=== PATIENT | female | born 1945 | race Caucasian/White ===

== ENCOUNTER 2020-11-29 10:06 | Outpatient (REF) | payer MEDICARE, OTHER, SELFPAY ==
[2020-11-29 13:56] LABS: MANUAL DIFF FLAG NO
[2020-11-29 14:01] LABS: Basophils Percent Auto 0.6 % (0-2); Eosinophils Absolute Auto 0.1 X10*3/uL (0.0-0.4); Eosinophils Percent Auto 1.3 % (0-4); Hematocrit 41.9 % (37-47); Hemoglobin 13.8 g/dl (12.0-16.0); Imm Gran Abs Auto 0.03 X10*3/uL (0.00-0.03); Imm Gran Pct Auto 0.6 % (0.0-0.4); Lymphocytes Absolute Auto 1.6 X10*3/uL (1.2-4.9); Mean Corpuscular HGB Conc 32.9 g/dl (31.0-35.0); Mean Corpuscular Hemoglobin 28.9 pg (27.0-33.0); Mean Corpuscular Volume 87.8 fL (80-98); Mean Platelet Volume 11.1 fL (9.4-12.3); Monocytes Absolute Auto 0.4 X10*3/uL (0.1-1.2); Monocytes Percent Auto 7.8 % (2-11); Neutrophils Absolute Auto 3.3 X10*3/uL (2.0-8.3); Neutrophils Percent Auto 60.7 % (45-73); Platelet Count 300 X10*3/uL (160-400); Red Blood Count 4.77 X10*6/uL (4.20-5.50); Red Cell Distribution Width 12.3 % (11.0-16.0); White Blood Count 5.4 X10*3/uL (4.8-10.8)
[2020-11-29 14:51] LABS: Alanine Aminotransferase 11 U/L (0-31); Albumin Level 4.4 g/dL (3.5-5.0); Alkaline Phosphatase 67 U/L (39-117); Anion Gap 14 (12-20); Aspartate Amino Transferase 18 U/L (5-31); Bilirubin Total 0.5 mg/dL (0.0-1.0); Blood Urea Nitrogen 12 mg/dL (9-16); Carbon Dioxide 26 mmol/L (22-29); Chloride 106 mmol/L (96-108); Cholesterol 220 mg/dL; Estimated Glomerular Filt Rate > 60; Glucose Fasting 86 mg/dL (60-99); HDL Cholesterol 85 mg/dL; LDL Cholesterol Calculated 116 mg/dl; Potassium 4.4 mmol/L (3.3-5.1); Sodium 142 mmol/L (135-145); Total Protein 6.7 g/dL (6.5-8.0); Triglycerides 96 mg/dL
== END 2020-11-29 10:07 | disposition home or self-care (01) ==
LOC: HO.10HDL 10:06
PROVIDERS: Visit Provider Internal Medicine
DX: E78.00 Pure hypercholesterolemia, unspecified (principal); K21.9 Gastro-esophageal reflux disease without esophagitis; M19.90 Unspecified osteoarthritis, unspecified site
CPT/HCPCS: 36415; 80053; 80061; 85025

== ENCOUNTER 2021-02-01 08:18 | Outpatient (REF) | payer MEDICARE, OTHER, SELFPAY ==
--- NOTE | ~2021-02-01 | MM_ITS ---
EXAMINATION: MM SCREENING DIGITAL BREAST TOMOSYNTHESIS, BILATERAL CLINICAL INFORMATION: Screening. Asymptomatic. The lifetime risk of breast cancer based on the Tyrer-Cuzick Model is 4.0%. COMPARISON: Mammography: May 26, 2019 and studies dating back to October 31, 2011 TECHNIQUE: Digital breast tomosynthesis is performed in both the craniocaudal and mediolateral oblique views along with computer-aided detection (CAD). Synthesized 2D images are generated from the tomosynthesis. FINDINGS: There are scattered areas of fibroglandular density (ACR BI-RADS breast composition Category b). There are no significant masses, abnormal calcifications, or other abnormalities. MM/MM tomosynthesis screening BI IMPRESSION: There are no significant changes from prior study. ASSESSMENT: BI-RADS 1: Negative RECOMMENDATION: Routine annual mammography screening. This patient's information was entered into a reminder system with a target due date for their next mammogram.
== END 2021-02-01 08:19 | disposition home or self-care (01) ==
LOC: HO.MAMMO 08:18
PROVIDERS: PCP Internal Medicine; Visit Provider Internal Medicine
DX: Z12.31 Encounter for screening mammogram for malignant neoplasm of breast (principal)
CPT/HCPCS: 77063; 77067

== ENCOUNTER 2021-03-09 10:15 | Outpatient (REF) | payer MEDICARE, OTHER, SELFPAY ==
--- NOTE | ~2021-03-09 | XR_ITS ---
EXAMINATION: XR PELVIS CLINICAL INFORMATION: Right pelvic pain. Rule out lesion. COMPARISON: None TECHNIQUE: AP view of the pelvis. FINDINGS: There is normal symmetry of bilateral hip joints and SI joints. No visible fracture or dislocation bony erosive changes seen. There is no sclerosis. There is mild degenerative changes L5-S1, L4-L5 and L3-L4 disc levels with moderate spondylosis. There is mild right-sided pelvic tilt. The soft tissues are normal. XR/XR pelvis 1-2V IMPRESSION: Mild right-sided pelvic tilt. No visible fracture or dislocation. Degenerative disc changes with spondylosis lower lumbar spine.
[2021-03-09 11:27] LABS: MANUAL DIFF FLAG NO
[2021-03-09 11:39] LABS: Basophils Percent Auto 0.5 % (0-2); Eosinophils Absolute Auto 0.1 X10*3/uL (0.0-0.4); Eosinophils Percent Auto 1.9 % (0-4); Hematocrit 42.6 % (37-47); Hemoglobin 14.2 g/dl (12.0-16.0); Imm Gran Abs Auto 0.03 X10*3/uL (0.00-0.03); Imm Gran Pct Auto 0.5 % (0.0-0.4); Lymphocytes Absolute Auto 1.5 X10*3/uL (1.2-4.9); Lymphocytes Percent Auto 26.1 % (20-40); Mean Corpuscular HGB Conc 33.3 g/dl (31.0-35.0); Mean Corpuscular Hemoglobin 29.8 pg (27.0-33.0); Mean Corpuscular Volume 89.3 fL (80-98); Mean Platelet Volume 11.2 fL (9.4-12.3); Monocytes Absolute Auto 0.4 X10*3/uL (0.1-1.2); Monocytes Percent Auto 6.9 % (2-11); Neutrophils Absolute Auto 3.7 X10*3/uL (2.0-8.3); Neutrophils Percent Auto 64.1 % (45-73); Platelet Count 299 X10*3/uL (160-400); Red Blood Count 4.77 X10*6/uL (4.20-5.50); Red Cell Distribution Width 12.4 % (11.0-16.0); White Blood Count 5.8 X10*3/uL (4.8-10.8)
[2021-03-09 12:07] LABS: Alanine Aminotransferase 12 U/L (0-31); Albumin Level 4.3 g/dL (3.5-5.0); Alkaline Phosphatase 69 U/L (39-117); Anion Gap 12 (12-20); Aspartate Amino Transferase 23 U/L (5-31); Bilirubin Total 0.7 mg/dL (0.0-1.0); Blood Urea Nitrogen 16 mg/dL (9-16); C Reactive Protein 0.11 mg/dL (< or = 0.50); Calcium 9.8 mg/dL (8.4-10.2); Carbon Dioxide 26 mmol/L (22-29); Chloride 106 mmol/L (96-108); Estimated Glomerular Filt Rate > 60; Glucose Random 92 mg/dL (60-115); Potassium 4.4 mmol/L (3.3-5.1); Sodium 140 mmol/L (135-145); Total Protein 6.6 g/dL (6.5-8.0)
[2021-03-09 13:44] LABS: Glucose Urine UA NEG (NEG); Leukocyte Esterase Urine NEG (NEG); Nitrite Urine NEG (NEG); PH 7.5 (5.0-8.0); Urine Blood NEG (NEG); Urine Ketones NEG (NEG); Urine Protein NEG (NEG-TRACE)
[2021-03-09 13:54] LABS: Appearance Urine CLEAR; Color Urine YELLOW
== END 2021-03-09 10:16 | disposition home or self-care (01) ==
LOC: HO.LAB 10:15
PROVIDERS: PCP Internal Medicine; Visit Provider Internal Medicine
DX: R10.2 Pelvic and perineal pain (principal)
CPT/HCPCS: 36415; 72170; 80053; 81003; 82550; 85025; 86140

== ENCOUNTER 2022-01-15 08:03 | Outpatient (REF) | payer MEDICARE, OTHER, SELFPAY ==
--- NOTE | ~2022-01-15 | XR_ITS ---
EXAMINATION: XR CERVICAL SPINE CLINICAL INFORMATION: Neck pain. COMPARISON: None TECHNIQUE: 6 views of the cervical spine, inclusive of flexion and extension views, were obtained. FINDINGS: No abnormal prevertebral soft tissue swelling is seen. No acute cervical spine fracture is noted. There is marked narrowing of the C5-C6 and C6-C7 disc spaces with marginal spurring and sclerosis. There is spurring of the joints of Luschka seen to be causing some anterior neural foraminal encroachment at the C5-C6 level bilaterally. There is also noted to be some degenerative spurring about the left facets C2 through C4 and C6-C7 and on the right at C6-C7. XR/XR cervical spine min 6V IMPRESSION: Cervical spondylosis C5 through C7 as described.
[2022-01-15 08:20] LABS: MANUAL DIFF FLAG NO
[2022-01-15 08:47] LABS: Basophils Percent Auto 0.7 % (0-2); Eosinophils Absolute Auto 0.2 X10*3/uL (0.0-0.4); Eosinophils Percent Auto 2.8 % (0-4); Hematocrit 39.8 % (37.0-47.0); Hemoglobin 12.6 g/dl (12.0-16.0); Imm Gran Abs Auto 0.02 X10*3/uL (0.00-0.03); Imm Gran Pct Auto 0.3 % (0.0-0.4); Lymphocytes Absolute Auto 2.4 X10*3/uL (1.2-4.9); Lymphocytes Percent Auto 42.1 % (20-40); Mean Corpuscular HGB Conc 31.7 g/dl (31.0-35.0); Mean Corpuscular Hemoglobin 26.4 pg (27.0-33.0); Mean Corpuscular Volume 83.4 fL (80.0-98.0); Mean Platelet Volume 10.7 fL (9.4-12.3); Monocytes Absolute Auto 0.5 X10*3/uL (0.1-1.2); Monocytes Percent Auto 8.9 % (2-11); Neutrophils Absolute Auto 2.6 x10*3/uL (2.0-8.3); Neutrophils Percent Auto 45.2 % (45-73); Platelet Count 358 X10*3/uL (160-400); Red Blood Count 4.77 X10*6/uL (4.20-5.50); Red Cell Distribution Width 12.5 % (11.0-16.0); White Blood Count 5.8 X10*3/uL (4.8-10.8)
[2022-01-15 09:30] LABS: Alanine Aminotransferase 13 U/L (0-31); Albumin Level 4.2 g/dL (3.5-5.0); Alkaline Phosphatase 68 U/L (39-117); Anion Gap 11 (12-20); Aspartate Amino Transferase 25 U/L (5-31); Bilirubin Total 0.5 mg/dL (0.0-1.0); Blood Urea Nitrogen 14 mg/dL (9-16); Calcium 10.2 mg/dL (8.4-10.2); Carbon Dioxide 27 mmol/L (22-29); Chloride 108 mmol/L (96-108); Cholesterol 205 mg/dL; Estimated Glomerular Filt Rate > 60; Glucose Fasting 91 mg/dL (60-99); HDL Cholesterol 87 mg/dL; LDL Cholesterol Calculated 103 mg/dl; Potassium 4.9 mmol/L (3.3-5.1); Sodium 141 mmol/L (135-145); Total Protein 6.7 g/dL (6.5-8.0); Triglycerides 79 mg/dL
== END 2022-01-15 08:04 | disposition home or self-care (01) ==
LOC: HO.XRAY 08:03
PROVIDERS: PCP Internal Medicine; Visit Provider Internal Medicine
DX: E78.00 Pure hypercholesterolemia, unspecified (principal); K21.9 Gastro-esophageal reflux disease without esophagitis; M54.2 Cervicalgia
CPT/HCPCS: 36415; 72052; 80053; 80061; 85025

== ENCOUNTER 2022-01-24 07:24 | Outpatient (REF) | payer MEDICARE, OTHER, SELFPAY ==
--- NOTE | ~2022-01-24 | MR_ITS ---
EXAMINATION: MR CERVICAL SPINE WITHOUT CONTRAST CLINICAL INFORMATION: 76-year-old with complaints of neck pain. DDD and spondylosis on x-rays. COMPARISON: 01/15/2022 x-rays. TECHNIQUE: MRI of the cervical spine was obtained using routine sequences without contrast. FINDINGS: Alignment: 2 mm of anterolisthesis at C4-C5. 1.5 to 2 mm of anterolisthesis at C7-T1. Lordotic loss between C4-C5 and C6-C7. Craniocervical Junction/C1-C2 Articulations: Intact and aligned. Visualized Intracranial Structures: 2.5 to 3.0 mm of benign cerebellar tonsillar ectopia at the foramen magnum on the right, which is an anatomic variant. Otherwise within normal limits. Vertebral Bodies: Normal height. Disc Spaces and Endplates: Severe disc space height loss at C5-C6 and C6-C7, similar to previous x-rays, with tiny Schmorl's nodes and disc desiccation at these levels and mild anterior marginal spondylosis. Mild disc space height loss at C3-C4 and C4-C5 with minor spondylosis and disc desiccation. Bone Marrow: Minimal type I degenerative marrow signal changes along the endplates at C5-C6 and C6-C7 with type II marrow signal changes at C6-C7 and C4-C5. No suspicious marrow replacing process or aggressive bone marrow edema. C2-C3: No disc herniation. Mild facet arthropathy bilaterally without significant canal or neural foraminal stenosis. C3-C4: No disc herniation. Moderate left and mild right facet arthropathy with minor uncovertebral spurring and mild bilateral neural foraminal stenosis without canal stenosis. C4-C5: Slight unroofing of the posterior disc margin consistent with anterolisthesis, with posterolateral disc osteophyte complex asymmetric to the left, uncovertebral spurring, ynnvjuiv-xb-duxzqj left and rysv-qw-ezrplqyb right-sided facet arthropathy without significant spinal canal stenosis. There is ydxovdae-qi-hncrdc left-sided and moderate right-sided neural foraminal stenosis. C5-C6: Broad-based disc osteophyte complex noted, with flattening of the ventral dural sac without cord impingement, with mild ligament of flavum thickening noted and borderline central spinal canal stenosis. Uncovertebral spurring noted left more than right with lsqv-nd-xyedfwdg facet arthropathy, with lfxkqumb-uk-wxiwgl left-sided and mild right-sided neural foraminal stenosis. C6-C7: Broad-based disc osteophyte complex noted, with flattening of the ventral dural sac without cord impingement. Fniv-uq-fcdmxqfm central spinal canal stenosis is noted with ligamentum flavum thickening. Uncovertebral spurring noted bilaterally with mild bilateral facet arthrosis. There is mild right and moderate left-sided neural foraminal stenosis. C7-T1: Slight unroofing of the posterior disc margin noted consistent with mild anterolisthesis asymmetric to the left with ligamentum flavum thickening without significant spinal canal stenosis. There is bhqejopd-lb-mubcpg left-sided and mild right-sided facet arthropathy, qkcn-dt-rhdbupmg neural foraminal stenosis bilaterally. T1-T2: Minimal left paramedian disc protrusion and mild right-sided facet arthropathy without significant canal or neural foraminal stenosis. At T2-T3: Small right lateral disc protrusion noted encroaching on the right lateral dural sac without neural impingement or canal stenosis. Spinal Cord: The cervical and visualized upper thoracic spinal cord is normal in morphology, caliber and signal intensity throughout. Extracranial Soft Tissues: Within normal limits. MR/MR cervical spine wo con IMPRESSION: 1. Mild anterolisthesis at C4-C5 and C7-T1 similar to previous x-rays with multilevel DDD and spondylosis also similar to previous x-rays. 2. Posterior disc osteophyte complexes at C5-C6 and C6-C7 without cord impingement and posterolateral disc osteophyte complex, left more than right at C4-C5 with multilevel ligamentum flavum thickening, with toor-wv-sngskcrc central spinal canal stenosis at C6-C7 and bnrmadlira-aq-gzew spinal canal stenosis at C5-C6. 3. Multilevel DJD as described above, with multilevel bilateral neural foraminal stenosis, most apparent on the left at C4-C5 and C5-C6.
== END 2022-01-24 07:25 | disposition home or self-care (01) ==
LOC: HO.MRI 07:24
PROVIDERS: Visit Provider Internal Medicine
DX: M51.34 Other intervertebral disc degeneration, thoracic region (principal); M54.2 Cervicalgia
CPT/HCPCS: 72141

== ENCOUNTER 2022-02-02 08:59 | Outpatient (REF) | payer MEDICARE, OTHER, SELFPAY ==
--- NOTE | ~2022-02-02 | MM_ITS ---
EXAMINATION: MM SCREENING DIGITAL BREAST TOMOSYNTHESIS, BILATERAL CLINICAL INFORMATION: Screening. Asymptomatic. The lifetime risk of breast cancer based on the Tyrer-Cuzick Model is 3%. COMPARISON: Mammography: 02/01/2021, 05/26/2019, 05/05/2018 TECHNIQUE: Digital breast tomosynthesis is performed in both the craniocaudal and mediolateral oblique views along with computer-aided detection (CAD). Synthesized 2D images are generated from the tomosynthesis. FINDINGS: There are scattered areas of fibroglandular density (ACR BI-RADS breast composition Category b). There are no significant masses, abnormal calcifications, or other abnormalities. Parenchymal pattern is similar to prior studies. No developing density. The axilla and skin contours are unremarkable. MM/MM tomosynthesis screening BI IMPRESSION: No mammographic evidence of malignancy. ASSESSMENT: BI-RADS 1: Negative RECOMMENDATION: Routine annual mammography screening. This patient's information was entered into a reminder system with a target due date for their next mammogram.
== END 2022-02-02 09:00 | disposition home or self-care (01) ==
LOC: HO.MAMMO 08:59
PROVIDERS: PCP Internal Medicine; Visit Provider Internal Medicine
DX: Z12.31 Encounter for screening mammogram for malignant neoplasm of breast (principal)
CPT/HCPCS: 77063; 77067

== ENCOUNTER 2022-03-14 10:00 | Outpatient (RCR) | payer MEDICARE, OTHER, SELFPAY ==
--- NOTE | 2022-02-26 14:53 | MHC.PT.EP ---
[facility] [place] Office [place] Office [place] Office [address] [phone] F: [phone] F: [phone] F: [phone] F: [phone] Physical Therapy Plan of Care Date of Evaluation: Date of Surgery: NA Diagnosis: neck pain, ddd Assessment: Mary Beth is a 76 yo F referred to PT for neck pain, ddd. She reports of having pain in her neck at C5-6 region about 2 weeks back. She however currently reports no pain over the past few weeks and has been able to perform her normal everyday activities. Her impairments include limited cervical rotation and lateral flexion ROM along with decreases scapular and deep neck flexor strength and a postural tilt to the left. Mary Beth will benefit from PT to strengthen her scapular muscles and neck flexors, increased her cervical range, and correct her postural asymmetry. Frequency and Duration: The patient will be seen 2/week for 3 weeks Short Term Goals: Patient will demonstrate understanding of HEP in 1 week. Penitentiary Goals: Pt will be able demonstrate good body mechanics with lifting and carrying heavy weights and other gardening activities in 2 weeks. Patient will be I with HEP to establish nursing home pain management strategies and maintain functional capabilities in 3 week. Treatment Plan: Modalities to reduce pain, spasms and effusion. Manual therapy to restore motion and function. Therapeutic exercise to improve strength and flexibility. Neuromuscular re-education for posture and balance. Therapeutic activities to return to functional activities of daily living. Electronically signed by: Maria R Preciado PT DPT Please sign and return to therapist. Thank you for your referral.
--- NOTE | 2022-03-14 14:35 | MHC.PT.DC ---
[facility] [place] Office [place] Office [place] Office [address]hael Georges [address] [phone] F: [phone] F: [phone] F: [phone] F: [phone] Physical Therapy Discharge Report Diagnosis: neck pain, ddd Date of Surgery: NA Date of Evaluation: 02/26/22 Date of Discharge: 03/14/22 Treatments to Date: 6 Cancellations to Date: 0 No Shows to Date: Discharge Status: Achieved Goals Improved Function Independent with HEP Discharge Summary: Mary Beth has met all goals set for her. She has improved and is independent with all ADLS. Electronically signed by: Maria R Preciado PT DPT Please sign and return to therapist. Thank you for your referral.
== END 2022-03-14 14:36 | disposition home or self-care (01) ==
LOC: HO.PT 10:00
PROVIDERS: PCP Internal Medicine; Visit Provider Internal Medicine
DX: M54.2 Cervicalgia (principal)
CPT/HCPCS: 97110; 97112; 97161

== ENCOUNTER 2022-06-27 14:01 | Outpatient (REF) | payer MEDICARE, OTHER, SELFPAY ==
[2022-06-27 14:35] LABS: Basophils Percent Auto 0.3 % (0-2); Eosinophils Percent Auto 0.2 % (0-4); Hematocrit 39.7 % (37.0-47.0); Imm Gran Abs Auto 0.06 X10*3/uL (0.00-0.03); Imm Gran Pct Auto 0.4 % (0.0-0.4); Lymphocytes Absolute Auto 1.5 X10*3/uL (1.2-4.9); Lymphocytes Percent Auto 9.5 % (20-40); MANUAL DIFF FLAG SCAN; Mean Corpuscular HGB Conc 32.7 g/dl (31.0-35.0); Mean Corpuscular Volume 82.5 fL (80.0-98.0); Mean Platelet Volume 10.2 fL (9.4-12.3); Monocytes Absolute Auto 1.6 X10*3/uL (0.1-1.2); Monocytes Percent Auto 10.8 % (2-11); Neutrophils Percent Auto 78.8 % (45-73); Platelet Count 253 X10*3/uL (160-400); Red Blood Count 4.81 X10*6/uL (4.20-5.50); Red Cell Distribution Width 14.5 % (11.0-16.0); SCAN SMEAR FLAG 1; White Blood Count 15.2 X10*3/uL (4.8-10.8)
[2022-06-27 15:00] LABS: Alanine Aminotransferase 9 U/L (0-31); Albumin Level 4.1 g/dL (3.5-5.0); Alkaline Phosphatase 78 U/L (39-117); Anion Gap 17 (12-20); Aspartate Amino Transferase 14 U/L (5-31); Bilirubin Total 1.1 mg/dL (0.0-1.0); Blood Urea Nitrogen 15 mg/dL (9-16); C Reactive Protein 10.52 mg/dL (< or = 0.50); Calcium 9.4 mg/dL (8.4-10.2); Carbon Dioxide 22 mmol/L (22-29); Chloride 104 mmol/L (96-108); Estimated Glomerular Filt Rate 52; Glucose Random 90 mg/dL (60-115); Sodium 139 mmol/L (135-145); Total Protein 6.6 g/dL (6.5-8.0)
[2022-06-27 15:02] LABS: SLIDE REVIEW VERIFIED
[2022-06-27 15:21] LABS: Erythrocyte Sedimentation Rate 51 MM/HR (0-20)
== END 2022-06-27 14:02 | disposition home or self-care (01) ==
LOC: HO.LAB 14:01
PROVIDERS: PCP Internal Medicine; Visit Provider Internal Medicine
DX: K21.9 Gastro-esophageal reflux disease without esophagitis (principal); M19.90 Unspecified osteoarthritis, unspecified site
CPT/HCPCS: 36415; 80053; 82550; 85025; 85652; 86140

== ENCOUNTER 2022-07-12 14:17 | Outpatient (REF) | payer MEDICARE, OTHER, SELFPAY ==
[2022-07-12 15:39] LABS: Appearance Urine Clear; Color Urine Yellow; Glucose Urine UA Negative (Negative); Leukocyte Esterase Urine Small (1+) (Negative); Nitrite Urine Negative (Negative); UMIC TRIGGER UACC YES; Urine Blood Negative (Negative); Urine Ketones Negative (Negative); Urine Protein Negative (Neg-Trace)
[2022-07-12 15:45] LABS: Bacteria Urine None Seen (None Seen); Hyaline Casts Urine 0-2 /LPF (0-2); RBC Urine 0-2 /HPF (0-2); Squamous Epithelial Cell Urine 0-2 /HPF (0-2); UACC Culture Trigger YES
== END 2022-07-12 14:18 | disposition home or self-care (01) ==
LOC: HO.LAB 14:17
PROVIDERS: PCP Internal Medicine; Visit Provider Internal Medicine
DX: R30.0 Dysuria (principal)
CPT/HCPCS: 81001; 87086

== ENCOUNTER 2022-09-20 10:55 | Outpatient (REF) | payer MEDICARE, OTHER, SELFPAY ==
--- NOTE | ~2022-09-20 | XR_ITS ---
EXAMINATION: XR HIP, RIGHT CLINICAL INFORMATION: Pain. COMPARISON: Radiographs dated 03/09/2021. TECHNIQUE: AP and frog-leg lateral views of the right hip. FINDINGS: Bony alignment and mineralization are normal. The right acetabular joint space is well-maintained. There is mild subchondral sclerosis of the right acetabular roof. There is minimal peripheral osteophyte formation of the articular surfaces of the right hip. The right femoral head appears smooth. No fracture or dislocation is seen. There is no foreign body. XR/XR hip RT min 2V IMPRESSION: Very mild osteoarthritic change is seen of the right hip. There is no fracture or dislocation.
== END 2022-09-20 10:56 | disposition home or self-care (01) ==
LOC: HO.XRAY 10:55
PROVIDERS: PCP Internal Medicine; Visit Provider Internal Medicine
DX: M25.551 Pain in right hip (principal)
CPT/HCPCS: 73502

== ENCOUNTER → 2022-11-14 09:11 | Outpatient (BNVA) | payer MEDICARE, OTHER, SELFPAY | PROVIDERS: PCP Internal Medicine; Visit Provider Advanced Practice Midwife | DX: Z13.89 Encounter for screening for other disorder (principal) ==

== ENCOUNTER 2022-12-16 15:37 | Outpatient (REF) | payer MEDICARE, OTHER, SELFPAY ==
--- NOTE | ~2022-12-16 | XR_ITS ---
EXAMINATION: XR SHOULDER, LEFT CLINICAL INFORMATION: Left shoulder pain COMPARISON: 04/27/2013 TECHNIQUE: AP external rotation, Grashey, scapular Y, and axillary views of the left shoulder. FINDINGS: No acute fracture or dislocation. Narrowing of the glenohumeral joint with osteophytosis. Moderate degenerative changes of the acromioclavicular joint. XR/XR shoulder LT min 2V IMPRESSION: Kdnn-de-qlenklsn osteoarthritis of the left shoulder.
== END 2022-12-16 15:38 | disposition home or self-care (01) ==
LOC: HO.XRAY 15:37
PROVIDERS: PCP Internal Medicine; Visit Provider Internal Medicine
DX: M25.512 Pain in left shoulder (principal)
CPT/HCPCS: 73030

== ENCOUNTER 2022-12-31 16:50 | Outpatient (REF) | payer MEDICARE, OTHER, SELFPAY ==
[2022-12-31 17:08] LABS: MANUAL DIFF FLAG NO
[2022-12-31 17:25] LABS: Basophils Percent Auto 0.3 % (0-2); Eosinophils Absolute Auto 0.1 X10*3/uL (0.0-0.4); Eosinophils Percent Auto 1.3 % (0-4); Hematocrit 39.6 % (37.0-47.0); Hemoglobin 12.8 g/dl (12.0-16.0); Imm Gran Abs Auto 0.07 X10*3/uL (0.00-0.03); Imm Gran Pct Auto 0.8 % (0.0-0.4); Lymphocytes Absolute Auto 2.3 X10*3/uL (1.2-4.9); Lymphocytes Percent Auto 24.6 % (20-40); Mean Corpuscular HGB Conc 32.3 g/dl (31.0-35.0); Mean Corpuscular Hemoglobin 27.8 pg (27.0-33.0); Mean Corpuscular Volume 86.1 fL (80.0-98.0); Mean Platelet Volume 10.3 fL (9.4-12.3); Monocytes Absolute Auto 0.9 X10*3/uL (0.1-1.2); Monocytes Percent Auto 9.4 % (2-11); Neutrophils Absolute Auto 5.9 x10*3/uL (2.0-8.3); Neutrophils Percent Auto 63.6 % (45-73); Platelet Count 308 X10*3/uL (160-400); Red Cell Distribution Width 14.6 % (11.0-16.0); White Blood Count 9.3 X10*3/uL (4.8-10.8)
[2022-12-31 17:50] LABS: Alanine Aminotransferase 14 U/L (0-31); Albumin Level 4.1 g/dL (3.5-5.0); Alkaline Phosphatase 64 U/L (39-117); Anion Gap 12 (12-20); Aspartate Amino Transferase 17 U/L (5-31); Bilirubin Total 0.4 mg/dL (0.0-1.0); Blood Urea Nitrogen 21 mg/dL (9-16); C Reactive Protein 0.55 mg/dL (< or = 0.50); Carbon Dioxide 27 mmol/L (22-29); Chloride 105 mmol/L (96-108); Estimated Glomerular Filt Rate 59; Glucose Random 78 mg/dL (60-115); Potassium 4.3 mmol/L (3.3-5.1); Sodium 140 mmol/L (135-145); Total Protein 6.3 g/dL (6.5-8.0)
[2022-12-31 19:57] LABS: Erythrocyte Sedimentation Rate 12 MM/HR (0-20)
== END 2022-12-31 16:51 | disposition home or self-care (01) ==
LOC: HO.LAB 16:50
PROVIDERS: PCP Internal Medicine; Visit Provider Internal Medicine
DX: M35.3 Polymyalgia rheumatica (principal)
CPT/HCPCS: 36415; 80053; 82550; 85025; 85652; 86140

== ENCOUNTER 2023-01-08 08:20 | Outpatient (REF) | payer MEDICARE, OTHER, SELFPAY ==
[2023-01-08 10:51] LABS: Cholesterol 201 mg/dL; HDL Cholesterol 70 mg/dL; LDL Cholesterol Calculated 108 mg/dl; Triglycerides 116 mg/dL
== END 2023-01-08 08:21 | disposition home or self-care (01) ==
LOC: HO.10HDL 08:20
PROVIDERS: Visit Provider Internal Medicine
DX: E78.00 Pure hypercholesterolemia, unspecified (principal); K21.9 Gastro-esophageal reflux disease without esophagitis
CPT/HCPCS: 36415; 80061

== ENCOUNTER 2023-07-12 08:27 | Outpatient (REF) | payer MEDICARE, OTHER, SELFPAY ==
[2023-07-12 09:51] LABS: Alanine Aminotransferase 14 U/L (0-31); Albumin Level 4.3 g/dL (3.5-5.0); Alkaline Phosphatase 49 U/L (39-117); Anion Gap 14 (12-20); Aspartate Amino Transferase 17 U/L (5-31); Bilirubin Total 0.8 mg/dL (0.0-1.0); Blood Urea Nitrogen 13 mg/dL (9-16); C Reactive Protein 0.38 mg/dL (< or = 0.50); Calcium 10.2 mg/dL (8.4-10.2); Carbon Dioxide 25 mmol/L (22-29); Chloride 106 mmol/L (96-108); Estimated Glomerular Filt Rate > 60; Glucose Random 80 mg/dL (60-115); Potassium 3.4 mmol/L (3.3-5.1); Sodium 142 mmol/L (135-145); Total Protein 6.6 g/dL (6.5-8.0)
[2023-07-12 10:07] LABS: Erythrocyte Sedimentation Rate 9 MM/HR (0-20)
== END 2023-07-12 08:28 | disposition home or self-care (01) ==
LOC: HO.LAB 08:27
PROVIDERS: PCP Internal Medicine; Visit Provider Internal Medicine
DX: Z87.39 Personal history of other diseases of the musculoskeletal system and connective tissue (principal)
CPT/HCPCS: 36415; 80053; 85652; 86140

== ENCOUNTER 2023-07-29 15:42 | Outpatient (REF) | payer MEDICARE, OTHER, SELFPAY ==
[2023-07-29 17:04] LABS: Appearance Urine Clear; Color Urine Yellow; Glucose Urine UA Negative (Negative); Leukocyte Esterase Urine Trace (Negative); Nitrite Urine Negative (Negative); Specific Gravity - Urine <= 1.005 (1.005-1.025); UMIC TRIGGER UACC YES; Urine Blood Small (1+) (Negative); Urine Ketones Negative (Negative); Urine Protein Negative (Neg-Trace)
[2023-07-29 17:19] LABS: Bacteria Urine None Seen (None Seen); Hyaline Casts Urine 0-2 /LPF (0-2); WBC Urine 0-5 /HPF (0-5)
== END 2023-07-29 15:43 | disposition home or self-care (01) ==
LOC: HO.LAB 15:42
PROVIDERS: PCP Internal Medicine; Visit Provider Internal Medicine
DX: R30.0 Dysuria (principal)
CPT/HCPCS: 81001; 81003; 87086; 87088; 87147; 87186

== ENCOUNTER 2023-08-11 09:26 | Outpatient (REF) | payer MEDICARE, OTHER, SELFPAY ==
[2023-08-11 10:59] LABS: Appearance Urine Clear; Color Urine Yellow; Glucose Urine UA Negative (Negative); Leukocyte Esterase Urine Negative (Negative); Nitrite Urine Negative (Negative); PH 7.5 (5.0-9.0); Urine Blood Negative (Negative); Urine Ketones Negative (Negative); Urine Protein Negative (Neg-Trace)
== END 2023-08-11 09:27 | disposition home or self-care (01) ==
LOC: HO.LAB 09:26
PROVIDERS: PCP Internal Medicine; Visit Provider Internal Medicine
DX: R30.0 Dysuria (principal)
CPT/HCPCS: 81003; 87086; 87088; 87186

== ENCOUNTER 2023-09-01 09:39 | Outpatient (REF) | payer MEDICARE, OTHER, SELFPAY ==
[2023-09-01 11:10] LABS: Appearance Urine Clear; Color Urine Yellow; Glucose Urine UA Negative (Negative); Leukocyte Esterase Urine Moderate (2+) (Negative); Nitrite Urine Negative (Negative); Specific Gravity - Urine <= 1.005 (1.005-1.025); UMIC TRIGGER UACC YES; Urine Blood Negative (Negative); Urine Ketones Negative (Negative); Urine Protein Negative (Neg-Trace)
[2023-09-01 11:23] LABS: Bacteria Urine Trace (None Seen); Hyaline Casts Urine 0-2 /LPF (0-2); RBC Urine 0-2 /HPF (0-2); Squamous Epithelial Cell Urine 0-2 /HPF (0-2); UACC Culture Trigger YES
== END 2023-09-01 09:40 | disposition home or self-care (01) ==
LOC: HO.LAB 09:39
PROVIDERS: PCP Internal Medicine; Visit Provider Internal Medicine
DX: R30.0 Dysuria (principal)
CPT/HCPCS: 81001; 87086; 87088; 87186

== ENCOUNTER 2023-09-24 09:33 | Outpatient (REF) | payer MEDICARE, OTHER, SELFPAY | END 2023-09-24 09:34 | disposition home or self-care (01) | LOC: HO.LAB 09:33 | PROVIDERS: PCP Internal Medicine; Visit Provider Internal Medicine | DX: R30.0 Dysuria (principal) | CPT/HCPCS: 81001; 87086; 87088; 87186 ==

== ENCOUNTER 2023-09-30 13:26 | Outpatient (REF) | payer MEDICARE, OTHER, SELFPAY ==
--- NOTE | ~2023-09-30 | US_ITS ---
EXAMINATION: US RETROPERITONEAL COMPLETE (RENAL) CLINICAL INFORMATION: Recurrent UTIs. COMPARISON: Renal ultrasound 12/08/2008 (report only) TECHNIQUE: Real-time imaging of the kidneys and bladder. FINDINGS: RIGHT KIDNEY: 10.3 x 5.0 x 4.4 cm (SAG x AP x TRV). The kidney is normal in size, contour, and echogenicity. Renal cortical thickness is normal. There is an echogenic 10 mm focus at the lower pole of the right kidney with twinkle artifact consistent with a nonobstructing calculus. No additional calculi or focal parenchymal lesions. No hydronephrosis. LEFT KIDNEY: 9.3 x 5.0 x 5.6 cm (SAG x AP x TRV). The kidney is normal in size, contour, and echogenicity. Renal cortical thickness is normal. There is a lower pole 12 mm and a mid renal 8 mm echogenic foci, both with twinkle artifact consistent with nonobstructing calculi. No additional calculi or focal parenchymal lesions. No hydronephrosis. BLADDER: Well distended and normal. Bilateral ureteral jets are demonstrated. Prevoid bladder volume is 236 mL. Postvoid bladder volume is 14 mL. US/US retroperitoneal comp IMPRESSION: Bilateral nonobstructing renal calculi. No calculi were described in the 2008 renal ultrasound
== END 2023-09-30 13:27 | disposition home or self-care (01) ==
LOC: HO.US 13:26
PROVIDERS: PCP Internal Medicine; Visit Provider Internal Medicine
DX: N39.0 Urinary tract infection, site not specified (principal)
CPT/HCPCS: 76770

== ENCOUNTER 2023-11-03 12:40 | Outpatient (AMB) | payer MEDICARE, OTHER, SELFPAY ==
--- NOTE | 2023-11-03 12:41 | MHC.OFFVIS ---
Intake Intake Visit Reasons: kidney stones Intake Note: New Patient presents for initial visit kidney stones Last Imagin09/30/23 Urology Medications: none Blood Thinner: none Patient stated her ultrasound revealed multiple kidney stones attached to her kidneys, Patient seems to be concerned and would like to discuss a treatment plan with the provider. Patient also stated her urine is dark at night and smells strong, she denies any pain or visible blood in the urine, and she also stated she can urinate without any difficulties. Disc Ruler Operator Required: No Accompanied by: Self / Same As Patient Allergies clindamycin Allergy (Unknown, Verified 11/03/23 13:23) Unknown Statins- Sensitivity Allergy (Unknown, Uncoded 11/03/23 13:23) Unknown Medication List - Last Reconciled 11/03/23 by EUSEBIO Loja-IFTIKHAR glucosamine sulfate (Glucosamine) 500 mg PO DAILY Lactobacillus rhamnosus GG (Probiotic Digestive Care) cells PO omeprazole 20 mg PO DAILY pravastatin 20 mg PO DAILY prednisone 10 mg PO BID HPI HPI Comments History of Present Illness Details Mary Beth Flores is a very pleasant 78 year old female patient of Dr. Mills. She has a past medical history of hyperlipidemia, GERD, and polymyalgia rheumatica. She presents to the office today as a new patient for nephrolithiasis. In discussion with the patient today she reports she was to undergo a right-sided knee replacement approximately 2 months ago however had reported dark-colored urine at night with foul-smelling urine at which time she was noted to have a urinary tract infection. She reports having had multiple rounds of antibiotic therapy for this issue in her PCP had ordered a a retroperitoneal ultrasound that noted nephrolithiasis therefore urology referral was recommended. These results were reviewed with the patient today. Right kidney with a 10 mm focus at the lower pole of the right kidney. No lesions or hydronephrosis noted. Left kidney with lower pole 12 mm and mid pole renal 8 mm foci with no lesions or hydronephrosis noted. The bladder is normal and well distended. Pre void bladder volume is approximately 240 mL. Postvoid bladder volume is approximately 15 mL. Discussed at length potential causes of nephrolithiasis. In office urinalysis results reviewed with the patient today negative leukocytes negative nitrates. She currently denies any bothersome urinary issues or concerns. She does continue to report darker colored urine when experiencing episodes of nocturia. She otherwise denies urinary urgency, urinary frequency, incontinence, nocturia, hematuria, dysuria, changes to urinary stream, flank pain, fever, and or chills. She is happy with her current voiding parameters. She also reports noting urine to have a stronger odor to it in these episodes of nocturia. However, she reports during the day when she is drinking plenty of water daily as she normally does her urine appears clear. When asked she denies any previous history of nephrolithiasis and or surgical intervention for nephrolithiasis. In review of patient's chart it appears urine cultures from 08/14, 09/13, and 10/15 noted E coli. She reports having been treated with nitrofurantoin multiple times. Reassurance provided that in office urinalysis today with negative leukocytes and or nitrates. She otherwise offers no other issues or concerns at this time. [facility] Medical History High cholesterol GERD (gastroesophageal reflux disease) PMR (polymyalgia rheumatica) Surgical History H/O knee surgery Family History Maternal Aunt History of breast cancer Maternal Grandfather Colon cancer Sister Colon cancer Social History Alcohol intake: current Alcohol intake frequency: a few times a week Patient Tobacco Use Status: Former Tobacco user Review of Systems Const Reports no additional complaints Eyes Reports no additional complaints ENT Reports no additional complaints Card Reports as per HPI Resp Reports no additional complaints GI Reports as per HPI Reports as per HPI Musc Reports as per HPI Neuro Reports no additional complaints Psych Reports no additional complaints Endo Reports no additional complaints Nilesh/Lymph Reports no additional complaints Aller/Immun Reports no additional complaints Physical Exam Const General: cooperative, healthy appearing, comfortable, no acute distress, well developed, alert and awake Nutritional Appearance: average body habitus Orientation/consciousness: patient oriented x3 Limitations: no limitations HEENT Head: Yes normal to inspection, Yes normocephalic and Yes atraumatic Ears: hearing grossly normal bilaterally Eyes General: appearance normal, both eyes and all related structures Neck Neck: Yes normal visual inspection and Yes trachea midline Chest Chest palpation & inspection: normal inspection of the chest Resp Effort & Inspection: normal respiratory effort and able to speak in complete sentences Cardio Rate: regular rate GI Inspection: Yes normal to inspection General: Yes no CVA tenderness Back/Spine/Pelvis Back: no CVA tenderness Skin General skin exam: no rashes or lesions noted Neuro General: patient oriented x3 Extrem General: Yes normal to inspection Psych Appearance: grossly normal and well kempt Mental Status: mental status grossly normal Speech and movement: Normal speech and movement present and Clear speech present Affect: normal affect Attitude: cooperative Thought process: Normal thought process present Thought content: Normal thought content present Insight: Fair insight present (Psych) Judgement: Fair judgement present (Psych) Results AMB Urinalysis, Automated UA Leukoctes 0 Cha/uL Last Edit by Abbey Shook CMA on 11/03/23 13:07 UA Nitrite Negative Last Edit by Abbey Shook CMA on 11/03/23 13:07 UA Urobilinogen 0.2 mg/dL Last Edit by Abbey Shook CMA on 11/03/23 13:07 UA Protein 0 mg/dL Last Edit by Abbey Shook CMA on 11/03/23 13:07 UA pH 6.0 Last Edit by Abbey Shook CMA on 11/03/23 13:07 UA Blood 25 [place]/uL Last Edit by Abbey Shook CMA on 11/03/23 13:07 UA Specific [place] 1.015 Last Edit by Abbey Shook CMA on 11/03/23 13:07 UA Ketone Negative Last Edit by Abbey Shook CMA on 11/03/23 13:07 UA Bilirubin 0 mg/dL Last Edit by Abbey Shook CMA on 11/03/23 13:07 UA Glucose 0 mg/dL Last Edit by Abbey Shook CMA on 11/03/23 13:07 Results Reviewed Results Reviewed: Laboratory Last Values Urine pH (Auto) 6.0 11/03/23 12:42 Specific [place] (Auto) 1.015 11/03/23 12:42 Urine Protein (Auto) 0 mg/dL 11/03/23 12:42 Glucose (UA)(Auto) 0 mg/dL 11/03/23 12:42 Urine Ketones (Auto) Negative 11/03/23 12:42 Urine Blood (Auto) 25 [place]/uL 11/03/23 12:42 Urine Nitrite (Auto) Negative 11/03/23 12:42 Urine Bilirubin (Auto) 0 mg/dL 11/03/23 12:42 Urine Urobilinogen (Auto) 0.2 mg/dL 11/03/23 12:42 Leukocyte Esterase (Auto) 0 Cha/uL 11/03/23 12:42 Date of Service: 09/30/23 EXAMINATION: US RETROPERITONEAL COMPLETE (RENAL) FINDINGS: RIGHT KIDNEY: 10.3 x 5.0 x 4.4 cm (SAG x AP x TRV). The kidney is normal in size, contour, and echogenicity. Renal cortical thickness is normal. There is an echogenic 10 mm focus at the lower pole of the right kidney with twinkle artifact consistent with a nonobstructing calculus. No additional calculi or focal parenchymal lesions. No hydronephrosis. LEFT KIDNEY: 9.3 x 5.0 x 5.6 cm (SAG x AP x TRV). The kidney is normal in size, contour, and echogenicity. Renal cortical thickness is normal. There is a lower pole 12 mm and a mid renal 8 mm echogenic foci, both with twinkle artifact consistent with nonobstructing calculi. No additional calculi or focal parenchymal lesions. No hydronephrosis. BLADDER: Well distended and normal. Bilateral ureteral jets are demonstrated. Prevoid bladder volume is 236 mL. Postvoid bladder volume is 14 mL. IMPRESSION: Bilateral nonobstructing renal calculi. No calculi were described in the 2009 renal ultrasound Assessment & Plan Assessment & Plan (1) Recent urinary tract infection: Code(s): Z87.440 - Personal history of urinary (tract) infections (2) Nephrolithiasis: Code(s): N20.0 - Calculus of kidney Plan In office urinalysis results reviewed with the patient today; as noted above. Recent retroperitoneal ultrasound results reviewed with the patient today; as noted above. Discussed at length potential causes of nephrolithiasis. Discussed, educated, and stressed the importance of continuing to drink plenty of water daily. Discussed adding 1 oz of lemon juice to water daily. Discussed obtaining CT KUB for further assessment evaluation. Discussed at length further treatment options for nephrolithiasis to include ESWL versus surveillance monitoring verses ureteroscopy. She currently denies any bothersome urinary issues or concerns. She is happy with her current voiding parameters. Follow-up in 4-8 weeks with imaging to be completed prior; or sooner with any issues, concerns, and or questions. Orders: Orders AMB Urinalysis Automated Today R33.9 - Retention of urine, unspecified CT kidney stone Today N20.0 - Calculus of kidney, Z87.440 - Personal history of urinary (tract) infections Patient Instructions: The patient had an opportunity to ask questions regarding the treatment plan. All questions were answered. Physical exam, labs, and imaging were discussed and reviewed in detail. As well as risks, benefits, and discussion of treatment choices. No major barriers to understanding were identified. The patient expressed understanding and agreement with the above treatment plan. The patient was made aware they should contact our office by phone for worsening of their current condition, the appearance of new symptoms, or with any questions or concerns. Compliance is encouraged with any medications and follow up testing that is ordered. It is a privilege to be allowed the opportunity to participate in? your urological care.? Again, if you have any questions or concerns If you have any questions or concerns please do not hesitate to contact me. The office is [phone]. This note is constructed using voice recognition software. While every effort has been made to ensure accuracy remarketing rep errors may have been included. Yours sincerely, RAVINDER Loja Coding Level of Care Code New Pt Level 3 (87510) Diagnoses Recent urinary tract infection Z87.440 Nephrolithiasis N20.0
== END 2023-11-03 13:31 | disposition home or self-care (01) ==
PROVIDERS: PCP Internal Medicine; Visit Provider Nurse Practitioner Family
DX: Z87.440 Personal history of urinary (tract) infections (principal); N20.0 Calculus of kidney; R33.9 Retention of urine, unspecified
CPT/HCPCS: 99203

== ENCOUNTER → 2023-11-03 12:40 | Outpatient (BNVA) | payer MEDICARE, OTHER, SELFPAY | PROVIDERS: PCP Internal Medicine; Visit Provider Nurse Practitioner Family | DX: N20.0 Calculus of kidney (principal); Z87.440 Personal history of urinary (tract) infections | CPT/HCPCS: 81003; 99202 ==

== ENCOUNTER 2023-11-24 07:39 | Outpatient (REF) | payer MEDICARE, OTHER, SELFPAY ==
--- NOTE | ~2023-11-24 | CT_ITS ---
EXAMINATION: CT ABDOMEN, AND PELVIS WITHOUT CONTRAST CLINICAL INFORMATION: Renal calculus. COMPARISON: None TECHNIQUE: Multidetector volumetric CT imaging of the abdomen, and pelvis was obtained without oral and intravenous contrast. Axial MIP volume rendering provided. Sagittal and coronal reformatted images were obtained. This CT examination was performed using dose optimization techniques as appropriate, variously including the following: *Automated exposure control *Adjustment of mA and/or kV according to patient size (this includes techniques or standardized protocols for targeted exams where dose is matched to indication/reason for exam; i.e. extremities or head) *Use of iterative reconstruction technique DLP: 283 mGy-cm FINDINGS: LUNG BASES: Mild bibasilar chronic interstitial fibrotic changes with a peripheral predominance. Heart normal in size. No pleural or pericardial effusion. LIVER, GALLBLADDER, AND BILIARY TREE: The liver appears unremarkable in size, shape, and attenuation. No focal hepatic lesion or biliary ductal dilatation is appreciated. Unremarkable appearance of the gallbladder. PANCREAS: Unremarkable SPLEEN: Calcified splenic granulomata. ADRENAL GLANDS: Unremarkable KIDNEYS AND URETERS: The kidneys appear unremarkable in size, shape, and attenuation. 3 mm nonobstructing right lower pole collecting system stone. No left renal stone identified. No evidence of hydronephrosis or hydroureter on either side. BLADDER: Unremarkable GASTROINTESTINAL TRACT: Moderate hiatus hernia. Grossly unremarkable appearance of the small bowel on this noncontrast study. Diverticulosis predominantly involving the sigmoid and descending colon, without evidence of diverticulitis. Normal-appearing distal ileum and vermiform appendix. ABDOMINAL WALL: No significant hernia is appreciated. LYMPH NODES: No evidence of adenopathy by size criteria. VASCULAR: Unremarkable PELVIC VISCERA: Status post hysterectomy. OSSEOUS STRUCTURES: Decreased bone mineral density. Degenerative changes of the spine with lumbar dextrocurvature. 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 CT/CT kidney stone IMPRESSION: No acute finding. 3 mm nonobstructing right lower pole renal collecting system stone.
== END 2023-11-24 07:40 | disposition home or self-care (01) ==
LOC: HO.CT 07:39
PROVIDERS: PCP Internal Medicine; Visit Provider Nurse Practitioner Family
DX: N20.0 Calculus of kidney (principal); Z87.440 Personal history of urinary (tract) infections
CPT/HCPCS: 74176

== ENCOUNTER 2023-11-26 09:17 | Outpatient (REF) | payer MEDICARE, SELFPAY ==
[2023-11-26 10:51] LABS: Appearance Urine Cloudy; Color Urine Yellow; Glucose Urine UA Negative (Negative); Leukocyte Esterase Urine Moderate (2+) (Negative); Nitrite Urine Negative (Negative); Specific Gravity - Urine 1.015 (1.005-1.025); UMIC TRIGGER UACC YES; Urine Blood Small (1+) (Negative); Urine Ketones Negative (Negative); Urine Protein Negative (Neg-Trace)
[2023-11-26 11:00] LABS: Bacteria Urine 4+ (None Seen); Hyaline Casts Urine 0-2 /LPF (0-2); UACC Culture Trigger YES; WBC Urine >50 /HPF (0-5)
== END 2023-11-26 09:18 | disposition home or self-care (01) ==
LOC: HO.LAB 09:17
PROVIDERS: Visit Provider Internal Medicine
DX: R30.0 Dysuria (principal)
CPT/HCPCS: 81001; 87086; 87088; 87186

== ENCOUNTER 2023-12-17 09:47 | Outpatient (AMB) | payer MEDICARE, SELFPAY ==
--- NOTE | 2023-12-17 09:50 | A.OFFVIS_ITS ---
Intake Intake Visit Reasons: 1m/CT(set) Intake Note: Patient presents for initial visit kidney stones Last Imagin/09/ Urology Medications: none Blood Thinner: none Marriage Performer Required: No Accompanied by: Self / Same As Patient Allergies clindamycin Allergy (Unknown, Verified 12/17/23 23:23) Unknown Statins- Sensitivity Allergy (Unknown, Uncoded 12/17/23 23:23) Unknown Medication List - Last Reconciled 12/17/23 by DELMAR LojaP- amlodipine 10 mg PO DAILY aspirin mg PO glucosamine sulfate (Glucosamine) 500 mg PO DAILY Lactobacillus rhamnosus GG (Probiotic Digestive Care) cells PO omeprazole 20 mg PO DAILY pravastatin 20 mg PO DAILY HPI HPI Comments History of Present Illness Details Mary Beth Flores is a very pleasant 78 year old female patient of Dr. Mills. She has a past medical history of hyperlipidemia, GERD, and polymyalgia rheumatica. She presents to the office today for follow-up. Of note, patient was seen approximately 6 weeks ago as a new patient for nephrolithiasis at which time a CT KUB was ordered for further assessment evaluation. These results reviewed with the patient today. The kidneys appear unremarkable in size, shape, and attenuation. 3 mm nonobstructing right lower pole collecting system stone. No left renal stone identified. No evidence of hydronephrosis or hydroureter on either side. The bladder is unremarkable. In discussion with the patient today she reports having had a recent knee replacement and has been recovering well. In review of patient's chart it appears patient with recurrent urinary tract infections over the last 4 months. Urine cultures positive with E coli. In office urinalysis results reviewed with the patient today. 3+ leukocytes negative nitrates. Discussed at length potential causes of recurrent urinary tract infections. When asked she does report noting intermittent foul-smelling urine, dysuria, and darker colored urine. She otherwise denies urinary urgency, urinary frequency, incontinence, nocturia, hematuria, dysuria, changes to urinary stream, flank pain, fever, and or chills. She is happy with her current voiding parameters. She otherwise offers no other issues or concerns at this time. [facility] Medical History High cholesterol GERD (gastroesophageal reflux disease) PMR (polymyalgia rheumatica) Surgical History H/O knee surgery Family History Maternal Aunt History of breast cancer Maternal Grandfather Colon cancer Sister Colon cancer Social History Alcohol intake: current Alcohol intake frequency: a few times a week Patient Tobacco Use Status: Former Tobacco user Review of Systems Const Reports no additional complaints Eyes Reports no additional complaints ENT Reports no additional complaints Card Reports as per HPI Resp Reports no additional complaints GI Reports as per HPI Reports as per HPI Musc Reports as per HPI Neuro Reports no additional complaints Psych Reports no additional complaints Endo Reports no additional complaints Nilesh/Lymph Reports no additional complaints Aller/Immun Reports no additional complaints Physical Exam Const General: cooperative, healthy appearing, comfortable, no acute distress, well developed, alert and awake Nutritional Appearance: average body habitus Orientation/consciousness: patient oriented x3 Limitations: ambulation with walker (recent knee replacement ) HEENT Head: Yes normal to inspection, Yes normocephalic and Yes atraumatic Ears: hearing grossly normal bilaterally Eyes General: appearance normal, both eyes and all related structures Neck Neck: Yes normal visual inspection and Yes trachea midline Chest Chest palpation & inspection: normal inspection of the chest Resp Effort & Inspection: normal respiratory effort and able to speak in complete sentences Cardio Rate: regular rate GI Inspection: Yes normal to inspection General: Yes no CVA tenderness Back/Spine/Pelvis Back: no CVA tenderness Skin General skin exam: no rashes or lesions noted Neuro General: patient oriented x3 Extrem General: Yes normal to inspection Psych Appearance: grossly normal and well kempt Mental Status: mental status grossly normal Speech and movement: Normal speech and movement present and Clear speech present Affect: normal affect Attitude: cooperative Thought process: Normal thought process present Thought content: Normal thought content present Insight: Fair insight present (Psych) Judgement: Fair judgement present (Psych) Results AMB Urinalysis, Automated UA Leukoctes 500 Cha/uL Last Edit by Asia Josue on 12/17/23 10:09 UA Nitrite Negative Last Edit by Asia Josue on 12/17/23 10:09 UA Urobilinogen 0.2 mg/dL Last Edit by Asia Josue on 12/17/23 10:09 UA Protein 30 mg/dL Last Edit by Asia Josue on 12/17/23 10:09 UA pH 6.0 Last Edit by Asia Josue on 12/17/23 10:09 UA Blood 200 [place]/uL Last Edit by Asia Josue on 12/17/23 10:09 UA Specific [place] 1.015 Last Edit by Asia Josue on 12/17/23 10:09 UA Ketone Negative Last Edit by Asia Josue on 12/17/23 10:09 UA Bilirubin 0 mg/dL Last Edit by Asia Josue on 12/17/23 10:09 UA Glucose 0 mg/dL Last Edit by Asia Josue on 12/17/23 10:09 Results Reviewed Results Reviewed: Laboratory Last Values Urine pH (Auto) 6.0 12/17/23 09:59 Specific [place] (Auto) 1.015 12/17/23 09:59 Urine Protein (Auto) 30 mg/dL 12/17/23 09:59 Glucose (UA)(Auto) 0 mg/dL 12/17/23 09:59 Urine Ketones (Auto) Negative 12/17/23 09:59 Urine Blood (Auto) 200 [place]/uL 12/17/23 09:59 Urine Nitrite (Auto) Negative 12/17/23 09:59 Urine Bilirubin (Auto) 0 mg/dL 12/17/23 09:59 Urine Urobilinogen (Auto) 0.2 mg/dL 12/17/23 09:59 Leukocyte Esterase (Auto) 500 Cha/uL 12/17/23 09:59 Date of Service: EXAMINATION: CT ABDOMEN, AND PELVIS WITHOUT CONTRAST FINDINGS: LUNG BASES: Mild bibasilar chronic interstitial fibrotic changes with a peripheral predominance. Heart normal in size. No pleural or pericardial effusion. LIVER, GALLBLADDER, AND BILIARY TREE: The liver appears unremarkable in size, shape, and attenuation. No focal hepatic lesion or biliary ductal dilatation is appreciated. Unremarkable appearance of the gallbladder. PANCREAS: Unremarkable SPLEEN: Calcified splenic granulomata. ADRENAL GLANDS: Unremarkable KIDNEYS AND URETERS: The kidneys appear unremarkable in size, shape, and attenuation. 3 mm nonobstructing right lower pole collecting system stone. No left renal stone identified. No evidence of hydronephrosis or hydroureter on either side. BLADDER: Unremarkable GASTROINTESTINAL TRACT: Moderate hiatus hernia. Grossly unremarkable appearance of the small bowel on this noncontrast study. Diverticulosis predominantly involving the sigmoid and descending colon, without evidence of diverticulitis. Normal-appearing distal ileum and vermiform appendix. ABDOMINAL WALL: No significant hernia is appreciated. LYMPH NODES: No evidence of adenopathy by size criteria. VASCULAR: Unremarkable PELVIC VISCERA: Status post hysterectomy. OSSEOUS STRUCTURES: Decreased bone mineral density. Degenerative changes of the spine with lumbar dextrocurvature. 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 IMPRESSION: No acute finding. 3 mm nonobstructing right lower pole renal collecting system stone. Assessment & Plan Assessment & Plan (1) Recent urinary tract infection: Code(s): Z87.440 - Personal history of urinary (tract) infections (2) Nephrolithiasis: Code(s): N20.0 - Calculus of kidney Plan In office urinalysis results reviewed with the patient today; as noted above; will send for urine culture; will await results for potential treatment. Recent CT KUB results reviewed with the patient today; as noted above. Discussed at length potential causes of nephrolithiasis as well as recurrent urinary tract infections. Discussed further workup metabolic workup with 24 hour urine collection and labs. Discussed trial of Estrace cream for prevention of recurrent urinary tract infections. Discussed UTI prevention with D mannose supplement, vitamin-C, increasing fluid intake, behavioral therapy with timed voiding, perineal hygiene and postcoital voiding, and management of constipation with stool softeners and increased fiber intake. Discussed possible near future microgen for further assessment and evaluation. Follow up in 3 months with PVR. Orders: Orders AMB Urinalysis Automated Today Z13.9 - Encounter for screening, unspecified Urine Culture Today Z87.440 - Personal history of urinary (tract) infections Patient Instructions: The patient had an opportunity to ask questions regarding the treatment plan. All questions were answered. Physical exam, labs, and imaging were discussed and reviewed in detail. As well as risks, benefits, and discussion of treatment choices. No major barriers to understanding were identified. The patient expressed understanding and agreement with the above treatment plan. The patient was made aware they should contact our office by phone for worsening of their current condition, the appearance of new symptoms, or with any questions or concerns. Compliance is encouraged with any medications and follow up testing that is ordered. It is a privilege to be allowed the opportunity to participate in? your urological care.? Again, if you have any questions or concerns If you have any questions or concerns please do not hesitate to contact me. The office is [phone]. This note is constructed using voice recognition software. While every effort has been made to ensure accuracy seed laboratory assistant errors may have been included. Yours sincerely, RAVINDER Loja Coding Level of Care Code Est Pt Level 4 (35498) Diagnoses Recent urinary tract infection Z87.440 Nephrolithiasis N20.0 Time Spent (min) 25
== END 2023-12-17 10:42 | disposition home or self-care (01) ==
LOC: HO.HUSH 09:47
PROVIDERS: PCP Internal Medicine; Visit Provider Nurse Practitioner Family
DX: Z87.440 Personal history of urinary (tract) infections (principal); N20.0 Calculus of kidney
CPT/HCPCS: 99214

== ENCOUNTER 2023-12-17 09:47 | Outpatient (REF) | payer MEDICARE, SELFPAY | END 2023-12-17 09:48 | disposition home or self-care (01) | LOC: HO.LNP 09:47 | PROVIDERS: PCP Internal Medicine; Visit Provider Nurse Practitioner Family | DX: Z87.440 Personal history of urinary (tract) infections (principal); N20.0 Calculus of kidney | CPT/HCPCS: 81003; 87086; 87088; 87147; 87186; 99212 ==

== ENCOUNTER 2024-01-30 11:39 | Outpatient (REF) | payer MEDICARE, SELFPAY ==
[2024-01-30 11:55] LABS: MANUAL DIFF FLAG NO
[2024-01-30 11:59] LABS: Basophils Percent Auto 0.2 % (0-2); Eosinophils Absolute Auto 0.1 X10*3/uL (0.0-0.4); Eosinophils Percent Auto 0.5 % (0-4); Hematocrit 38.6 % (37.0-47.0); Hemoglobin 12.7 g/dl (12.0-16.0); Imm Gran Pct Auto 0.8 % (0.0-0.4); Lymphocytes Absolute Auto 2.1 X10*3/uL (1.2-4.9); Lymphocytes Percent Auto 16.1 % (20-40); Mean Corpuscular HGB Conc 32.9 g/dl (31.0-35.0); Mean Corpuscular Hemoglobin 30.4 pg (27.0-33.0); Mean Corpuscular Volume 92.3 fL (80.0-98.0); Monocytes Percent Auto 7.8 % (2-11); Neutrophils Absolute Auto 9.5 x10*3/uL (2.0-8.3); Neutrophils Percent Auto 74.6 % (45-73); Platelet Count 551 X10*3/uL (160-400); Red Blood Count 4.18 X10*6/uL (4.20-5.50); Red Cell Distribution Width 13.6 % (11.0-16.0); White Blood Count 12.8 X10*3/uL (4.8-10.8)
[2024-01-30 12:03] LABS: Appearance Urine Clear; Color Urine Yellow; Glucose Urine UA Negative (Negative); Leukocyte Esterase Urine Moderate (2+) (Negative); Nitrite Urine Negative (Negative); UMIC TRIGGER UACC YES; Urine Blood Negative (Negative); Urine Ketones Negative (Negative); Urine Protein Negative (Neg-Trace)
[2024-01-30 12:19] LABS: Bacteria Urine 2+ (None Seen); Hyaline Casts Urine 0-2 /LPF (0-2); RBC Urine 0-2 /HPF (0-2); UACC Culture Trigger YES; WBC Urine 21-50 /HPF (0-5)
[2024-01-30 12:47] LABS: Erythrocyte Sedimentation Rate 7 MM/HR (0-20)
[2024-01-30 13:00] LABS: Thyroid Stimulating Hormone 0.79 uIU/mL (0.32-4.0)
[2024-01-30 13:01] LABS: Vitamin B12 356 pg/mL (200-900)
[2024-01-30 13:08] LABS: Anion Gap 14 (12-20)
[2024-01-30 13:12] LABS: Alanine Aminotransferase 16 U/L (0-31); Albumin Level 4.2 g/dL (3.5-5.0); Alkaline Phosphatase 101 U/L (39-117); Aspartate Amino Transferase 20 U/L (5-31); Bilirubin Total 0.5 mg/dL (0.0-1.0); Blood Urea Nitrogen 14 mg/dL (9-16); C Reactive Protein < 0.10 mg/dL (< or = 0.50); Calcium 10.3 mg/dL (8.4-10.2); Carbon Dioxide 25 mmol/L (22-29); Chloride 104 mmol/L (96-108); Estimated Glomerular Filt Rate > 60; Glucose Random 77 mg/dL (60-115); Potassium 3.5 mmol/L (3.3-5.1); Sodium 139 mmol/L (135-145); Total Protein 6.8 g/dL (6.5-8.0)
== END 2024-01-30 11:40 | disposition home or self-care (01) ==
LOC: HO.10HDL 11:39
PROVIDERS: Visit Provider Internal Medicine
DX: R63.4 Abnormal weight loss (principal); R30.0 Dysuria; K21.9 Gastro-esophageal reflux disease without esophagitis; M79.10 Myalgia, unspecified site
CPT/HCPCS: 36415; 80053; 81001; 82607; 84443; 85025; 85652; 86140; 87086; 87088; 87186

== ENCOUNTER 2024-03-18 13:32 | Outpatient (AMB) | payer MEDICARE, SELFPAY ==
--- NOTE | 2024-03-18 13:34 | A.OFFVIS_ITS ---
Intake Visit Reasons: 3m/PVR Intake Note: Patient is present for recurrent uti Urology Medication: none Antibiotic Allergy: clindamycin Blood Thinner: aspirin PVR: 14ml's Hydraulic Press In Operator Required: No Allergies clindamycin Allergy (Unknown, Verified 03/18/24 20:32) Unknown Statins- Sensitivity Allergy (Unknown, Uncoded 03/18/24 20:32) Unknown Medication List - Last Reconciled 03/18/24 by EUSEBIO Loja- amlodipine 10 mg PO DAILY aspirin mg PO estradiol 0.01%(0.1mg/gram) daily times one month and then 3 times per week there after pea sized amount to urethra. 30 days glucosamine sulfate (Glucosamine) 500 mg PO DAILY Lactobacillus rhamnosus GG (Probiotic Digestive Care) cells PO omeprazole 20 mg PO DAILY pravastatin 20 mg PO DAILY sulfamethoxazole-trimethoprim 800-160 mg (Bactrim DS) 1 tab PO BID 10 days HPI Comments Details: Mary Beth Flores is a very pleasant 78 year old female patient of Dr. Mills. She has a past medical history of hyperlipidemia, GERD, and polymyalgia rheumatica. She presents to the office today for follow-up of her nephrolithiasis and recurrent urinary tract infections. In discussion with the patient today she reports since her last office visit here approximately 3 months ago she felt she had a urinary tract infection at which time she had called her PCP and has since completed antibiotic therapy. She reports having completed ten days of Macrobid as prescribed. In review of patient's chart it appears urine culture 02/12 noted E coli. Previous workup has included a CT urogram noting the kidneys appear unremarkable in size, shape, and attenuation. 3 mm nonobstructing right lower pole collecting system stone. No left renal stone identified. No evidence of hydronephrosis or hydroureter on either side. The bladder is unremarkable. In discussion with the patient today she reports having had a recent knee replacement and has been recovering well. She reports having followed up with her orthopedic provider and recommendations are being made for hip replacement as she has had significant changes on recent x-ray of her hip over the last 13 months. She currently reports UTI like symptoms. She reports feeling her urine is dark, cloudy and foul smelling. In office urinalysis results reviewed with the patient today. 1+ leukocytes positive nitrates. PVR 14 mL. She otherwise denies urinary urgency, urinary frequency, incontinence, nocturia, hematuria, dysuria, changes to urinary stream, flank pain, fever, and or chills. She is happy with her current voiding parameters. She otherwise offers no other issues or concerns at this time. [facility] Medical History High cholesterol GERD (gastroesophageal reflux disease) PMR (polymyalgia rheumatica) Surgical History H/O knee surgery Family History Maternal Aunt History of breast cancer Maternal Grandfather Colon cancer Sister Colon cancer Social History Alcohol intake: current Alcohol intake frequency: a few times a week Patient Tobacco Use Status: Former Tobacco user Review of Systems Const Reports no additional complaints Eyes Reports no additional complaints ENT Reports no additional complaints Card Reports as per HPI Resp Reports no additional complaints GI Reports as per HPI Reports as per HPI Musc Reports as per HPI Neuro Reports no additional complaints Psych Reports no additional complaints Endo Reports no additional complaints Nilesh/Lymph Reports no additional complaints Aller/Immun Reports no additional complaints Physical Exam Const General: cooperative, healthy appearing, comfortable, no acute distress, well developed, alert and awake Nutritional Appearance: average body habitus Orientation/consciousness: patient oriented x3 Limitations: ambulation with walker (recent knee replacement ) HEENT Head: Yes normal to inspection, Yes normocephalic and Yes atraumatic Ears: hearing grossly normal bilaterally Eyes General: appearance normal, both eyes and all related structures Neck Neck: Yes normal visual inspection and Yes trachea midline Chest Chest palpation & inspection: normal inspection of the chest Resp Effort & Inspection: normal respiratory effort and able to speak in complete sentences Cardio Rate: regular rate GI Inspection: Yes normal to inspection General: Yes no CVA tenderness Back/Spine/Pelvis Back: no CVA tenderness Skin General skin exam: no rashes or lesions noted Neuro General: patient oriented x3 Extrem General: Yes normal to inspection Psych Appearance: grossly normal and well kempt Mental Status: mental status grossly normal Speech and movement: Normal speech and movement present and Clear speech present Affect: normal affect Attitude: cooperative Thought process: Normal thought process present Thought content: Normal thought content present Insight: Fair insight present (Psych) Judgement: Fair judgement present (Psych) Office Procedures Post Void Residual Post Residual Void Post Void Residual (PVR): 14 [id number] Void Residual by ultrasound Results AMB Urinalysis, Automated UA Leukoctes 70 Cha/uL Last Edit by Asia Josue on 03/18/24 14:03 UA Nitrite Positive Last Edit by Asia Josue on 03/18/24 14:03 UA Urobilinogen 0.2 mg/dL Last Edit by Organic [employer] on 03/18/24 14:03 UA Protein 15 mg/dL Last Edit by Organic [employer] on 03/18/24 14:03 UA pH 6.0 Last Edit by Organic [employer]garrett on 03/18/24 14:03 UA Blood 25 [place]/uL Last Edit by Organic [employer]garrett on 03/18/24 14:03 UA Specific [place] 1.020 Last Edit by Organic [employer]garrett on 03/18/24 14:03 UA Ketone Negative Last Edit by Organic [employer]garrett on 03/18/24 14:03 UA Bilirubin 0 mg/dL Last Edit by Organic Shopgarrett on 03/18/24 14:03 UA Glucose 0 mg/dL Last Edit by RFMarq on 03/18/24 14:03 Results Reviewed Results Reviewed: Laboratory Last Values Urine pH (Auto) 6.0 03/18/24 14:00 Specific [place] (Auto) 1.020 03/18/24 14:00 Urine Protein (Auto) 15 mg/dL 03/18/24 14:00 Glucose (UA)(Auto) 0 mg/dL 03/18/24 14:00 Urine Ketones (Auto) Negative 03/18/24 14:00 Urine Blood (Auto) 25 [place]/uL 03/18/24 14:00 Urine Nitrite (Auto) Positive 03/18/24 14:00 Urine Bilirubin (Auto) 0 mg/dL 03/18/24 14:00 Urine Urobilinogen (Auto) 0.2 mg/dL 03/18/24 14:00 Leukocyte Esterase (Auto) 70 Cha/uL 03/18/24 14:00 Assessment & Plan Assessment & Plan (1) Recent urinary tract infection: Code(s): Z87.440 - Personal history of urinary (tract) infections Category: Medical (2) Nephrolithiasis: Code(s): N20.0 - Calculus of kidney Category: Medical Plan In office urinalysis results reviewed with the patient today; will send for microgen. Start Bactrim as discussed and prescribed. Start Estrace cream as discussed and prescribed. Discussed UTI prevention with D mannose supplement, vitamin-C, increasing fluid intake, behavioral therapy with timed voiding, perineal hygiene and postcoital voiding, and management of constipation with stool softeners and increased fiber intake. Continue vitamin B6 as discussed and prescribed. Continue adding 1 oz of lemon juice to water daily. Discussed possible near future in office cystoscopy if symptoms persist and/or worsen. Follow-up in 1-3 months with PVR; or sooner with any issues, concerns, and or questions. Orders: Orders AMB Post Void Residual by ultrasound Today Z87.440 - Personal history of urinary (tract) infections AMB Urinalysis Automated Today Z13.9 - Encounter for screening, unspecified Medications: New sulfamethoxazole-trimethoprim 800-160 mg (Bactrim DS) 1 tab PO BID 10 days 20 tabs 0RF N39.0 - Urinary tract infection, site not specified estradiol 0.01%(0.1mg/gram) daily times one month and then 3 times per week there after pea sized amount to urethra. 30 days 42.5 grams 3RF Patient Instructions: The patient had an opportunity to ask questions regarding the treatment plan. All questions were answered. Physical exam, labs, and imaging were discussed and reviewed in detail. As well as risks, benefits, and discussion of treatment choices. No major barriers to understanding were identified. The patient expressed understanding and agreement with the above treatment plan. The patient was made aware they should contact our office by phone for worsening of their current condition, the appearance of new symptoms, or with any questions or concerns. Compliance is encouraged with any medications and follow up testing that is ordered. It is a privilege to be allowed the opportunity to participate in? your urological care.? Again, if you have any questions or concerns If you have any questions or concerns please do not hesitate to contact me. The office is [phone]. This note is constructed using voice recognition software. While every effort has been made to ensure accuracy school crossing guard errors may have been included. Yours sincerely, RAVINDER Loja Coding Level of Care Code Est Pt Level 4 (49256) Diagnoses Recent urinary tract infection Z87.440 Nephrolithiasis N20.0 CPT Codes Post Residual Void - PVR CPT Code: 65146-Bcgd Void Residual by ultrasound ([id number])
== END 2024-03-18 14:29 | disposition home or self-care (01) ==
PROVIDERS: PCP Internal Medicine; Visit Provider Nurse Practitioner Family
DX: Z87.440 Personal history of urinary (tract) infections (principal); N20.0 Calculus of kidney; Z13.9 Encounter for screening, unspecified
CPT/HCPCS: 99214

== ENCOUNTER → 2024-03-18 13:32 | Outpatient (BNVA) | payer MEDICARE, SELFPAY | PROVIDERS: PCP Internal Medicine; Visit Provider Nurse Practitioner Family | DX: N20.0 Calculus of kidney (principal); Z87.440 Personal history of urinary (tract) infections | CPT/HCPCS: 51798; 81003; 99212 ==

== ENCOUNTER 2024-04-10 12:15 | Inpatient (IN) | payer MEDICARE, OTHER, SELFPAY ==
[2024-04-10] VITALS (8 sets, daily range): BP systolic 131–194; BP diastolic 68–90; PULSE 75–102; RESP 16–34; TEMP 36.2–36.8; O2SAT 97–100; BMI 27.3
--- NOTE | ~2024-04-10 | CT_ITS ---
EXAMINATION: CT ABDOMEN AND PELVIS WITHOUT CONTRAST CLINICAL INFORMATION: Abdomen pain. Rule out colitis COMPARISON: Portions of a CT 11/24/23 TECHNIQUE: Multidetector volumetric imaging was performed from the superior aspect of the liver through the pubic symphysis. Sagittal and coronal reformatted images were obtained on the technologist's workstation. This CT examination was performed using dose optimization techniques as appropriate, variously including the following: *Automated exposure control *Adjustment of mA and/or kV according to patient size (this includes techniques or standardized protocols for targeted exams where dose is matched to indication/reason for exam; i.e. extremities or head) *Use of iterative reconstruction technique DLP: 359 mGy-cm FINDINGS: LUNG BASES: Moderate hiatal hernia. Coronary calcification. There are a few scattered nonspecific reticular lung base opacities. LIVER, GALLBLADDER, AND BILIARY TREE: No suspicious abnormality of the liver. The gallbladder is mildly distended. No opaque gallstone. No definite biliary dilation PANCREAS: No suspicious abnormality SPLEEN: There are calcified granulomata. ADRENAL GLANDS: No suspicious abnormality KIDNEYS AND URETERS: There is no dilation of the urinary collecting system on either side. There are punctate nonobstructing calcifications in the lower pole the right kidney. No suspicious renal mass BLADDER: The bladder is mildly distended. No focal abnormality GASTROINTESTINAL TRACT: There are colonic diverticula. The colon is not fully distended. However, I suspect wall thickening with irregularity of the serosal surface. I suspect luminal narrowing. IV contrast was not administered. Moderate hiatal hernia. No evidence of high-grade small bowel obstruction. No convincing pneumatosis ABDOMINAL WALL: No significant hernia is appreciated. LYMPH NODES: There are no measurably enlarged abdominal or pelvic lymph nodes. VASCULAR: There is no abdominal aortic aneurysm. There is atherosclerotic calcification. PELVIC VISCERA: No suspicious abnormality. OSSEOUS STRUCTURES: There is severe new deformity of the right hip. The right femoral head is distorted and irregular with flattening. There are some erosive changes and there are proliferative changes on both sides of the joint. There are evolving abnormalities around the left hip with marked narrowing of the femoral acetabular joint. Correlation necessary. Erosive arthropathy or sequelae from avascular necrosis should be considered. Recommend clinical correlation and laboratory evaluation to assure no evidence of chronic osteomyelitis. I think this is much less likely. There is some surrounding synovitis. CT/CT abdomen pelvis wo IV con IMPRESSION: Severe diffuse abnormality consistent with pancolitis. No pneumonia peritoneum or abscess. The differential should include inflammatory bowel disease, ischemia and antibiotic related. Severe abnormality right hip greater than left. Fleischner guidelines were followed.
--- NOTE | ~2024-04-10 | XR_ITS ---
EXAMINATION: XR CHEST CLINICAL INFORMATION: Dizziness. COMPARISON: Chest radiograph dated 05/09/2016. TECHNIQUE: Frontal view of the chest was obtained. FINDINGS: The lungs are clear. The cardiomediastinal silhouette is normal in size. There is no pleural effusion or pneumothorax. No acute osseous abnormality. XR/XR chest 1V IMPRESSION: No acute cardiopulmonary findings.
--- NOTE | 2024-04-10 12:32 | ECG_ITS ---
Test Reason : SHORTNESS OF BREATH Blood Pressure : / mmHG Vent. Rate : 075 BPM Atrial Rate : 075 BPM P-R Int : 134 ms QRS Dur : 074 ms QT Int : 378 ms P-R-T Axes : 000 021 038 degrees QTc Int : 422 ms Normal sinus rhythm Normal ECG No previous ECGs available Referred By: Deep Moran Electronically Signed By:CHUCKY CHAWLA MD
--- NOTE | 2024-04-10 12:36 | ED_ITS ---
HPI - Abdominal Pain General Chief Complaint: Abdominal Pain Stated Complaint: NAUSEA DIZZY Time Seen by Provider: 04/10/24 12:27 Source: patient, family ( spouse) and EMS Mode of arrival: EMS Limitations: no limitations History of Present Illness ED Provider: DR. Moran HPI narrative: 78-year-old female came in for evaluation of lower abdominal pain, nausea, vomiting, and nonbloody watery diarrhea started since this morning, patient feels dizzy and lightheadedness, patient thinks she is dehydrated. Patient just finished a course of Bactrim for UTI few days ago and concern of having C diff with dehydration. Related Data Home Medications ?Medication ?Instructions ?Recorded ?Confirmed omeprazole 20 mg capsule,delayed 20 mg PO DAILY 11/14/22 release pravastatin 20 mg tablet 20 mg PO DAILY 11/14/22 Lactobacillus rhamnosus GG 20 cell PO 11/03/23 billion cell capsule (Probiotic Digestive Care) glucosamine sulfate 500 mg tablet 500 mg PO DAILY 11/03/23 (Glucosamine) amlodipine 10 mg tablet 10 mg PO DAILY 12/17/23 aspirin 325 mg tablet mg PO 12/17/23 Previous Rx's ?Medication ?Instructions ?Recorded estradiol 0.01% (0.1 mg/gram) See Rx Instructions vaginal DAILY 03/18/24 vaginal cream 30 days #42.5 grams sulfamethoxazole 800 1 tab PO BID 10 days #20 tabs 03/18/24 mg-trimethoprim 160 mg tablet (Bactrim DS) amoxicillin 500 mg-potassium 1 tab PO BID 10 days #20 tabs 03/24/24 clavulanate 125 mg tablet (Augmentin) Allergies Allergy/AdvReac Type Severity Reaction Status Date / Time clindamycin Allergy Unknown Unknown Verified 04/10/24 12:28 Statins- Sensitivity Allergy Unknown Unknown Uncoded 03/18/24 20:32 Review of Systems Review of Systems All other systems are reviewed and are negative Constitutional: Reports as per HPI and Reports no additional constitutional complaints Eyes: Reports as per HPI and Reports no additional eye complaints Reports system reviewed and no additional complaints, except as documented Cardiovascular: Reports as per HPI and Reports no additional cardiovascular complaints Respiratory: Reports as per HPI and Reports no additional respiratory complaints Gastrointestinal: Reports as per HPI and Reports no additional gastrointestinal complaints Genitourinary: Reports no additional female genitourinary complaints Musculoskeletal: Reports no additional musculoskeletal complaints Skin/Breast: Reports system reviewed and no additional complaints, except as docu Psychiatric: Reports no additional psychiatric complaints Endocrine: Reports no additional endocrine complaints Hematologic/Lymphatic: Reports no additional hematologic/lymphatic complaints Allergic/Immunologic: Reports no additional allergic/immunologic complaints Reports system reviewed and no additional complaints, except as documented and Reports Abnormal speech present [facility] Past Medical History Medical History High cholesterol GERD (gastroesophageal reflux disease) PMR (polymyalgia rheumatica) Surgical History H/O knee surgery Family History Family History Maternal Aunt History of breast cancer Maternal Grandfather Colon cancer Sister Colon cancer Social History Social History Alcohol intake: current Alcohol intake frequency: a few times a week Patient Tobacco Use Status: Former Tobacco user Advance Directives: No Advance Directives Information Provided: No Do you have a plan to hurt others: No Plan Physical Exam ED Vital Signs: Vital Signs - 24 hr 04/10/24 12:25 Pulse Rate 75 Respiratory Rate 34 H Blood Pressure 194/86 H Pulse Oximetry 100 Oxygen Delivery Method Room Air BMI result Body Mass Index 27.3 Vital signs have been reviewed and appear to be correct. Blood pressure elevated. Heart rate normal. Respiratory rate elevated. Temperature normal. Oxygen saturation normal. Appearance: Alert. Oriented X3. No acute distress. Head: Normal external exam. Normocephalic. Atraumatic. No Pillai signs noted. No raccoon eyes noted Eyes: PERRLA. EOMI. Conjunctiva and sclera normal. Eyelids normal. ENT: TM's Normal. Pharynx normal. Uvula midline. Moist mucous membranes. No trismus noted. No drooling noted. No muffled voice noted. Neck: Normal inspection. Neck supple. FROM. No adenopathy. Thyroid Normal. No meningeal signs. No neck mass noted. CVS: Normal heart rate and rhythm. Heart sound normal. No murmurs noted. Pulses normal throughout. Respiratory: No respiratory distress. Painless inspiration. Breath sounds normal. No wheezes/rales/rhonchi noted. Chest nontender. No accessory muscle usage noted or decreased air movement noted. Abdomen: mild lower abdominal tenderness, no guarding, no rebound tenderness.Bowel sounds normal in all 4 quadrants. No distention noted. No organomegaly noted. No visible injury noted. Back: No CVA tenderness. Full range of motion noted. Skin: Skin warm and dry. Normal skin color. Normal skin turgor. No rashes/lesions/lacerations noted. Extremities: No lower extremity edema. Extremities exhibit normal range of motion. Extremities nontender. Neuro: Oriented X 3. Cranial nerve exam: II-XII are grossly intact No motor deficit. No sensory deficit. Reflexes normal, No [id number] dysmetria, able to ambulate with steady gait. Course Reevaluation(s) Reevaluation #1: finished a course of antibiotic recently presented with nausea, vomiting, and diarrhea, patient is negative for C diff. 1. CT abdomen pelvis reveals been colitis with 20 WBCs. Patient got 1 dose of prophylactic vancomycin then patient tested negative for C diff. 2. UTI will start the patient on ceftriaxone. 3. Patient meet criteria for severe sepsis with no septic shock will start the patient on ceftriaxone/ IV hydration. No septic shock. 4. Hypokalemia will replete potassium. 5. Dehydration continue with IV hydration. Time: 15:49 Medical Decision Making Differential Diagnosis Differential Diagnoses: The differential diagnosis associated with the presentation includes ( Colitis, pancreatitis, acute cholecystitis, acute appendicitis, C diff, gastroenteritis, food poisoning, UTI, pyelonephritis, pneumonia, pneumothorax. ) Admission/Observation Consideration of admission/observation: Escalation of care including admission/observation considered Consult Healthcare Provider Management of the patient was discussed with: Hospitalist ( Dr. Miller) Lab Data MDM Lab Attestation statement: I reviewed the patient's lab results. 04/10/24 12:43 04/10/24 12:43 Labs: Lab Results 04/10/24 04/10/24 04/10/24 Range/Units 12:43 13:08 14:03 WBC 20.5 H (4.8-10.8) X10*3/uL RBC 4.90 (4.20-5.50) X10*6/uL Hgb 14.1 (12.0-16.0) g/dl Hct 43.3 (37.0-47.0) % MCV 88.4 (80.0-98.0) fL MCH 28.8 (27.0-33.0) pg MCHC 32.6 (31.0-35.0) g/dl RDW 14.0 (11.0-16.0) % Plt Count 411 H D (160-400) X10*3/uL MPV 9.8 (9.4-12.3) fL Immature Gran % (Auto) 1.0 H (0.0-0.4) % Neut % (Auto) 86.7 H (45-73) % Lymph % (Auto) 7.5 L (20-40) % Tucker % (Auto) 4.4 (2-11) % Eos % (Auto) 0.1 (0-4) % Baso % (Auto) 0.3 (0-2) % Lymph # (Auto) 1.5 (1.2-4.9) X10*3/uL Tucker # (Auto) 0.9 (0.1-1.2) X10*3/uL Eos # (Auto) 0.0 (0.0-0.4) X10*3/uL Baso # (Auto) 0.1 (0.0-0.2) X10*3/uL Abs Immat Gran (auto) 0.21 H (0.00-0.03) X10*3/uL Absolute Neuts (auto) 17.8 H (2.0-8.3) x10*3/uL Absolute Nucleated RBC 0.000 (0.0-0.012) X10*3/uL Nucleated RBC % (auto) 0.0 (0.0-0.2) /100WBC Sodium 141 (135-145) mmol/L Potassium 3.2 L (3.3-5.1) mmol/L Chloride 104 (96-108) mmol/L Carbon Dioxide 18 L (22-29) mmol/L Anion Gap 22 H (12-20) BUN 19 H (9-16) mg/dL Creatinine 0.88 (0.5-1.4) mg/dL Estim Creat Clear Calc 44.5 Estimated GFR > 60 Random Glucose 188 H (60-115) mg/dL Lactic Acid 3.9 H* (0.5-2.0) mmol/L Calcium 10.9 H (8.4-10.2) mg/dL Total Bilirubin 0.8 (0.0-1.0) mg/dL Direct Bilirubin 0.2 (0.0-0.5) mg/dL AST 24 (5-31) U/L ALT 24 (0-31) U/L Alkaline Phosphatase 131 H (39-117) U/L Troponin I High Sens < 2.7 (<3.5-17.0) ng/L Total Protein 6.8 (6.5-8.0) g/dL Albumin 4.4 (3.5-5.0) g/dL Lipase 36 (8-78) U/L Urine Color Yellow Urine Appearance Clear Urine pH 7.5 (5.0-9.0) Ur Specific [place] <= 1.005 (1.005-1.025) Urine Protein Negative (Neg-Trace) mg/dL Urine Glucose (UA) 100 H (Negative) mg/dL Urine Ketones Negative (Negative) mg/dL Urine Blood Negative (Negative) Urine Nitrite Negative (Negative) Ur Leukocyte Esterase Small (1+) H (Negative) Urine RBC 0-2 (0-2) /HPF Urine WBC 11-20 H (0-5) /HPF Ur Squamous Epith Cells 0-2 (0-2) /HPF Urine Bacteria None Seen (None Seen) Hyaline Casts 0-2 (0-2) /LPF Stool Occult Blood POSITIVE (NEGATIVE) C. difficile Tox B Gene NEGATIVE (Negative) Independent Interpretation I performed an independent interpretation of an: Plain X-Ray ( Chest: No acute cardiopulmonary findings.) and CT Scan ( abdomen and pelvis:Severe diffuse abnormality consistent with pancolitis. No pneumonia peritoneum or abscess. The differential should include inflammatory bowel disease, ischemia and antibiotic related. Severe abnormality right hip greater than left. ) Radiology Impression Discussion of test interpretation with radiology: I have reviewed the radiologist's reading. Prescription Management I considered prescription management with: Antibiotic Medications Administered Discontinued Medications Generic Name Dose Route Start Last Admin Trade Name Freq PRN Reason Stop Dose Admin Sodium Chloride 1,000 mls @ 999 mls/hr 04/10/24 12:32 04/10/24 12:59 Ns IV 04/10/24 13:32 999 mls/hr .Q1H1M ONE Administration Vancomycin HCl 125 mg 04/10/24 12:32 04/10/24 12:59 Vancomycin Hcl 125 Mg Capsule PO 04/10/24 12:33 125 mg ONCE ONE Administration Discharge Plan Discharge Clinical Impression: Colitis, Acute UTI, Acute hypokalemia, Dehydration Patient Disposition: Admitted As Inpatient Prescriptions: No Action amoxicillin-pot clavulanate [Augmentin] 500-125 mg tablet 1 tab PO BID 10 Days Qty: 20 0RF pravastatin 20 mg tablet 20 mg PO DAILY omeprazole 20 mg capsule,delayed release(DR/EC) 20 mg PO DAILY Probiotic Digestive Care 20 billion cell capsule PO glucosamine sulfate [Glucosamine] 500 mg tablet 500 mg PO DAILY Rx Instructions: administer with a meal amlodipine 10 mg tablet 10 mg PO DAILY aspirin 325 mg tablet PO sulfamethoxazole-trimethoprim [Bactrim DS] 800-160 mg tablet 1 tab PO BID 10 Days Qty: 20 0RF estradiol 0.01 % (0.1 mg/gram) cream See Rx Instructions vaginal DAILY 30 Days Qty: 42.5 3RF Rx Instructions: daily times one month and then 3 times per week there after pea sized amount to urethra. Print Language: Belarusian
[2024-04-10 12:49] LABS: MANUAL DIFF FLAG NO
[2024-04-10 12:55] LABS: Basophils Absolute Auto 0.1 X10*3/uL (0.0-0.2); Basophils Percent Auto 0.3 % (0-2); Eosinophils Percent Auto 0.1 % (0-4); Hematocrit 43.3 % (37.0-47.0); Hemoglobin 14.1 g/dl (12.0-16.0); Imm Gran Abs Auto 0.21 X10*3/uL (0.00-0.03); Lymphocytes Absolute Auto 1.5 X10*3/uL (1.2-4.9); Lymphocytes Percent Auto 7.5 % (20-40); Mean Corpuscular HGB Conc 32.6 g/dl (31.0-35.0); Mean Corpuscular Hemoglobin 28.8 pg (27.0-33.0); Mean Corpuscular Volume 88.4 fL (80.0-98.0); Mean Platelet Volume 9.8 fL (9.4-12.3); Monocytes Absolute Auto 0.9 X10*3/uL (0.1-1.2); Monocytes Percent Auto 4.4 % (2-11); Neutrophils Absolute Auto 17.8 x10*3/uL (2.0-8.3); Neutrophils Percent Auto 86.7 % (45-73); Platelet Count 411 X10*3/uL (160-400); White Blood Count 20.5 X10*3/uL (4.8-10.8)
[2024-04-10 12:56] LABS: OBS Int Ctl Valid YES; OBS1 POSITIVE (NEGATIVE)
[2024-04-10] MEDS: 0.9 % Sodium Chloride 1,000 ML 999 ML IV ×2 (12:59→16:01)
[2024-04-10] MEDS: vancomycin HCL 125 MG CAPSULE PO ×2 (12:59→20:15)
[2024-04-10 13:09] LABS: Alanine Aminotransferase 24 U/L (0-31); Albumin Level 4.4 g/dL (3.5-5.0); Alkaline Phosphatase 131 U/L (39-117); Anion Gap 22 (12-20); Aspartate Amino Transferase 24 U/L (5-31); Bilirubin Direct 0.2 mg/dL (0.0-0.5); Bilirubin Total 0.8 mg/dL (0.0-1.0); Blood Urea Nitrogen 19 mg/dL (9-16); Calcium 10.9 mg/dL (8.4-10.2); Carbon Dioxide 18 mmol/L (22-29); Chloride 104 mmol/L (96-108); Creatinine Clr Calc Pharmacy 44.5; Estimated Glomerular Filt Rate > 60; Glucose Random 188 mg/dL (60-115); Lipase 36 U/L (8-78); Potassium 3.2 mmol/L (3.3-5.1); Sodium 141 mmol/L (135-145); Total Protein 6.8 g/dL (6.5-8.0)
[2024-04-10 13:18] LABS: Troponin-I High Sensitivity < 2.7 ng/L (<3.5-17.0)
[2024-04-10 13:39] LABS: CDiff Gene PCR NEGATIVE (Negative)
[2024-04-10 13:39] LABS: Lactic Acid 3.9 mmol/L (0.5-2.0)
[2024-04-10 14:12] LABS: Appearance Urine Clear; Color Urine Yellow; Glucose Urine UA 100 mg/dL (Negative); Leukocyte Esterase Urine Small (1+) (Negative); Nitrite Urine Negative (Negative); PH 7.5 (5.0-9.0); Specific Gravity - Urine <= 1.005 (1.005-1.025); UMIC TRIGGER UACC YES; Urine Blood Negative (Negative); Urine Ketones Negative (Negative); Urine Protein Negative (Neg-Trace)
[2024-04-10 14:17] LABS: Bacteria Urine None Seen (None Seen); Hyaline Casts Urine 0-2 /LPF (0-2); RBC Urine 0-2 /HPF (0-2); Squamous Epithelial Cell Urine 0-2 /HPF (0-2); UACC Culture Trigger YES
[2024-04-10 15:13] LABS: Reflex Lactate? Lactic Acid Added
[2024-04-10] MEDS: Potassium Chloride Packet 20 MEQ PACKET 40 MEQ PO (15:52)
[2024-04-10] MEDS: Potassium Chloride/H20 10 MEQ/100 ML PIGGYBACK 100 MEQ IV ×4 (15:52→23:21)
[2024-04-10] MEDS: Loperamide HCl 2 MG CAPSULE PO (16:15)
--- NOTE | 2024-04-10 17:00 | PM.IMHP ---
History of Present Illness Date of Service: 04/10/24 Chief Complaint: Abdominal pain 78-year-old female patient with past medical history significant for hyperlipidemia, GERD, PMR and recurrent UTIs, recently finished a course of Augmentin on April 03, prior to that finished course of nitrofurantoin for E coli infection, patient was feeling fine up until this more morning she woke up she took her coffee and half bagel after that she started feeling sick developed diffuse abdominal pain associated with dizziness and 3-4 loose brown watery stool with foul odor associated with chills, no fevers no urinary frequency or urgency, noted dark-colored urine, in the emergency room noted to have WBC count of 20.5,LA 3.9 ,K 3.2 ,AG 22,HCO3 18 ,tachypneic, afebrile no tachycardia, CT abdomen pelvis showed severe diffuse abnormality consistent with aparicio colitis, no pneumo peritoneum or abscess, C diff toxin negative, differential includes inflammatory bowel disease, ischemia and antibiotic related. Patient treated in the emergency room with IV fluid, IV ceftriaxone, 1 dose of po vancomycin now being admitted for further treatment and evaluation of pancolitis. Review of Systems Review of Systems: General no headache, no dizziness no fever ,+ chills. CVS no chest pain, no palpitation. Respiratory no cough no sob Gastrointestinal no nausea no vomiting, + abdominal pain and diarrhea no urgency, no frequency Musculoskeletal no pain Skin no rash All other system reviewed and are negative. [facility] Medical History High cholesterol GERD (gastroesophageal reflux disease) PMR (polymyalgia rheumatica) Family History Maternal Aunt History of breast cancer Maternal Grandfather Colon cancer Sister Colon cancer Surgical History H/O knee surgery Social History Alcohol intake: current Alcohol intake frequency: a few times a week Patient Tobacco Use Status: Former Tobacco user Meds Allergies Allergy/AdvReac Type Severity Reaction Status Date / Time clindamycin Allergy Unknown Unknown Verified 04/10/24 12:28 Statins- Sensitivity Allergy Unknown Unknown Uncoded 03/18/24 20:32 Active Medications: Current Medications Acetaminophen (Acetaminophen 325 Mg Tablet) 650 mg PO Q6H PRN PRN Reason: Pain, Mild (Pain Scale 1-3), fever or headache Calcium Carbonate (Calcium Carbonate 750 Mg Tab.Chew) 750 mg PO Q4H PRN PRN Reason: Heartburn Enoxaparin Sodium (Enoxaparin Sodium 40 Mg/0.4 Ml Syringe) 40 mg SUBCUT Q24H SUHAIL Potassium Cl/Dextrose/Lact Ringer's (Kcl 20 Meq In 5 % Dex/Lact Rin) 20 meq in 1,000 mls @ 80 mls/hr IVCONT .[id number] SUHAIL Magnesium Hydroxide (Milk Of Magnesia 30 Ml Oral.Susp) 30 ml PO DAILY PRN PRN Reason: Constipation Melatonin (Melatonin 3 Mg Tablet) 6 mg PO BEDTIME PRN PRN Reason: Insomnia Morphine Sulfate (Morphine Sulfate 4 Mg/Ml Cartridge) 3 mg IVPUSH Q6H PRN; Protocol PRN Reason: Pain, Severe (Pain Scale 7-10) Ondansetron HCl (Ondansetron Hcl 4 Mg/2 Ml Vial) 4 mg IVPUSH Q8H PRN PRN Reason: Nausea and Vomiting Sodium Chloride (0.9 % Sodium Chloride Flush 3 Ml Syringe) 3 ml IVFLUSH QSHIFT [facility] Home Medications ?Medication ?Instructions ?Recorded ?Confirmed ?Last Taken ?Type omeprazole 20 mg capsule,delayed 20 mg PO DAILY 11/14/22 Unknown History release pravastatin 20 mg tablet 20 mg PO DAILY 11/14/22 Unknown History Lactobacillus rhamnosus GG 20 cell PO 11/03/23 Unknown History billion cell capsule (Probiotic Digestive Care) glucosamine sulfate 500 mg tablet 500 mg PO DAILY 11/03/23 Unknown History (Glucosamine) amlodipine 10 mg tablet 10 mg PO DAILY 12/17/23 Unknown History aspirin 325 mg tablet mg PO 12/17/23 Unknown History Physical Exam Vital Signs and Narrative: Vital Signs: Last Vital Signs Pulse 75 04/10/24 12:25 Resp 34 H 04/10/24 12:25 BP 194/86 H 04/10/24 12:25 Pulse Ox 100 04/10/24 12:25 O2 Del Method Room Air 04/10/24 12:25 BMI result Body Mass Index 27.3 Const: Other: General awake alert x3, resting comfortably in no acute distress. Anicteric sclera Neck no JVD. CVS regular rate rhythm, Respiratory lungs clear to auscultation, no respiratory distress, no wheeze, no rhonchi. Gastrointestinal abdomen soft, mild diffuse tenderness, bowel sounds audible, no guarding , no rigidity. Extremities no edema. Neuro non focal Skin no rash Psych appropriate affect. Results Labs 04/10/24 12:43 04/10/24 12:43 Labs: Laboratory Results - last 24 hr 04/10/24 04/10/24 04/10/24 12:43 13:08 14:03 MCV 88.4 MCH 28.8 MCHC 32.6 RDW 14.0 Plt Count 411 H D MPV 9.8 Immature Gran % (Auto) 1.0 H Neut % (Auto) 86.7 H Lymph % (Auto) 7.5 L [place] % (Auto) 4.4 Eos % (Auto) 0.1 Baso % (Auto) 0.3 Lymph # (Auto) 1.5 [place] # (Auto) 0.9 Eos # (Auto) 0.0 Baso # (Auto) 0.1 Abs Immat Gran (auto) 0.21 H Absolute Neuts (auto) 17.8 H Absolute Nucleated RBC 0.000 Nucleated RBC % (auto) 0.0 Anion Gap 22 H Estim Creat Clear Calc 44.5 Estimated GFR > 60 Random Glucose 188 H Lactic Acid 3.9 H* Calcium 10.9 H Total Bilirubin 0.8 Direct Bilirubin 0.2 AST 24 ALT 24 Alkaline Phosphatase 131 H Troponin I High Sens < 2.7 Total Protein 6.8 Albumin 4.4 Lipase 36 Urine Color Yellow Urine Appearance Clear Urine pH 7.5 Ur Specific [place] <= 1.005 Urine Protein Negative Urine Glucose (UA) 100 H Urine Ketones Negative Urine Blood Negative Urine Nitrite Negative Ur Leukocyte Esterase Small (1+) H Urine RBC 0-2 Urine WBC 11-20 H Ur Squamous Epith Cells 0-2 Urine Bacteria None Seen Hyaline Casts 0-2 Stool Occult Blood POSITIVE C. difficile Tox B Gene NEGATIVE Imaging Radiologist's Impressions: Impressions Chest X-Ray 04/10/24 13:16 IMPRESSION: No acute cardiopulmonary findings. Abdomen/Pelvis CT 04/10/24 13:45 IMPRESSION: Severe diffuse abnormality consistent with pancolitis. No pneumonia peritoneum or abscess. The differential should include inflammatory bowel disease, ischemia and antibiotic related. Severe abnormality right hip greater than left. Fleischner guidelines were followed. Assessment and Plan (1) Acute hypokalemia: Status: Acute (2) Colitis: Status: Acute Plan 78-year-old female with past medical history of hyperlipidemia, GERD, PMR in recurrent UTI recently finished a course of Augmentin 7 days ago presented to [facility] with symptoms of diffuse abdominal pain, loose watery foul odor stools with no associated nausea vomiting and fevers diagnosed to have aparicio colitis on imaging study as well as anion gap metabolic acidosis and mild hypokalemia. Acute Pancolitis with sepsis Likely due to antibiotic use, C diff negative Meet sepsis criteria with leukocytosis, tachypnea and tachycardia Will treat empirically with IV Flagyl and by mouth vancomycin,IVF Follow CBC, electrolytes and renal function Placed on bland, low-fiber lactose-free diet Anion gap metabolic acidosis Likely due to diarrhea treat with IV fluids, treat infection follow BMP Acute Lactic acidosis due to hypovolemia from diarrhea Treat with IV fluids follow lactic acid level, no severe sepsis with normal BP, no fevers, normal renal function, Acute hypokalemia will replete and follow labs Recurrent UTI urinalysis unremarkable hold antibiotics GERD continue PPI Hyperlipidemia on statin Med rec pending Full code Lovenox In my clinical judgment patient need to night inpatient hospitalization for management of pancolitis with IV fluids and IV antibiotics treatment can not be provided in less acute setting. Quality Stroke Does the patient have a stroke diagnosis?: No VTE Prior VTE?: No VTE Risk Level:: Medical - moderate - high VTE Device Contraindication: Treatment Not Indicated VTE Drug Contraindication: N/A - Med Ordered
--- NOTE | 2024-04-10 17:20 | PC.NURSE ---
alert and oriented, respirations now even and unlabored. upon arrival patient was tachypneic btwn 20-40. resting quietly in room at this time. 20 IV left AC, ambulates with one assist to and from commode. four episodes of loose, watery stools. at this time, patient states that her diarrhea has subsided s/p medication. complains of abdominal cramping prior to bowel movements, otherwise remains comfortable. call ibarra within reach.
--- NOTE | 2024-04-10 17:25 | PHA.MEDREC ---
Pharmacy Consult ? Medication Reconciliation Pharmacy has completed the medication reconciliation. spoke with patient to confirm medications. She states her prednisone dose is 5mg QOD and 10mg QOD however patient does not remember which one she took this morning. She has an amoxicillin recently filled in her claims and states it is only for a dental appointment this upcoming week and is not currently taking it. Patient took all of her medications today besides the vaginal cream.
[2024-04-10 17:32] LABS: ~Lactic Acid-LAB USE ONLY 2.3 mmol/L (0.5-2.0)
[2024-04-10] MEDS: cefTRIAXone sodium 1 GM in 0.9 % Sodium Chloride 50 ML IV (17:52)
[2024-04-10] MEDS: Enoxaparin Sodium 40 MG/0.4 ML SYRINGE SUBCUT (17:52)
--- NOTE | 2024-04-10 18:37 | MHC.EDTECH ---
Patient stated she was not hungry and did not want supper. She did take the apple juice to save for later.
[2024-04-10] MEDS: metroNIDAZOLE/NS 500 MG/100 ML PIGGYBACK 100 MG IV (19:00)
[2024-04-10 19:11] LABS: Reflex Lactate? 2 Y
[2024-04-10 20:04] LABS: ~Lactic Acid-LAB USE ONLY 1.2 mmol/L (0.5-2.0)
[2024-04-10] MEDS: Lactated Ringers 1,000 ML 80 ML IVCONT (20:13)
--- NOTE | 2024-04-10 20:19 | PC.NURSE ---
this rn assumed care of pt, pt a&ox4, respirations even and unlabored. pt denies pain at this time. 20G placed in right ac. pt medicated per mar at this time, pt tolerated well with water.
--- NOTE | 2024-04-10 21:29 | PC.NURSE ---
patient came to unit with potassium IV infusing, RN requesting manager cardiac cath order from MD Breezy (covering provider), RN sent via [email or web address], [phone] Mary Beth Daiivan - patient is receiving IV potassium, will need an order for cardiac monitoring. Per Dr. Tijerina, No need. No cardiac monitoring per Dr. Tijerina.
[2024-04-10] MEDS: 0.9 % Sodium Chloride Flush 3 ML SYRINGE IVFLUSH (21:44)
[2024-04-11] MEDS: Melatonin 3 MG TABLET 6 MG PO ×2 (00:34→22:19)
[2024-04-11] MEDS: Potassium Chloride/H20 10 MEQ/100 ML PIGGYBACK 100 MEQ IV (00:36)
--- NOTE | 2024-04-11 01:27 | PM.EVENT ---
Event Note Date of Service: 04/11/24 Event Note: Nurse reported espinoza blood in stool. Will keep patient NPO and initiating IV Protonix. Consulting Gastroenterology Time Spent With Patient Time: Total time managing care of this patient today ____ minutes.
[2024-04-11] MEDS: metroNIDAZOLE/NS 500 MG/100 ML PIGGYBACK 100 MG IV ×3 (02:25→19:52)
[2024-04-11 02:30] VITALS: BP 156/81; PULSE 98; RESP 18; TEMP 36.9; O2SAT 99
[2024-04-11] MEDS: Pantoprazole Sodium 40 MG/10 ML VIAL IVPUSH ×3 (03:41→16:04)
[2024-04-11] MEDS: vancomycin HCL 125 MG CAPSULE PO ×4 (03:41→22:19)
[2024-04-11 06:07] LABS: MANUAL DIFF FLAG NO
[2024-04-11 06:28] LABS: Basophils Percent Auto 0.2 % (0-2); Eosinophils Percent Auto 0.1 % (0-4); Hematocrit 38.7 % (37.0-47.0); Hemoglobin 12.7 g/dl (12.0-16.0); Imm Gran Abs Auto 0.13 X10*3/uL (0.00-0.03); Imm Gran Pct Auto 0.7 % (0.0-0.4); Lymphocytes Absolute Auto 1.5 X10*3/uL (1.2-4.9); Mean Corpuscular HGB Conc 32.8 g/dl (31.0-35.0); Mean Corpuscular Hemoglobin 29.1 pg (27.0-33.0); Mean Corpuscular Volume 88.6 fL (80.0-98.0); Mean Platelet Volume 10.3 fL (9.4-12.3); Monocytes Absolute Auto 1.3 X10*3/uL (0.1-1.2); Monocytes Percent Auto 6.9 % (2-11); Neutrophils Percent Auto 84.1 % (45-73); Platelet Count 356 X10*3/uL (160-400); Red Blood Count 4.37 X10*6/uL (4.20-5.50); Red Cell Distribution Width 14.4 % (11.0-16.0)
[2024-04-11 06:30] LABS: Anion Gap 14 (12-20); Blood Urea Nitrogen 9 mg/dL (9-16); Calcium 9.5 mg/dL (8.4-10.2); Carbon Dioxide 19 mmol/L (22-29); Chloride 107 mmol/L (96-108); Creatinine Clr Calc Pharmacy 59.3; Estimated Glomerular Filt Rate > 60; Glucose Random 106 mg/dL (60-115); Potassium 3.9 mmol/L (3.3-5.1); Sodium 136 mmol/L (135-145)
[2024-04-11 08:00] VITALS: BP 142/64; PULSE 100; RESP 14; TEMP 36.8; O2SAT 98
[2024-04-11 09:33] VITALS: BP 142/64
[2024-04-11] MEDS: Acetaminophen 325 MG TABLET 650 MG PO ×2 (09:33→23:43)
[2024-04-11] MEDS: amLODIPine Besylate 5 MG TABLET PO (09:33)
[2024-04-11] MEDS: Lactated Ringers 1,000 ML 80 ML IVCONT ×2 (09:34→19:52)
--- NOTE | 2024-04-11 11:29 | MHC.CM.PN ---
PT REPORTS SHE LIVES WITH HER AND IS INDEPENDENT WITH CARE SHE HAS NO SERVICES AND NO DME PT SAYS SHE HAS A HCP NAMING HER AND COUSIN HER AGENTS PCP: ELISA THOMPSON IMM DELIVERED DCP: HOME NO SERVICES VIA PRIVATE TRANSPORT
--- NOTE | 2024-04-11 12:46 | HO.PM.IMPN ---
Subjective Subjective Date of Service: 04/11/24 Interval History: Being followed for loose stools, had 1 episode of bloody bowel movement last night, no bowel movement this morning, abdominal pain is improving, no fevers, no chills , feels tired and not sleep last night, no headache, no dizziness no other acute issues overnight. Review of Systems All other system reviewed and are negative. Physical Exam Vital Signs: Vital Signs: Last Vital Signs Temp 98.2 F 04/11/24 08:00 Pulse 100 04/11/24 08:00 Resp 14 04/11/24 08:00 BP 142/64 H 04/11/24 09:33 Pulse Ox 98 04/11/24 08:00 O2 Del Method Room Air 04/11/24 08:00 BMI result Body Mass Index 27.3 Const: Other: General awake alert x3, resting comfortably in no acute distress. Anicteric sclera Neck no JVD. CVS regular rate rhythm, Respiratory lungs clear to auscultation, no respiratory distress, no wheeze, no rhonchi. Gastrointestinal abdomen soft, mild tenderness, bowel sounds audible, no rebound, no guarding , no rigidity. Extremities no edema. Neuro non focal Skin no rash Psych appropriate affect. Objective Data Active Medications Acetaminophen (Acetaminophen 325 Mg Tablet) 650 mg PO Q6H PRN PRN Reason: Pain, Mild (Pain Scale 1-3), fever or headache Last Admin: 04/11/24 09:33 Dose: 650 mg Documented By: DMITRI Amlodipine Besylate (Amlodipine Besylate 5 Mg Tablet) 5 mg PO DAILY [facility]; Protocol Last Admin: 04/11/24 09:33 Dose: 5 mg Documented By: DMITRI Calcium Carbonate (Calcium Carbonate 750 Mg Tab.Chew) 750 mg PO Q4H PRN PRN Reason: Heartburn Enoxaparin Sodium (Enoxaparin Sodium 40 Mg/0.4 Ml Syringe) 40 mg SUBCUT Q24H [facility] Last Admin: 04/10/24 17:52 Dose: 40 mg Documented By: ELYSE Lactated Ringer's (Lr) 1,000 mls @ 80 mls/hr IVCONT .[id number] [facility] Last Admin: 04/11/24 09:34 Dose: 80 mls/hr Documented By: DMITRI Metronidazole (Flagyl) 500 mg in 100 mls @ 100 mls/hr IV Q8H [facility] Last Admin: 04/11/24 11:39 Dose: 100 mls/hr Documented By: DMITRI Magnesium Hydroxide (Milk Of Magnesia 30 Ml Oral.Susp) 30 ml PO DAILY PRN PRN Reason: Constipation Melatonin (Melatonin 3 Mg Tablet) 6 mg PO BEDTIME PRN PRN Reason: Insomnia Last Admin: 04/11/24 00:34 Dose: 6 mg Documented By: LUKASZ Morphine Sulfate (Morphine Sulfate 4 Mg/Ml Cartridge) 3 mg IVPUSH Q6H PRN; Protocol PRN Reason: Pain, Severe (Pain Scale 7-10) Ondansetron HCl (Ondansetron Hcl 4 Mg/2 Ml Vial) 4 mg IVPUSH Q8H PRN PRN Reason: Nausea and Vomiting Pantoprazole Sodium (Pantoprazole Sodium 40 Mg/10 Ml Vial) 40 mg IVPUSH BID@0630,1630 [facility] Last Admin: 04/11/24 05:56 Dose: 40 mg Documented By: LUKASZ Sodium Chloride (0.9 % Sodium Chloride Flush 3 Ml Syringe) 3 ml IVFLUSH QSHIFT [facility] Last Admin: 04/11/24 07:16 Dose: Not Given Documented By: DMITRI Non-Admin Reason: IV Running Vancomycin HCl (Vancomycin Hcl 125 Mg Capsule) 125 mg PO Q6H [facility] Last Admin: 04/11/24 09:33 Dose: 125 mg Documented By: DMITRI Labs 04/11/24 05:31 04/11/24 05:31 Labs: Laboratory Results - last 24 hr 04/10/24 04/10/24 04/10/24 12:43 13:08 14:03 MCV 88.4 MCH 28.8 MCHC 32.6 RDW 14.0 Plt Count 411 H D MPV 9.8 Immature Gran % (Auto) 1.0 H Neut % (Auto) 86.7 H Lymph % (Auto) 7.5 L Dent % (Auto) 4.4 Eos % (Auto) 0.1 Baso % (Auto) 0.3 Lymph # (Auto) 1.5 Dent # (Auto) 0.9 Eos # (Auto) 0.0 Baso # (Auto) 0.1 Abs Immat Gran (auto) 0.21 H Absolute Neuts (auto) 17.8 H Absolute Nucleated RBC 0.000 Nucleated RBC % (auto) 0.0 Anion Gap 22 H Estim Creat Clear Calc 44.5 Estimated GFR > 60 Random Glucose 188 H Lactic Acid 3.9 H* Lactic Acid F/U @ 2Hr Lactic Acid F/U @ 4Hr Calcium 10.9 H Total Bilirubin 0.8 Direct Bilirubin 0.2 AST 24 ALT 24 Alkaline Phosphatase 131 H Troponin I High Sens < 2.7 Total Protein 6.8 Albumin 4.4 Lipase 36 Urine Color Yellow Urine Appearance Clear Urine pH 7.5 Ur Specific [place] <= 1.005 Urine Protein Negative Urine Glucose (UA) 100 H Urine Ketones Negative Urine Blood Negative Urine Nitrite Negative Ur Leukocyte Esterase Small (1+) H Urine RBC 0-2 Urine WBC 11-20 H Ur Squamous Epith Cells 0-2 Urine Bacteria None Seen Hyaline Casts 0-2 Stool Occult Blood POSITIVE C. difficile Tox B Gene NEGATIVE 04/10/24 04/10/24 04/11/24 17:06 19:49 05:31 MCV 88.6 MCH 29.1 MCHC 32.8 RDW 14.4 Plt Count 356 MPV 10.3 Immature Gran % (Auto) 0.7 H Neut % (Auto) 84.1 H Lymph % (Auto) 8.0 L Dent % (Auto) 6.9 Eos % (Auto) 0.1 Baso % (Auto) 0.2 Lymph # (Auto) 1.5 Dent # (Auto) 1.3 H Eos # (Auto) 0.0 Baso # (Auto) 0.0 Abs Immat Gran (auto) 0.13 H Absolute Neuts (auto) 16.0 H Absolute Nucleated RBC 0.000 Nucleated RBC % (auto) 0.0 Anion Gap 14 Estim Creat Clear Calc 59.3 Estimated GFR > 60 Random Glucose 106 Lactic Acid Lactic Acid F/U @ 2Hr 2.3 H* Lactic Acid F/U @ 4Hr 1.2 Calcium 9.5 D Total Bilirubin Direct Bilirubin AST ALT Alkaline Phosphatase Troponin I High Sens Total Protein Albumin Lipase Urine Color Urine Appearance Urine pH Ur Specific [place] Urine Protein Urine Glucose (UA) Urine Ketones Urine Blood Urine Nitrite Ur Leukocyte Esterase Urine RBC Urine WBC Ur Squamous Epith Cells Urine Bacteria Hyaline Casts Stool Occult Blood C. 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 Acute Pancolitis with sepsis Had 1 episode bowel movement with blood, no diarrhea this morning Likely due to antibiotic use, C diff negative, history of C diff infection in the past, question ischemic/inflammatory bowel disease Meet sepsis criteria with leukocytosis, tachypnea and tachycardia Will continue IV Flagyl and by mouth vancomycin,IVF WBC remains elevated 19,000, Follow CBC, electrolytes and renal function (persistent leukocytosis, some component likley related to chronic steroids) Place on clear liquid diet/follow stool PCR Case discussed with Gastroenterology/NPO after midnight acute Anion gap metabolic acidosis Likely due to diarrhea resolved, mild acidosis persist and anion gap resolved Acute Lactic acidosis due to hypovolemia from diarrhea Resolved with IV fluids,no severe sepsis with normal BP, no fevers, normal renal function, Acute hypokalemia potassium normalized History of polymyalgia rheumatica on chronic steroid use,will place on IV steroids low dose. Recurrent UTI urinalysis unremarkable hold antibiotics. GERD continue PPI Hyperlipidemia on statin Hypertension resume Norvasc 5 mg daily Full code Lovenox In my clinical judgment patient need to night inpatient hospitalization for management of pancolitis with IV fluids and IV antibiotics treatment can not be provided in less acute setting. Quality Stroke Does the patient have a stroke diagnosis?: No VTE Prior VTE?: No VTE Risk Level:: Medical - moderate - high VTE Device Contraindication: Treatment Not Indicated VTE Drug Contraindication: N/A - Med Ordered
[2024-04-11] MEDS: Hydrocortisone Sod Succ/PF 100 MG VIAL 25 MG IVPUSH (13:26)
[2024-04-11 14:30] LABS: Hemoglobin 12.6 g/dl (12.0-16.0); Mean Corpuscular HGB Conc 34.1 g/dl (31.0-35.0); Mean Corpuscular Hemoglobin 29.6 pg (27.0-33.0); Mean Corpuscular Volume 87.1 fL (80.0-98.0); Mean Platelet Volume 9.7 fL (9.4-12.3); Platelet Count 306 X10*3/uL (160-400); Red Blood Count 4.25 X10*6/uL (4.20-5.50); Red Cell Distribution Width 14.6 % (11.0-16.0); White Blood Count 17.2 X10*3/uL (4.8-10.8)
[2024-04-11 15:37] VITALS: BP 142/73; PULSE 92; RESP 18; TEMP 36.9; O2SAT 96
[2024-04-11 19:41] VITALS: BP 162/76; PULSE 99; RESP 18; TEMP 36.7; O2SAT 98
[2024-04-12] MEDS: metroNIDAZOLE/NS 500 MG/100 ML PIGGYBACK 100 MG IV ×3 (02:57→19:33)
[2024-04-12] MEDS: Hydrocortisone Sod Succ/PF 100 MG VIAL 25 MG IVPUSH ×2 (02:57→12:01)
[2024-04-12] MEDS: vancomycin HCL 125 MG CAPSULE PO ×4 (03:00→21:10)
[2024-04-12 03:04] VITALS: BP 154/79; PULSE 86; RESP 18; TEMP 36.1; O2SAT 96
[2024-04-12] MEDS: Pantoprazole Sodium 40 MG/10 ML VIAL IVPUSH ×2 (06:18→17:24)
[2024-04-12 07:09] LABS: Anion Gap 13 (12-20); Blood Urea Nitrogen 6 mg/dL (9-16); Calcium 9.3 mg/dL (8.4-10.2); Carbon Dioxide 22 mmol/L (22-29); Chloride 108 mmol/L (96-108); Creatinine Clr Calc Pharmacy 61.2; Estimated Glomerular Filt Rate > 60; Glucose Random 88 mg/dL (60-115); Potassium 3.3 mmol/L (3.3-5.1); Sodium 140 mmol/L (135-145)
[2024-04-12 07:32] LABS: Hemoglobin 11.5 g/dl (12.0-16.0); Mean Corpuscular HGB Conc 33.8 g/dl (31.0-35.0); Mean Corpuscular Hemoglobin 29.6 pg (27.0-33.0); Mean Corpuscular Volume 87.6 fL (80.0-98.0); Mean Platelet Volume 10.1 fL (9.4-12.3); Platelet Count 299 X10*3/uL (160-400); Red Blood Count 3.88 X10*6/uL (4.20-5.50); Red Cell Distribution Width 14.6 % (11.0-16.0)
[2024-04-12 07:36] VITALS: BP 145/89; PULSE 94; RESP 20; TEMP 36.8; O2SAT 94
[2024-04-12] MEDS: Acetaminophen 325 MG TABLET 650 MG PO (08:18)
[2024-04-12] MEDS: amLODIPine Besylate 5 MG TABLET PO (08:18)
[2024-04-12] MEDS: Lactated Ringers 1,000 ML 80 ML IVCONT ×2 (08:19→19:33)
--- NOTE | 2024-04-12 08:45 | P.CNGI_ITS ---
History of Present Illness Data of Consult Service Date: 04/12/24 Requesting physician: Glendy Miller Primary Care Provider: Dexter Mills MD HPI Reason for consult: anemia, diarrhea 78-year-old female patient with hx of hyperlipidemia, GERD, PMR and recurrent UTIs, recently finished a course of Augmentin on April 03, prior to that finished course of nitrofurantoin for E coli infection, who I am seeing for assessment for colitis Patient recalls being well but on Friday she ate a bagel with coffee and within short time she had severe cramping lower abdominal pain 10/10 without radiation associated with nausea and diarrhea with few episodes of rectal bleeding with redish colored stools. Pain has subsided a lot now, and she has been able to manage clears w/o issues. She denies fevers, eating any contaminated meats, sick contacts. She denies weight loss but has fair appetite. she admits to taking alleve BID for 2 months at least for her severe hip pain, was supposed to get hip replaced next week. LAst colonoscopy with Dr Lindsay several years ago--normal, pos FH of cRC. Since admission received ABx, and fluids. Imaging with aparicio colitis, atherosclerosis noted with degen spinal disease. c diff neg, GI PCR panel pending. Review of Systems 2 Review of Systems: Constitutional : No Weight loss, No Fever, No Chills ENT/Mouth : No sore throat, No Rhinorrhea Eyes: No Swelling, No Redness Cardiovascular : No Chest Pain, No SOB, No Edema Respiratory : No Cough, No Sputum, No Wheezing Gastrointestinal : see HPI Genitourinary : NO Dysuria, No Urinary Frequency, No Hematuria, No Urgency Musculoskeletal : + joint pain--hip, No Myalgias, No Joint Swelling Skin : No Skin Lesions, No rash Neuro : No Weakness, No Numbness, No Dizziness, No Headache Psych : No Anxiety/Panic, No Depression Heme/Lymph: No Bruising, No Lymphadenopathy Endocrine : No Polyuria, No Polydipsia All other systems reviewed and are negative. [facility] Past Medical History Medical History High cholesterol GERD (gastroesophageal reflux disease) PMR (polymyalgia rheumatica) Family History Family History Maternal Aunt History of breast cancer Maternal Grandfather Colon cancer Sister Colon cancer Surgical History Surgical History H/O knee surgery Social History Social History Household Members: Spouse Housing: House Alcohol intake: current Alcohol intake frequency: a few times a week Patient Tobacco Use Status: Former Tobacco user service: No Meds Allergies Allergy/AdvReac Type Severity Reaction Status Date / Time clindamycin Allergy Unknown Unknown Verified 04/10/24 12:28 Statins- Sensitivity Allergy Unknown Unknown Uncoded 03/18/24 20:32 Active Medications: Current Medications Acetaminophen (Acetaminophen 325 Mg Tablet) 650 mg PO Q6H PRN PRN Reason: Pain, Mild (Pain Scale 1-3), fever or headache Last Admin: 04/12/24 08:18 Dose: 650 mg Amlodipine Besylate (Amlodipine Besylate 5 Mg Tablet) 5 mg PO DAILY [facility]; Protocol Last Admin: 04/12/24 08:18 Dose: 5 mg Calcium Carbonate (Calcium Carbonate 750 Mg Tab.Chew) 750 mg PO Q4H PRN PRN Reason: Heartburn Hydrocortisone Sodium Succinate (Hydrocortisone Sod Succ/Pf 100 Mg Vial) 25 mg IVPUSH Q12H [facility] Last Admin: 04/12/24 02:57 Dose: 25 mg Lactated Ringer's (Lr) 1,000 mls @ 80 mls/hr IVCONT .[id number] [facility] Last Admin: 04/12/24 08:19 Dose: 80 mls/hr Metronidazole (Flagyl) 500 mg in 100 mls @ 100 mls/hr IV Q8H [facility] Last Infusion: 04/12/24 04:13 Dose: Infused Magnesium Hydroxide (Milk Of Magnesia 30 Ml Oral.Susp) 30 ml PO DAILY PRN PRN Reason: Constipation Melatonin (Melatonin 3 Mg Tablet) 6 mg PO BEDTIME PRN PRN Reason: Insomnia Last Admin: 04/11/24 22:19 Dose: 6 mg Morphine Sulfate (Morphine Sulfate 4 Mg/Ml Cartridge) 3 mg IVPUSH Q6H PRN; Protocol PRN Reason: Pain, Severe (Pain Scale 7-10) Ondansetron HCl (Ondansetron Hcl 4 Mg/2 Ml Vial) 4 mg IVPUSH Q8H PRN PRN Reason: Nausea and Vomiting Pantoprazole Sodium (Pantoprazole Sodium 40 Mg/10 Ml Vial) 40 mg IVPUSH BID@0630,1630 [facility] Last Admin: 04/12/24 06:18 Dose: 40 mg Sodium Chloride (0.9 % Sodium Chloride Flush 3 Ml Syringe) 3 ml IVFLUSH QSHIFT [facility] Last Admin: 04/12/24 07:12 Dose: Not Given Vancomycin HCl (Vancomycin Hcl 125 Mg Capsule) 125 mg PO Q6H [facility] Last Admin: 04/12/24 08:18 Dose: 125 mg Home Medications ?Medication ?Instructions ?Recorded ?Confirmed ?Last Taken ?Type omeprazole 20 mg capsule,delayed 20 mg PO DAILY 11/14/22 04/10/24 04/10/24 History release pravastatin 20 mg tablet 20 mg PO DAILY 11/14/22 04/10/24 04/10/24 History amlodipine 5 mg tablet 5 mg PO DAILY 04/10/24 04/10/24 04/10/24 History calcium carbonate 500 mg PO DAILY 04/10/24 04/10/24 04/10/24 History estradiol 0.01% (0.1 mg/gram) 1 appl vaginal DAILY 04/10/24 04/10/24 04/09/24 History vaginal cream lactobacillus comb no.10 20 20,000 mmu cells PO DAILY 04/10/24 04/10/24 04/10/24 History billion cell capsule (Probiotic) multivitamin 1 tab PO DAILY 04/10/24 04/10/24 04/10/24 History prednisone 10 mg tablet 5 mg PO Q OTHER DAY 04/10/24 04/10/24 Unknown History prednisone 10 mg tablet 10 mg PO Q OTHER DAY 04/10/24 04/10/24 Unknown History Physical Exam 2 Vital Signs: Vital Signs: Last Vital Signs Temp 98.2 F 04/12/24 07:36 Pulse 94 04/12/24 07:36 Resp 20 04/12/24 07:36 BP 145/89 H 04/12/24 07:36 Pulse Ox 94 04/12/24 07:36 O2 Del Method Room Air 04/12/24 07:36 BMI result Body Mass Index 27.3 EXAM: GENERAL: The patient is well developed and nontoxic. VITAL SIGNS:see workflow HEENT: Nonicteric sclerae, PERRLA, EOMI. Oropharynx clear. Moist mucous membranes. Conjunctivae appear well perfused. No thyroid mass. CHEST: Chest wall is nontender. HEART: Regular rate and rhythm without murmurs. LUNGS: Clear to auscultation bilaterally. ABDOMEN: Soft, positive bowel sounds, nontender, no organomegaly.no flank tenderness SKIN: No rash, no excessive bruising, petechiae, or purpura. NEUROLOGIC: Cranial nerves II-XII intact without motor/sensory deficit. Psych: normal affect Results Labs 04/12/24 05:10 04/12/24 05:10 Labs: Short CBC 04/11/24 04/12/24 Range/Units 14:23 05:10 WBC 17.2 H 15.0 H (4.8-10.8) X10*3/uL Hgb 12.6 11.5 L (12.0-16.0) g/dl Hct 37.0 34.0 L (37.0-47.0) % Plt Count 306 299 (160-400) X10*3/uL BMP 04/12/24 05:10 Sodium 140 Potassium 3.3 Chloride 108 Carbon Dioxide 22 BUN 6 L Creatinine 0.64 Calcium 9.3 Microbiology Microbiology Results: Microbiology 04/10/24 Unknown Urine clean catch - Clean Catch Midstream Urine Culture - Final Escherichia coli 04/10/24 13:08 Blood - Venous Blood Culture - Preliminary No growth after 24 hours. 04/10/24 12:43 Blood - Venous Blood Culture - Preliminary No growth after [address] scan - abdomen: Attestation: I personally reviewed and interpreted this imaging study as follows: (aparicio colitis, spinal degen, hip degen, ) Assessment and Plan (1) Colitis: Status: Acute Plan 1/ Seems most likely infectious, ddx: NSAId related, ischemic, or less likely IBD. PLAN: 1/ PCR and c diff came back neg, will get unprepped colonoscopy/sigmoidoscopy tomorrow for further eval and bx. Keep on AB meantime, ok to use steroids given her chronic reliance for PMR Procedures Date of Service Date of Service: 04/12/24
[2024-04-12 10:12] LABS: Adenovirus F 40/41 Not Detected (Not Detect.); Astrovirus Not Detected (Not Detect.); Campylobacter Not Detected (Not Detect.); Cryptosporidium Not Detected (Not Detect.); Cyclospora cayetanensis Not Detected (Not Detect.); E. coli EAEC Not Detected (Not Detect.); E. coli EPEC Not Detected (Not Detect.); E. coli ETEC Not Detected (Not Detect.); E. coli STEC Not Detected (Not Detect.); Entamoeba histolytica Not Detected (Not Detect.); Giardia lamblia Not Detected (Not Detect.); Norovirus GI/GII Not Detected (Not Detect.); Plesiomonas shigelloides Not Detected (Not Detect.); Rotavirus A Not Detected (Not Detect.); Salmonella Not Detected (Not Detect.); Sapovirus Not Detected (Not Detect.); Shigella sp./EIEC Not Detected (Not Detect.); Vibrio Not Detected (Not Detect.); Vibrio Cholerae Not Detected (Not Detect.); Yersinia enterocolitica Not Detected (Not Detect.)
--- NOTE | 2024-04-12 10:39 | P.PNIM_ITS ---
Subjective Subjective Date of Service: 04/12/24 Interval History: Being followed for loose stools. Complaining of multiple bloody bowel movement overnight, no worsening abdominal pain, no fevers, no chills, no nausea, no vomiting no lightheadedness or dizziness no prior history of bright red blood per rectum. Review of Systems All other system reviewed and are negative. Physical Exam 2 Vital Signs: Vital Signs: Last Vital Signs Temp 98.2 F 04/12/24 07:36 Pulse 94 04/12/24 07:36 Resp 20 04/12/24 07:36 BP 145/89 H 04/12/24 07:36 Pulse Ox 94 04/12/24 07:36 O2 Del Method Room Air 04/12/24 07:36 BMI result Body Mass Index 27.3 Const: Other: General awake alert x3, resting comfortably in no acute distress. Anicteric sclera Neck no JVD. CVS regular rate rhythm, Respiratory lungs clear to auscultation, no respiratory distress, no wheeze, no rhonchi. Gastrointestinal abdomen soft, mild tenderness, bowel sounds audible, no rebound, no guarding , no rigidity. Extremities no edema. Neuro non focal Skin no rash Psych appropriate affect. Objective Data Active Medications Acetaminophen (Acetaminophen 325 Mg Tablet) 650 mg PO Q6H PRN PRN Reason: Pain, Mild (Pain Scale 1-3), fever or headache Last Admin: 04/12/24 08:18 Dose: 650 mg Documented By: COTEMA Amlodipine Besylate (Amlodipine Besylate 5 Mg Tablet) 5 mg PO DAILY [facility]; Protocol Last Admin: 04/12/24 08:18 Dose: 5 mg Documented By: COTEMA Calcium Carbonate (Calcium Carbonate 750 Mg Tab.Chew) 750 mg PO Q4H PRN PRN Reason: Heartburn Hydrocortisone Sodium Succinate (Hydrocortisone Sod Succ/Pf 100 Mg Vial) 25 mg IVPUSH Q12H [facility] Last Admin: 04/12/24 02:57 Dose: 25 mg Documented By: LUKASZ Comments: given late, patient refused administration time Lactated Ringer's (Lr) 1,000 mls @ 80 mls/hr IVCONT .[id number] [facility] Last Admin: 04/12/24 08:19 Dose: 80 mls/hr Documented By: COTEMA Metronidazole (Flagyl) 500 mg in 100 mls @ 100 mls/hr IV Q8H [facility] Last Admin: 04/12/24 10:37 Dose: 100 mls/hr Documented By: SANJUANITA Magnesium Hydroxide (Milk Of Magnesia 30 Ml Oral.Susp) 30 ml PO DAILY PRN PRN Reason: Constipation Melatonin (Melatonin 3 Mg Tablet) 6 mg PO BEDTIME PRN PRN Reason: Insomnia Last Admin: 04/11/24 22:19 Dose: 6 mg Documented By: LUKASZ Morphine Sulfate (Morphine Sulfate 4 Mg/Ml Cartridge) 3 mg IVPUSH Q6H PRN; Protocol PRN Reason: Pain, Severe (Pain Scale 7-10) Ondansetron HCl (Ondansetron Hcl 4 Mg/2 Ml Vial) 4 mg IVPUSH Q8H PRN PRN Reason: Nausea and Vomiting Pantoprazole Sodium (Pantoprazole Sodium 40 Mg/10 Ml Vial) 40 mg IVPUSH BID@0630,1630 [facility] Last Admin: 04/12/24 06:18 Dose: 40 mg Documented By: LUKASZ Sodium Chloride (0.9 % Sodium Chloride Flush 3 Ml Syringe) 3 ml IVFLUSH QSHIFT [facility] Last Admin: 04/12/24 07:12 Dose: Not Given Documented By: SANJUANITA Non-Admin Reason: IV Running Vancomycin HCl (Vancomycin Hcl 125 Mg Capsule) 125 mg PO Q6H [facility] Last Admin: 04/12/24 08:18 Dose: 125 mg Documented By: SANJUANITA Labs 04/12/24 05:10 04/12/24 05:10 Labs: Laboratory Results - last 24 hr 04/11/24 04/12/24 04/12/24 14:23 04:24 05:10 MCV 87.1 87.6 MCH 29.6 29.6 MCHC 34.1 33.8 RDW 14.6 14.6 Plt Count 306 299 MPV 9.7 10.1 Absolute Nucleated RBC 0.000 0.000 Nucleated RBC % (auto) 0.0 0.0 Anion Gap 13 Estim Creat Clear Calc 61.2 Estimated GFR > 60 Random Glucose 88 Calcium 9.3 Stl C. cayetanensis PCR Not Detected Stool Rotavirus A PCR Not Detected Stl Adenov F 40/41 PCR Not Detected Stool Astrovirus (PCR) Not Detected Stool Campylobacter PCR Not Detected Stool Cryptosporidium PCR Not Detected Stl Sh Tox Pr E STEC PCR Not Detected Stool E coli O157 PCR Not applicable Stl Enterotoxigenic E PCR Not Detected Stool EPEC (PCR) Not Detected Stool EAEC (PCR) Not Detected Stl E. histolytica PCR Not Detected Stool Giardia Lamblia PCR Not Detected Stl P. shigelloides PCR Not Detected Stool Salmonella PCR Not Detected Stool Sapovirus (PCR) Not Detected Stl Shigella/EIEC PCR Not Detected St Y.enterocolitica PCR Not Detected Stool Vibrio (PCR) Not Detected Stl Vibrio cholerae PCR Not Detected Stl Norovirus GI/GII PCR Not Detected Microbiology Microbiology Results: Microbiology 04/10/24 Unknown Urine Culture - Final Urine clean catch - Clean Catch Midstream Escherichia coli 04/10/24 13:08 Blood Culture - Preliminary Blood - Venous No growth after 24 hours. 04/10/24 12:43 Blood Culture - Preliminary Blood - Venous No growth after 24 hours. 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 Acute Pancolitis with sepsis Continued to have bowel movements with espinoza blood, no worsening abdominal pain Likely due to antibiotic use, C diff negative, history of C diff infection in the past, question ischemic/inflammatory bowel disease, stool panel negative Sepsis resolved continue IV Flagyl and by mouth vancomycin, started on 04/10, cont. IVF, clear liquid diet WBC trending down , hematocrit dropped but above transfusion threshold Follow CBC, electrolytes and renal function (persistent leukocytosis, some component likley related to chronic steroids) Case discussed with Gastroenterology possible colonoscopy tomorrow. acute Anion gap metabolic acidosis Likely due to diarrhea resolved Acute Lactic acidosis due to hypovolemia from diarrhea Resolved with IV fluids,no severe sepsis with normal BP, no fevers, normal renal function, Acute hypokalemia potassium normalized History of polymyalgia rheumatica on chronic steroid use,will place on IV steroids low dose/on IV PPI. Recurrent UTI urinalysis unremarkable hold antibiotics. GERD continue iv PPI Hyperlipidemia on statin, currently on hold. Hypertension Norvasc 5 mg daily Full code Lovenox In my clinical judgment patient need continued inpatient hospitalization for management of pancolitis with IV fluids and IV antibiotics and expert consultation, treatment can not be provided in less acute setting. Quality Stroke Does the patient have a stroke diagnosis?: No VTE Prior VTE?: No VTE Risk Level:: Medical - moderate - high VTE Device Contraindication: Treatment Not Indicated VTE Drug Contraindication: N/A - Med Ordered
--- NOTE | 2024-04-12 11:16 | MHC.CM.PN ---
PER MD ROUNDS, PT NOT MEDICALLY CLEARED TO DC DCP REMAINS HOME WITH NO SERVICES [facility]IA [facility] CM FOLLOWING FOR CHANGING DC NEEDS
[2024-04-12] MEDS: Potassium Chloride ER 20 MEQ TAB.ER.PRT PO (12:01)
[2024-04-12 15:26] VITALS: BP 143/71; PULSE 90; RESP 18; TEMP 36.7; O2SAT 96
[2024-04-12] MEDS: 0.9 % Sodium Chloride Flush 3 ML SYRINGE IVFLUSH (17:23)
[2024-04-12 19:16] VITALS: BP 149/76; PULSE 86; RESP 18; TEMP 36.6; O2SAT 95
[2024-04-12] MEDS: Melatonin 3 MG TABLET 6 MG PO (21:52)
[2024-04-13] MEDS: Hydrocortisone Sod Succ/PF 100 MG VIAL 25 MG IVPUSH ×2 (01:00→13:17)
[2024-04-13] MEDS: metroNIDAZOLE/NS 500 MG/100 ML PIGGYBACK 100 MG IV ×2 (02:07→13:17)
[2024-04-13] MEDS: Acetaminophen 325 MG TABLET 650 MG PO (03:43)
[2024-04-13] MEDS: vancomycin HCL 125 MG CAPSULE PO ×2 (03:57→10:59)
[2024-04-13] MEDS: Lactated Ringers 1,000 ML 80 ML IVCONT (03:59)
[2024-04-13 04:00] VITALS: BP 135/75; PULSE 93; RESP 16; TEMP 36.8; O2SAT 95
[2024-04-13] MEDS: Pantoprazole Sodium 40 MG/10 ML VIAL IVPUSH (05:17)
[2024-04-13 06:38] LABS: Hematocrit 32.3 % (37.0-47.0); Hemoglobin 10.7 g/dl (12.0-16.0); Mean Corpuscular HGB Conc 33.1 g/dl (31.0-35.0); Mean Corpuscular Hemoglobin 29.1 pg (27.0-33.0); Mean Corpuscular Volume 87.8 fL (80.0-98.0); Mean Platelet Volume 9.9 fL (9.4-12.3); Platelet Count 271 X10*3/uL (160-400); Red Blood Count 3.68 X10*6/uL (4.20-5.50); White Blood Count 13.8 X10*3/uL (4.8-10.8)
[2024-04-13 06:55] LABS: Anion Gap 13 (12-20); Blood Urea Nitrogen 5 mg/dL (9-16); Calcium 9.2 mg/dL (8.4-10.2); Carbon Dioxide 22 mmol/L (22-29); Chloride 108 mmol/L (96-108); Creatinine Clr Calc Pharmacy 61.2; Estimated Glomerular Filt Rate > 60; Glucose Random 107 mg/dL (60-115); Potassium 3.1 mmol/L (3.3-5.1); Sodium 140 mmol/L (135-145)
[2024-04-13] MEDS: amLODIPine Besylate 5 MG TABLET PO (07:45)
[2024-04-13] MEDS: Potassium Chloride ER 20 MEQ TAB.ER.PRT PO (07:45)
[2024-04-13] MEDS: KCl 20 mEq in 5 % Dex/Lact Rin 20 MEQ/1,000 ML IV.SOLN 80 MEQ IVCONT (07:45)
[2024-04-13 07:58] VITALS: BP 171/78; PULSE 81; RESP 12; TEMP 36.4; O2SAT 97
[2024-04-13 11:36] VITALS: BP 165/91; PULSE 85; RESP 18; TEMP 36.7; O2SAT 96
--- NOTE | 2024-04-13 11:51 | P.PNGI_ITS ---
Subjective Subjective Date of Service: 04/13/24 Interval History: Feels better no pain still seeing some rectal blood no nausea or vomiting GI PCR neg Critical Care Time (minutes): 0 Physical Exam 2 Vital Signs: Vital Signs: Last Vital Signs Temp 98.0 F 04/13/24 11:36 Pulse 85 04/13/24 11:36 Resp 18 04/13/24 11:36 BP 165/91 H 04/13/24 11:36 Pulse Ox 96 04/13/24 11:36 O2 Del Method Room Air 04/13/24 11:36 BMI result Body Mass Index 27.3 EXAM: GENERAL: The patient is well developed and nontoxic. VITAL SIGNS:see workflow HEENT: Nonicteric sclerae, PERRLA, EOMI. Oropharynx clear. Moist mucous membranes. Conjunctivae appear well perfused. No thyroid mass. CHEST: Chest wall is nontender. HEART: Regular rate and rhythm without murmurs. LUNGS: Clear to auscultation bilaterally. ABDOMEN: Soft, positive bowel sounds, nontender, no organomegaly.no flank tenderness SKIN: No rash, no excessive bruising, petechiae, or purpura. NEUROLOGIC: Cranial nerves II-XII intact without motor/sensory deficit. Psych: normal affect Objective Data Labs 04/13/24 06:20 04/13/24 06:20 Labs: Laboratory Results - last 24 hr 04/13/24 06:20 WBC 13.8 H RBC 3.68 L Hgb 10.7 L Hct 32.3 L MCV 87.8 MCH 29.1 MCHC 33.1 RDW 14.0 Plt Count 271 MPV 9.9 Absolute Nucleated RBC 0.000 Nucleated RBC % (auto) 0.0 Sodium 140 Potassium 3.1 L Chloride 108 Carbon Dioxide 22 Anion Gap 13 BUN 5 L Creatinine 0.64 Estim Creat Clear Calc 61.2 Estimated GFR > 60 Random Glucose 107 Calcium 9.2 Microbiology Microbiology Results: Microbiology 04/10/24 13:08 Blood - Venous Blood Culture - Preliminary No growth after 48 hours. 04/10/24 12:43 Blood - Venous Blood Culture - Preliminary No growth after 48 hours. 04/10/24 Unknown Urine clean catch - Clean Catch Midstream Urine Culture - Final Escherichia coli Procedures Date of Service Date of Service: 04/13/24 Progress Note: A&P Assessment and plan (1) Colitis: Status: Acute Plan 1/ colitis with down trending HGB, neg c diff and GI PCR ?infectious colitis inspite of neg stools, vs IBD, ischemic etiology PLAN: 1/ Colonoscopy today for further assessment, and bx, will do unprepped. Time Spent With Patient Time: Total time managing care of this patient today ____ minutes. Quality Stroke Does the patient have a stroke diagnosis?: No VTE Prior VTE?: No VTE Risk Level:: Medical - moderate - high VTE Device Contraindication: Treatment Not Indicated VTE Drug Contraindication: N/A - Med Ordered
--- NOTE | 2024-04-13 11:54 | MHC.SHP ---
Pre-Procedural Eval Section A - 24 Hr Update-Section A only Date of Service: 04/13/24 The patient is an INPATIENT: Yes The patient has been examined within 24 hours of the surgical procedure. The History & Physical has been completed within 30 days and I have reviewed it.: Yes Section B - Complete if H&P > 30 days Chief Complaint: abdominal pain/pancolitis Allergies: Allergies Allergy/AdvReac Type Severity Reaction Status Date / Time clindamycin Allergy Unknown Unknown Verified 04/10/24 12:28 fentanyl AdvReac Severe Nausea and Verified 04/13/24 11:50 Vomiting Statins- Sensitivity Allergy Unknown Unknown Uncoded 03/18/24 20:32 Plan Diagnosis/Plan: Unchanged I have reviewed the history and physical and performed a pertinent physical examination on my patient. No changes have occurred unless specified. Time Spent With Patient Time: Total time managing care of this patient today ____ minutes.
--- NOTE | 2024-04-13 12:01 | P.CONAN_ITS ---
FORMERLY [facility] Active Problems Active Problems: All Active Problems Acute metabolic acidosis (Acute) Dehydration (Acute) Acute hypokalemia (Acute) Acute UTI (Acute) Colitis (Acute) Recent urinary tract infection (Acute) Nephrolithiasis (Acute) Past Medical History Medical History High cholesterol GERD (gastroesophageal reflux disease) PMR (polymyalgia rheumatica) Family History Family History Maternal Aunt History of breast cancer Maternal Grandfather Colon cancer Sister Colon cancer Family history of problems with anesthesia: No Surgical History Surgical History H/O knee surgery History of Problems with Anesthesia: No Social History Social History Household Members: Spouse Housing: House Alcohol intake: current Alcohol intake frequency: a few times a week Patient Tobacco Use Status: Former Tobacco user service: No Meds Allergies Allergy/AdvReac Type Severity Reaction Status Date / Time clindamycin Allergy Unknown Unknown Verified 04/10/24 12:28 fentanyl AdvReac Severe Nausea and Verified 04/13/24 11:50 Vomiting Statins- Sensitivity Allergy Unknown Unknown Uncoded 03/18/24 20:32 Active Medications: Current Medications Acetaminophen (Acetaminophen 325 Mg Tablet) 650 mg PO Q6H PRN PRN Reason: Pain, Mild (Pain Scale 1-3), fever or headache Last Admin: 04/13/24 03:43 Dose: 650 mg Amlodipine Besylate (Amlodipine Besylate 5 Mg Tablet) 5 mg PO DAILY SUHAIL; Protocol Last Admin: 04/13/24 07:45 Dose: 5 mg Calcium Carbonate (Calcium Carbonate 750 Mg Tab.Chew) 750 mg PO Q4H PRN PRN Reason: Heartburn Hydrocortisone Sodium Succinate (Hydrocortisone Sod Succ/Pf 100 Mg Vial) 25 mg IVPUSH Q12H SUHAIL Last Admin: 04/13/24 01:00 Dose: 25 mg Metronidazole (Flagyl) 500 mg in 100 mls @ 100 mls/hr IV Q8H SUHAIL Last Infusion: 04/13/24 03:18 Dose: Infused Potassium Cl/Dextrose/Lact Ringer's (Kcl 20 Meq In 5 % Dex/Lact Rin) 20 meq in 1,000 mls @ 80 mls/hr IVCONT .[id number] FOR[facility]LY [facility], 1928–1983 Last Admin: 04/13/24 07:45 Dose: 80 mls/hr Magnesium Hydroxide (Milk Of Magnesia 30 Ml Oral.Susp) 30 ml PO DAILY PRN PRN Reason: Constipation Melatonin (Melatonin 3 Mg Tablet) 6 mg PO BEDTIME PRN PRN Reason: Insomnia Last Admin: 04/12/24 21:52 Dose: 6 mg Morphine Sulfate (Morphine Sulfate 4 Mg/Ml Cartridge) 3 mg IVPUSH Q6H PRN; Protocol PRN Reason: Pain, Severe (Pain Scale 7-10) Ondansetron HCl (Ondansetron Hcl 4 Mg/2 Ml Vial) 4 mg IVPUSH Q8H PRN PRN Reason: Nausea and Vomiting Pantoprazole Sodium (Pantoprazole Sodium 40 Mg/10 Ml Vial) 40 mg IVPUSH BID@0630,1630 FOR[facility]LY [facility], [facility]1983 Last Admin: 04/13/24 05:17 Dose: 40 mg Sodium Chloride (0.9 % Sodium Chloride Flush 3 Ml Syringe) 3 ml IVFLUSH QSHIFT FOR[facility]LY [facility], 1928–1983 Last Admin: 04/13/24 07:50 Dose: Not Given Vancomycin HCl (Vancomycin Hcl 125 Mg Capsule) 125 mg PO Q6H FOR[facility], [facility] Last Admin: 04/13/24 10:59 Dose: 125 mg Home Medications ?Medication ?Instructions ?Recorded ?Confirmed ?Last Taken ?Type omeprazole 20 mg capsule,delayed 20 mg PO DAILY 11/14/22 04/10/24 04/10/24 History release pravastatin 20 mg tablet 20 mg PO DAILY 11/14/22 04/10/24 04/10/24 History amlodipine 5 mg tablet 5 mg PO DAILY 04/10/24 04/10/24 04/10/24 History calcium carbonate 500 mg PO DAILY 04/10/24 04/10/24 04/10/24 History estradiol 0.01% (0.1 mg/gram) 1 appl vaginal DAILY 04/10/24 04/10/24 04/09/24 History vaginal cream lactobacillus comb no.10 20 20,000 mmu cells PO DAILY 04/10/24 04/10/24 04/10/24 History billion cell capsule (Probiotic) multivitamin 1 tab PO DAILY 04/10/24 04/10/24 04/10/24 History prednisone 10 mg tablet 5 mg PO Q OTHER DAY 04/10/24 04/10/24 Unknown History prednisone 10 mg tablet 10 mg PO Q OTHER DAY 04/10/24 04/10/24 Unknown History Exam Height,Weight and Vital Signs: Height 5 ft Weight 63.503 kg Last Vital Signs Temp 98.0 F 04/13/24 11:36 Pulse 85 04/13/24 11:36 Resp 18 04/13/24 11:36 BP 165/91 H 04/13/24 11:36 Pulse Ox 96 04/13/24 11:36 O2 Del Method Room Air 04/13/24 11:36 Pertinent Lab Results Pertinent Lab Results: Laboratory Tests 04/10/24 04/10/24 04/10/24 12:43 13:08 14:03 WBC 20.5 H RBC 4.90 Hgb 14.1 Hct 43.3 MCV 88.4 MCH 28.8 MCHC 32.6 RDW 14.0 Plt Count 411 H D MPV 9.8 Immature Gran % (Auto) 1.0 H Neut % (Auto) 86.7 H Lymph % (Auto) 7.5 L [place] % (Auto) 4.4 Eos % (Auto) 0.1 Baso % (Auto) 0.3 Lymph # (Auto) 1.5 [place] # (Auto) 0.9 Eos # (Auto) 0.0 Baso # (Auto) 0.1 Abs Immat Gran (auto) 0.21 H Absolute Neuts (auto) 17.8 H Absolute Nucleated RBC 0.000 Nucleated RBC % (auto) 0.0 Sodium 141 Potassium 3.2 L Chloride 104 Carbon Dioxide 18 L Anion Gap 22 H BUN 19 H Creatinine 0.88 Estim Creat Clear Calc 44.5 Estimated GFR > 60 Random Glucose 188 H Lactic Acid 3.9 H* Lactic Acid F/U @ 2Hr Lactic Acid F/U @ 4Hr Calcium 10.9 H Total Bilirubin 0.8 Direct Bilirubin 0.2 AST 24 ALT 24 Alkaline Phosphatase 131 H Troponin I High Sens < 2.7 Total Protein 6.8 Albumin 4.4 Lipase 36 Urine Color Yellow Urine Appearance Clear Urine pH 7.5 Ur Specific [place] <= 1.005 Urine Protein Negative Urine Glucose (UA) 100 H Urine Ketones Negative Urine Blood Negative Urine Nitrite Negative Ur Leukocyte Esterase Small (1+) H Urine RBC 0-2 Urine WBC 11-20 H Ur Squamous Epith Cells 0-2 Urine Bacteria None Seen Hyaline Casts 0-2 Stool Occult Blood POSITIVE Stl C. cayetanensis PCR Stool Rotavirus A PCR Stl Adenov F 40 PCR Stool Astrovirus (PCR) Stool Campylobacter PCR Stool Cryptosporidium PCR Stl Sh Tox Pr E STEC PCR Stool E coli O157 PCR Stl Enterotoxigenic E PCR Stool EPEC (PCR) Stool EAEC (PCR) Stl E. histolytica PCR Stool Giardia Lamblia PCR Stl P. shigelloides PCR Stool Salmonella PCR Stool Sapovirus (PCR) Stl Shigella/EIEC PCR St Y.enterocolitica PCR Stool Vibrio (PCR) Stl Vibrio cholerae PCR Stl Norovirus GI/GII PCR C. difficile Tox B Gene NEGATIVE 04/10/24 04/10/24 04/11/24 17:06 19:49 05:31 WBC 19.0 H RBC 4.37 Hgb 12.7 Hct 38.7 MCV 88.6 MCH 29.1 MCHC 32.8 RDW 14.4 Plt Count 356 MPV 10.3 Immature Gran % (Auto) 0.7 H Neut % (Auto) 84.1 H Lymph % (Auto) 8.0 L [place] % (Auto) 6.9 Eos % (Auto) 0.1 Baso % (Auto) 0.2 Lymph # (Auto) 1.5 [place] # (Auto) 1.3 H Eos # (Auto) 0.0 Baso # (Auto) 0.0 Abs Immat Gran (auto) 0.13 H Absolute Neuts (auto) 16.0 H Absolute Nucleated RBC 0.000 Nucleated RBC % (auto) 0.0 Sodium 136 Potassium 3.9 D Chloride 107 Carbon Dioxide 19 L Anion Gap 14 BUN 9 Creatinine 0.66 Estim Creat Clear Calc 59.3 Estimated GFR > 60 Random Glucose 106 Lactic Acid Lactic Acid F/U @ 2Hr 2.3 H* Lactic Acid F/U @ 4Hr 1.2 Calcium 9.5 D Total Bilirubin Direct Bilirubin AST ALT Alkaline Phosphatase Troponin I High Sens Total Protein Albumin Lipase Urine Color Urine Appearance Urine pH Ur Specific [place] Urine Protein Urine Glucose (UA) Urine Ketones Urine Blood Urine Nitrite Ur Leukocyte Esterase Urine RBC Urine WBC Ur Squamous Epith Cells Urine Bacteria Hyaline Casts Stool Occult Blood Stl C. cayetanensis PCR Stool Rotavirus A PCR Stl Adenov F PCR Stool Astrovirus (PCR) Stool Campylobacter PCR Stool Cryptosporidium PCR Stl Sh Tox Pr E STEC PCR Stool E coli O157 PCR Stl Enterotoxigenic E PCR Stool EPEC (PCR) Stool EAEC (PCR) Stl E. histolytica PCR Stool Giardia Lamblia PCR Stl P. shigelloides PCR Stool Salmonella PCR Stool Sapovirus (PCR) Stl Shigella/EIEC PCR St Y.enterocolitica PCR Stool Vibrio (PCR) Stl Vibrio cholerae PCR Stl Norovirus GI/GII PCR C. difficile Tox B Gene 04/11/24 04/12/24 04/12/24 14:23 04:24 05:10 WBC 17.2 H 15.0 H RBC 4.25 3.88 L Hgb 12.6 11.5 L Hct 37.0 34.0 L MCV 87.1 87.6 MCH 29.6 29.6 MCHC 34.1 33.8 RDW 14.6 14.6 Plt Count 306 299 MPV 9.7 10.1 Immature Gran % (Auto) Neut % (Auto) Lymph % (Auto) [place] % (Auto) Eos % (Auto) Baso % (Auto) Lymph # (Auto) [place] # (Auto) Eos # (Auto) Baso # (Auto) Abs Immat Gran (auto) Absolute Neuts (auto) Absolute Nucleated RBC 0.000 0.000 Nucleated RBC % (auto) 0.0 0.0 Sodium 140 Potassium 3.3 Chloride 108 Carbon Dioxide 22 Anion Gap 13 BUN 6 L Creatinine 0.64 Estim Creat Clear Calc 61.2 Estimated GFR > 60 Random Glucose 88 Lactic Acid Lactic Acid F/U @ 2Hr Lactic Acid F/U @ 4Hr Calcium 9.3 Total Bilirubin Direct Bilirubin AST ALT Alkaline Phosphatase Troponin I High Sens Total Protein Albumin Lipase Urine Color Urine Appearance Urine pH Ur Specific [place] Urine Protein Urine Glucose (UA) Urine Ketones Urine Blood Urine Nitrite Ur Leukocyte Esterase Urine RBC Urine WBC Ur Squamous Epith Cells Urine Bacteria Hyaline Casts Stool Occult Blood Stl C. cayetanensis PCR Not Detected Stool Rotavirus A PCR Not Detected Stl Adenov F 40/41 PCR Not Detected Stool Astrovirus (PCR) Not Detected Stool Campylobacter PCR Not Detected Stool Cryptosporidium PCR Not Detected Stl Sh Tox Pr E STEC PCR Not Detected Stool E coli O157 PCR Not applicable Stl Enterotoxigenic E PCR Not Detected Stool EPEC (PCR) Not Detected Stool EAEC (PCR) Not Detected Stl E. histolytica PCR Not Detected Stool Giardia Lamblia PCR Not Detected Stl P. shigelloides PCR Not Detected Stool Salmonella PCR Not Detected Stool Sapovirus (PCR) Not Detected Stl Shigella/EIEC PCR Not Detected St Y.enterocolitica PCR Not Detected Stool Vibrio (PCR) Not Detected Stl Vibrio cholerae PCR Not Detected Stl Norovirus GI/GII PCR Not Detected C. difficile Tox B Gene 04/13/24 06:20 WBC 13.8 H RBC 3.68 L Hgb 10.7 L Hct 32.3 L MCV 87.8 MCH 29.1 MCHC 33.1 RDW 14.0 Plt Count 271 MPV 9.9 Immature Gran % (Auto) Neut % (Auto) Lymph % (Auto) [place] % (Auto) Eos % (Auto) Baso % (Auto) Lymph # (Auto) [place] # (Auto) Eos # (Auto) Baso # (Auto) Abs Immat Gran (auto) Absolute Neuts (auto) Absolute Nucleated RBC 0.000 Nucleated RBC % (auto) 0.0 Sodium 140 Potassium 3.1 L Chloride 108 Carbon Dioxide 22 Anion Gap 13 BUN 5 L Creatinine 0.64 Estim Creat Clear Calc 61.2 Estimated GFR > 60 Random Glucose 107 Lactic Acid Lactic Acid F/U @ 2Hr Lactic Acid F/U @ 4Hr Calcium 9.2 Total Bilirubin Direct Bilirubin AST ALT Alkaline Phosphatase Troponin I High Sens Total Protein Albumin Lipase Urine Color Urine Appearance Urine pH Ur Specific [place] Urine Protein Urine Glucose (UA) Urine Ketones Urine Blood Urine Nitrite Ur Leukocyte Esterase Urine RBC Urine WBC Ur Squamous Epith Cells Urine Bacteria Hyaline Casts Stool Occult Blood Stl C. cayetanensis PCR Stool Rotavirus A PCR Stl Adenov F 40/41 PCR Stool Astrovirus (PCR) Stool Campylobacter PCR Stool Cryptosporidium PCR Stl Sh Tox Pr E STEC PCR Stool E coli O157 PCR Stl Enterotoxigenic E PCR Stool EPEC (PCR) Stool EAEC (PCR) Stl E. histolytica PCR Stool Giardia Lamblia PCR Stl P. shigelloides PCR Stool Salmonella PCR Stool Sapovirus (PCR) Stl Shigella/EIEC PCR St Y.enterocolitica PCR Stool Vibrio (PCR) Stl Vibrio cholerae PCR Stl Norovirus GI/GII PCR C. difficile Tox B Gene Airway Mallampati Class: II TM Dist: >3cm Neck ROM: Full Assessment and Plan Assessment Anesthesia Assessment: Anesthesia Plan Discussed and Chart Reviewed Final Anesthetic Review Family History of Problems with Anesthesia: No History of Problems with Anesthesia: No NPO: Yes ASA Class: II Final Preanesthetic Review: No Changes in Pt Med Stat, Meds/Allgs Chart Reviewed, Consent Obtained/Reviewed and Anes Risks/Benef Reviewed Patient Risk: Low Procedure Risk: Low Anesthetic Plan Anesthetic Plan: TIVA Disposition: Standard PACU
--- NOTE | 2024-04-13 12:08 | HO.OPN-COLON ---
Colonoscopy Operative Note Operative Note Date of Service: 04/13/24 Narrative: Operative Information Procedure Description: Colonoscopy Indication: colitis Anesthesia: MAC COLONOSCOPY Instrument: Olympus variable stiffness pediatric scope 190L Colonoscopy Monitoring: Vital signs and clinical assessment, continuous EKG monitoring, Pulse oximetry, Carbon Dioxide monitoring and blood pressure monitoring were done throughout the procedure. Colon withdrawal time was 15 minutes. Procedure: The patient was placed in the left lateral decubitis position and pre-procedure medications were administered. After a digital rectal examination of the ano-rectum, the video colonoscope was inserted into the rectum and advanced through the colon to the cecum/TI. The colonoscope was slowly withdrawn in a retrograde panoramic fashion and the colon mucosa was carefully examined including a retroflexed view of the rectum. Findings and interventions are described below. Procedure Difficulty: moderate Findings: Terminal Ileum-normal, bx taken Cecum:normal, Ascending Colon: normal , bx taken Transverse Colon -normal, bx taken Descending Colon: normal Sigmoid Colon: proximal to mid sigmoid with erythema, edema, swelling and healing mucosa with slough possible SCAD as there was moderate severe diverticulosis, distal sigmoid with normal appearing mucosa and diverticulosis Rectum: Retroflexion with small internal hemorrhoids seen, grade I, bx taken Anorectum - normal Intervention: cold forceps bx Colon preparation: [place] Bowel Preparation Scale Right colon; 1-2 Transverse colon: 1-2 Left colon; 2 (0 = Unprepared colon segment with mucosa not seen due to solid stool that cannot be cleared. 1 = Portion of mucosa of the colon segment seen, but other areas of the colon segment not well seen due to staining, residual stool and/or opaque liquid. 2 = Minor amount of residual staining, small fragments of stool and/or opaque liquid, but mucosa of colon segment seen well. 3 = Entire mucosa of colon segment seen well with no residual staining, small fragments of stool or opaque liquid) Impression and Post Procedure Diagnosis: diverticulosis possible SCAD- diverticular associated colitis internal hemorrhoids Plan: High fiber diet leaflet Avoid straining at stool, epsom salts and sitz bath, anusol supps or cream Repeat Colonoscopy in 6-12 months (this was diagnostic test only, inadequate as a screening test) ok to go home with ABX and o/p f/u Above findings were reviewed with the patient and relevant handouts were provided if indicated.
[2024-04-13 12:53] VITALS: BP 159/72; PULSE 78; RESP 15; TEMP 36.2; O2SAT 98
[2024-04-13 13:08] VITALS: BP 160/70; PULSE 78; RESP 18; TEMP 36.7; O2SAT 98
--- NOTE | 2024-04-13 13:31 | PM.DS ---
DS: Providers Provider Date of Service: 04/13/24 Date of admission: 04/10/24 16:48 Primary care physician: Dexter Mills MD Consults: 04/11/24 01:28 Consult to Gastroenterology Routine Consulting Provider: Kenyetta Wiggins Reason for consultation: Acute colitis and GI bleed DS: Diagnosis Discharge Diagnosis (1) Colitis: Status: Acute DS: Summary Hospital Course Hospital Course: History of presenting illness: Date of Service: 04/10/24 Chief Complaint: Abdominal pain 78-year-old female patient with past medical history significant for hyperlipidemia, GERD, PMR and recurrent UTIs, recently finished a course of Augmentin on April 03, prior to that finished course of nitrofurantoin for E coli infection, patient was feeling fine up until this more morning she woke up she took her coffee and half bagel after that she started feeling sick developed diffuse abdominal pain associated with dizziness and 3-4 loose brown watery stool with foul odor associated with chills, no fevers no urinary frequency or urgency, noted dark-colored urine, in the emergency room noted to have WBC count of 20.5,LA 3.9 ,K 3.2 ,AG 22,HCO3 18 ,tachypneic, afebrile no tachycardia, CT abdomen pelvis showed severe diffuse abnormality consistent with aparicio colitis, no pneumo peritoneum or abscess, C diff toxin negative, differential includes inflammatory bowel disease, ischemia and antibiotic related. Patient treated in the emergency room with IV fluid, IV ceftriaxone, 1 dose of po vancomycin now being admitted for further treatment and evaluation of pancolitis. Hospital course: 78-year-old female with past medical history of hyperlipidemia, GERD, PMR in recurrent UTI recently finished a course of Augmentin 7 days ago presented to [facility] with symptoms of diffuse abdominal pain, loose watery foul odor stools with no associated nausea vomiting and fevers diagnosed to have aparicio colitis on imaging study as well as anion gap metabolic acidosis and mild hypokalemia. Acute Pancolitis with sepsis, treated with IV fluids ,bowel rest, IV Flagyl and vancomycin patient responded well to above treatment all features of sepsis resolved, WBC improved, subsequently noted to have bowel movements with espinoza blood with no worsening abdominal pain, hematocrit dropped but remained above transfusion threshold, seen by watch crystal molder Dr. Wiggins and underwent colonoscopy that showed proximal to mid sigmoid erythema, edema, swelling, likely due to segmental colitis associated with diverticulosis, and small internal hemorrhoids, since patient is clinically feeling better and is eager to be discharged home will recommend bland diet, 5 more days of by mouth Ceftin and Flagyl, in regard to internal hemorrhoids she is recommended to resume high-fiber diet after 7-10 days and avoid straining. She is recommended outpatient follow-up with GI for screening colonoscopy in 6-12 months. acute Anion gap metabolic acidosis likely due to diarrhea resolved Acute Lactic acidosis due to hypovolemia from diarrhea resolved with IV fluids. Acute hypokalemia repleted. History of polymyalgia rheumatica on chronic steroid use, recommend resume home medications Recurrent UTI urinalysis unremarkable . GERD continue PPI Hyperlipidemia resume statins Hypertension BP remained stable continue Norvasc 5 mg daily. Time Attestation Discharge Coordination Time (in mins): 40 Quality: Safe Use of Opioids Does Pt have an Active Cancer Diagnosis on the Problem List?: No Quality: Stroke Does the patient have a stroke diagnosis?: No Physical Exam Vital Signs: Vital Signs: Last Vital Signs Temp 98.1 F 04/13/24 13:08 Pulse 78 04/13/24 13:08 Resp 18 04/13/24 13:08 BP 160/70 H 04/13/24 13:08 Pulse Ox 98 04/13/24 13:08 O2 Del Method Room Air 04/13/24 13:08 BMI result Body Mass Index 27.3 Const: Other: General awake alert x3, resting comfortably in no acute distress. Anicteric sclera Neck no JVD. CVS regular rate rhythm, Respiratory lungs clear to auscultation, no respiratory distress, no wheeze, no rhonchi. Gastrointestinal abdomen soft, mild left lower quad. tenderness, bowel sounds audible, no rebound, no guarding , no rigidity. Extremities no edema. Neuro non focal Skin no rash Psych appropriate affect. DS: Data Data Completed and Pending Pending studies at discharge: Pending at discharge 04/13/24 12:25 Surgical [PTH] Routine Labs on day of discharge: Laboratory Results - last 24 hr 04/13/24 06:20 WBC 13.8 H RBC 3.68 L Hgb 10.7 L Hct 32.3 L MCV 87.8 MCH 29.1 MCHC 33.1 RDW 14.0 Plt Count 271 MPV 9.9 Absolute Nucleated RBC 0.000 Nucleated RBC % (auto) 0.0 Sodium 140 Potassium 3.1 L Chloride 108 Carbon Dioxide 22 Anion Gap 13 BUN 5 L Creatinine 0.64 Estim Creat Clear Calc 61.2 Estimated GFR > 60 Random Glucose 107 Calcium 9.2 Preliminary micro results at discharge 04/10/24 13:08 Blood Culture - Preliminary Blood - Venous No growth after 48 hours. 04/10/24 12:43 Blood Culture - Preliminary Blood - Venous No growth after 48 hours. Discharge Plan Discharge Anticipated Discharge Date/Time: 04/13/24 13:26 Patient Disposition: Home, Self-Care Discharge Diagnosis: Acute colitis Referrals: Dexter Mills MD [Primary Care Provider] - 1 Week Discharge Medications: New metronidazole 500 mg tablet 500 mg PO Q8H Qty: 15 0RF cefuroxime axetil 250 mg tablet 250 mg PO BID Qty: 10 0RF Continued multivitamin Tablet 1 tab PO DAILY prednisone 10 mg tablet 10 mg PO Q OTHER DAY prednisone 10 mg tablet 5 mg PO Q OTHER DAY amlodipine 5 mg tablet 5 mg PO DAILY calcium carbonate 500 mg calcium (1,250 mg) Tablet 500 mg PO DAILY Probiotic 20 billion cell Capsule 20,000 mmu cells PO DAILY Rx Instructions: administer with a meal estradiol 0.01 % (0.1 mg/gram) cream 1 appl vaginal DAILY Rx Instructions: daily times one month and then 3 times per week there after pea sized amount to urethra. pravastatin 20 mg tablet 20 mg PO DAILY omeprazole 20 mg capsule,delayed release(DR/EC) 20 mg PO DAILY Discharge Orders: Discharge Order (Routine); Ordered 04/13/24 Ordered By: Glendy Miller Diet: bland diet Activity on Discharge: As tolerated Stand Alone Forms: Patient Portal Discharge page Print Language: Mexican Care Plan Goals: Take by mouth Flagyl and Ceftin for 5 more days/continue bland diet for small internal hemorrhoid - Avoid straining at stool,epsom salts and sitz bath,High-fiber diet once acute symptoms resolved after 7-10 days Repeat Colonoscopy in 6-12 months Health Concerns: Continue all home medications for high cholesterol and hypertension Plan of Treatment: Outpatient follow-up with Dr. Wiggins for repeat colonoscopy in 6-12 months for screening Outpatient follow-up with primary care physician call for appointment 1-2 weeks. Assessment: As above
--- NOTE | 2024-04-13 13:41 | MHC.CM.PN ---
DP: PT HAS BEEN MEDICALLY CLEARED FOR DC HOME, NO SERVICES. PT HAS OWN RIDE HOME.
== END 2024-04-13 15:00 | disposition home or self-care (01) | DRG 871 ==
LOC: HO.ED 15:57 → HO.EDOVER 16:59 → HO.S3 19:30
PROVIDERS: Internal Medicine Gastroenterology; Admitting Provider Hospitalist; Emergency Provider Emergency Medicine; PCP Internal Medicine; Visit Provider Hospitalist
PROC: 0DJD8ZZ Inspection of Lower Intestinal Tract, Via Natural or Artificial Opening Endoscopic (ICD-10-PCS; CPT 45378; principal; 2024-04-13 12:20)
DX: A41.9 Sepsis, unspecified organism (principal); K57.31 Diverticulosis of large intestine without perforation or abscess with bleeding; E87.21 Acute metabolic acidosis; K52.89 Other specified noninfective gastroenteritis and colitis; M35.3 Polymyalgia rheumatica; K21.9 Gastro-esophageal reflux disease without esophagitis; E87.6 Hypokalemia; K64.0 First degree hemorrhoids; E86.0 Dehydration; E78.5 Hyperlipidemia, unspecified; E86.1 Hypovolemia; Z87.440 Personal history of urinary (tract) infections; Z87.891 Personal history of nicotine dependence; Z79.52 Long term (current) use of systemic steroids; Z79.899 Other long term (current) drug therapy
CPT/HCPCS: 36415; 71045; 74176; 80048; 80076; 81001; 82272; 83605; 83690; 84484; 85025; 85027; 87040; 87086; 87088; 87186; 87493; 87507; 88300; 88305; 92950; 93005; 99285; J0696; J1650; J1720; J1836; J2470; J2704; J3480; J7120

== ENCOUNTER → 2024-04-10 12:32 | Outpatient (BNV) | payer MEDICARE, OTHER, SELFPAY | PROVIDERS: Admitting Provider Hospitalist; Emergency Provider Emergency Medicine; PCP Internal Medicine; Visit Provider Internal Medicine Cardiovascular Disease | DX: R06.02 Shortness of breath (principal) | CPT/HCPCS: 93010 ==

== ENCOUNTER → 2024-04-10 16:48 | Outpatient (BNV) | payer MEDICARE, OTHER, SELFPAY | PROVIDERS: Admitting Provider Hospitalist; Emergency Provider Emergency Medicine; PCP Internal Medicine; Visit Provider Internal Medicine Gastroenterology | DX: K52.9 Noninfective gastroenteritis and colitis, unspecified (principal); K57.30 Diverticulosis of large intestine without perforation or abscess without bleeding; K64.8 Other hemorrhoids | CPT/HCPCS: 45380; 99223; 99232 ==

== ENCOUNTER → 2024-04-10 16:48 | Outpatient (BNV) | payer MEDICARE, OTHER, SELFPAY | PROVIDERS: Admitting Provider Hospitalist; Emergency Provider Emergency Medicine; PCP Internal Medicine; Visit Provider Hospitalist | DX: E87.6 Hypokalemia (principal); K52.9 Noninfective gastroenteritis and colitis, unspecified; E87.21 Acute metabolic acidosis | CPT/HCPCS: 99222; 99232; 99239 ==

== ENCOUNTER 2024-04-23 10:00 | Outpatient (REF) | payer MEDICARE, OTHER, SELFPAY ==
[2024-04-23 10:18] LABS: MANUAL DIFF FLAG NO
[2024-04-23 11:06] LABS: Basophils Percent Auto 0.4 % (0-2); Eosinophils Absolute Auto 0.1 X10*3/uL (0.0-0.4); Eosinophils Percent Auto 0.9 % (0-4); Hematocrit 38.8 % (37.0-47.0); Hemoglobin 12.4 g/dl (12.0-16.0); Imm Gran Abs Auto 0.29 X10*3/uL (0.00-0.03); Imm Gran Pct Auto 2.6 % (0.0-0.4); Lymphocytes Absolute Auto 3.3 X10*3/uL (1.2-4.9); Lymphocytes Percent Auto 30.2 % (20-40); Mean Corpuscular Hemoglobin 28.6 pg (27.0-33.0); Mean Corpuscular Volume 89.6 fL (80.0-98.0); Mean Platelet Volume 9.6 fL (9.4-12.3); Monocytes Absolute Auto 0.9 X10*3/uL (0.1-1.2); Monocytes Percent Auto 7.8 % (2-11); Neutrophils Absolute Auto 6.4 x10*3/uL (2.0-8.3); Neutrophils Percent Auto 58.1 % (45-73); Platelet Count 599 X10*3/uL (160-400); Red Blood Count 4.33 X10*6/uL (4.20-5.50); Red Cell Distribution Width 14.1 % (11.0-16.0)
[2024-04-23 12:09] LABS: Anion Gap 14 (12-20); Blood Urea Nitrogen 11 mg/dL (9-16); Calcium 10.3 mg/dL (8.4-10.2); Carbon Dioxide 25 mmol/L (22-29); Chloride 105 mmol/L (96-108); Estimated Glomerular Filt Rate > 60; Glucose Random 76 mg/dL (60-115); Potassium 3.9 mmol/L (3.3-5.1); Sodium 140 mmol/L (135-145)
== END 2024-04-23 10:01 | disposition home or self-care (01) ==
LOC: HO.LAB 10:00
PROVIDERS: PCP Internal Medicine; Visit Provider Internal Medicine
DX: R63.4 Abnormal weight loss (principal); K52.9 Noninfective gastroenteritis and colitis, unspecified
CPT/HCPCS: 36415; 80048; 83735; 85025

== ENCOUNTER → 2024-12-22 10:00 | Outpatient (BNV) | payer MEDICARE, OTHER, SELFPAY | PROVIDERS: PCP Internal Medicine; Visit Provider Radiology Diagnostic Radiology | DX: E28.39 Other primary ovarian failure (principal) | CPT/HCPCS: 77081 ==

== ENCOUNTER 2024-12-22 10:04 | Outpatient (REF) | payer MEDICARE, OTHER, SELFPAY ==
--- NOTE | ~2024-12-22 | MM_ITS ---
EXAMINATION: DXA BONE DENSITY EXTREMITY HISTORY: Estrogen deficiency TECHNIQUE: [employer] Dual energy absorptiometry (DEXA) of the lumbar spine and distal forearm was performed. The hips are not evaluated due to a history of bilateral total hip arthroplasty. COMPARISON: Comparison is made with the prior examination dated 05/26/2019. FINDINGS: The bone mineral density of the lumbar spine is 0.924 with a T-score of -2.1, and a Z-score of 0.2. This is indicative of osteopenia. This represents a BMD change of -8.1% compared to the prior exam. This is statistically significant. The bone mineral density of the distal forearm is 0.613 with a T-score of -3.0, and a Z-score of -0.5. This is indicative of osteoporosis. MM/XR DEXA appendicular skeleton IMPRESSION: Based on bone mineral density, and according to World Health Organization (WHO) criteria, the diagnosis is consistent with osteoporosis. All bone density values are in grams per centimeter squared (g/cm2). Statistically, 68% of repeat scans fall within 1 SD (+/- 0.010 g/cm2 for AP spine L1-L4) and 1 SD (+/- 0.012 g/cm2 for femur total) [employer] is a trademark of the [employer] [employer] [facility] [employer], a World Health Organization (WHO) Collaborating Center. Electronically signed by: Amarjit Garcia MD 12/22/2024 10:35 AM EDT
--- NOTE | ~2024-12-22 | MM_ITS ---
EXAMINATION: MM SCREENING DIGITAL BREAST TOMOSYNTHESIS, BILATERAL CLINICAL INFORMATION: Screening. Asymptomatic. COMPARISON: Mammography: Comparison is made with available priors TECHNIQUE: Digital breast mammography with tomosynthesis is performed in both the craniocaudal and mediolateral oblique views along with computer-aided detection (CAD). FINDINGS: There are scattered areas of fibroglandular density (ACR BI-RADS breast composition Category b). There are no significant masses, abnormal calcifications, or other abnormalities. MM/MM tomosynthesis screening BI IMPRESSION: No mammographic evidence of malignancy. ASSESSMENT: BI-RADS BI-RADS 1 - Negative RECOMMENDATION: Routine annual mammography screening. 1 year F/U This examination should not preclude the clinical evaluation of a suspicious palpable abnormality. This patient's information was entered into a reminder system with a target due date for their next mammogram. Electronically signed by: Lina Leal DO 12/26/2024 08:38 PM EDT
== END 2024-12-22 10:05 | disposition home or self-care (01) ==
LOC: HO.MAMMO 10:04
PROVIDERS: PCP Internal Medicine; Visit Provider Internal Medicine
DX: Z12.31 Encounter for screening mammogram for malignant neoplasm of breast (principal); Z13.820 Encounter for screening for osteoporosis; Z78.0 Asymptomatic menopausal state
CPT/HCPCS: 77063; 77067; 77081

== ENCOUNTER 2025-02-04 14:28 | Outpatient (AMB) | payer MEDICARE, OTHER, SELFPAY ==
--- OUTSIDE RECORDS SUMMARY | 2025-02-04 14:31 | XMS_ITS | Data Portability ---
Author Organization KO [facility]on [facility], [facility] Address [address] [place] [address] Care Team Providers Care Master Tax Advisor Name Role Phone ELISA THOMPSON Referring Provider [phone] IZABELLA YODER Primary Care Provider Assessment Encounter Date Assessment Date Assessment LastModified by Organization Details LastModified Time 10/22/2024 10/22/2024 Assessment: Patient continues to progress LE strength and exercise tolerance every week. Plan: Continue PT x1/week to improve strength, mobility and gait mechanics. [email or web address] Not available 10/22/2024 16:41:52 11/02/2024 11/02/2024 Assessment: Session focused on reviewing HEP with proper body mechanics. Pt able to perform ascending/desc ending stairs reciprocally. Pt ambulates without AD but ongoing decreased TKE. 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 Plan: Continue PT @ 2x/wk for 8 weeks to decrease pain symptoms, increase ROM in all planes, and optimize mechanics for functional movements such as for reaching and lifting for ADL's. [email or web address] Not available 02/04/2025 10:44:03 Plan of Treatment Reminders Order Date Submit Date Provider Last Modified By Organization Details Last Modified Time Details Appointments PT INITIAL EVAL 2024 10:00A M Raúl Cartagena DPT Not available Not available Not available PT FOLLOW-UP 2024 10:00A M Raúl Cartagena, DPT Not available Not available Not available PT FOLLOW-UP 2024 10:00A M Tino Scafuri, FRONT DESK MONITOR Not available Not available Not available PT FOLLOW-UP 2024 10:00A M Tino Scafuri, FRONT DESK MONITOR Not available Not available Not available PT FOLLOW-UP 2024 10:00A M Tino Scafuri, FRONT DESK MONITOR Not available Not available Not available PT FOLLOW-UP 2024 10:00A M Raúl Cartagena, DPT Not available Not available Not available PT FOLLOW-UP 2024 10:00A M Tino Scafuri, FRONT DESK MONITOR Not available Not available Not available PT FOLLOW-UP 2024 10:00A M Tino Scafuri, FRONT DESK MONITOR Not available Not available Not available PT FOLLOW-UP 2024 10:00A M Tino Scafuri, FRONT DESK MONITOR Not available Not available Not available NEW PATIENT 10 2024 02:50P M Guzman Hamlin MD Not available Not available Not available PT FOLLOW-UP 2024 10:00A M Tino Moralesfuri, FRONT DESK MONITOR Not available Not available Not available PT FOLLOW-UP 2024 10:00A M Raúl Cartagena, DPT Not available Not available Not available PT FOLLOW-UP 2024 10:00A M Raúl Cartagena, DPT Not available Not available Not available Lab None recorded. Referral None recorded. Procedures None recorded. Surgeries None recorded. Imaging XR, shoulder, 2 or more view - nilesh shldr rm 215 2024 025 [email or web address], [address], [place], [address], 01/17/2025 11:45:30 Medication Orders Celebrex 200 mg capsule 2024 025 [id number], [address], [place], [id number], 01/13/2025 11:37:41 Patient TargetsNo targets recorded. Patient InstructionsNo instructions recorded. Reason for Referral None Reported. Results Created Date Observation Date Name Description Value Unit Range Abnormal Flag Note LastModifiedBy Organization Detail LastModifiedTime 01/11/2001/09/2025 MRI, shoul shanon, w/o contr ast [facility] Access ion Number : [id number] Pat[address]il[address] t Name: Reymundo Kate Record Number : [id number] Date of : 1945 Date of Exam: 2024 Referr ing Physic isabel: Zak Sherman en NEOS [address], [address] [facility], [place] [address] Exam: MR Should er (C-) CPT 72954 - Left Room Descri ption: [place] GE Pion 3T MR Should er (C-) CPT 85668 CLINIC AL INDICA TION: M19.01 2 - Primar y osteoa rthrit is, left should er, modera te left should er pain for 2 to 3 years with decrea sed range of motion TECHNI QUE: MRI of the left should er was perfor med withou t intrav enous contra st. COMPAR CARYL: None. FINDIN GS: Mild acromi oclavi cular osteoa rthrit is. Mild supras pinatu s and infras pinatu s tendin opathy . Mild edema in the supras pinatu s muscle belly. Minima l fatty atroph y of the supras pinatu s and infras pinatu s muscle bellie s. Teres minor tendon is intact . Subsca pulari s tendin opathy . 1.2 cm loose body in the subcor acoid recess Long head of the biceps tendon is intact . Severe glenoh umeral osteoa rthrit is with severe joint space narrow ing, subcho ndral cyst format ion and osteop hytosi s. Small glenoh umeral joint effusi on consis tent with glenoh umeral synovi tis. Impres pierre: No eviden ce of rotato r cuff tear. Supras pinatu s, infras pinatu s and subsca pulari s tendin opathy . Mild edema in the supras pinatu s muscle belly. Mild acromi oclavi cular osteoa rthrit is. Severe glenoh umeral osteoa rthrit is. 1.2 cm loose body in the subcor acoid recess . I, Julian Johnson MD, have review ed the images and report and concur with the reside nt, Niya rodrigez, yue nicole. Electr onical ly Signed By: Julian Johnson MD [email or web address] [facility] ([facility] [address] [place], [address], 01/11/2025 16:52:55 01/11/20 25 01/09/2025 MRI, shoul shanon, w/o contr ast No observ ation record ed. [facility] ([facility]) [address] [place], [address], 01/17/2025 11:51:03 01/14/20 25 01/13/2025 XR, shoul shanon, 2 or more view http:/ [email or web address] ?Encry pted=s hAaTro YD8dLq bEUv6g %2BXZw aYqtaq 0bqfl% 2Fg9IQ a4ajBk vP9nXo QUaueC m3YtLR FvZlg JJ8mAn HZtai3 2z4329 AC0Kla nyHVqa hKiQtr MwF INTERFACE [facility] [address], [place], [address], 01/13/2025 11:02:07 01/14/20 25 01/13/2025 XR, shoul shanon, 2 or more view http:/ [email or web address] ?Encry pted=s hAaTro YD8dLq bEUv6g %2BXZw aYqtaq 0bqfl% 2Fg9IQ a4ajBk vP9nXo QUaueC m3YtLR FvZlgJ JJ8mAn HZtai3 9o8952 AC0Kla nyHVqa hKiQtr MwF INTERFACE [facility] [address], [place], [address], 01/13/2025 11:02:08 Result Notes None recorded. Problems Name Problem SNOMED Code Status Onset Date Resolution Date Notes Provider Name and Address Organization Details Recorded Time Osteoarth ritis of left hip joint 429357069323 108 Active 2023 Raúl Wilhelm MD [address], [place], [address] , 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 5 14:29:08 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 101639250399 108 Active 2024 ИВАН GUERIN [facility] 5 12:11:14 Bilateral shoulder osteoarth ritis 866198093946 108 Active [address] [facility] 5 10:46:10 Osteoarth ritis of right glenohume ral joint 102696938726 9101 Active 2024 Kassandra Sherman PA-C [address], [place], [address] , [facility] 5 11:36:05 Chondroma lacia of left patella 765647209533 106 Active 2018 Problem Code: M22.42; Problem Code Type: ICD-10; Status: 'A'; Not Available [facility] 4 11:42:38 Osteoarth ritis of hip 665351085 Active 2023 Octavio Mayers PA-C [address], [place], [address] , [facility] 4 10:53:17 Osteoarth ritis of right hip joint 362226351614 107 Active 2023 [facility] 4 13:16:51 Osteoarth ritis of left knee joint 386015481398 109 Active 2023 Jeremiah Wilkerson MD [address], [place], [address] , [facility] 4 14:31:32 Problem Notes None recorded. Procedures Surgical History Date Name Laterality Status Provider Name and Address Organization Details Recorded Time 4 27373 Therapeutic Exercise (1:1) completed Raúl Cartagena DPT [address], [place], [address], [facility] 02/26/2024 19:45:18 4 46972: Manual therapy completed Raúl Cartagena DPT [address], [place], [address], [facility] 02/25/2024 22:36:23 [facility] Tylor Duran PA-C [address], [place], [address], [facility] 02/24/2024 15:08:57 4 07395 Therapeutic Exercise (1:1) completed Raúl Cartagena DPT [address], [place], [address], [facility] 02/23/2024 20:48:02 4 90375: Manual therapy completed Raúl Cartagena DPT [address], [place], [address], [facility] 02/24/2024 18:53:36 4 61967 Therapeutic Exercise (1:1) completed Raúl Cartagena DPT [address], [place], [address], [facility] 02/12/2024 22:21:23 4 46692: Manual therapy completed Raúl Cartagena DPT [address], [place], [address], [facility] 02/12/2024 22:19:44 4 22472 Therapeutic Exercise (1:1) completed Raúl Cartagena DPT [address], [place], [address], [facility] 02/09/2024 22:44:52 4 50985: Manual therapy completed Raúl Cartagena DPT [address], [place], [address], [facility] 02/11/2024 03:37:34 4 14192 Therapeutic Exercise (1:1) completed Raúl Cartagena DPT [address], [place], [address], [facility] 01/28/2024 13:26:19 4 Hip Kenalog Injection, L/R w/US completed Octavio Mayers PA-C [address], [place], [address], [facility] 01/23/2024 10:53:31 4 09528 Therapeutic Exercise (1:1) completed Inna Otoole PTA [address], [place], [address], [facility] 01/21/2024 10:56:57 4 60829 Therapeutic Exercise (1:1) completed Inna Otoole PTA [address], [place], [address], [facility] 01/19/2024 11:50:11 4 66564: Manual therapy completed Inna Otoole PTA [address], [place], [address], [facility] 01/19/2024 11:57:19 4 87035 Therapeutic Exercise (1:1) completed Raúl Cartagena DPT [address], [place], [address], [facility] 01/13/2024 18:54:45 4 93685: Manual therapy completed Raúl Cartagena DPT [address], [place], [address], [facility] 01/14/2024 09:46:31 4 73953 Therapeutic Exercise (1:1) completed Raúl Cartagena DPT [address], [place], [address], [facility] 01/09/2024 22:38:33 4 33667: Manual therapy completed Raúl Cartagena DPT [address], [place], [address], [facility] 01/09/2024 22:38:33 4 52902 Therapeutic Exercise (1:1) completed Inna Otoole PTA [address], [place], [address], [facility] 01/06/2024 10:28:08 4 62813: Manual therapy completed Inna Otoole PTA [address], [place], [address], [facility] 01/06/2024 10:28:08 4 62377 Therapeutic Exercise (1:1) completed Raúl Cartagena DPT [address], [place], [address], [facility] 12/31/2023 10:37:58 4 95774: Manual therapy completed Raúl Cartagena DPT [address], [place], [address], [facility] 12/31/2023 10:37:55 4 70272 Therapeutic Exercise (1:1) completed Raúl Cartagena DPT [address], [place], [address], [facility] 12/29/2023 12:39:32 4 44990: Manual therapy completed Raúl Cartagena DPT [address], [place], [address], [facility] 12/29/2023 12:39:40 4 69860 Therapeutic Exercise (1:1) completed Raúl Cartagena DPT [address], [place], [address], [facility] 12/24/2023 12:44:23 4 94068: Low complexity PT Eval completed Raúl Cartagena DPT [address], [place], [address], [facility] 12/24/2023 12:44:28 4 G8420 BMI Normal, No Follow-Up Plan Required completed Raúl Cartagena DPT [address], [place], [address], [facility] 12/24/2023 12:44:42 4 G8427 Current Medication Documented completed Raúl Cartagena DPT [address], [place], [address], [facility] 12/24/2023 12:44:31 Imaging Results Imaging Date Name Status LastModified by Organiz ation Details LastModified Time 01/09/2025 MRI, shoulder, w/o contrast completed richard [facility] ([facility]) [address], [place], [address], 01/11/2025 16:52:55 01/09/2025 MRI, shoulder, w/o contrast completed [facility] ([facility]) [address], [place], [address], 01/17/2025 11:51:03 01/13/2025 XR, shoulder, 2 or more view completed INTERFACE [facility] [address], [place], [address], 01/13/2025 11:02:07 01/13/2025 XR, shoulder, 2 or more view completed INTERFACE [facility] [address], [place], [address], 01/13/2025 11:02:08 Procedure Notes None recorded. Medical Equipment None Reported. Allergies Allergen ID Allergen Name Allergen Category Reaction Reaction Severity Criticality Documentation Date Start Date Code Code System Note Provider Name and Address Organization Details Recorded Time 243402 Percodan medicatio n Not available Not available Not available 11/24/20232018 11503 RxNorm Not Available [facility] 4 15:38:30 323545 clindamyc in hydrochlo ride medicatio n Not available Not available Not available 11/24/20232018 19317 RxNorm Not Available [facility] 4 15:38:30 646141 acetamino phen / oxycodone medicatio n Not available Not available Not available 11/24/20232018 21599 3 RxNorm Not Available [facility] 4 15:38:30 387409 fentanyl medicatio n Not available Not available Not available 07/23/2024 4337 RxNorm Cari wilson [place] - [facility] 4 13:08:52 Medications Name Sig Start Date Stop Date Status Note LastModified by Organization Details LastModified Time Prescriptio n - Clarificati on 09/28 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 Not Available Not Available Not Available celecoxib 200 mg capsule TAKE 1 CAPSULE BY MOUTH EVERY DAY active Not Available Not Available No t Available amoxicillin 500 mg capsule TAKE 4 CAPSULES BY MOUTH 1 HOUR BEFORE PROCEDURE active Not Available Not Available No t Available buspirone 5 mg tablet TAKE 1 TABLET BY MOUTH TWICE DAILY active Not Available Not Available No t Available prednisone 10 mg tablet TAKE 1 TABLET BY MOUTH DAILY 01/07 /2025 completed Not Available Not Available Not Available cefuroxime axetil 250 mg tablet TAKE 1 TABLET BY MOUTH TWICE DAILY 09/28 completed Not Available Not Available Not Available aspirin 325 mg tablet TAKE 1 TABLET BY MOUTH TWICE DAILY. START AFTER SURGERY 04/05 completed Not Available Not Available Not Available tizanidine 4 mg tablet TAKE 1 TABLET BY MOUTH EVERY 8 HOURS FOR 14 DAYS NEEDED FOR BACK SPASM 09/28 completed Not Available Not Available Not Available ondansetron HCl 4 mg tablet TAKE 1 TABLET BY MOUTH EVERY 8 HOURS NEEDED FOR NAUSEA AND VOMITING. 04/05 completed Not Available Not Available Not Available prednisone 20 mg tablet TAKE 3 TABLETS BY MOUTH DAILY FOR 4 DAYS. THEN TAKE 2 TABLETS DAILY FOR 6 DAYS. THEN TAKE 1 TABLET DAILY FOR 6 DAYS. 09/28 completed Not Available Not Available Not Available prednisone 5 mg tablet 1 tablet every day by oral route. active Not Available Not Available No t Available metronidazo le 500 mg tablet TAKE 1 TABLET BY MOUTH EVERY 8 HOURS 09/28 completed Not Available Not Available Not Available amlodipine 5 mg tablet TAKE 1 TABLET BY MOUTH DAILY active Not Available Not Available No t Available sulfamethox azole 800 mg-trimetho prim 160 mg tablet TAKE 1 TABLET BY MOUTH TWICE DAILY FOR 10 DAYS 09/28 completed Not Available Not Available Not Available tramadol 50 mg tablet TAKE 1 TO 2 TABLETS BY MOUTH EVERY 6 HOURS NEEDED FOR MILD PAIN , NOT TO EXCEED 400MG/DAY active Not Available Not Available No t Available amoxicillin 500 mg tablet TAKE 4 TABLETS BY MOUTH THE MORNING OF INJECTION 09/28 completed Not Available Not Available Not Available ketorolac 0.5 % eye drops INSTILL 1 DROP FOUR TIMES DAILY STARTING ON 01/30 RIGHT EYE AND ON 02/13 LEFT EYE. TAPER WEEKLY FOR ONE MONTH AFTER EACH SURGERY 04/05 completed Not Available Not Available Not Available aspirin 325 mg tablet,juanita yed release TAKE 1 TABLET BY MOUTH TWO TIMES A DAY 09/28 completed Not Available Not Available Not Available baclofen 10 mg tablet TAKE 1 TABLET BY MOUTH THREE TIMES DAILY FOR 7 DAYS FOR SPASMS 09/28 completed Not Available Not Available Not Available amlodipine 10 mg tablet TAKE 1 TABLET BY MOUTH DAILY 03/10 completed Not Available Not Available Not Available omeprazole ER 20 mg capsule,ext ended release Take 1 capsule every day by oral route. 09/28 completed Not Available Not Available Not Available nitrofurant oin macrocrysta l 100 mg capsule TAKE 1 CAPSULE BY MOUTH TWICE DAILY FOR 10 DAYS 04/05 completed Not Available Not Available Not Available docusate sodium 100 mg capsule TAKE 1 CAPSULE BY MOUTH TWO TIMES A DAY NEEDED FOR CONSTIPAT ION 09/28 completed Not Available Not Available Not Available omeprazole 20 mg capsule,del ayed release Take 1 capsule every day by oral route. active Not Available Not Available No t Available pravastatin 20 mg tablet 1 mg every day by oral route. active Not Available Not Available No t Available gabapentin 100 mg capsule TAKE 1 CAPSULE BY MOUTH FOUR TIMES DAILY NEEDED FOR PAIN 2024 active Not Available Not Available Not Avai lable lorazepam 1 mg tablet TAKE 1 TABLET BY MOUTH BEFORE INJECTION FOR 1 HOUR 09/28 completed Not Available Not Available Not Available estradiol 0.01% (0.1 mg/gram) vaginal cream APPLY PEA SIZED AMOUNT TO URETHRA DAILY FOR ONE MONTH AND THEN 3 TIMES PER WEEK THEREAFTE R 09/28 completed Not Available Not Available Not Available methylpredn isolone 4 mg tablets in a dose pack take as directed 09/28 completed Not Available Not Available Not Available ondansetron 4 mg disintegrat ing tablet DISSOLVE 1 TABLET BY MOUTH EVERY 8 HOURS NEEDED FOR NAUSEA AND VOMITING 09/28 completed Not Available Not Available Not Available amoxicillin 500 mg-potassiu m clavulanate 125 mg tablet TAKE 1 TABLET BY MOUTH TWICE DAILY FOR 10 DAYS 09/28 completed Not Available Not Available Not Available oxycodone 5 mg tablet TAKE 1 TABLET BY MOUTH EVERY 4 HOURS FOR 7 DAYS NEEDED FOR PAIN active Not Available Not Available No t Available Calcium-500 500 mg (as calcium carbonate 1,250 mg) tablet 1 tablet every day by oral route. 2023 active Not Available Not Available Not Avai lable moxifloxaci n 0.5 % eye drops INSTILL 1 DROP FOUR TIMES DAILY. START ON 01/30 FOR RIGHT EYE AND 02/13 FOR LEFT EYE. CONTINUE FOR ONE WEEK AFTER EACH SURGERY DIRECTED 04/05 completed Not Available Not Available Not Available nitrofurant oin monohydrate /macrocryst als 100 mg capsule TAKE 1 CAPSULE BY MOUTH TWICE DAILY FOR 5 DAYS 04/05 completed Not Available Not Available Not Available oxycodone HCl-oxycodo ne-ASA 1 every 6 hours 04/05 completed Statu s: 'Curr ent'; Not Available Not Available Not Available Probiotic 10 billion cell capsule 1 capsule every day by oral route. active Not Available Not Available No t Available Multi Vitamin active Not Available Not Available Not Available nitrofurant oin 100 mg tablet Take by oral route. 04/05 completed Not Available Not Available Not Available Vitals Date Recorded Body height Body mass index (BMI) Body weight Provider Name and Address Organization Details Last Updated DateTime 10/29/2024 152.4 cm 22.5 kg/m2 15925.12 g Hafsa cabrera [facility] 10/29/2024 08:56:02 Date Recorded Body height Body mass index (BMI) Body weight Provider Name and Address Organization Details Last Updated DateTime 01/13/2025 152.4 cm 22.5 kg/m2 35268.12 g Janina Henao [facility] 01/13/2025 10:42:21 Social History Question Answer Notes LastModified by oNoise ion Details LastModified Time Tobacco Smoking Status Former Smoker Denia Comer [facility] 07/02/2024 13:17:27 When Did You Quit Smoking? 16+yearssinc elastcigaret te Information not available 07/02/2024 What Is Your Relationship Status? Information not available 07/02/2024 How Many Years Have You Smoked Tobacco? 13 Information not available 07/02/2024 Sex: Unknown Functional Status Question Answer Note LastModified by Organizat ion Details LastModified Time How many times per week do you consume alcohol? 3-4 times per week Information not available 07/02/2024 Do you use any illicit or recreational drugs? No Information not available 07/02/2024 Do you or have you ever used any other forms of tobacco or nicotine? No Information not available 07/02/2024 Do you or have you ever used e-cigarettes or vape? Never used electronic cigarettes Information not available 07/02/2024 Mental Status None recorded. Family History Nothing Reported. Medical History Condition Response Acid Reflux (GERD) Y Anxiety/Depression Y Arthritis Y Cholesterol Y Gynecological HistoryNo gynecological history recorded. Obstetrics History GPAL:G 0 P 0 0 0 0 Past Encounters Encounter ID Performer Location Encounter Start Date Encounter Closed Date Diagnosis/Indication Diagnosis SNOMED-CT Code Diagnosis ICD10 Code Diagnosis Note [id number] Corbin Brar NP [facility] [address] [place] [address] 12/03/2023 12:43:16 12/03/2023 14:00:39 Osteoarthritis of right knee joint 9491891288 98317 M17.11 Pain of ri ght knee joint 6001815517 97070 M25.197 [id number] Jeremiah Wilkerson MD [facility] [address] [place] [address] 12/03/2023 14:56:38 12/09/2023 10:04:53 [id number] Raúl Cartagena DPT [facility] [address] [place] [address] 12/24/2023 11:15:19 12/24/2023 12:20:58 Aftercare 802627924 Z47.1 History of right total knee replacement 6333058994 996565 Z96.761 [id number] Kem Rodriguez PA-C [facility] [address] [place] [address] 12/22/2023 15:07:58 01/10/2024 15:11:25 Aftercare [id number] Z51.89 Z47.1 History of right total knee replacement [id number] 533054 Z96.646 [id number] Raúl Cartagena DPT [facility] [address] [place] [address] 12/29/2023 09:53:13 12/29/2023 10:48:45 Aftercare [id number] Z47.1 History of right total knee replacement 4746735436 233665 Z96.524 [id number] Raúl Cartagena DPT [facility] [address] [place] [address] 12/31/2023 09:54:00 12/31/2023 10:57:00 Aftercare [id number] Z47.1 History of right total knee replacement 4559565887 894852 Z96.531 [id number] Inna Otoole, FRONT DESK MONITOR [facility] [address] [place] [address] 01/06/2024 10:21:42 01/06/2024 11:13:17 Aftercare [id number] Z47.1 History of right total knee replacement 3912794357 528160 Z96.510 [id number] Ghazala Curry PA-C [facility] [address] [place] [address] 01/08/2024 10:22:29 01/30/2024 13:19:27 Postoperative visit [id number] Z48.89 Knee joint prosthesis present 6047062225 02 Z96.251 [id number] Raúl Cartagena, DPT [facility] [address] [place] [address] 01/12/2024 08:55:06 01/12/2024 10:29:31 Aftercare 891641772 Z47.1 History of right total knee replacement 6881177348 270084 Z96.055 [id number] Raúl Cartagena DPT [facility] [address] [place] [address] 01/14/2024 08:55:04 01/14/2024 09:32:56 Aftercare 132592982 Z47.1 History of right total knee replacement 5972694999 525370 Z96.299 [id number] Inna Otoole, FRONT DESK MONITOR [facility] [address] [place] [address] 01/19/2024 10:22:49 01/19/2024 12:06:43 Aftercare 170044976 Z47.1 History of right total knee replacement 5446029033 356087 Z96.909 [id number] Inna Chancee, FRONT DESK MONITOR [facility] [address] [place] [address] 01/21/2024 10:22:54 01/21/2024 11:05:17 Aftercare 023912141 Z47.1 History of right total knee replacement 4069517343 414689 Z96.625 [id number] Octavio Mayers PA-C [facility] [place] [address] 01/23/2024 09:48:34 02/05/2024 08:50:52 Osteoarthritis of hip 012503065 M16.9 [id number] Ghazala Curry PA-C [facility] [place] [address] 01/26/2024 11:03:47 02/19/2024 20:46:55 Postoperative visit 945349755 Z48.89 Knee joint prosthesis present 9074313697 02 Z96.347 [id number] Raúl Cartagena DPT [facility] [address] [place] [address] 01/28/2024 09:52:32 01/28/2024 10:33:20 Aftercare 565368815 Z47.1 History of right total knee replacement 5402288756 288515 Z96.548 [id number] Raúl Cartagena DPT [facility] [address] [place] [address] 02/10/2024 13:24:09 02/10/2024 14:06:23 Aftercare 262118141 Z47.1 History of right total knee replacement 8165631364 800352 Z96.872 [id number] Raúl Cartagena DPT [facility] [address] [place] [address] 02/13/2024 14:23:25 02/13/2024 15:50:36 Aftercare 086705618 Z47.1 History of right total knee replacement 7849912451 376183 Z96.577 [id number] CARLA OcampoT [facility] [address] [place] [address] 02/24/2024 13:26:55 02/24/2024 14:40:32 Aftercare 261298521 Z47.1 History of right total knee replacement 3812610318 971938 Z96.135 [id number] Tylor Duran PA-C [facility] [address] [place] [address] 02/24/2024 14:27:29 03/09/2024 08:51:32 Osteoarthritis of hip 835161992 M16.9 [id number] Raúl Cartagena DPT [facility] [address] [place] [address] 02/26/2024 13:22:30 02/26/2024 14:06:11 Aftercare 660303023 Z47.1 History of right total knee replacement 4909930547 969820 Z96.982 [id number] Jeremiah Wilkerson MD [facility] [address] [place] [address] 03/10/2024 13:03:03 04/06/2024 10:40:51 Osteoarthritis of right hip joint 7485932195 18849 M16.11 Osteoarthr itis of left knee joint 5886569667 11071 M17.12 [id number] Raúl Wilhelm MD [facility] [address] [place] [address] 04/09/2024 08:28:39 04/09/2024 11:23:39 Pain of right hip joint 7804654550 89431 M25.551 Osteoarthr itis of right hip joint 0884363977 68513 M16.11 Osteoarthr itis of left hip joint 8711412429 75590 M16.12 [id number] Tri Dumont APRN [facility] [address] [place] [address] 05/12/2024 08:20:39 05/29/2024 04:08:17 [id number] Raúl Cartagena DPT [facility] [address] [place] [address] 05/13/2024 15:16:49 05/13/2024 16:50:02 Osteoarthritis of hip 877134951 M16.11 [id number] Raúl Cartagena DPT [facility] [address] [place] [address] 06/02/2024 10:22:41 06/02/2024 12:11:54 Aftercare 166379012 Z47.1 Z96.715 [id number] Hongshin Osiel, DPT [facility] [address] [place] [address] 06/04/2024 14:28:29 06/04/2024 15:20:57 Aftercare 412667718 Z47.1 Z96.590 [id number] ESTEFANIA [facility] [address] [place] [address] 06/04/2024 13:23:41 06/25/2024 13:18:35 History of total replacement of right hip joint 8027529971 51249 Z96.161 [id number] Raúl Cartagena DPT [facility] [address] [place] [address] 06/09/2024 13:28:03 06/09/2024 14:34:45 Aftercare 505591144 Z47.1 Z96.197 [id number] Raúl Cartagena DPT [facility] [address] [place] [address] 06/11/2024 10:24:53 06/11/2024 13:41:34 Aftercare [id number] Z47.1 Z96.361 [id number] Raúl Cartagena DPT [facility] [address] [place] [address] 06/16/2024 15:25:13 06/16/2024 16:52:49 Aftercare 683898851 Z47.1 Z96.817 [id number] Raúl Cartagena DPT [facility] [address] [place] [address] 06/18/2024 16:00:17 06/21/2024 09:25:49 Aftercare 895412425 Z47.1 Z96.111 [id number] Raúl Cartagena DPT [facility] [address] [place] [address] 06/23/2024 13:28:06 06/23/2024 14:14:22 Aftercare 925431796 Z47.1 Z96.104 [id number] Raúl Cartagena DPT [facility] [address] [place] [address] 06/25/2024 13:24:27 06/25/2024 14:45:44 Aftercare 668380154 Z47.1 Z96.008 [id number] Raúl Cartagena DPT [facility] [address] [place] [address] 07/02/2024 13:56:14 07/02/2024 16:05:03 Aftercare 358183965 Z47.1 Z96.723 [id number] MD Diane Sheehan [address] [place] [address] 07/02/2024 13:06:57 07/22/2024 14:06:00 History of total replacement of right hip joint 5713202219 01128 Z96.641 Osteoarthr itis of left hip joint 8583182860 19579 M16.12 [id number] Amanda Danielle APRN [facility] [address] [address] [place] [address] 07/13/2024 10:31:00 07/31/2024 03:58:27 Osteoarthritis of left hip joint 4742334816 24947 M16.12 [id number] Kenyon Bagley PA-C [facility] [address] [address] [place] [address] 07/23/2024 12:58:07 08/12/2024 06:05:11 History of repair of hip joint 463863691 Z96.519 [id number] Raúl Cartagena DPT [facility] [address] [place] [address] 08/27/2024 13:57:09 08/27/2024 14:51:42 Aftercare 414277621 Z47.1 Z96.183 [id number] MD Diane Sheehan [address] [place] [address] 08/26/2024 13:34:47 09/10/2024 15:41:59 History of total replacement of left hip joint 5014180923 516574 Z96.746 [id number] Raúl Cartagena DPT [facility] [address] [place] [address] 08/30/2024 14:26:08 08/30/2024 15:24:42 Aftercare 456051178 Z47.1 Z96.204 [id number] Raúl Cartagena, DPT [facility] [address] [place] [address] 09/01/2024 14:18:26 09/01/2024 14:47:17 Aftercare 656310540 Z47.1 Z96.209 [id number] Raúl Cartagena, DPT [facility] [address] [place] [address] 09/16/2024 16:17:45 09/16/2024 17:16:59 Aftercare [id number] Z47.1 Z96.103 [id number] Raúl Cartagena DPT [facility] - [facility] [address] [place] [address] 09/23/2024 10:54:26 09/23/2024 11:39:07 Aftercare [id number] Z47.1 Z96.450 [id number] Raúl Wilhelm, MD [facility] [address] [place] [address] 09/28/2024 14:50:38 10/13/2024 08:36:50 History of repair of hip joint 590520675 Z96.560 [id number] Raúl Cartagena DPT [facility] - [facility] [address] [place] [address] 10/01/2024 09:19:34 10/01/2024 10:19:36 Aftercare 850404002 Z47.1 Z96.054 [id number] Raúl Cartagena DPT [facility] - [facility] [address] [place] [address] 10/05/2024 14:56:44 10/05/2024 15:31:48 Aftercare [id number] Z47.1 Z96.978 [id number] Raúl Cartagena DPT [facility] - [facility] [address] [place] [address] 10/14/2024 13:17:27 10/14/2024 17:54:51 Aftercare 341012973 Z47.1 Z96.144 [id number] Raúl Cartagena DPT [facility] - [facility] [address] [place] [address] 10/22/2024 14:12:33 10/22/2024 15:17:21 Aftercare 093306174 Z47.1 Z96.740 [id number] ESTEFANIA Stratton [facility] [address] [place] [address] 10/29/2024 08:49:23 11/17/2024 09:55:29 Osteoarthritis of joint of left shoulder region 1893520944 88461 M19.012 PLANThe patient has done well with conservati ve management in regards to the shoulder with good clinical response to injections in the past. Recommend continued conservati ve management with repeat injection( s) today. Moderating activities with the upper extremity recommende d also. See procedure notes for injection details. [id number] DILIP Ocampo - [facility] [address] [place] [address] 11/02/2024 16:43:35 11/02/2024 17:32:53 Aftercare [id number] Z47.1 Z96.304 [id number] ESTEFANIA [facility] [address] [place] [address] 01/13/2025 10:36:20 01/26/2025 14:51:25 Osteoarthritis of joint of left shoulder region 6793319479 61839 M19.012 Reviewed Sandra's imaging and exam findings in detail with her. Unfortunat marine she did not have adequate relief with cortisone injections . Therefore an MRI was obtained which does confirm advanced glenohumer al joint osteoarthr itis with no full-thick ness cuff tearing. She has some mild tendinopat hy. Therefore reviewed with her that the operative interventi on for her issue would be total shoulder replacemen t. She may be candidate for anatomic shoulder replacemen t given her intact rotator cuff however given her age she may be a better candidate for reverse TSA. Ultimately decision between anatomic versus reverse total shoulder replacemen t will be up to the surgeon. Discussed continued conservati ve care versus referral for operative interventi on. She elects for operative referral to Dr. Hamlin to discuss total shoulder replacemen t further. Bilateral shoulder osteoarthritis 1467617974 91989 M19.011 M19.012 Osteoarthr itis of right glenohumeral joint 8120916484 179998 M19.011 In regards to her right shoulder she does have moderate to advanced osteoarthr itis notable on her radiograph s with symptoms consistent with this. She is right-hand dominant. However her left shoulder continues to be the most symptomati c side. Therefore right shoulder injection for symptomati c relief. She may ultimately require shoulder replacemen t on this side as well but it is not yet as progressed as her left shoulder. She agrees and would like to continue with injection for the right shoulder. Will hold off on left shoulder injection given her desire to move forward with operative interventi on and she cannot have surgery within 3 months of an injection. Discussed risks and benefits associated with anti-infla mmatory use. Patient should not take any other NSAID's while taking this medication . Drink plenty of water. Stop if you develop any GI upset, or signs/symp toms of GI bleed including black/bloo dy stools. Take with food. Prescribed {{meloxica m 15 mg PO daily neel brex 200 mg PO daily#}} [id number] [facility] [address] [place] [address] 02/04/2025 09:52:59 02/04/2025 10:54:50 Osteoarthritis of joint of left shoulder region [id number] 06087 M19.012 Health Concerns Section Related Observation LastModified by Organization Detai ls LastModified Time None Recorded Concern Status LastModified by Organization Details LastModified Time None Recorded Advance Directives Directive None Recorded Payers Encounter Date Sequence Insurance Name Policy Number Policy Fuller Covered Member ID Fuller Member ID Guarantor Name 10/22/2024 2 WEB-TPA Mary Beth Sanchez [id number] Mary Beht Sanchez 10/22/2024 1 MEDICARE B-[place]: [facility] [employer] [facility] Mary Beth Sanchez [id number] Mary Beth Daignault 10/29/2024 2 WEB-TPA Mary Beth A Daignault [id number] Mary Beth Daignault 10/29/2024 1 MEDICARE B-[place]: [facility] Mary Beth A Daignault [id number] Mary Beth Daignault 11/02/2024 2 WEB-TPA Mary Beth A Daignault [id number] Mary Beth Daignault 11/02/2024 1 [place]ICARE B-[place]: [facility] Mary Beth A Daignault [id number] Mary Beth Daignault 01/13/2025 2 WEB-TPA Mary Beth A Daignault [id number] Mary Beth Daignault 01/13/2025 1 [place]: [facility] Mary Beth A Daignault [id number] Mary Beth Daignault 02/04/2025 2 WEB-TPA Mary Beth A Daignault [id number] Mary Beth Daignault 02/04/2025 1 [place]ICARE B-[place]: [facility] Mary Beth A Daignault [id number] Mary Bethtara Pearcegnault Notes Date Note Type Note Provider Name and Address Organization Details Recorded Time 10/22/2024 text/html Patient reports she no longer has LBP and feeling slowly improving physically.Pains 0/10 at rest. Raúl Cartagena, DPT [address] [facility] [address], [place], [address], [facility] 10/22/2024 16:42:03 10/29/2024 text/html I am seeing the patient under the general supervision of {{Dr. Nahid Cortez*}} who was available but who did not see the patient. History of Present Illness: Patient comes to the office with known history of {{glenohumeral arthritis* subacromi al impingement degenera tive rotator cuff disease}} of the {{left* Right Bilate ral}} shoulder(s). The patient has done well with conservative management for their shoulder pain with good clinical response to cortisone injections in the past. Reports recently increasing discomfort over the past several weeks with no new injury or trauma. Pain is generalized about the shoulder and discomfort is worst at night. Last injections were {{ 01/29/2023#}}. She reports injection worked quite well and recently started wearing off over the last month or two. Kassandra Sherman PA-C [address], [place], [address], [facility] 10/29/2024 09:09:08 11/02/2024 text/html Patient reports she feels 90% of improvement with PT since DOS. Pt walks without AD this time.Pains 0/10 at rest. Raúl Cartagena, DPT [address], [place], [address], [facility] 11/03/2024 12:33:13 01/13/2025 text/html I am seeing the patient under the general supervision of {{Dr. Nahid Cortez*}} who was available but who did not see the patient. 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 The patient has done well with conservative management for their shoulder pain with good clinical response to cortisone injections in the past. Reports recently increasing discomfort over the past several weeks with no new injury or trauma. Pain is generalized about the shoulder and discomfort is worst at night. Last injections were {{ 10/29/24#}}. She states injection was not particularly helpful. She presents today for follow up and MRI review of the left shoulder. MRI demonstrates advanced glenohumeral joint osteoarthritis with intact rotator cuff. She is also here for new issue eval of right shoulder pain. She reports the right shoulder started hurting about 4-5 weeks ago. She describes it as an aching discomfort which is not as bad as the left shoulder. She gets woken up with shoulder pain on a daily basis. Diagnostic imaging: MRI of the left shoulder was independently reviewed by myself during todays interview and exam and demonstrates advanced glenohumeral joint osteophyte with loose body noted in the subcoracoid recess. Intact rotator cuff with diffuse tendinopathy. No cuff tearing. Mild AC joint arthritis. {{4 view* 3 view 2 view}} {{right left bilater al*}} {{knee hip shoulder* }} radiographs were ordered, obtained and independently reviewed by myself during today's visit at [facility] and demonstrate advanced left greater than right bilateral glenohumeral joint space narrowing. Left shoulder with [id number] articulation of the glenohumeral joint and posterior glenoid wear with early flattening of the humeral head. Loose body noted in the subcoracoid recess. Right shoulder demonstrates moderate glenohumeral joint space narrowing with irregularity of the humeral head. No fracture or dislocation. AC joint space narrowing and subacromial spurring. Impression: Advanced bilateral left greater than right glenohumeral osteoarthritis Kassandra Sherman PA-C [address], [place], [address], [facility] 01/13/2025 11:37:39 02/04/2025 text/html Pt is 79 year ol d female presenting today for evaluation of the left shoulder pain due to advanced OA. Pt has been managing her shoulder pain with cortisone injections. Patient denies numbness and tingling sensation in L UE. Pt states she is tired to experience pain and weakness in her left arm. Patient has hx of B THR in 2023 and had postop rehab at [facility]. Pt states her hip and knees are doing great this time. Pt is retired. Reviewed HEP. All questions and concerns were addressed and answered. Raúl Cartagena DPT [address], [place], [address], [facility] 02/04/2025 10:45:33 OBGyn Episode No OBEpisode recorded.
--- OUTSIDE RECORDS SUMMARY | 2025-02-04 14:31 | XMS_ITS | Continuity of Care Document ---
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 Plan: Continue PT @ 2x/wk for 8 weeks to decrease pain symptoms, increase ROM in all planes, and optimize mechanics for functional movements such as for reaching and lifting for ADL's. [email or web address] Not available 02/04/2025 10:44:03 Plan of Treatment Reminders Order Date Submit Date Provider Last Modified By Organization Details Last Modified Time Details Appointments PT INITIAL EVAL 2024 10:00A M Raúl Cartagena DPT Not available Not available Not available PT FOLLOW-U P 2024 10:00A Pratik Cartagena DPT Not available Not available Not available PT FOLLOW-U P 2024 10:00A M Tino Dunn, POWER SEWING MACHINE OPERATOR Not available Not available Not available PT FOLLOW-U P 2024 10:00A M Tino Clemonsri, POWER SEWING MACHINE OPERATOR Not available Not available Not available PT FOLLOW-U P 2024 10:00A M Tino Dunn, POWER SEWING MACHINE OPERATOR Not available Not available Not available PT FOLLOW-U P 2024 10:00A M Raúl Cartagena, DPT Not available Not available Not available PT FOLLOW-U P 2024 10:00A M Tino Moralesfuri, POWER SEWING MACHINE OPERATOR Not available Not available Not available PT FOLLOW-U P 2024 10:00A M Tino Scafuri, POWER SEWING MACHINE OPERATOR Not available Not available Not available PT FOLLOW-U P 2024 10:00A M Tino Moralesfuri, POWER SEWING MACHINE OPERATOR Not available Not available Not available NEW PATIENT 10 2024 02:50P M Guzman Hamlin MD Not available Not available Not available PT FOLLOW-U P 2024 10:00A M Tino Moralesfuri, POWER SEWING MACHINE OPERATOR Not available Not available Not available PT FOLLOW-U P 2024 10:00A M Raúl Osiel, DPT Not available Not available Not available PT FOLLOW-U P 2024 10:00A M Ralú Cartagena, DPT Not available Not available Not available Lab None recorded . Referral None recorded . Procedures None recorded . Surgeries None recorded . Imaging None recorded . Medication Orders None recorded . Patient Targets Encounter Date Encounter Id Patient Goals Patient Target Last Modified By Organization Details Last Modified Time 02/04/2025 [id number] prison goal of Left Shoulder Strength (normal) strength: shoulders: flexion: left 5 (0-5) Not available Not available Not available prison goal of Left Shoulder Strength (normal) strength: shoulders: internal rotation: left 5 (0-5) Not available Not available Not available termite technician goal of Left Shoulder Strength (normal) strength: shoulders: external rotation: left: at 0 degrees of abduction 5 (0-5) Not available Not available Not available 3 weeks of Left Shoulder PROM (normal) motion: external rotation: at 0 degrees of abduction: passive motion left (90 deg.) Not available Not available Not available 3 weeks of Left Shoulder PROM (normal) motion: forward flexion: passive motion left (180 deg.) Not available Not available Not available 3 weeks of Left Shoulder PROM (normal) motion: internal rotation: at 0 degrees abduction: passive motion left (90 deg.) Not available Not available Not available termite technician goal of Left Shoulder PROM WNL Not available Not available Not available 3 weeks of Sleeping no trouble sleeping Not available Not available Not available 3 weeks of Overall ADL's WFL Not available Not available Not available prison goal of Overall ADL's performs without symptoms Not available Not available Not available termite technician goal of Reaching performs without symptoms Not available Not available Not available termite technician goal of Lifting performs without symptoms Not available Not available Not available 3 weeks of Pain <5/10 at worst Not available Not available Not available termite technician goal of Pain 0/10 Not available Not available Not available Patient InstructionsNo instructions recorded. Reason for Referral None Reported. Results Created Date Observation Date Name Description Value Unit Range Abnormal Flag Note LastModifiedBy Organization Detail LastModifiedTime 01/11/20 25 01/09/2025 MRI, shoul shanon, w/o contr ast [facility] Access ion Number : [id number] [address] t [facility] Record Number : [id number] Date of : 1945 Date of Exam: 2024 Referr ing Physic isabel: Zak Sherman en NEOS [address], [address] [facility], [place] [address] Exam: MR Should er (C-) CPT 51417 - Left Room Descri ption: Lockhart GE Pion 3T MR Should er (C-) CPT 50502 CLINIC AL INDICA TION: M19.01 2 - [...] and concur with the reside nt, Niya vivas's, yue gs. Electr onical ly Signed By: Julian Johnson MD [email or web address] [facility] ([facility] [address], [place], [address], 01/11/2025 16:52:55 01/11/20 25 01/09/2025 MRI, niall shanon, w/o contr ast No observ ation [facility] ed. [facility] [address], [place], [address], 01/17/2025 11:51:03 01/14/20 25 01/13/2025 XR, shoul shanon, 2 or more view http:/ [email or web address] ?Encry pted=s hAaTro YD8dLq bEUv6g %2BXZw aYqtaq 0bqfl% 2Fg9IQ a4ajBk vP9nXo QUaueC m3YtLR FvZlgJ JJ8mAn HZtai3 6j8130 AC0Kla nyHVqa hKiQtr MwF INTERFACE [facility] [address], [place], [address], 01/13/2025 11:02:07 01/14/20 25 01/13/2025 XR, shoul shanon, 2 or more view http:/ [email or web address] ?Encry pted=s hAaTro YD8dLq bEUv6g %2BXZw aYqtaq 0bqfl% 2Fg9IQ a4ajBk vP9nXo QUaueC m3YtLR FvZlgJ JJ8mAn HZtai3 0i1546 AC0Kla nyHVqa hKiQtr Mw INTERFACE [facility] [address], [place], [address], 01/13/2025 11:02:08 Result Notes None recorded. 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 5 12:11:14 Bilateral shoulder osteoarth ritis 343100729001 108 Active 2024 Janina wilson [facility] 5 10:46:10 Osteoarth ritis of right glenohume ral joint 997707626815 9101 Active 2024 Kassandra Sherman PA-C [address], [place], [address] , [facility] 5 11:36:05 Chondroma lacia of left patella 714563822133 106 Active 2018 Problem Code: M22.42; Problem Code Type: ICD-10; Status: 'A'; Not Available [facility] 4 11:42:38 Osteoarth ritis of hip 439453587 Active 2023 Octavio Mayers PA-C [address], [place], [address] , [facility] 4 10:53:17 Osteoarth ritis of right hip joint 793411000823 107 [facility] 2023 [facility] 4 13:16:51 Osteoarth ritis of left knee joint 483666721344 109 Active 2023 Jeremiah Wilkerson MD [address], [place], [address] , [facility] 4 14:31:32 Problem Notes None recorded. Procedures Surgical History Date Name Laterality Status Provider Name and Address Organization Details Recorded Time 4 45393 Therapeutic Exercise (1:1) completed Raúl Cartagena DPT [address], [place], [address], [facility] 02/26/2024 19:45:18 4 64232: Manual therapy completed Raúl Cartagena DPT [address], [place], [address], [facility] 02/25/2024 22:36:23 4 [facility] Tylor Duran PA-C [address], [place], [address], [facility] 02/24/2024 15:08:57 4 80378 Therapeutic Exercise (1:1) completed Raúl Cartagena DPT [address], [place], [address], [facility] 02/23/2024 20:48:02 4 92764: Manual therapy completed Raúl Cartagena DPT [address], [place], [address], [facility] 02/24/2024 18:53:36 4 54787 Therapeutic Exercise (1:1) completed Raúl Cartagena DPT [address], [place], [address], [facility] 02/12/2024 22:21:23 4 46508: Manual therapy completed Raúl Cartagena DPT [address], [place], [address], [facility] 02/12/2024 22:19:44 4 51638 Therapeutic Exercise (1:1) completed Raúl Cartagena DPT [address], [place], [address], [facility] 02/09/2024 22:44:52 4 57466: Manual therapy completed Raúl Cartagena DPT [address], [place], [address], [facility] 02/11/2024 03:37:34 4 80092 Therapeutic Exercise (1:1) completed Raúl Cartagena DPT [address], [place], [address], [facility] 01/28/2024 13:26:19 4 Hip Kenalog Injection, L/R w/US completed Octavio Mayers PA-C [address], [place], [address], [facility] 01/23/2024 10:53:31 4 44003 Therapeutic Exercise (1:1) completed Inna Otoole POWER SEWING MACHINE OPERATOR [address], [place], [address], [facility] 01/21/2024 10:56:57 4 69376 Therapeutic Exercise (1:1) completed Damieana Fudge, POWER SEWING MACHINE OPERATOR [address], [place], [address], [facility] 01/19/2024 11:50:11 4 49471: Manual therapy completed Inna Otoole, POWER SEWING MACHINE OPERATOR [address], [place], [address], [facility] 01/19/2024 11:57:19 4 53045 Therapeutic Exercise (1:1) completed Raúl Cartagena DPT [address], [place], [address], [facility] 01/13/2024 18:54:45 4 05365: Manual therapy completed Raúl Cartagena DPT [address], [place], [address], [facility] 01/14/2024 09:46:31 4 46645 Therapeutic Exercise (1:1) completed Raúl Cartagena DPT [address], [place], [address], [facility] 01/09/2024 22:38:33 4 79625: Manual therapy completed Raúl Cartagena DPT [address], [place], [address], [facility] 01/09/2024 22:38:33 4 27161 Therapeutic Exercise (1:1) completed Inna Otoole, LIZ [address], [place], [address], [facility] 01/06/2024 10:28:08 4 58260: Manual therapy completed Inna Otoole POWER SEWING MACHINE OPERATOR [address], [place], [address], [facility] 01/06/2024 10:28:08 4 93073 Therapeutic Exercise (1:1) completed Raúl Cartagena DPT [address], [place], [address], [facility] 12/31/2023 10:37:58 4 54281: Manual therapy completed Raúl Cartagena DPT [address] [facility], [place], [address], [facility] 12/31/2023 10:37:55 4 02505 Therapeutic Exercise (1:1) completed Raúl Cartagena DPT [address] [facility], [place], [address], [facility] 12/29/2023 12:39:32 4 56312: Manual therapy completed Raúl Cartagena DPT [address] [facility], [place], [address], [facility] 12/29/2023 12:39:40 4 08494 Therapeutic Exercise (1:1) completed Raúl Cartagena DPT [address] [facility], [place], [address], [facility] 12/24/2023 12:44:23 4 82897: Low complexity PT Eval completed Raúl Cartagena DPT [address] [facility], [place], [address], [facility] 12/24/2023 12:44:28 4 G8420 BMI Normal, No Follow-Up Plan Required completed Raúl Cartagena DPT [address] [facility], [place], [address], [facility] 12/24/2023 12:44:42 4 G8427 Current Medication Documented completed Raúl Cartagena DPT [address] [facility], [place], [address], [facility] 12/24/2023 12:44:31 Imaging Results None recorded. Procedure Notes None recorded. Medical Equipment None Reported. Allergies Allergen ID Allergen Name Allergen Category Reaction Reaction Severity Criticality Documentation Date Start Date Code Code System Note Provider Name and Address Organization Details Recorded Time 126031 Percodan medicatio n Not available Not available Not available 11/24/20232018 49563 RxNorm Not Available [facility] 4 15:38:30 654863 clindamyc in hydrochlo ride medicatio n Not available Not available Not available 11/24/20232018 98374 RxNorm Not Available [facility] 4 15:38:30 568098 acetamino phen / oxycodone medicatio n Not available Not available Not available 11/24/20232018 26778 3 RxNorm Not Available [facility] 4 15:38:30 228883 fentanyl medicatio n Not available Not available Not available 07/23/2024 4337 RxNorm Cari wilson [place] [facility] 4 13:08:52 Medications Name Sig Start Date Stop Date Status Note LastModified by Organization Details LastModified Time Prescriptio n - Clarificati on 09/28 completed social media executive 3-8-2 024 Not Available Not Available Not [...] tablet TAKE 1 TABLET BY MOUTH DAILY 09/28 completed Not Available Not Available [...] Not Available Not Available Not Available Vitals None Recorded Social History Question Answer Notes LastModified by Organizat ion Details LastModified Time Tobacco Smoking Status Former Smoker Denia wilson [place] [facility] 07/02/2024 13:17:27 When Did You Quit Smoking? [...] History Nothing Reported. Medical History Condition Response Anxiety/Depression Y Arthritis Y Acid Reflux (GERD) Y Cholesterol Y Gynecological HistoryNo gynecological history recorded. Obstetrics History GPAL:G 0 P 0 0 0 0 Past Encounters Encounter ID Performer Location Encounter Start Date Encounter Closed Date Diagnosis/Indication Diagnosis SNOMED-CT Code Diagnosis ICD10 Code Diagnosis Note [id number] [facility] [place] [address] [place] [address] 01/13/2025 10:36:20 01/26/2025 14:51:25 Osteoarthritis of joint of left shoulder region 9011195280 02836 M19.012 Reviewed Sandra's imaging and exam findings [...] shoulder replacemen t further. Bilateral shoulder osteoarthritis 6551724134 94922 M19.011 M19.012 Osteoarthr itis of right glenohumeral joint 8324863437 941870 M19.011 In regards to her right shoulder [...] daily neel brex 200 mg PO daily#}} [id number] DILIP Ocampo PT [address] [place] [address] 02/04/2025 09:52:59 02/04/2025 10:54:50 Osteoarthritis of joint of left shoulder region 4442173969 64585 M19.012 Health Concerns Section Related Observation LastModified by Organization Detai ls LastModified Time None Recorded Concern Status LastModified by Organization Details LastModified Time None Recorded Payers Encounter Date Sequence Insurance Name Policy Number Policy Fuller Covered Member ID Fuller Member ID Guarantor Name 02/04/2025 2 [employer] Mary Beth Sanchez [id number] Mary Beth Sanchez 02/04/2025 1 MEDICARE B-[place]: [facility] [employer] Mary Beth Sanchez [id number] Mary Beth Sanchez Notes Date Note Type Note Provider Name and Address Organization Details Recorded Time 02/04/2025 text/html Pt is 79 year ol [...] in 2023 and had postop rehab at [facility]. Pt states her hip and knees are doing great this time. Pt is retired. Reviewed HEP. All questions and concerns were addressed and answered. Raúl Cartagena, DPT [address] [facility] [address], [place], [address], [facility] 02/04/2025 10:45:33 OBGyn Episode No OBEpisode recorded.
--- NOTE | 2025-02-04 14:46 | MHC.PC.OV ---
Vital Signs 02/04/25 14:52 Height 5 ft Weight 111 lb BMI 21.7 BP 138/72 Respiration 14 Pulse 78 Pulse Source Pulse Oximeter Temp 97.4 F Temp Source Temporal Artery Scan Pulse Oximetry (%) 97 Oxygen Delivery Method Room Air Intake Visit Reasons: Routine - see comments Cellar Supervisor Required: No Accompanied by: Self / Same As Patient Allergies clindamycin Allergy (Unknown, Verified 02/04/25 14:47) Unknown fentanyl Adverse Reaction (Severe, Verified 02/04/25 14:47) Nausea and Vomiting Statins- Sensitivity Allergy (Unknown, Uncoded 02/04/25 14:47) Unknown HPI HPI Comments History of Present Illness Details Mary Beth Flores is a very pleasant 78 year old hyperlipidemia, GERD, polymyalgia rheumatic, nephrolithiasis, OA hip presenting for follow up. OA: Follows with orthopedics, PSS. Last December 09 2023 had right knee surgery CV: on norvasc 5mg daily. No chest pain or dyspnea GERD-stable on PPI. Was hospitalized for colitis over the summer Urologic: Has seen urology. History of UTI, kidney stones Mammo: 12/22/2024 Colonoscopy 04/13/2024 DXA 12/22/2024-osteoporosis ROS CONSTITUTIONAL: Denies weight loss, fever and chills. HEENT: Denies changes in vision and hearing. RESPIRATORY: Denies SOB and cough. CV: Denies palpitations and CP GI: Denies abdominal pain, nausea, vomiting and diarrhea. : Denies dysuria and urinary frequency. MSK: Denies new myalgia and joint pain. SKIN: Denies rash and pruritus. NEUROLOGICAL: Denies headache PSYCHIATRIC: Denies recent changes in mood. PHYSICAL EXAM: GENERAL: Alert and oriented x 3. NAD EYES: EOMI. Anicteric. HENT: Moist mucous membranes. No scleral icterus. No cervical lymphadenopathy. LUNGS: Clear to auscultation bilaterally. CARDIOVASCULAR: Regular rate and rhythm. No murmur. No JVD. ABDOMEN: Soft, non-tender +bs EXTREMITIES: No edema. Non-tender. SKIN: No rashes or lesions. Warm. NEUROLOGIC: No focal neurological deficits. CN II-XII grossly intact PSYCHIATRIC: Cooperative. Appropriate mood and affect. [facility] Medical History High cholesterol GERD (gastroesophageal reflux disease) PMR (polymyalgia rheumatica) Surgical History H/O knee surgery Family History Maternal Aunt History of breast cancer Maternal Grandfather Colon cancer Sister Colon cancer Social History Household Members: Spouse Housing: House Alcohol intake: current Alcohol intake frequency: a few times a week Patient Tobacco Use Status: Former Tobacco user service: No Questionnaire Thrive Questionnaire Date Thrive assessed: 04/11/24 Physical exam (Primary Care) Vital Signs: Last Vital Signs Temp 97.4 F 02/04/25 14:52 Pulse 78 02/04/25 14:52 Resp 14 02/04/25 14:52 BP 138/72 02/04/25 14:52 Pulse Ox 97 02/04/25 14:52 Oxygen Delivery Method Room Air 02/04/25 14:52 BMI result Body Mass Index 21.7 Tobacco/Smoking Status: Tobacco use Status Patient Tobacco Use Status Former Tobacco user 02/04/25 14:54 Thrive Assessment: Date of Thrive Assessment Date Thrive assessed 04/11/24 02/04/25 14:54 Coding Level of Care Code New Pt Level 4 (86648) Complex EM visit Add On G2211 Diagnoses Colitis K52.9 Gastroesophageal reflux disease, unspecified whether esophagitis present K21.9 Esophagitis presence: esophagitis presence not specified Osteoporosis, unspecified osteoporosis type, unspecified pathological fracture presence M81.0 Osteoporosis type: unspecified Presence of current pathological fracture: unspecified Nephrolithiasis N20.0 Assessment & Plan Assessment & Plan (1) Colitis: Code(s): K52.9 - Noninfective gastroenteritis and colitis, unspecified Category: Medical (2) GERD (gastroesophageal reflux disease): Code(s): K21.9 - Gastro-esophageal reflux disease without esophagitis Category: Medical Qualifiers: Esophagitis presence: esophagitis presence not specified Qualified Code(s): K21.9 - Gastro-esophageal reflux disease without esophagitis (3) Osteoporosis: Code(s): M81.0 - Age-related osteoporosis without current pathological fracture Category: Medical Qualifiers: Osteoporosis type: unspecified Presence of current pathological fracture: unspecified Qualified Code(s): M81.0 - Age-related osteoporosis without current pathological fracture (4) Nephrolithiasis: Code(s): N20.0 - Calculus of kidney Category: Medical Plan 79 year old male Past medical, surgical, social reviewed Chronic medical conditions stable Ongoing OA-continues follow up Osteoporosis-h/o GERD. She will see endocrine Orders: Orders Comprehensive Met. Panel Today K21.9 - Gastro-esophageal reflux disease without esophagitis, K52.9 - Noninfective gastroenteritis and colitis, unspecified, M81.0 - Age-related osteoporosis without current pathological fracture, Z13.220 - Encounter for screening for lipoid disorders, Z13.228 - Encounter for screening for other metabolic disorders Vitamin D 25-OH (D2 and D3) Today K21.9 - Gastro-esophageal reflux disease without esophagitis, K52.9 - Noninfective gastroenteritis and colitis, unspecified, M81.0 - Age-related osteoporosis without current pathological fracture, Z13.220 - Encounter for screening for lipoid disorders, Z13.228 - Encounter for screening for other metabolic disorders Collagen Crosslinks NTX Today K21.9 - Gastro-esophageal reflux disease without esophagitis, K52.9 - Noninfective gastroenteritis and colitis, unspecified, M81.0 - Age-related osteoporosis without current pathological fracture, Z13.220 - Encounter for screening for lipoid disorders, Z13.228 - Encounter for screening for other metabolic disorders Complete Blood Count Auto Diff Today K21.9 - Gastro-esophageal reflux disease without esophagitis, K52.9 - Noninfective gastroenteritis and colitis, unspecified, M81.0 - Age-related osteoporosis without current pathological fracture, Z13.220 - Encounter for screening for lipoid disorders, Z13.228 - Encounter for screening for other metabolic disorders Lipid Panel Today K21.9 - Gastro-esophageal reflux disease without esophagitis, K52.9 - Noninfective gastroenteritis and colitis, unspecified, M81.0 - Age-related osteoporosis without current pathological fracture, Z13.220 - Encounter for screening for lipoid disorders, Z13.228 - Encounter for screening for other metabolic disorders TSH reflex Free T4 Today K21.9 - Gastro-esophageal reflux disease without esophagitis, K52.9 - Noninfective gastroenteritis and colitis, unspecified, M81.0 - Age-related osteoporosis without current pathological fracture, Z13.220 - Encounter for screening for lipoid disorders, Z13.228 - Encounter for screening for other metabolic disorders Referrals Endocrinology Referral K21.9 - Gastro-esophageal reflux disease without esophagitis, M81.0 - Age-related osteoporosis without current pathological fracture Gastroenterology Referral K52.9 - Noninfective gastroenteritis and colitis, unspecified
[2025-02-04 14:52] VITALS: BP 138/72; PULSE 78; RESP 14; TEMP 36.3; O2SAT 97; BMI 21.7
== END 2025-02-04 15:21 | disposition home or self-care (01) ==
LOC: HO.HMCHD 14:29
PROVIDERS: PCP Internal Medicine; Visit Provider Internal Medicine
DX: K52.9 Noninfective gastroenteritis and colitis, unspecified (principal); K21.9 Gastro-esophageal reflux disease without esophagitis; M81.0 Age-related osteoporosis without current pathological fracture; N20.0 Calculus of kidney

== ENCOUNTER → 2025-02-04 14:28 | Outpatient (BNVA) | payer MEDICARE, OTHER, SELFPAY | PROVIDERS: PCP Internal Medicine; Visit Provider Internal Medicine | DX: K52.9 Noninfective gastroenteritis and colitis, unspecified (principal); K21.9 Gastro-esophageal reflux disease without esophagitis; M81.0 Age-related osteoporosis without current pathological fracture; N20.0 Calculus of kidney; Z79.899 Other long term (current) drug therapy | CPT/HCPCS: 99202 ==

== ENCOUNTER 2025-02-22 08:50 | Outpatient (AMB) | payer MEDICARE, OTHER, SELFPAY ==
--- NOTE | 2025-02-22 08:54 | MHC.OFFVIS ---
Vital Signs 02/22/25 09:00 Height 5 ft Weight 112 lb 3.445 oz BMI 21.9 BP 126/74 Blood Pressure Location Rt brachial Position Sitting Pulse 98 Pulse Source Pulse Oximeter Pulse Oximetry (%) 97 Oxygen Delivery Method Room Air Intake Visit Reasons: Age-related osteoporosis Intake Note: Patient presents today for Age- related osteoporosis. 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: No Accompanied by: Self / Same As Patient Allergies clindamycin Allergy (Unknown, Verified 02/22/25 09:01) Unknown fentanyl Adverse Reaction (Severe, Verified 02/22/25 09:01) Nausea and Vomiting Statins- Sensitivity Allergy (Unknown, Uncoded 02/22/25 09:01) Unknown Medication List - Last Reconciled 02/22/25 by Amarjit Valdes MD amlodipine 5 mg PO DAILY biotin 5 mg PO DAILY calcium carbonate 500 mg PO DAILY celecoxib (Celebrex) 200 mg PO BID cholecalciferol (vitamin D3) 25 mcg PO DAILY lactobacillus comb no.10 (Probiotic) 20,000 mmu cells PO DAILY multivitamin 1 tab PO DAILY omeprazole 20 mg PO DAILY pravastatin 20 mg PO DAILY [Stool Softener PO] tramadol mg PO QID PRN vitamin B complex 1 cap PO DAILY HPI Comments Details: The patient is a 79-year-old female presenting with concerns related to osteoporosis and hypercalcemia. Her history of osteoporosis stretches back several years, with a vertebral fracture discovered last year after hip surgery, suggesting a lumbar issue. 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 Recently discovered hypercalcemia [place] for this patient, who has been consistent with calcium and vitamin D intake through both diet and supplements. She was informed of this high calcium level this year, after prior unawareness. Polymyalgia rheumatica was managed previously with prednisone, while arthritis is noted alongside a childhood clavicle fracture. Kidney stones were diagnosed roughly 1.5 years ago. The patient also manages gastroesophageal reflux disease with omeprazole and has a family history of osteoporosis but no hypercalcemia or thyroid issues reported. First diagnosed in few yrs .Never saw endo or rheum before Not Received treatment in the past. ? history of pathologic fracture ?level or ONJ. Has several servings of dietary calcium per day in the form of milk, yogurt . Takes Calcium supplement 500 mg daily in divided doses. Takes 1000 IU of Vitamin D daily. Takes PPI, -anticoagulant, -antiepileptic or -glucocorticoid medication but previously took . - Prednisone: previously taken for polymyalgia rheumatica - Omeprazole: ongoing for gastroesophageal reflux disease - Calcium supplements: 500 mg daily - Vitamin D: 1000 IU daily - Multivitamin: unknown calcium content - No reported adverse effects Not Does weight bearing exercise The patient reports engaging in daily exercises targeting shoulder, leg, and back health. She does not engage in specific weight-bearing exercises beyond her own body weight. 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 UTD on dental cleanings and sees dentist every 6 months. No planned upcoming dental work or extractions. Takes biotin 6 wks . No tabacco use or heavy ETOH abuse DXA dated 12/22/24 :HISTORY: Estrogen deficiency TECHNIQUE: [employer] Dual energy absorptiometry (DEXA) of the lumbar spine and distal forearm was performed. The hips are not evaluated due to a history of bilateral total hip arthroplasty. COMPARISON: Comparison is made with the prior examination dated 05/26/2019. FINDINGS: The bone mineral density of the lumbar spine is 0.924 with a T-score of -2.1, and a Z-score of 0.2. This is indicative of osteopenia. This represents a BMD change of -8.1% compared to the prior exam. This is statistically significant. The bone mineral density of the distal forearm is 0.613 with a T-score of -3.0, and a Z-score of -0.5. This is indicative of osteoporosis. MM/XR DEXA appendicular skeleton IMPRESSION: Based on bone mineral density, and according to World Health Organization (WHO) criteria, the diagnosis is consistent with osteoporosis. Labs: - Labs: - Elevated calcium levels noted: 10.3 mg/dL (normal up to 10.2 mg/dL) - Previous calcium levels: 10.9 mg/dL from 03/2024 - Diagnostics: Vertebral fracture noted post hip surgery on imaging [facility] Medical History High cholesterol GERD (gastroesophageal reflux disease) PMR (polymyalgia rheumatica) Surgical History H/O knee surgery Family History Maternal Aunt History of breast cancer Maternal Grandfather Colon cancer Sister Colon cancer Social History Household Members: Spouse Housing: House Alcohol intake: current Alcohol intake frequency: a few times a week Patient Tobacco Use Status: Former Tobacco user service: No Physical Exam Vital Signs: Last Vital Signs Pulse 98 02/22/25 09:00 BP 126/74 02/22/25 09:00 Pulse Ox 97 02/22/25 09:00 Oxygen Delivery Method Room Air 02/22/25 09:00 BMI result Body Mass Index 21.9 There are no Cushingoid features. Absence of blue sclera. Absence of kyphosis. Thyroid gland is of nl size and weighs 15 gms. There are no thyroid nodules palpated. Lungs CTA. Heart S1 S2 Reg R/R Abdominal exam benign. Muscle strength 5/5 . Examination of spine reveals absence of tenderness on palpation Assessment & Plan Assessment & Plan (1) Osteoporosis: Code(s): M81.0 - Age-related osteoporosis without current pathological fracture Category: Medical Qualifiers: Osteoporosis type: unspecified Presence of current pathological fracture: unspecified Qualified Code(s): M81.0 - Age-related osteoporosis without current pathological fracture Plan: This is a 79-year-old white female with a history of osteoporosis with discrepancy between cortical bone in the forearm showing moderate to severe osteoporosis and history of nephrolithiasis + labs consistent with possible primary hyperparathyroidism . Plan is to repeat calcium, albumin, PTH, 25 hydroxy vitamin-D, 24 hour urine for calcium and creatinine at [facility] ([facility]) after holding the biotin for 1 week's time. If results are consistent with primary hyperparathyroidism, patient would be a candidate for parathyroid exploration considering the significant osteoporosis in the forearm and history of nephrolithiasis. If primary hyperparathyroidism is not present, treatment with a intravenous bisphosphonate or Prolia could be considered During the visit, I addressed concerns primarily related to osteoporosis and hypercalcemia, recognizing a potential link between the recent high calcium level and a possible parathyroid irregularity. I clarified the implications of bone scan results, noting a significant T-score variance, particularly the lower forearm score. Discussed the intricacies of parathyroid gland functionality and the significance of calcium regulation, outlining possible implications if a glandular overactivity is confirmed. I introduced possible surgical interventions for identified nodules inducing calcium imbalances, with caution towards practitioner selection should procedures become necessary. The patient was counseled about holding biotin before blood analyses to reduce interference. - Temporarily stop taking biotin for at least 10 days before the next blood test. - Hold calcium supplements until further laboratory testing is completed. - Continue taking vitamin D and maintain dietary calcium through food. - Follow instructions for completing a 24-hour urine collection for calcium testing. - Schedule follow-up in about 10 weeks to review lab results and discuss further treatment plans. - Orders: Orders Albumin Level Today M81.0 - Age-related osteoporosis without current pathological fracture Vitamin D 25-OH Total Today M81.0 - Age-related osteoporosis without current pathological fracture Calcium, 24 Hr Ur Today M81.0 - Age-related osteoporosis without current pathological fracture Creatinine, 24 Hr Group Today M81.0 - Age-related osteoporosis without current pathological fracture Calcium Today M81.0 - Age-related osteoporosis without current pathological fracture Parathyroid Hormone Intact Today M81.0 - Age-related osteoporosis without current pathological fracture Coding Level of Care Code New Pt Level 4 (92663) Diagnoses Osteoporosis, unspecified osteoporosis type, unspecified pathological fracture presence M81.0 Osteoporosis type: unspecified Presence of current pathological fracture: unspecified
[2025-02-22 09:00] VITALS: BP 126/74; PULSE 98; O2SAT 97; BMI 21.9
--- OUTSIDE RECORDS SUMMARY | 2025-02-22 09:27 | XMS_ITS | Data Portability ---
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 Plan: Continue PT @ 2x/wk for 8 weeks to decrease pain symptoms, increase ROM in all planes, and optimize mechanics for functional movements such as for reaching and lifting for ADL's. [email or web address] Not available 02/04/2025 10:44:03 02/09/2025 02/09/2025 Assessment: Patient demonstrates good improvement with flexion ROM since the I.E. Increased pain with clicking sensation over L shoulder during manual therapy was noted. Plan: Continue PT x2/week to improve ROM and progress PS strength as tolerated. [email or web address] Not available 02/09/2025 19:06:37 02/16/2025 02/16/2025 Assessment: Crepitus with PROM and painful A flexion. Plan: Continue PT x2/week to improve ROM and progress PS strength as tolerated. Not available 02/16/2025 14:14:51 02/18/2025 02/18/2025 Assessment: Crepitus with PROM and painful A flexion. Plan: Continue PT x2/week to improve ROM and progress PS strength as tolerated. Not available 02/18/2025 11:48:07 Plan of Treatment Reminders Order Date Submit Date Provider Last Modified By Organization Details Last Modified Time Details Appointments PT FOLLOW-UP 2024 10:00A M Tino Clemonsri, COMMERCIAL ACCOUNTANT Not available Not available Not available PT FOLLOW-UP 2024 10:00A M Raúl Cartagena, DPT Not available Not available Not available PT FOLLOW-UP 2024 10:00A M Tino Moralesfuri, COMMERCIAL ACCOUNTANT Not available Not available Not available PT FOLLOW-UP 2024 10:00A M Tino Scafuri, COMMERCIAL ACCOUNTANT Not available Not available Not available PT FOLLOW-UP 2024 10:00A M Tino Moralesfuri, COMMERCIAL ACCOUNTANT Not available Not available Not available NEW PATIENT 10 2024 02:50P M Guzman Hamlin MD Not available Not available Not available PT FOLLOW-UP 2024 10:00A M Tinoikmberly Moralesnatashari, COMMERCIAL ACCOUNTANT Not available Not available Not available PT FOLLOW-UP 2024 10:00A M Raúl Cartagena, DPT Not available Not available Not available PT FOLLOW-UP 2024 10:00A M Raúl Cartagena, DPT Not available Not available Not available Lab None recorded. Referral None recorded. Procedures None recorded. Surgeries None recorded. Imaging XR, shoulder, 2 or more view - nilesh shldr rm 215 2024 025 [email or web address] [address], [facility] [address], [place], [address], 01/17/2025 11:45:30 Medication Orders Celebrex 200 mg capsule 2024 025 [id number], [address], [place], [id number], 01/13/2025 11:37:41 Patient TargetsNo targets recorded. Patient InstructionsNo instructions recorded. Reason for Referral None Reported. Results Created Date Observation Date Name Description Value Unit Range Abnormal Flag Note LastModifiedBy Organization Detail LastModifiedTime 01/11/2001/09/2025 MRI, shoul shanon, w/o contr ast [facility] [facility] Access ion Number : [id number] Patien t Name: Reymundo Kate Record Number : [id number] Date of : 1945 Date of Exam: 2024 Referr ing Physic isabel: Zak Sherman en NEOS [address], [address] [facility], [place] [address] Exam: MR Should er (C-) CPT 65149 - Left Room Descri ption: [place] GE Pion 3T MR Should er (C-) CPT 80016 CLINIC AL INDICA TION: M19.01 2 - [...] body in the subcor acoid recess . IJulian MD, have review ed the images and report and concur with the reside nt, Niya rodrigez, yue nicole. Electr onical ly Signed By: Julian Johnson MD [email or web address] [facility] [address] [place], [address], 01/11/2025 16:52:55 01/11/20 25 01/09/2025 MRI, niall claudio, w/o contr ast No observ ation record ed. [facility] [address], [place], [address], 01/17/2025 11:51:03 01/14/20 25 01/13/2025 XR, niall claudio, 2 or more view http:/ [email or web address] ?Encry pted=s hAaTro YD8dLq bEUv6g %2BXZw aYqtaq 0bqfl% 2Fg9IQ a4ajBk vP9nXo QUaueC m3YtLR FvZlJ JJ8mAn HZtai3 1p5434 AC0Kla nyHVqa hKiQtr MwF INTERFACE [facility] [address] [address], [place], [address], 01/13/2025 11:02:07 01/14/20 25 01/13/2025 niall BENNETT, 2 or more view http:/ [email or web address] ?Encry pted=s hAaTro YD8dLq bEUv6g %2BXZw aYqtaq 0bqfl% 2Fg9IQ a4ajBk vP9nXo QUaueC m3YtLR FvZl JJ8mAn HZtai3 7p3503 AC0Kla nyHVqa hKiQtr MwF INTERFACE [facility] [address] [facility] [address], [place], [address], 01/13/2025 11:02:08 Result Notes None recorded. 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 049670695638 9105 Active 2023 Raúl Wilhelm MD [address], [place], [address] , [facility] 5 14:29:08 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 440337083909 108 Active 2024 ИВАН wilson [facility] 5 12:11:14 Bilateral shoulder osteoarth ritis 092755784589 108 [facility] 5 10:46:10 Osteoarth ritis of right glenohume ral joint 114354904371 9101 Active 2024 Kassandra Sherman PA-C [address], [place], [address] , [facility] 5 11:36:05 Chondroma lacia of left patella 160523370828 106 Active 2018 Problem Code: M22.42; Problem Code Type: ICD-10; Status: 'A'; Not Available [facility] 4 11:42:38 Osteoarth ritis of hip 517479952 Active 2023 Octavio Mayers PA-C [address], [place], [address] , [facility] 4 10:53:17 Osteoarth ritis of right hip joint 156720801125 107 Active [address] [facility] 4 13:16:51 Osteoarth ritis of left knee joint 355829820195 109 Active 2023 Jeremiah Wilkerson MD [address], [place], [address] , [facility] 4 14:31:32 Problem Notes None recorded. Procedures Surgical History Date Name Laterality Status Provider Name and Address Organization Details Recorded Time 4 74793 Therapeutic Exercise (1:1) completed Raúl Cartagena DPT [address], [place], [address], [facility] 02/26/2024 19:45:18 4 09730: Manual therapy completed Raúl Cartagena DPT [address], [place], [address], [facility] 02/25/2024 22:36:23 4 [facility] completed Tylor Duran PA-C [address], [place], [address], [facility] 02/24/2024 15:08:57 4 06868 Therapeutic Exercise (1:1) completed Raúl Cartagena DPT [address], [place], [address], [facility] 02/23/2024 20:48:02 4 38453: Manual therapy completed Raúl Cartagena DPT [address], [place], [address], [facility] 02/24/2024 18:53:36 4 06208 Therapeutic Exercise (1:1) completed Raúl Cartagena DPT [address], [place], [address], [facility] 02/12/2024 22:21:23 4 32838: Manual therapy completed Hongshin Osiel, DPT [address], [place], [address], [facility] 02/12/2024 22:19:44 4 06737 Therapeutic Exercise (1:1) completed Raúl Cartagena DPT [address], [place], [address], [facility] 02/09/2024 22:44:52 4 21096: Manual therapy completed Raúl Cartagena DPT [address], [place], [address], [facility] 02/11/2024 03:37:34 4 30338 Therapeutic Exercise (1:1) completed Raúl Cartagena DPT [address], [place], [address], [facility] 01/28/2024 13:26:19 4 Hip Kenalog Injection, L/R w/US completed Octavio Mayers PA-C [address], [place], [address], [facility] 01/23/2024 10:53:31 4 91907 Therapeutic Exercise (1:1) completed Inna Otoole COMMERCIAL ACCOUNTANT [address], [place], [address], [facility] 01/21/2024 10:56:57 4 53199 Therapeutic Exercise (1:1) completed Inna Otoole PTA [address], [place], [address], [facility] 01/19/2024 11:50:11 4 93570: Manual therapy completed Inna Otoole PTA [address], [place], [address], [facility] 01/19/2024 11:57:19 4 20951 Therapeutic Exercise (1:1) completed Raúl Cartagena DPT [address], [place], [address], [facility] 01/13/2024 18:54:45 4 82108: Manual therapy completed Raúl Cartagena DPT [address], [place], [address], [facility] 01/14/2024 09:46:31 4 50984 Therapeutic Exercise (1:1) completed Raúl Cartagena DPT [address], [place], [address], [facility] 01/09/2024 22:38:33 4 42918: Manual therapy completed Raúl Cartagena DPT [address], [place], [address], [facility] 01/09/2024 22:38:33 4 94582 Therapeutic Exercise (1:1) completed Inna Otoole PTA [address], [place], [address], [facility] 01/06/2024 10:28:08 4 38487: Manual therapy completed Inna Otoole PTA [address], [place], [address], [facility] 01/06/2024 10:28:08 4 74464 Therapeutic Exercise (1:1) completed Raúl Cartagena DPT [address], [place], [address], [facility] 12/31/2023 10:37:58 4 30773: Manual therapy completed Raúl Cartagena DPT [address], [place], [address], [facility] 12/31/2023 10:37:55 4 12780 Therapeutic Exercise (1:1) completed Raúl Cartagena DPT [address], [place], [address], [facility] 12/29/2023 12:39:32 4 46558: Manual therapy completed Raúl Cartagena DPT [address] [facility], [place], [address], [facility] 12/29/2023 12:39:40 4 60425 Therapeutic Exercise (1:1) completed Raúl Cartagena DPT [address] [facility], [place], [address], [facility] 12/24/2023 12:44:23 4 29447: Low complexity PT Eval completed Raúl Cartagena DPT [address] [facility], [place], [address], [facility] 12/24/2023 12:44:28 4 G8420 BMI Normal, No Follow-Up Plan Required completed Raúl Cartagena DPT [address] [facility], [place], [address], [facility] 12/24/2023 12:44:42 4 G8427 Current Medication Documented completed Raúl Cartagena DPT [address] [facility], [place], [address], [facility] 12/24/2023 12:44:31 Imaging Results None recorded. Procedure Notes None recorded. Medical Equipment None Reported. Allergies Allergen ID Allergen Name Allergen Category Reaction Reaction Severity Criticality Documentation Date Start Date Code Code System Note Provider Name and Address Organization Details Recorded Time 239130 Percodan medicatio n Not available Not available Not available 11/24/20232018 31418 RxNorm Not Available [facility] 4 15:38:30 801507 clindamyc in hydrochlo ride medicatio n Not available Not available Not available 11/24/20232018 20559 RxNorm Not Available [facility] 4 15:38:30 280543 acetamino phen / oxycodone medicatio n Not available Not available Not available 11/24/20232018 38444 3 RxNorm Not Available [facility] 4 15:38:30 609201 fentanyl medicatio n Not available Not available Not available 07/23/2024 4337 RxNorm Cari wilson [place] - [facility] 4 13:08:52 Medications Name Sig Start Date Stop Date Status Note LastModified by Organization Details LastModified Time Prescriptio n - Clarificati on 09/28 completed clinical outcomes manager 3-8-2 024 Not Available Not Available Not [...] Available Not Available Not Available amoxicillin 500 mg-lee m clavulanate 125 mg tablet TAKE 1 [...] Updated DateTime 01/13/2025 152.4 cm 22.5 kg/m2 41484.12 g Janina Henao [place] - [facility] 01/13/2025 10:42:21 Social History Question Answer Notes LastModified by Organizat ion Details LastModified Time Tobacco Smoking Status Former Smoker Denia wilson [place] - [facility] 07/02/2024 13:17:27 When Did You Quit Smoking? 16+yearssinc elastcigaret te clarke Information not available 07/02/2024 What Is Your [...] Reported. Medical History Condition Response Anxiety/Depression Y Acid Reflux (GERD) Y Arthritis Y Cholesterol Y Gynecological HistoryNo gynecological history recorded. Obstetrics History GPAL:G 0 P 0 0 0 0 Past Encounters Encounter ID Performer Location Encounter Start Date Encounter Closed Date Diagnosis/Indication Diagnosis SNOMED-CT Code Diagnosis ICD10 Code Diagnosis Note [id number] BRANDEE Pereira [address] [place] [address] 12/03/2023 12:43:16 12/03/2023 14:00:39 Osteoarthritis of right knee joint 2478999621 06401 M17.11 Pain of ri ght knee joint 2716702925 45200 M25.168 [id number] MD Diane Casillas [address] [place] [place] [address] 12/03/2023 14:56:38 12/09/2023 10:04:53 [id number] DILIP Ocampo PT [address] [place] [address] 12/24/2023 11:15:19 12/24/2023 12:20:58 Aftercare 884202700 Z47.1 History of right total knee replacement 7892040908 909574 Z96.224 [id number] ESTEFANIA James [address] [place] [address] 12/22/2023 15:07:58 01/10/2024 15:11:25 Aftercare 363906156 Z51.89 Z47.1 History of right total knee replacement 8877673588 966196 Z96.235 [id number] Raúl Cartagena DPT [facility] [address] [place] [address] 12/29/2023 09:53:13 12/29/2023 10:48:45 Aftercare 719332146 Z47.1 History of right total knee replacement 6419903409 696972 Z96.366 [id number] Raúl Cartagena DPT [facility] [address] [place] [address] 12/31/2023 09:54:00 12/31/2023 10:57:00 Aftercare 060300029 Z47.1 History of right total knee replacement 8853596990 701294 Z96.110 [id number] Inna Otoole, COMMERCIAL ACCOUNTANT [facility] [address] [place] [address] 01/06/2024 10:21:42 01/06/2024 11:13:17 Aftercare 684374052 Z47.1 History of right total knee replacement 4968857206 421370 Z96.860 [id number] ESTEFANIA Josenie [address] [place] [address] 01/08/2024 10:22:29 01/30/2024 13:19:27 Postoperative visit 187187091 Z48.89 Knee joint prosthesis present 1957721652 02 Z96.229 [id number] CARLA OcampoT [facility] [address] [place] [address] 01/12/2024 08:55:06 01/12/2024 10:29:31 Aftercare 696246245 Z47.1 History of right total knee replacement 2786784038 829698 Z96.628 [id number] Raúl Cartagena DPT [facility] [address] [place] [address] 01/14/2024 08:55:04 01/14/2024 09:32:56 Aftercare 986825057 Z47.1 History of right total knee replacement 3092128067 367045 Z96.851 [id number] Inna Chancee, COMMERCIAL ACCOUNTANT [facility] [address] [place] [address] 01/19/2024 10:22:49 01/19/2024 12:06:43 Aftercare 756481764 Z47.1 History of right total knee replacement 4902237925 565714 Z96.879 [id number] Inna Otoole, COMMERCIAL ACCOUNTANT [facility] [address] [place] [address] 01/21/2024 10:22:54 01/21/2024 11:05:17 Aftercare [id number] Z47.1 History of right total knee replacement 6230158965 876527 Z96.613 [id number] Octavio Mayers PA-C [facility] [place] [address] 01/23/2024 09:48:34 02/05/2024 08:50:52 Osteoarthritis of hip 421433707 M16.9 [id number] Ghazala Curry PA-C [facility] [place] [address] 01/26/2024 11:03:47 02/19/2024 20:46:55 Postoperative visit 951818624 Z48.89 Knee joint prosthesis present 7745599028 02 Z96.280 [id number] Raúl Cartagena DPT [facility] [address] [place] [address] 01/28/2024 09:52:32 01/28/2024 10:33:20 Aftercare 512032400 Z47.1 History of right total knee replacement 8445332308 851400 Z96.532 [id number] Raúl Cartagena DPT [facility] [address] [place] [address] 02/10/2024 13:24:09 02/10/2024 14:06:23 Aftercare 470017959 Z47.1 History of right total knee replacement 6699973097 764270 Z96.346 [id number] Raúl Cartagena DPT [facility] [address] [place] [address] 02/13/2024 14:23:25 02/13/2024 15:50:36 Aftercare 255619790 Z47.1 History of right total knee replacement 1430875104 918124 Z96.412 [id number] DILIP Ocampo PT [address] [place] [address] 02/24/2024 13:26:55 02/24/2024 14:40:32 Aftercare 818358113 Z47.1 History of right total knee replacement 1870739601 113695 Z96.629 [id number] Tylor Duran PA-C [facility] [address] [place] [address] 02/24/2024 14:27:29 03/09/2024 08:51:32 Osteoarthritis of hip 828261507 M16.9 [id number] DILIP Ocampo PT [address] [place] [address] 02/26/2024 13:22:30 02/26/2024 14:06:11 Aftercare 591944531 47.1 History of right total knee replacement 0304583418 613188 Z96.685 [id number] Jeremiah Wilkerson MD [facility] [address] [place] [address] 03/10/2024 13:03:03 04/06/2024 10:40:51 Osteoarthritis of right hip joint 4705180210 17756 M16.11 Osteoarthr itis of left knee joint 2569981465 08326 M17.12 [id number] Raúl Wilhelm MD [facility] [address] [place] [address] 04/09/2024 08:28:39 04/09/2024 11:23:39 Pain of right hip joint 3101346949 27605 M25.551 Osteoarthr itis of right hip joint 7451315557 58589 M16.11 Osteoarthr itis of left hip joint 0865810719 11238 M16.12 [id number] Tri Dumont APRN [facility] [address] [place] [address] 05/12/2024 08:20:39 05/29/2024 04:08:17 [id number] Hongshin Osiel, DPT [facility] [address] [place] [address] 05/13/2024 15:16:49 05/13/2024 16:50:02 Osteoarthritis of hip 022538857 M16.11 [id number] Raúl Cartagena, DPT [facility] [address] [place] [address] 06/02/2024 10:22:41 06/02/2024 12:11:54 Aftercare 766489481 Z47.1 Z96.335 [id number] Raúl Cartagena DPT [facility] [address] [place] [address] 06/04/2024 14:28:29 06/04/2024 15:20:57 Aftercare 381813255 Z47.1 Z96.843 [id number] Kem Rodriguez PA-C [facility] [address] [place] [address] 06/04/2024 13:23:41 06/25/2024 13:18:35 History of total replacement of right hip joint 1731287319 24796 Z96.281 [id number] CARLA OcampoT [facility] [address] [place] [address] 06/09/2024 13:28:03 06/09/2024 14:34:45 Aftercare 442748411 Z47.1 Z96.608 [id number] Raúl Cartagena DPT [facility] [address] [place] [address] 06/11/2024 10:24:53 06/11/2024 13:41:34 Aftercare 403912615 Z47.1 Z96.252 [id number] Raúl Cartagena DPT [facility] [address] [place] [address] 06/16/2024 15:25:13 06/16/2024 16:52:49 Aftercare 261642158 Z47.1 Z96.958 [id number] Raúl Cartagena DPT [facility] [address] [place] [address] 06/18/2024 16:00:17 06/21/2024 09:25:49 Aftercare 684030718 Z47.1 Z96.072 [id number] Raúl Cartagena DPT [facility] [address] [place] [address] 06/23/2024 13:28:06 06/23/2024 14:14:22 Aftercare 686540697 Z47.1 Z96.778 [id number] Raúl Cartagena DPT [facility] [address] [place] [address] 06/25/2024 13:24:27 06/25/2024 14:45:44 Aftercare 428601223 Z47.1 Z96.541 [id number] Raúl Cartagena DPT [facility] [address] [place] [address] 07/02/2024 13:56:14 07/02/2024 16:05:03 Aftercare 861620675 Z47.1 Z96.104 [id number] Raúl Wilhelm MD [facility] [address] [place] [address] 07/02/2024 13:06:57 07/22/2024 14:06:00 History of total replacement of right hip joint 1364759963 38216 Z96.641 Osteoarthr itis of left hip joint 0756772108 91578 M16.12 [id number] Amanda Danielle APRN [facility] [address] [place] [address] 07/13/2024 10:31:00 07/31/2024 03:58:27 Osteoarthritis of left hip joint 7055808345 23485 M16.12 [id number] Kenyon Bagley PA-C [facility] [address] [place] [address] 07/23/2024 12:58:07 08/12/2024 06:05:11 History of repair of hip joint 036381968 Z96.564 [id number] Raúl Cartagena DPT [facility] [address] [place] [address] 08/27/2024 13:57:09 08/27/2024 14:51:42 Aftercare 883568569 Z47.1 Z96.483 [id number] MD Diane Sheehan 2nd [address] [place] [address] 08/26/2024 13:34:47 09/10/2024 15:41:59 History of total replacement of left hip joint 9910629166 349017 Z96.275 [id number] Raúl Cartagena DPT [facility] [address] [place] [address] 08/30/2024 14:26:08 08/30/2024 15:24:42 Aftercare 854420329 Z47.1 Z96.712 [id number] CARLA OcampoT [facility] [address] [place] [address] 09/01/2024 14:18:26 09/01/2024 14:47:17 Aftercare 008258951 Z47.1 Z96.986 [id number] CARLA OcampoT [facility] [address] [place] [address] 09/16/2024 16:17:45 09/16/2024 17:16:59 Aftercare 222285054 Z47.1 Z96.842 [id number] CARLA OcampoT [facility] - [facility] [address] [place] [address] 09/23/2024 10:54:26 09/23/2024 11:39:07 Aftercare 219644616 Z47.1 Z96.706 [id number] MD FELECIA Sheehan 2[address] [place] [address] 09/28/2024 14:50:38 10/13/2024 08:36:50 History of repair of hip joint 185178650 Z96.949 [id number] CARLA OcampoT [facility] - [facility] [address] [place] [address] 10/01/2024 09:19:34 10/01/2024 10:19:36 Aftercare 376111582 Z47.1 Z96.537 [id number] Raúl Cartagena DPT [facility] - [facility] [address] [place] [address] 10/05/2024 14:56:44 10/05/2024 15:31:48 Aftercare 540089853 Z47.1 Z96.203 [id number] Raúl Cartagena DPT [facility] - [facility] [address] [place] [address] 10/14/2024 13:17:27 10/14/2024 17:54:51 Aftercare 818323184 Z47.1 Z96.827 [id number] Raúl Cartagena DPT [facility] - [facility] [address] [place] [address] 10/22/2024 14:12:33 10/22/2024 15:17:21 Aftercare 519489427 Z47.1 Z96.015 [id number] ESTEFANIA [facility] [address] [place] [address] 10/29/2024 08:49:23 11/17/2024 09:55:29 Osteoarthritis of joint of left shoulder region [id number] 24607 M19.012 PLANThe patient has done well with conservati ve management in regards to the shoulder with good clinical response to injections in the past. Recommend continued conservati ve management with repeat injection( s) today. Moderating activities with the upper extremity recommende d also. See procedure notes for injection details. [id number] Raúl Cartagena DPT [facility] [address] [place] [address] 11/02/2024 16:43:35 11/02/2024 17:32:53 Aftercare [id number] Z47.1 Z96.126 [id number] ESTEFANIA [facility] [address] [place] [address] 01/13/2025 10:36:20 01/26/2025 14:51:25 Osteoarthritis of joint of left shoulder region [id number] 12258 M19.012 Reviewed Sandra's imaging and exam findings [...] shoulder replacemen t further. Bilateral shoulder osteoarthritis [id number] 40512 M19.011 M19.012 Osteoarthr itis of right glenohumeral joint [id number] M19.011 In regards to her right shoulder [...] black/bloo dy stools. Take with food. Prescribed meloxicam 15 mg PO daily neel brex 200 mg PO daily [id number] [facility] [address] [place] [address] 02/04/2025 09:52:59 02/04/2025 10:54:50 Osteoarthritis of joint of left shoulder region [id number] [facility] M19.867 [id number] Raúl Cartagena, DPT [facility] [address] [place] [address] 02/09/2025 09:55:36 02/09/2025 10:54:17 Osteoarthritis of joint of left shoulder region [id number] 70516 M19.601 [id number] Tino Dunn [employer] [facility] [address] [place] [address] 02/16/2025 09:51:23 02/16/2025 10:44:44 Osteoarthritis of joint of left shoulder region [id number] [facility] M19.587 [id number] Tino Dunn, [employer] [facility] [address] [place] [address] 02/18/2025 09:48:15 02/18/2025 10:32:15 Osteoarthritis of joint of left shoulder region [id number] [facility] M19.012 Health Concerns Section Related Observation LastModified by Organization Detai ls LastModified Time None Recorded Concern Status LastModified by Organization Details LastModified Time None Recorded Advance Directives Directive None Recorded Payers Encounter Date Sequence Insurance Name Policy Number Policy Fuller Covered Member ID Fuller Member ID Guarantor Name 01/13/2025 2 WEB-TPA Mary Beth Sanchez [id number] Mary Beth Sanchez 01/13/2025 1 [place] [facility] Mary Beth Sanchez [id number] Mary Beth Sanchez 02/04/2025 2 WEB-TPA Mary Beth Sanchez [id number] Mary Beth Sanchez 02/04/2025 1 [place] [facility] Mary Beth Sanchez [id number] Mary Beth Sanchez 02/09/2025 2 WEB-TPA Mary Beth Sanchez [id number] Mary Beth Sanchez 02/09/2025 1 [place] [facility] Mary Beth Sanchez [id number] Mary Beth Sanchez 02/16/2025 2 WEB-TPA Mary Beth Sanchez [id number] Mary Beth Sanchez 02/16/2025 1 [place] [facility] Mary Beth Sanchez [id number] Mary Beth Sanchez 02/18/2025 2 WEB-TPA Mary Beth Sanchez [id number] Mary Beth Sanchez 02/18/2025 1 [place] [facility] Mary Beth Sanchez [id number] Mary Beth Sanchez Notes Date Note Type Note Provider Name and Address Organization Details Recorded Time 01/13/2025 text/html I am seeing the patient under the general supervision of Dr. Cortez who was available but who did not see the patient. History of Present Illness:Patient comes to the office with known history of glenohumeral arthritis of the left shoulder(s). The patient has done well with conservative management for their shoulder pain with good clinical response to cortisone injections in the past. Reports recently increasing discomfort over the past several weeks with no new injury or trauma. Pain is generalized about the shoulder and discomfort is worst at night. Last injections were 10/29/24. She states injection was not particularly helpful. [...] shoulder was independently reviewed by myself during [facility] interview and exam and demonstrates advanced glenohumeral joint osteophyte with loose body noted in the subcoracoid recess. Intact rotator cuff with diffuse tendinopathy. No cuff tearing. Mild AC joint arthritis. 4 view bilateral shoulder radiographs were ordered, obtained and independently reviewed by myself during today's visit at [facility] and demonstrate advanced left greater than right bilateral glenohumeral joint space narrowing. Left shoulder with [id number] articulation of the glenohumeral joint and posterior glenoid wear with early flattening of the humeral head. Loose body noted in the subcoracoid recess. Right shoulder demonstrates moderate glenohumeral joint space narrowing with irregularity of the humeral head. No fracture or dislocation. AC joint space narrowing and subacromial spurring. 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 Pt states her hip and knees are doing great this time. Pt is retired. Reviewed HEP. All questions and concerns were addressed and answered. Raúl Cartagena DPT [address], [place], [address], [facility] 02/04/2025 10:45:33 02/09/2025 text/html Patient states t hat she has been compliant with HEP since the I.E. Feeling good in her shoulder but having occasional pain and clicking in her shoulder. No pain at rest. Raúl Cartagena DPT [email or web address], [place], [address], [facility] 02/09/2025 19:06:54 02/16/2025 text/html Pt reports still feeling pain and crepitus with attempted lifting arm overhead. 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 Tino Dunn PTA [email or web address], [place], [address], [facility] 02/18/2025 11:50:04 OBGyn Episode No OBEpisode recorded.
== END 2025-02-22 10:04 | disposition home or self-care (01) ==
LOC: HO.ENCR 08:51
PROVIDERS: PCP Internal Medicine; Visit Provider Internal Medicine Endocrinology, Diabetes & Metabolism
DX: M81.0 Age-related osteoporosis without current pathological fracture (principal)
CPT/HCPCS: 99204

== ENCOUNTER → 2025-02-22 08:50 | Outpatient (BNVA) | payer MEDICARE, OTHER, SELFPAY | PROVIDERS: PCP Internal Medicine; Visit Provider Internal Medicine Endocrinology, Diabetes & Metabolism | DX: M81.0 Age-related osteoporosis without current pathological fracture (principal); E83.52 Hypercalcemia | CPT/HCPCS: 99202 ==

== ENCOUNTER 2025-03-28 08:35 | Outpatient (REF) | payer MEDICARE, OTHER, SELFPAY ==
--- OUTSIDE RECORDS SUMMARY | 2025-03-28 08:46 | XMS_ITS | Patient Health Record ---
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 Name Role Phone Dexter Mills MD Primary Care Provider Amarjit Alvarez Unavailable [phone] Allergies Allergen (clinical drug ingredient) Drug/Non Drug Allergy documented on EMR Reaction Allergy Type Onset Date Status acetaminophen / oxycodone Percocet Unknown Drug Allergy Active Reason For Referral No Information Medications Medication SIG (Take, Route, Frequency, Duration) Notes Start Date End Date Status Calcium + D 600-200 MG-UNIT 1 tablet wit h food Orally Once a day Active Probiotic Active Multivitamins Active Pravastatin Sodium 10 MG 1 tablet Orally Once a day Active Omeprazole 20mg Acti ve Immunizations Vaccine Route Administration Date Status Comme nts Flu vaccine no Preserv 3 and > Unknown 05/23/2015 Admin istered Problems Problem Type SNOMED Code ICD Code Onset Dates Problem Status W/U Status Risk Notes Problem [id number] Encounter for screening for malignant neoplasm of colon (Z12.11) Active confirmed Problem 539137211182329 Preprocedural examination (Z01.818) Active confirmed Problem 041436322 Family history o f colon cancer (Z80.0) Active confirmed Problem [id number] Clostridium difficile infection (B96.89) Active confirmed Plan Of Treatment Pending Test Test Name Order Date CLOSTRIDIUM DIFF TOXIN A&B (C DIFF) 08/23 Future Test Test Name Order Date COLONOSCOPY 08/19/2012 COLONOSCOPY 02/24/2018 Insurance Providers Payer Name Payer Address Payer Phone Subscriber Number Group Number Insured Name Patient Relationship to Insured Coverage Start Date Coverage End Date MEDICARE OF [place] [address] [place] [address] [id number] KAILA PACHECO Self - patient is the insured [employer] [address] [place] [address] [id number] KAILA PACHECO Self - patient is the insured Medical (General) History Medical History History ICD Code GERD-EGD in 2006--moderate s ized hiatal hernia, but no significant esophagitis or Marrero's esophagus HTN--currently not on any medication Diverticulosis Polymyalgia rheumatica-quiescent Migraines Elevated cholesterol Denies MS,DM,CVA,Lung disease,renal dise ase 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
--- OUTSIDE RECORDS SUMMARY | 2025-03-28 08:46 | XMS_ITS | Data Portability ---
Author Organization KO [facility], [facility] [place] Address [address] [place] [address] Care Team Providers Care Transcribing Operator Head Name Role Phone MELALYNN ELISA Referring Provider IZABELLA YODER Primary Care Provider [phone] Assessment Encounter Date Assessment Date Assessment LastModified by Organization Details LastModified Time 03/02/2025 03/02/2025 Assessment: No significant changes with ROM compared to LV. Ongoing pain and a clicking sensation inside her shoulder during flexion motion. Plan: Continue PT x2/week to improve ROM and progress PS strength as tolerated. [email or web address] Not available 03/02/2025 12:55:35 03/08/2025 03/08/2025 Assessment: Improved ROM today vs last week. Less crepitus with PROM flexion. Plan: Continue PT x2/week to improve ROM and progress PS strength as tolerated. Not available 03/08/2025 12:25:54 03/10/2025 03/10/2025 Assessment: Improving ROM but ongoing pain. Plan: Continue PT x2/week to improve ROM and progress PS strength as tolerated. Not available 03/10/2025 13:42:02 03/16/2025 03/16/2025 Assessment: Improving ROM but ongoing pain and crepitus. A flexion to 90 deg standing. Plan: Continue PT x2/week to improve ROM and progress PS strength as tolerated. Not available 03/16/2025 11:17:28 Plan of Treatment Reminders Order Date Submit Date Provider Last Modified By Organization Details Last Modified Time Details Appointments None record ed. Lab None record ed. Referral None record ed. Procedures None record ed. Surgeries None record ed. Imaging None record ed. Medication Orders None record ed. Patient TargetsNo targets recorded. Patient InstructionsNo instructions recorded. Reason for Referral None Reported. Results Created Date Observation Date Name Description Value Unit Range Abnormal Flag Note LastModifiedBy Organization Detail LastModifiedTime 03/21/20 25 01/10/2025 MRI, knee, w/o contr ast No observ ation record ed. BARCODE Not Available 2024 14:15:34 Result Notes None recorded. 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 701622587684 9105 Active 2023 Raúl Wilhelm MD [address], [place], [address] , [facility] 5 14:29:08 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 175119608259 108 Active 2024 ИВАН wilson [facility] 5 12:11:14 Bilateral shoulder osteoarth ritis 246928081781 108 Active 2024 Janina wilson [facility] 5 10:46:10 Osteoarth ritis of right glenohume ral joint 118316040364 9101 Active 2024 Kassandra Sherman PA-C [address], [place], [address] , [facility] 5 11:36:05 Rupture of rotator cuff of left shoulder 745214515094 44284 Active 2024 [facility] 5 11:36:53 Chondroma lacia of left patella 073340952030 106 Active 2018 Problem Code: M22.42; Problem Code Type: ICD-10; Status: 'A'; Not Available [facility] 4 11:42:38 Osteoarth ritis of hip 171115788 Active 2023 Octavio Mayers PA-C [address], [place], [address] , [facility] 4 10:53:17 Osteoarth ritis of right hip joint 103734094130 107 Active 2023 [facility] 4 13:16:51 Osteoarth ritis of left knee joint 277385219099 109 Active 2023 Jeremiah Wilkerson MD [address], [place], [address] , [facility] 4 14:31:32 Problem Notes None recorded. Procedures Surgical History Date Name Laterality Status Provider Name and Address Organization Details Recorded Time 4 39008 Therapeutic Exercise (1:1) completed Raúl Cartagena DPT [address], [place], [address], [facility] 02/26/2024 19:45:18 4 42922: Manual therapy completed Raúl Cartagena DPT [address], [place], [address], [facility] 02/25/2024 22:36:23 4 [facility] Tylor Duran PA-C [address], [place], [address], [facility] 02/24/2024 15:08:57 4 95915 Therapeutic Exercise (1:1) completed Raúl Cartagena DPT [address], [place], [address], [facility] 02/23/2024 20:48:02 4 01978: Manual therapy completed Raúl Cartagena DPT [address], [place], [address], [facility] 02/24/2024 18:53:36 4 73275 Therapeutic Exercise (1:1) completed Raúl Cartagena DPT [address], [place], [address], [facility] 02/12/2024 22:21:23 4 37479: Manual therapy completed Raúl Cartagena DPT [address], [place], [address], [facility] 02/12/2024 22:19:44 4 20767 Therapeutic Exercise (1:1) completed Raúl Cartagena DPT [address], [place], [address], [facility] 02/09/2024 22:44:52 4 10316: Manual therapy completed Raúl Cartagena DPT [address], [place], [address], [facility] 02/11/2024 03:37:34 4 11350 Therapeutic Exercise (1:1) completed Raúl Cartagena DPT [address], [place], [address], [facility] 01/28/2024 13:26:19 4 Hip Kenalog Injection, L/R w/US completed Octavio Mayers PA-C [address], [place], [address], [facility] 01/23/2024 10:53:31 4 80608 Therapeutic Exercise (1:1) completed Inna Otoole PTA [address], [place], [address], [facility] 01/21/2024 10:56:57 4 10016 Therapeutic Exercise (1:1) completed Inna Otoole, [employer]OWER MAID [address], [place], [address], [facility] 01/19/2024 11:50:11 4 14328: Manual therapy completed Inna Otoole [employer] MA[employer] [address], [place], [address], [facility] 01/19/2024 11:57:19 4 86675 Therapeutic Exercise (1:1) completed Raúl Cartagena DPT [address], [place], [address], [facility] 01/13/2024 18:54:45 4 92076: Manual therapy completed Raúl Cartagena DPT [address], [place], [address], [facility] 01/14/2024 09:46:31 4 21642 Therapeutic Exercise (1:1) completed Raúl Cartagena DPT [address], [place], [address], [facility] 01/09/2024 22:38:33 4 70156: Manual therapy completed Raúl Cartagena DPT [address], [place], [address], [facility] 01/09/2024 22:38:33 4 69117 Therapeutic Exercise (1:1) completed Inna Otoole PTA [address], [place], [address], [facility] 01/06/2024 10:28:08 4 72718: Manual therapy completed Inna Otoole PTA [address], [place], [address], [facility] 01/06/2024 10:28:08 4 37022 Therapeutic Exercise (1:1) completed Raúl Cartagena DPT [address] [facility], [place], [address], [facility] 12/31/2023 10:37:58 4 48980: Manual therapy completed Raúl Cartagena DPT [address], [place], [address], [facility] 12/31/2023 10:37:55 4 54871 Therapeutic Exercise (1:1) completed Raúl Cartagena DPT [address], [place], [address], [facility] 12/29/2023 12:39:32 4 46219: Manual therapy completed Raúl Cartagena DPT [address], [place], [address], [facility] 12/29/2023 12:39:40 4 21625 Therapeutic Exercise (1:1) completed Raúl Cartagena DPT [address] [facility], [place], [address], [facility] 12/24/2023 12:44:23 4 27574: Low complexity PT Eval completed Raúl Cartagena DPT [address], [place], [address], [facility] 12/24/2023 12:44:28 4 G8420 BMI Normal, No Follow-Up Plan Required completed Raúl Cartagena DPT [address], [place], [address], [facility] 12/24/2023 12:44:42 4 G8427 Current Medication Documented completed Raúl Cartagena DPT [address], [place], [address], [facility] 12/24/2023 12:44:31 Imaging Results None recorded. Procedure Notes None recorded. Medical Equipment None Reported. Allergies Allergen ID Allergen Name Allergen Category Reaction Reaction Severity Criticality Documentation Date Start Date Code Code System Note Provider Name and Address Organization Details Recorded Time 942895 Percodan medicatio n Not available Not available Not available 11/24/20232018 23264 RxNorm Not Available [facility] 4 15:38:30 057822 clindamyc in hydrochlo ride medicatio n Not available Not available Not available 11/24/20232018 33081 RxNorm Not Available [facility] 15:38:30 873419 acetamino phen / oxycodone medicatio n Not available Not available Not available 11/24/20232018 35204 3 RxNorm Not Available [facility] 15:38:30 013080 fentanyl medicatio n Not available Not available Not available 07/23/2024 4337 RxNorm Cari wilson [place] - [facility] 4 13:08:52 Medications Name Sig Start Date Stop Date Status Note LastModified by Organization Details LastModified Time Prescriptio n - Clarificati on 09/28 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 16+yearssinc elastcigaret te Information not available 07/02/2024 What Is Your Relationship Status? Information not available 07/02/2024 How Many Years Have You Smoked Tobacco? 13 Information not available 07/02/2024 Sex: Unknown Functional Status Question Answer Note LastModified by Organizat ion Details LastModified Time How many times per week do you consume alcohol? 1-2 times per week [email or web address] Information not available 03/17/2025 Do you use any illicit or recreational drugs? No Information not available 07/02/2024 Do you or have you ever used any other forms of tobacco or nicotine? No Information not available 07/02/2024 What is your level of alcohol consumption? Occasional [email or web address] Information not available 03/17/2025 Do you or have you ever used e-cigarettes or vape? Never used electronic cigarettes Information not available 07/02/2024 Mental Status None recorded. Family History Nothing Reported. Medical History Condition Response Anxiety/Depression Y Cholesterol Y Arthritis Y Acid Reflux (GERD) Y Hypertension Y Gynecological HistoryNo gynecological history recorded. Obstetrics History GPAL:G 0 P 0 0 0 0 Past Encounters Encounter ID Performer Location Encounter Start Date Encounter Closed Date Diagnosis/Indication Diagnosis SNOMED-CT Code Diagnosis ICD10 Code Diagnosis Note [id number] BRANDEE Pereira [address] [place] [address] 12/03/2023 12:43:16 12/03/2023 14:00:39 Osteoarthritis of right knee joint 7396302705 35627 M17.11 Pain of ri ght knee joint 9542088605 37384 M25.350 [id number] Jeremiah Rhea, MD [facility] [address] [place] [address] 12/03/2023 14:56:38 12/09/2023 10:04:53 [id number] CARLA OcampoT [facility] [address] [place] [address] 12/24/2023 11:15:19 12/24/2023 12:20:58 Aftercare 471332735 Z47.1 History of right total knee replacement 6271539581 502686 Z96.410 [id number] Kem Rodriguez PA-C [facility] [address] [place] [address] 12/22/2023 15:07:58 01/10/2024 15:11:25 Aftercare 944509811 Z51.89 Z47.1 History of right total knee replacement 0886658611 817603 Z96.002 [id number] Raúl Cartagena DPT [facility] [address] [place] [address] 12/29/2023 09:53:13 12/29/2023 10:48:45 Aftercare 889705678 Z47.1 History of right total knee replacement 3544502997 158509 Z96.852 [id number] CARLA OcampoT [facility] [address] [place] [address] 12/31/2023 09:54:00 12/31/2023 10:57:00 Aftercare 150922896 Z47.1 History of right total knee replacement 5762564457 747219 Z96.839 [id number] Inna Otoole, LIZ [facility] [address] [place] [address] 01/06/2024 10:21:42 01/06/2024 11:13:17 Aftercare 666911860 Z47.1 History of right total knee replacement 8872865046 988675 Z96.933 [id number] Ghazala Curry PA-C [facility] [address] [place] [address] 01/08/2024 10:22:29 01/30/2024 13:19:27 Postoperative visit 302529942 Z48.89 Knee joint prosthesis present 2990441928 02 Z96.280 [id number] CARLA OcampoT [facility] [address] [place] [address] 01/12/2024 08:55:06 01/12/2024 10:29:31 Aftercare 132489135 Z47.1 History of right total knee replacement 5130674418 125610 Z96.888 [id number] Raúl Cartagena DPT [facility] [address] [place] [address] 01/14/2024 08:55:04 01/14/2024 09:32:56 Aftercare 724727426 Z47.1 History of right total knee replacement 5908329255 537769 Z96.749 [id number] Inna Otoole, SHOWER MAID [facility] [address] [place] [address] 01/19/2024 10:22:49 01/19/2024 12:06:43 Aftercare 090048624 Z47.1 History of right total knee replacement 8907711077 508593 Z96.750 [id number] Inna Otoole, [employer] MA[employer] [facility] [address] [place] [address] 01/21/2024 10:22:54 01/21/2024 11:05:17 Aftercare 679542994 Z47.1 History of right total knee replacement 2098629755 532449 Z96.670 [id number] Octavio Mayers PA-C [address] [place] [address] 01/23/2024 09:48:34 02/05/2024 08:50:52 Osteoarthritis of hip 093402467 M16.9 [id number] Ghazala Curry PA-C [facility] [place] [address] 01/26/2024 11:03:47 02/19/2024 20:46:55 Postoperative visit 937077023 Z48.89 Knee joint prosthesis present 0236187547 Z96.981 [id number] Hongshin Osiel, DPT [facility] [address] [place] [address] 01/28/2024 09:52:32 01/28/2024 10:33:20 Aftercare 642563536 Z47.1 History of right total knee replacement 0283510391 320889 Z96.161 [id number] Raúl Cartagena DPT [facility] [address] [place] [address] 02/10/2024 13:24:09 02/10/2024 14:06:23 Aftercare 206570983 Z47.1 History of right total knee replacement 1884613346 403452 Z96.926 [id number] Raúl Cartagena DPT [facility] [address] [place] [address] 02/13/2024 14:23:25 02/13/2024 15:50:36 Aftercare 180191806 Z47.1 History of right total knee replacement 7267792300 971491 Z96.414 [id number] Raúl Cartagena DPT [facility] [address] [place] [address] 02/24/2024 13:26:55 02/24/2024 14:40:32 Aftercare 093846969 Z47.1 History of right total knee replacement 9275389485 211264 Z96.161 [id number] Tylor Duran PA-C [facility] [address] [place] [address] 02/24/2024 14:27:29 03/09/2024 08:51:32 Osteoarthritis of hip 624073492 M16.9 [id number] Raúl Cartagena DPT [facility] [address] [place] [address] 02/26/2024 13:22:30 02/26/2024 14:06:11 Aftercare 570863774 Z47.1 History of right total knee replacement 3024635869 588181 Z96.220 [id number] Jeremiah Wilkerson MD [facility] [address] [place] [address] 03/10/2024 13:03:03 04/06/2024 10:40:51 Osteoarthritis of right hip joint 6303233649 79018 M16.11 Osteoarthr itis of left knee joint 4423747666 22960 M17.12 [id number] Raúl Wilhelm MD [facility] [address] [place] [address] 04/09/2024 08:28:39 04/09/2024 11:23:39 Pain of right hip joint 3997083864 87789 M25.551 Osteoarthr itis of right hip joint 4568445152 77682 M16.11 Osteoarthr itis of left hip joint 1950153600 74126 M16.12 [id number] Tri Dumotn APRN [facility] [address] [place] [address] 05/12/2024 08:20:39 05/29/2024 04:08:17 [id number] Raúl Cartagena DPT [facility] [address] [place] [address] 05/13/2024 15:16:49 05/13/2024 16:50:02 Osteoarthritis of hip 042406843 M16.11 [id number] Raúl Cartagena DPT [facility] [address] [place] [address] 06/02/2024 10:22:41 06/02/2024 12:11:54 Aftercare 094354921 Z47.1 Z96.652 [id number] Raúl Cartagena DPT [facility] [address] [place] [address] 06/04/2024 14:28:29 06/04/2024 15:20:57 Aftercare 688635551 Z47.1 Z96.058 [id number] Kem Rodriguez PA-C [facility] [address] [place] [address] 06/04/2024 13:23:41 06/25/2024 13:18:35 History of total replacement of right hip joint 7707205609 35489 Z96.915 [id number] Raúl Cartagena DPT [facility] [address] [place] [address] 06/09/2024 13:28:03 06/09/2024 14:34:45 Aftercare 747521136 Z47.1 Z96.558 [id number] Juliocesarrudy Cartagena, DPT [facility] [address] [place] [address] 06/11/2024 10:24:53 06/11/2024 13:41:34 Aftercare 362039155 Z47.1 Z96.811 [id number] Juliocesarrudy Osiel, DPT [facility] [address] [place] [address] 06/16/2024 15:25:13 06/16/2024 16:52:49 Aftercare 499462822 Z47.1 Z96.822 [id number] Raúl Cartagena, DPT [facility] [address] [place] [address] 06/18/2024 16:00:17 06/21/2024 09:25:49 Aftercare [id number] Z47.1 Z96.590 [id number] Raúl Cartagena, DPT [facility] [address] [place] [address] 06/23/2024 13:28:06 06/23/2024 14:14:22 Aftercare [id number] Z47.1 Z96.406 [id number] Raúl Cartagena, DPT [facility] [address] [place] [address] 06/25/2024 13:24:27 06/25/2024 14:45:44 Aftercare [id number] Z47.1 Z96.477 [id number] Raúl Cartagena, DPT [facility] [address] [place] [address] 07/02/2024 13:56:14 07/02/2024 16:05:03 Aftercare 966779197 Z47.1 Z96.852 [id number] MD [facility] Sheehan 2[address] [place] [address] 07/02/2024 13:06:57 07/22/2024 14:06:00 History of total replacement of right hip joint 3182679798 12536 Z96.641 Osteoarthr itis of left hip joint 9845709107 66574 M16.12 [id number] Amanda Danielle APRN [facility] [address] [place] [address] 07/13/2024 10:31:00 07/31/2024 03:58:27 Osteoarthritis of left hip joint 5173043686 62143 M16.12 [id number] Kenyon Bagley PA-C [facility] [address] [place] [address] 07/23/2024 12:58:07 08/12/2024 06:05:11 History of repair of hip joint 509261539 Z96.672 [id number] Raúl Cartagena DPT [facility] [address] [place] [address] 08/27/2024 13:57:09 08/27/2024 14:51:42 Aftercare 253801861 Z47.1 Z96.616 [id number] Raúl Wilhelm MD [facility] [address] [place] [address] 08/26/2024 13:34:47 09/10/2024 15:41:59 History of total replacement of left hip joint 0838477398 650812 Z96.104 [id number] Raúl Cartagena DPT [facility] [address] [place] [address] 08/30/2024 14:26:08 08/30/2024 15:24:42 Aftercare 641239079 Z47.1 Z96.298 [id number] Raúl Cartagena DPT [facility] [address] [place] [address] 09/01/2024 14:18:26 09/01/2024 14:47:17 Aftercare 766922322 Z47.1 Z96.115 [id number] Raúl Cartagena DPT [facility] [address] [place] [address] 09/16/2024 16:17:45 09/16/2024 17:16:59 Aftercare 085405291 Z47.1 Z96.149 [id number] Raúl Cartagena DPT [facility] [address] [place] [address] 09/23/2024 10:54:26 09/23/2024 11:39:07 Aftercare 511624647 Z47.1 Z96.265 [id number] Raúl Wilhelm MD [facility] [address] [facility] [address] [place] [address] 09/28/2024 14:50:38 10/13/2024 08:36:50 History of repair of hip joint 889172508 Z96.992 [id number] Raúl Cartagena DPRegi [facility] [address] [place] [address] 10/01/2024 09:19:34 10/01/2024 10:19:36 Aftercare 430851147 Z47.1 Z96.606 [id number] CARLA OcampoT [facility] [address] [place] [address] 10/05/2024 14:56:44 10/05/2024 15:31:48 Aftercare [id number] Z47.1 Z96.212 [id number] Raúl Cartagena DPT [facility] [address] [place] [address] 10/14/2024 13:17:27 10/14/2024 17:54:51 Aftercare [id number] Z47.1 Z96.864 [id number] Raúl Cartagena DPRegi [facility] - [facility] [address] [place] [address] 10/22/2024 14:12:33 10/22/2024 15:17:21 Aftercare [id number] Z47.1 Z96.190 [id number] Kassandra Sherman PA-C [facility] [address] [place] [address] 10/29/2024 08:49:23 11/17/2024 09:55:29 Osteoarthritis of joint of left shoulder region 7328793303 11999 M19.012 PLANThe patient has done well with conservati ve management in regards to the shoulder with good clinical response to injections in the past. Recommend continued conservati ve management with repeat injection( s) today. Moderating activities with the upper extremity recommende d also. See procedure notes for injection details. [id number] DILIP Ocampo - [facility] [address] [place] [address] 11/02/2024 16:43:35 11/02/2024 17:32:53 Aftercare 259351084 Z47.1 Z96.325 [id number] ESTEFANIA Stratton - [facility] [address] [place] [address] 01/13/2025 10:36:20 01/26/2025 14:51:25 Osteoarthritis of joint of left shoulder region 9191678468 20403 M19.012 Reviewed Sandra's imaging and exam findings [...] shoulder replacemen t further. Bilateral shoulder osteoarthritis 2665322845 52115 M19.011 M19.012 Osteoarthr itis of right glenohumeral joint 0101467197 003878 M19.011 In regards to her right shoulder [...] black/bloo dy stools. Take with food. Prescribed celebrex 200 mg PO daily [id number] Raúl Cartagena DPT [facility] [address] [place] [address] 02/04/2025 09:52:59 02/04/2025 10:54:50 Osteoarthritis of joint of left shoulder region 5788559169 55117 M19.396 [id number] Raúl Cartagena DPT [facility] [address] [place] [address] 02/09/2025 09:55:36 02/09/2025 10:54:17 Osteoarthritis of joint of left shoulder region 9970316048 24927 M19.905 [id number] Tino Dunn [employer] [facility] [address] [place] [address] 02/16/2025 09:51:23 02/16/2025 10:44:44 Osteoarthritis of joint of left shoulder region 7125770519 26911 M19.647 [id number] Tino Dunn [employer] [facility] [address] [place] [address] 02/18/2025 09:48:15 02/18/2025 10:32:15 Osteoarthritis of joint of left shoulder region [id number] M19.997 [id number] Tino Dunn [facility] [address] [place] [address] 02/23/2025 09:55:03 02/23/2025 10:51:11 Osteoarthritis of joint of left shoulder region [id number] M19.308 [id number] Raúl Cartagena, DPT [facility] [address] [place] [address] 03/02/2025 09:46:17 03/02/2025 10:37:52 Osteoarthritis of joint of left shoulder region [id number] M19.998 [id number] Tino Dunn, [facility] [address] [place] [address] 03/08/2025 09:57:15 03/08/2025 11:23:02 Osteoarthritis of joint of left shoulder region [id number] M19.319 [id number] Tino Dunn, [facility] [address] [place] [address] 03/10/2025 10:00:17 03/10/2025 10:47:11 Osteoarthritis of joint of left shoulder region [id number] [facility] M19.905 [id number] Tino Dunn, [facility] [address] [place] [address] 03/16/2025 09:56:14 03/16/2025 11:29:02 Osteoarthritis of joint of left shoulder region [id number] [facility] M19.820 [id number] Guzman Hamlin MD [facility] [address] [address] [place] [address] 03/17/2025 14:36:40 03/17/2025 15:33:02 Osteoarthritis of joint of left shoulder region [id number] M19.012 Reviewed Sandra's imaging and exam findings [...] a better candidate for reverse TSA. Ultimately would be an intraopera tive decision but I would anticipate using anatomic components . The hope and plan is to pursue this surgery as an outpatient in June 2025 based on her request. We did attempt a final injection today to see if we can get adequate symptom relief in the interim. Today we had the opportunit y to review with the patient the pathoanato my. Discussed the surgical interventi on proposed and its nonoperati ve alternativ es. Reviewed today the risks, benefits, the expectatio ns both of the surgical procedure and again its nonoperati ve alternativ es. After reviewing appropriat e treatment options patient would like to move towards scheduling . Informed consent was obtained in the office today. We will work towards scheduling hopefully within the next 30 days. Patient will benefit from an ultrasound guided preooperat stacia nerve block for post operative pain control. It will limit the anesthetic needs during surgery and will aid in discharge from the PACU in a timely fashion. Anesthesia will be consulted for the procedure. ARC sling for postoperat stacia immobiliza tion The patient has weakness and instabilit y of their extremity which requires stabalizat ion for this semi-rigid /rigid orthosis to improve their function. Verbal and written instructio ns for the use and applicatio n of this item were given. Patient was instructed that should the brace result in increased pain, decreased sensation, increased swelling or an overall worsening of their medical condition, to please contact our office immediatel y. Bilateral shoulder osteoarthritis [id number] M19.011 M19.012 Osteoarthr itis of right glenohumeral joint [id number] M19.011 In regards to her right shoulder [...] black/bloo dy stools. Take with food. Prescribed celebrex 200 mg PO daily Health Concerns Section Related Observation LastModified by Organization Detai ls LastModified Time None Recorded Concern Status LastModified by Organization Details LastModified Time None Recorded Advance Directives Directive None Recorded Payers Insurance Date Sequence Insurance Name Policy Number Policy Fuller Covered Member ID Fuller Member ID Guarantor Name 03/16/2025 2 WEB-TPA Mary Beth Sanchez [id number] Mary Beth Sanchez 03/17/2025 1 MEDICARE [place]: [id number] Mary Beth Sanchez [id number] Mary Beth Sanchez 08/20/2024 2 WEB [place] - [facility] (MEDICARE SUPPLEMENT) Mary Beth Sanchez Notes Date Note Type Note Provider Name and Address Organization Details Recorded Time 03/02/2025 text/html Pt reports that she feels stiff in her shoulder today. Still feeling difficulty lifting overhead motion. Raúl Cartagena, DPT [address], [place], [address], [facility] 03/02/2025 12:55:47 03/08/2025 text/html Pt reports 8/10 pain at worst. Has been more sore but has also been more active. Tino Dunn, [facility] [address], [place], [address], [facility] 03/08/2025 12:26:29 03/10/2025 text/html Pt reports 5/10 pain today. Getting real sore at night. Tino Dunn [facility] [address], [place], [address], [facility] 03/10/2025 13:42:28 03/16/2025 text/html Pt reports 5/10 pain today. Getting real sore at night. Tino Dunn, [facility] [address], [place], [address], [facility] 03/16/2025 11:17:52 03/17/2025 text/html History of Present Illness:Patient comes to the [...] glenohumeral joint osteoarthritis with intact rotator cuff. Diagnostic imaging: MRI of the left shoulder was independently reviewed by myself during [facility] interview and exam and demonstrates advanced glenohumeral joint osteophyte with loose body noted in the subcoracoid recess. Intact rotator cuff with diffuse tendinopathy. No cuff tearing. Mild AC joint arthritis. 4 view bilateral shoulder radiographs were ordered, obtained and independently reviewed by myself during today's visit at [facility] and demonstrate advanced left greater than right bilateral glenohumeral joint space narrowing. Left shoulder with [id number] articulation of the glenohumeral joint and posterior glenoid wear with early flattening of the humeral head. Loose body noted in the subcoracoid recess. Right shoulder demonstrates moderate glenohumeral joint space narrowing with irregularity of the humeral head. No fracture or dislocation. AC joint space narrowing and subacromial spurring. Impression: Advanced bilateral left greater than right glenohumeral osteoarthritis Guzman Hamlin MD [address], [place], [address], [facility] 03/17/2025 15:33:00 OBGyn Episode No OBEpisode recorded.
[2025-03-28 09:18] LABS: MANUAL DIFF FLAG NO
[2025-03-28 09:58] LABS: Hematocrit 37.1 % (37.0-47.0); Hemoglobin 12.5 g/dl (12.0-16.0); Imm Gran Abs Auto 0.07 X10*3/uL (0.00-0.03); Imm Gran Pct Auto 0.9 % (0.0-0.4); Lymphocytes Absolute Auto 2.4 X10*3/uL (1.2-4.9); Mean Corpuscular HGB Conc 33.7 g/dl (31.0-35.0); Mean Corpuscular Hemoglobin 29.1 pg (27.0-33.0); Mean Corpuscular Volume 86.5 fL (80.0-98.0); NRBC Abs Auto 0.000 X10*3/uL (0.0-0.012); NRBC Pct Auto 0.0 /100WBC (0.0-0.2); Platelet Count 311 X10*3/uL (160-400); Red Blood Count 4.29 X10*6/uL (4.20-5.50); White Blood Count 7.6 X10*3/uL (4.8-10.8)
[2025-03-28 10:59] LABS: Alanine Aminotransferase 19 U/L (0-31); Albumin Level 3.9 g/dL (3.5-5.0); Alkaline Phosphatase 91 U/L (39-117); Anion Gap 11 (12-20); Aspartate Amino Transferase 26 U/L (5-31); Blood Urea Nitrogen 18 mg/dL (9-16); Calcium 9.1 mg/dL (8.4-10.2); Carbon Dioxide 25 mmol/L (22-29); Chloride 109 mmol/L (96-108); Cholesterol 198 mg/dL (<200); Estimated Glomerular Filt Rate > 60; HDL Cholesterol 77 mg/dL (>40); Potassium 4.0 mmol/L (3.3-5.1); Sodium 141 mmol/L (135-145); Total Protein 6.1 g/dL (6.5-8.0); Triglycerides 94 mg/dL (<150)
[2025-03-31 16:33] LABS: Vitamin D 25-OH, D2 <4 ng/mL; Vitamin D 25-OH, D3 46 ng/mL; Vitamin D 25-OH, Total 46 ng/mL (30-100)
[2025-04-01 18:59] LABS: NTXCreaRU 63 mg/dL (20-275)
== END 2025-03-28 08:36 | disposition home or self-care (01) ==
LOC: HO.LAB 08:35
PROVIDERS: PCP Internal Medicine; Visit Provider Internal Medicine
DX: M81.0 Age-related osteoporosis without current pathological fracture (principal); K21.9 Gastro-esophageal reflux disease without esophagitis; K52.9 Noninfective gastroenteritis and colitis, unspecified; Z13.220 Encounter for screening for lipoid disorders; Z13.228 Encounter for screening for other metabolic disorders
CPT/HCPCS: 36415; 80053; 80061; 82306; 82523; 84443; 85025

== ENCOUNTER 2025-03-30 15:57 | Outpatient (AMB) | payer MEDICARE, OTHER, SELFPAY ==
--- NOTE | 2025-03-30 15:56 | A.OFFPC_ITS ---
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 Accompanied by: Self / Same As Patient Allergies clindamycin Allergy (Unknown, Verified 03/30/25 15:57) Unknown fentanyl Adverse Reaction (Severe, Verified 03/30/25 15:57) Nausea and Vomiting Statins- Sensitivity Allergy (Unknown, Uncoded 02/22/25 09:01) Unknown Medication List - Last Reconciled 03/30/25 by LA Ko amlodipine 5 mg PO DAILY biotin 5 mg PO DAILY celecoxib (Celebrex) 200 mg PO ONCE cholecalciferol (vitamin D3) 25 mcg PO DAILY lactobacillus comb no.10 (Probiotic) 20,000 mmu cells PO DAILY multivitamin 1 tab PO DAILY omeprazole 20 mg PO DAILY pravastatin 20 mg PO DAILY [Stool Softener PO] tramadol 100 mg PO ONCE PRN vitamin B complex 1 cap PO DAILY HPI HPI Comments History of Present Illness Details 79 year old female presenting for evalua tion of a rash on her neck. She describes this as a dry patch noticed 3 days ago. there is no discomfort or itch. It has not drawn. No new contacts. No known tick bite. She reports o ccasional use of sunscreen. Also reporting worsening gerd symptoms. Feels ache in her chest after eating or drinking. No sharp pain or crushing pressure. No radiation. Only after swallowing but denies dysphagia or globus sensation. Reports eating balanced meals. Symptoms previously managed with omeprazole 20mg. No abd pain, nausea, vomiting ROS: General: No fevers, malaise, unintentional weight loss Cardiovascular: No chest pressure, palpitations, or leg edema Respiratory: No shortness of breath, wheezing, cough GI: see hpi Skin: see hpi EXAM: Constitutional - Awake and Alert, No apparent distress Eyes - PERRL Cardiovascular - S1S2, RRR, No edema Respiratory - Normal lung expansion, Normal respiratory effort, No respiratory distress, CTA bilaterally Abd - soft, nd, ntt, +BS Extremities - no calf tenderness bilaterally, no swelling Skin - Warm/Dry. Scaled hyperpigmented patch with slight central clearing L neck Neurological - Alert & oriented x3 Psychological - Appropriate affect PFSH Medical History High cholesterol GERD (gastroesophageal reflux disease) PMR (polymyalgia rheumatica) Surgical History H/O knee surgery Family History Maternal Aunt History of breast cancer Maternal Grandfather Colon cancer Sister Colon cancer Social History Household Members: Spouse Housing: House Alcohol intake: current Alcohol intake frequency: a few times a week Patient Tobacco Use Status: Former Tobacco user service: No Questionnaire PHQ-9 Over the last 2 weeks, how often have you been bothered by any of the following problems? 1. Little interest or pleasure in doing things: not at all 2. Feeling down, depressed, or hopeless: several days 3. Trouble falling or staying asleep, or sleeping too much: several days 4. Feeling tired or having little energy: not at all 5. Poor appetite or overeating: not at all 6. Feeling bad about yourself - or that you are a failure or have let yourself or your family down: not at all 7. Trouble concentrating on things, such as reading the newspaper or watching television: not at all 8. Moving or speaking so slowly that other people could have noticed. Or the opposite - being so fidgety or restless that you have been moving around a lot more than usual: not at all 9. Thoughts that you would be better off or of hurting yourself in some way: not at all Total score: 2 Source: Developed by Drs. Amarjit Ovalle, Susan Rojo, Riki Rod and colleagues, with an educational kira from [employer]. Thrive Questionnaire Date Thrive assessed: 03/30/25 I am a: Patient What is your living situation today?: I have a steady place to live Within the past 12 months, did the food you bought not last and you didn't have the money to get more?: Never true Within the past 12 months, did you worry whether your food would run out before you got money to buy more?: Never true Do you have trouble paying for medicines?: No Do you have trouble getting transportation to medical appointments?: No Do you have trouble paying your heating and electricity bill?: No Do you have trouble taking care of your child, family member or friend?: No Do you have trouble with day-to-day activities such as bathing, preparing meals, shopping, managing finances, etc.?: No Are you currently unemployed and looking for a job?: No Are you interested in more education?: No Please select the resources that you would like help with: None THRIVE Score: 0 JESSI-7 AMB Questionnaire JESSI-7 Date JESSI - 7 assessed: 03/30/25 Feeling nervous, anxious, or on edge: 0 = Not at all Not being able to stop or control worryin = Several days Worrying too much about different things: 0 = Not at all Trouble relaxin = Not at all Being so restless that it is hard to sit still: 0 = Not at all Becoming easily annoyed or irritable: 0 = Not at all Feeling afraid as if something awful might happen: 1 = Several days Total JESSI-7 score (0-4 normal; 5-9 mild; 10-14 moderate; 15-21 severe): 2 Source: Developed by Drs. Amarjit Ovalle, Susan Rojo, Riki Rod and colleagues, with an educational kira from [employer]. Physical exam (Primary Care) Vital Signs: Last Vital Signs Temp 97.4 F 03/30/25 16:04 Pulse 102 H 03/30/25 16:04 Resp 16 03/30/25 16:04 BP 120/68 03/30/25 16:04 Pulse Ox 99 03/30/25 16:04 Oxygen Delivery Method Room Air 03/30/25 16:04 BMI result Body Mass Index 22.1 Tobacco/Smoking Status: Tobacco use Status Patient Tobacco Use Status Former Tobacco user 03/30/25 16:07 PHQ-9: PHQ-9 Score PHQ-9: Total score 2 03/30/25 16:33 Thrive Assessment: Date of Thrive Assessment Date Thrive assessed 03/30/25 03/30/25 16:33 Coding Level of Care Code Est Pt Level 3 (21428) Diagnoses Rash R21 Gastroesophageal reflux disease, unspecified whether esophagitis present K21.9 Esophagitis presence: esophagitis presence not specified Assessment & Plan Assessment & Plan (1) Rash: Code(s): R21 - Rash and other nonspecific skin eruption Category: Medical Plan: Unclear etiology. Given pigmentation and texture in sun exposed area, possibly tinea versicolor. Trial ketoconazole shampoo. Can also trial hydrocortisone cream. Less likely, but check tick panel. (2) GERD (gastroesophageal reflux disease): Code(s): K21.9 - Gastro-esophageal reflux disease without esophagitis Category: Medical Qualifiers: Esophagitis presence: esophagitis presence not specified Qualified Code(s): K21.9 - Gastro-esophageal reflux disease without esophagitis Plan: Worsening. Increase omeprazole to 40mg daily x 3 weeks, then decrease back to 20mg. If no improvement still, follow up with GI. Counseled on any worsening symptoms or changes in chest pain to go to the ER. At this time however, chest pain is atypical and unlikely to be cardiac. Plan Follow up as scheduled. Orders: Orders Tick-borne Disease Molecular 03/30/25 R21 - Rash and other nonspecific skin eruption Medications: New ketoconazole 2% Lightly moisten skin and apply shampoo to affected area. Leave on for 5 minutes and then rinse x3 days; 120 mL 0RF Changed From celecoxib (Celebrex) 200 mg PO ONCE To celecoxib (Celebrex) 200 mg PO DAILY 90 caps 0RF From omeprazole 20 mg PO DAILY 90 caps 1RF To omeprazole Take 2 caps daily on empty stomach every morning, x 3 weeks, then reduce back to 1 cap daily 20 mg PO DAILY 90 caps 1RF
[2025-03-30 16:04] VITALS: BP 120/68; PULSE 102; RESP 16; TEMP 36.3; O2SAT 99; BMI 22.1
--- OUTSIDE RECORDS SUMMARY | 2025-03-30 16:04 | XMS_ITS | Patient Health Record ---
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 Name Role Phone Dexter Mills MD Primary Care Provider Amarjit Alvarez Unavailable [phone] Allergies Allergen (clinical drug ingredient) Drug/Non Drug [...] Problem Status W/U Status Risk Notes Problem [id number] Encounter for screening for malignant neoplasm of colon (Z12.11) Active confirmed Problem [id number] Preprocedural examination (Z01.818) Active confirmed Problem [id number] Family history o f colon cancer (Z80.0) Active confirmed Problem [id number] Clostridium difficile infection (B96.89) Active confirmed Plan [...] [place] [address] [place] [address] [phone] [id number] KAILA PACHECO Self - patient is the insured [employer] [place] [address] [place] [address] [id number] KAILA PACHECO Self - patient is the insured Medical (General) History Medical History History ICD Code GERD-EGD in 2006--moderate s ized hiatal hernia, but no significant esophagitis or Marrero's esophagus HTN--currently not on any medication Diverticulosis Polymyalgia rheumatica-quiescent Migraines Elevated cholesterol Denies [place],DM,CVA,Lung disease,renal dise ase 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
--- OUTSIDE RECORDS SUMMARY | 2025-03-30 16:04 | XMS_ITS | Data Portability ---
Author Organization [facility], [employer] [place] Address [address] [place] [address] Care Team Providers Care Can Closing Machine Tender Name Role Phone MELALYNN ELISA Referring Provider IZABELLA YODER Primary Care Provider Assessment Encounter Date Assessment Date Assessment LastModified by Organization Details LastModified Time 03/02/2025 03/02/2025 Assessment: No significant changes with ROM compared to LV. Ongoing pain and a clicking sensation inside her shoulder during flexion motion. Plan: Continue PT x2/week to improve ROM and progress PS strength as tolerated. [email or web address] Not available 03/02/2025 12:55:35 03/08/2025 03/08/2025 Assessment: [...] Time Osteoarth ritis of left hip joint 041200620092 108 Active 2023 Raúl Wilhelm MD [address], [place], [address] , 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 5 14:29:08 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 265615381494 108 Active 2024 ИВАН wilson [facility] 5 12:11:14 Bilateral shoulder osteoarth ritis 533521050639 108 Active 2024 Janina wilson [facility] 5 10:46:10 Osteoarth ritis of right glenohume ral joint 062959459791 9101 Active 2024 Kassandra Sherman PA-C [address], [place], [address] , [facility] 5 11:36:05 Rupture of rotator cuff of left shoulder 906763389207 37221 Active 2024 [facility] 5 11:36:53 Chondroma lacia of left patella 845103968181 106 Active 2018 Problem Code: M22.42; Problem Code Type: ICD-10; Status: 'A'; Not Available [facility] 4 11:42:38 Osteoarth ritis of hip 718456219 Active 2023 Octavio Mayers PA-C [address], [place], [address] , [facility] 4 10:53:17 Osteoarth ritis of right hip joint 374009437476 107 Active 2023 [facility] 4 13:16:51 Osteoarth ritis of left knee joint 964923511886 109 Active 2023 Jeremiah Wilkerson MD [address], [place], [address] , [facility] 4 14:31:32 Problem Notes None recorded. Procedures Surgical History Date Name Laterality Status Provider Name and Address Organization Details Recorded Time 4 96970 Therapeutic Exercise (1:1) completed aRúl Cartagena DPT [address], [place], [address], [facility] 02/26/2024 19:45:18 4 53855: Manual therapy completed Raúl Cartagena DPT [address], [place], [address], [facility] 02/25/2024 22:36:[facility] Tylor Duran PA-C [address], [place], [address], [facility] 02/24/2024 15:08:57 4 62479 Therapeutic Exercise (1:1) completed Raúl Cartagena DPT [address], [place], [address], [facility] 02/23/2024 20:48:02 4 42879: Manual therapy completed Raúl Cartagena DPT [address], [place], [address], [facility] 02/24/2024 18:53:36 4 20817 Therapeutic Exercise (1:1) completed Raúl Cartagena DPT [address], [place], [address], [facility] 02/12/2024 22:21:23 4 99204: Manual therapy completed Raúl Cartagena DPT [address], [place], [address], [facility] 02/12/2024 22:19:44 4 21214 Therapeutic Exercise (1:1) completed Raúl Cartagena DPT [address], [place], [address], [facility] 02/09/2024 22:44:52 4 10331: Manual therapy completed Raúl Cartagena DPT [address], [place], [address], [facility] 02/11/2024 03:37:34 4 78811 Therapeutic Exercise (1:1) completed Raúl Cartagena DPT [address], [place], [address], [facility] 01/28/2024 13:26:19 4 Hip Kenalog Injection, L/R w/US completed Octavio Mayers PA-C [address], [place], [address], [facility] 01/23/2024 10:53:31 4 30586 Therapeutic Exercise (1:1) completed Inna Otoole PTA [address], [place], [address], [facility] 01/21/2024 10:56:57 4 23203 Therapeutic Exercise (1:1) completed Inna Otoole, MANAGER OF HOUSEKEEPING [address], [place], [address], [facility] 01/19/2024 11:50:11 4 27038: Manual therapy completed Inna Otoole MANAGER OF HOUSEKEEPING [address], [place], [address], [facility] 01/19/2024 11:57:19 4 70471 Therapeutic Exercise (1:1) completed Raúl Cartagena DPT [address], [place], [address], [facility] 01/13/2024 18:54:45 4 97809: Manual therapy completed Raúl Cartagena DPT [address], [place], [address], [facility] 01/14/2024 09:46:31 4 79271 Therapeutic Exercise (1:1) completed Raúl Cartagena DPT [address], [place], [address], [facility] 01/09/2024 22:38:33 4 69377: Manual therapy completed Raúl Cartagena DPT [address], [place], [address], [facility] 01/09/2024 22:38:33 4 68990 Therapeutic Exercise (1:1) completed Inna Otoole PTA [address], [place], [address], [facility] 01/06/2024 10:28:08 4 81904: Manual therapy completed Inna Otoole PTA [address], [place], [address], [facility] 01/06/2024 10:28:08 4 45453 Therapeutic Exercise (1:1) completed Raúl Cartagena DPT [address] [facility], [place], [address], [facility] 12/31/2023 10:37:58 4 85576: Manual therapy completed Raúl Cartagena DPT [address], [place], [address], [facility] 12/31/2023 10:37:55 4 59489 Therapeutic Exercise (1:1) completed Raúl Cartagena DPT [address], [place], [address], [facility] 12/29/2023 12:39:32 4 29805: Manual therapy completed Raúl Cartagena DPT [address], [place], [address], [facility] 12/29/2023 12:39:40 4 71714 Therapeutic Exercise (1:1) completed Raúl Cartagena DPT [address] [facility], [place], [address], [facility] 12/24/2023 12:44:23 4 98048: Low complexity PT Eval completed Raúl Cartagena DPT [address], [place], [address], [facility] 12/24/2023 12:44:28 4 G8420 BMI Normal, No Follow-Up Plan Required completed Raúl Cartagena DPT [address], [place], [address], [facility] 12/24/2023 12:44:42 4 G8427 Current Medication Documented completed Raúl Cartagena DPT [address], [place], [address], [facility] 12/24/2023 12:44:31 Imaging Results None recorded. Procedure Notes None recorded. Medical Equipment None Reported. Allergies Allergen ID Allergen Name Allergen Category Reaction Reaction Severity Criticality Documentation Date Start Date Code Code System Note Provider Name and Address Organization Details Recorded Time 609430 Percodan medicatio n Not available Not available Not available 11/24/20232018 89804 RxNorm Not Available [facility] 4 15:38:30 033204 clindamyc in hydrochlo ride medicatio n Not available Not available Not available 11/24/20232018 38099 RxNorm Not Available [facility] 15:38:30 350865 acetamino phen / oxycodone medicatio n Not available Not available Not available 11/24/20232018 68115 3 RxNorm Not Available [facility] 15:38:30 646942 fentanyl medicatio n Not available Not available Not available 07/23/2024 4337 RxNorm Cari wilson [place] [facility] 4 13:08:52 Medications Name Sig Start Date Stop Date Status Note LastModified by Organization Details LastModified Time Prescriptio n - Clarificati on 09/28 completed 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 03/17/2025 15:02:00 Social History Question Answer Notes LastModified by Organizat ion Details LastModified Time Tobacco Smoking Status Former Smoker Denia Guajardofarzad wilson [facility] 07/02/2024 13:17:27 When Did You Quit Smoking? 16+yearssinc elastcigaret te Information not available 07/02/2024 What Is Your Relationship Status? Information not available 07/02/2024 How Many Years Have You Smoked Tobacco? 13 Information not available 07/02/2024 Sex: Unknown Functional Status Question Answer Note LastModified by Organizat ion Details LastModified Time How many times per week do you consume alcohol? 1-2 times per week [email or web address] Information not available 03/17/2025 Do you use any illicit or recreational drugs? No Information not available 07/02/2024 Do you or have you ever used any other forms of tobacco or nicotine? No Information not available 07/02/2024 What is your level of alcohol consumption? Occasional Information not available 03/17/2025 Do you or have you ever used e-cigarettes or vape? Never used electronic cigarettes Information not available 07/02/2024 Mental Status None recorded. Family History Nothing Reported. Medical History Condition Response Acid Reflux (GERD) Y Anxiety/Depression Y Arthritis Y Hypertension Y Cholesterol Y Gynecological HistoryNo gynecological history recorded. Obstetrics History GPAL:G 0 P 0 0 0 0 Past Encounters Encounter ID Performer Location Encounter Start Date Encounter Closed Date Diagnosis/Indication Diagnosis SNOMED-CT Code Diagnosis ICD10 Code Diagnosis Note [id number] BRANDEE Pereira [address] [place] [address] 12/03/2023 12:43:16 12/03/2023 14:00:39 Osteoarthritis of right knee joint 6974953587 96179 M17.11 Pain of ri ght knee joint 8623967791 29057 M25.774 [id number] Jeremiah Rhea, MD [facility] [address] [place] [address] 12/03/2023 14:56:38 12/09/2023 10:04:53 [id number] CARLA OcampoT [facility] [address] [place] [address] 12/24/2023 11:15:19 12/24/2023 12:20:58 Aftercare 579454388 Z47.1 History of right total knee replacement 0984846917 069054 Z96.806 [id number] Kem Rodriguez PA-C [facility] [address] [place] [address] 12/22/2023 15:07:58 01/10/2024 15:11:25 Aftercare 219899197 Z51.89 Z47.1 History of right total knee replacement 0688424712 799972 Z96.500 [id number] Raúl Cartagena DPT [facility] [address] [place] [address] 12/29/2023 09:53:13 12/29/2023 10:48:45 Aftercare 090036964 Z47.1 History of right total knee replacement 0454979981 883917 Z96.785 [id number] CARLA OcampoT [facility] [address] [place] [address] 12/31/2023 09:54:00 12/31/2023 10:57:00 Aftercare 576842899 Z47.1 History of right total knee replacement 5138848935 506783 Z96.427 [id number] Inna Otoole, LIZ [facility] [address] [place] [address] 01/06/2024 10:21:42 01/06/2024 11:13:17 Aftercare 169766209 Z47.1 History of right total knee replacement 2073266786 012782 Z96.256 [id number] Ghazala Curry PA-C [facility] [address] [place] [address] 01/08/2024 10:22:29 01/30/2024 13:19:27 Postoperative visit 253863727 Z48.89 Knee joint prosthesis present 4036185182 02 Z96.544 [id number] CARLA OcampoT [facility] [address] [place] [address] 01/12/2024 08:55:06 01/12/2024 10:29:31 Aftercare 465519566 Z47.1 History of right total knee replacement 5994138360 950322 Z96.750 [id number] Raúl Cartagena DPT [facility] [address] [place] [address] 01/14/2024 08:55:04 01/14/2024 09:32:56 Aftercare 857407379 Z47.1 History of right total knee replacement 3955033459 892380 Z96.902 [id number] Inna Otoole, MANAGER OF HOUSEKEEPING [facility] [address] [place] [address] 01/19/2024 10:22:49 01/19/2024 12:06:43 Aftercare 157383249 Z47.1 History of right total knee replacement 6343741150 257082 Z96.476 [id number] Inna Otoole, MANAGER OF HOUSEKEEPING [facility] [address] [place] [address] 01/21/2024 10:22:54 01/21/2024 11:05:17 Aftercare 259131809 Z47.1 History of right total knee replacement 4607078811 661233 Z96.004 [id number] Octavio Mayers PA-C [facility] [place] [address] 01/23/2024 09:48:34 02/05/2024 08:50:52 Osteoarthritis of hip 456839793 M16.9 [id number] Ghazala Curry PA-C [facility] [place] [address] 01/26/2024 11:03:47 02/19/2024 20:46:55 Postoperative visit 135228610 Z48.89 Knee joint prosthesis present 9120077939 Z96.835 [id number] Hongshin Osiel, DPT [facility] [address] [place] [address] 01/28/2024 09:52:32 01/28/2024 10:33:20 Aftercare 864239994 Z47.1 History of right total knee replacement 4661713092 565864 Z96.759 [id number] Raúl Cartagena DPT [facility] [address] [place] [address] 02/10/2024 13:24:09 02/10/2024 14:06:23 Aftercare 652301092 Z47.1 History of right total knee replacement 0910010778 770539 Z96.836 [id number] Raúl Cartagena DPT [facility] [address] [place] [address] 02/13/2024 14:23:25 02/13/2024 15:50:36 Aftercare [id number] Z47.1 History of right total knee replacement 4437088629 455541 Z96.153 [id number] Raúl Cartagena DPT [facility] [address] [place] [address] 02/24/2024 13:26:55 02/24/2024 14:40:32 Aftercare 944224464 Z47.1 History of right total knee replacement 6729120808 098610 Z96.163 [id number] Tylor Duran PA-C [facility] [address] [place] [address] 02/24/2024 14:27:29 03/09/2024 08:51:32 Osteoarthritis of hip 518718776 M16.9 [id number] Raúl Cartagena DPT [facility] [address] [place] [address] 02/26/2024 13:22:30 02/26/2024 14:06:11 Aftercare 481634891 Z47.1 History of right total knee replacement 3283975433 631003 Z96.312 [id number] Jeremiah Wilkerson MD [facility] [address] [place] [address] 03/10/2024 13:03:03 04/06/2024 10:40:51 Osteoarthritis of right hip joint 4418897832 28129 M16.11 Osteoarthr itis of left knee joint 3475048604 20777 M17.12 [id number] Raúl Wilhelm MD [facility] [address] [place] [address] 04/09/2024 08:28:39 04/09/2024 11:23:39 Pain of right hip joint 0228930735 37588 M25.551 Osteoarthr itis of right hip joint 4098017340 89523 M16.11 Osteoarthr itis of left hip joint 4018907048 96688 M16.12 [id number] Tri Dumont APRN [facility] [address] [place] [address] 05/12/2024 08:20:39 05/29/2024 04:08:17 [id number] Raúl Cartagena DPT [facility] [address] [place] [address] 05/13/2024 15:16:49 05/13/2024 16:50:02 Osteoarthritis of hip 624029145 M16.11 [id number] Raúl Cartagena DPT [facility] [address] [place] [address] 06/02/2024 10:22:41 06/02/2024 12:11:54 Aftercare 224352516 Z47.1 Z96.608 [id number] Raúl Cartagena DPT [facility] [address] [place] [address] 06/04/2024 14:28:29 06/04/2024 15:20:57 Aftercare 276297035 Z47.1 Z96.291 [id number] Kem Rodriguez PA-C [facility] [address] [facility] [address] [place] [address] 06/04/2024 13:23:41 06/25/2024 13:18:35 History of total replacement of right hip joint 1440568609 78974 Z96.003 [id number] Raúl Cartagena DPT [facility] [address] [place] [address] 06/09/2024 13:28:03 06/09/2024 14:34:45 Aftercare 015133553 Z47.1 Z96.424 [id number] Juliocesarrudy Cartagena, DPT [facility] [address] [place] [address] 06/11/2024 10:24:53 06/11/2024 13:41:34 Aftercare [id number] Z47.1 Z96.055 [id number] Juliocesarrudy Osiel, DPT [facility] [address] [place] [address] 06/16/2024 15:25:13 06/16/2024 16:52:49 Aftercare 990840738 Z47.1 Z96.118 [id number] Raúl Cartagena, DPT [facility] [address] [place] [address] 06/18/2024 16:00:17 06/21/2024 09:25:49 Aftercare 547293511 Z47.1 Z96.823 [id number] Raúl Cartagena, DPT [facility] [address] [place] [address] 06/23/2024 13:28:06 06/23/2024 14:14:22 Aftercare 523251280 Z47.1 Z96.777 [id number] Raúl Cartagena, DPT [facility] [address] [place] [address] 06/25/2024 13:24:27 06/25/2024 14:45:44 Aftercare 865741473 Z47.1 Z96.243 [id number] Raúl Cartagena, DPT [facility] [address] [place] [address] 07/02/2024 13:56:14 07/02/2024 16:05:03 Aftercare [id number] Z47.1 Z96.363 [id number] MD [facility] Sheehan 2[address] floor [address] [place] [address] 07/02/2024 13:06:57 07/22/2024 14:06:00 History of total replacement of right hip joint 0298050003 43021 Z96.641 Osteoarthr itis of left hip joint 6266164560 80494 M16.12 [id number] Amanda Danielle APRN [facility] [address] [place] [address] 07/13/2024 10:31:00 07/31/2024 03:58:27 Osteoarthritis of left hip joint 6795129929 69653 M16.12 [id number] Kenyon Bagley PA-C [facility] [address] [place] [address] 07/23/2024 12:58:07 08/12/2024 06:05:11 History of repair of hip joint 511476332 Z96.349 [id number] Raúl Cartagena DPT [facility] [address] [place] [address] 08/27/2024 13:57:09 08/27/2024 14:51:42 Aftercare 821578311 Z47.1 Z96.501 [id number] Raúl Wilhelm MD [facility] [address] [place] [address] 08/26/2024 13:34:47 09/10/2024 15:41:59 History of total replacement of left hip joint 8090517056 772881 Z96.940 [id number] Raúl Cartagena DPT [facility] [address] [place] [address] 08/30/2024 14:26:08 08/30/2024 15:24:42 Aftercare [id number] Z47.1 Z96.648 [id number] Raúl Cartagena DPT [facility] [address] [place] [address] 09/01/2024 14:18:26 09/01/2024 14:47:17 Aftercare [id number] Z47.1 Z96.320 [id number] Raúl Cartagena DPT [facility] [address] [place] [address] 09/16/2024 16:17:45 09/16/2024 17:16:59 Aftercare [id number] Z47.1 Z96.377 [id number] Raúl Cartagena DPT [facility] [address] [place] [address] 09/23/2024 10:54:26 09/23/2024 11:39:07 Aftercare 808772043 Z47.1 Z96.108 [id number] Raúl Wilhelm MD [facility] [address] [facility] [address] [place] [address] 09/28/2024 14:50:38 10/13/2024 08:36:50 History of repair of hip joint 169806958 Z96.741 [id number] Raúl Cartagena DPRegi [facility] [address] [place] [address] 10/01/2024 09:19:34 10/01/2024 10:19:36 Aftercare [id number] Z47.1 Z96.694 [id number] CARLA OcampoT [facility] [address] [place] [address] 10/05/2024 14:56:44 10/05/2024 15:31:48 Aftercare [id number] Z47.1 Z96.571 [id number] Raúl Cartagena DPT [facility] [address] [place] [address] 10/14/2024 13:17:27 10/14/2024 17:54:51 Aftercare 867576685 Z47.1 Z96.739 [id number] Raúl Cartagena DPRegi [facility] [address] [place] [address] 10/22/2024 14:12:33 10/22/2024 15:17:21 Aftercare [id number] Z47.1 Z96.257 [id number] Kassandra Sherman PA-C [facility] [address] [place] [address] 10/29/2024 08:49:23 11/17/2024 09:55:29 Osteoarthritis of joint of left shoulder region 5090214517 36195 M19.012 PLANThe patient has done well with conservati ve management in regards to the shoulder with good clinical response to injections in the past. Recommend continued conservati ve management with repeat injection( s) today. Moderating activities with the upper extremity recommende d also. See procedure notes for injection details. [id number] DILIP Ocampo - [facility] [address] [place] [address] 11/02/2024 16:43:35 11/02/2024 17:32:53 Aftercare [id number] Z47.1 Z96.396 [id number] ESTEFANIA Stratton - [facility] [address] [place] [address] 01/13/2025 10:36:20 01/26/2025 14:51:25 Osteoarthritis of joint of left shoulder region 4413248282 66250 M19.012 Reviewed Sandra's imaging and exam findings [...] shoulder replacemen t further. Bilateral shoulder osteoarthritis 6323605590 95250 M19.011 M19.012 Osteoarthr itis of right glenohumeral joint 6233210022 566142 M19.011 In regards to her right shoulder [...] food. Prescribed celebrex 200 mg PO daily [id number] Raúl Cartagena DPT [facility] [address] [place] [address] 02/04/2025 09:52:59 02/04/2025 10:54:50 Osteoarthritis of joint of left shoulder region 9446744894 96997 M19.984 [id number] Raúl Cartagena DPT [facility] [address] [place] [address] 02/09/2025 09:55:36 02/09/2025 10:54:17 Osteoarthritis of joint of left shoulder region 4297575183 75897 M19.287 [id number] Tino Dunn MANAGER OF HOUSEKEEPING [facility] [address] [place] [address] 02/16/2025 09:51:23 02/16/2025 10:44:44 Osteoarthritis of joint of left shoulder region 0781654114 70040 M19.342 [id number] Tino Dunn MANAGER OF HOUSEKEEPING [facility] [address] [place] [address] 02/18/2025 09:48:15 02/18/2025 10:32:15 Osteoarthritis of joint of left shoulder region 8569472766 19243 M19.264 [id number] Tino Dunn MANAGER OF HOUSEKEEPING [facility] [address] [place] [address] 02/23/2025 09:55:03 02/23/2025 10:51:11 Osteoarthritis of joint of left shoulder region 9338426504 51483 M19.204 [id number] Raúl Cartagena, DPT [facility] [address] [place] [address] 03/02/2025 09:46:17 03/02/2025 10:37:52 Osteoarthritis of joint of left shoulder region 6855465619 41895 M19.827 [id number] Tino Dunn, MANAGER OF HOUSEKEEPING [facility] [address] [place] [address] 03/08/2025 09:57:15 03/08/2025 11:23:02 Osteoarthritis of joint of left shoulder region 9084027614 34212 M19.713 [id number] Tino Dunn, MANAGER OF HOUSEKEEPING [facility] [address] [place] [address] 03/10/2025 10:00:17 03/10/2025 10:47:11 Osteoarthritis of joint of left shoulder region 9979869848 69416 M19.928 [id number] Tino Dunn, MANAGER OF HOUSEKEEPING [facility] [address] [place] [address] 03/16/2025 09:56:14 03/16/2025 11:29:02 Osteoarthritis of joint of left shoulder region 8317355479 [facility] M19.704 [id number] Guzman Hamlin MD [facility] [address] [place] [address] 03/17/2025 14:36:40 03/29/2025 15:43:06 Osteoarthritis of joint of left shoulder region [id number] M19.012 Reviewed Sandra's imaging and exam findings [...] our office immediatel y. Bilateral shoulder osteoarthritis [id number] M19.011 M19.012 Osteoarthr itis of right glenohumeral joint [id number] M19.011 In regards to her right shoulder [...] Member ID Fuller Member ID Guarantor Name 03/30/2025 2 WEB-TPA Mary Beth Sanchez [id number] Mary Beth Sanchez 03/17/2025 1 MEDICARE B-[place]: [employer] Mary Beth Sanchez [id number] Mary Beth Sanchez 08/20/2024 2 WEB TPA [place] - [facility] (MEDICARE SUPPLEMENT) Mary Beth Sanchez Notes Date Note Type Note Provider Name and Address Organization Details Recorded Time 03/02/2025 text/html Pt reports that she feels stiff in her shoulder today. Still feeling difficulty lifting overhead motion. Raúl Cartagena, DPT [address], [place], [address], [facility] 03/02/2025 12:55:47 03/08/2025 text/html Pt reports 8/10 pain at worst. Has been more sore but has also been more active. Tino Dunn, MANAGER OF HOUSEKEEPING [address], [place], [address], [facility] 03/08/2025 12:26:29 03/10/2025 text/html Pt reports 5/10 pain today. Getting real sore at night. Tino Dunn MANAGER OF HOUSEKEEPING [address], [place], [address], [facility] 03/10/2025 13:42:28 03/16/2025 text/html Pt reports 5/10 pain today. Getting real sore at night. Tino Dunn, MANAGER OF HOUSEKEEPING [address], [place], [address], [facility] 03/16/2025 11:17:52 03/17/2025 text/html [...] shoulder was independently reviewed by myself during [facility] interview and exam and demonstrates advanced glenohumeral joint osteophyte with loose body noted in the subcoracoid recess. Intact rotator cuff with diffuse tendinopathy. No cuff tearing. Mild AC joint arthritis. 4 view bilateral shoulder radiographs were ordered, obtained and independently reviewed by myself during today's visit at [facility] and demonstrate advanced left greater than right bilateral glenohumeral joint space narrowing. Left shoulder with [id number] articulation of the glenohumeral joint and posterior [...] Hamlin MD [address], [place], [address], [facility] 03/17/2025 15:33:00 OBGyn Episode No OBEpisode recorded.
== END 2025-03-30 17:26 | disposition home or self-care (01) ==
LOC: HO.HMCHD 16:00
PROVIDERS: PCP Internal Medicine; Visit Provider Physician Assistant
DX: R21 Rash and other nonspecific skin eruption (principal); K21.9 Gastro-esophageal reflux disease without esophagitis

== ENCOUNTER 2025-03-30 15:57 | Outpatient (REF) | payer MEDICARE, OTHER, SELFPAY ==
[2025-03-30 17:40] LABS: Albumin Level 4.2 g/dL (3.5-5.0); Calcium 9.9 mg/dL (8.4-10.2)
[2025-03-30 17:42] LABS: Parathyroid Hormone Intact 58.6 pg/mL (8.7-77.1)
[2025-03-31 23:54] LABS: A. Phagocytphilium DNA,RT-PCR NOT DETECTED (NOT DETECTED); Babesia Microti DNA, RT-PCR NOT DETECTED (NOT DETECTED); Borrelia Miyamotoi,DNA RT-PCR NOT DETECTED (NOT DETECTED); E.Chaffeensis DNA RT-PCR NOT DETECTED (NOT DETECTED); Lyme(Borrelia ssp)DNA RT-PCR NOT DETECTED (NOT DETECTED)
== END 2025-03-30 15:58 | disposition home or self-care (01) ==
LOC: HO.LAB 15:57
PROVIDERS: Internal Medicine Endocrinology, Diabetes & Metabolism; PCP Internal Medicine; Visit Provider Physician Assistant
DX: R21 Rash and other nonspecific skin eruption (principal); K21.9 Gastro-esophageal reflux disease without esophagitis; Z79.899 Other long term (current) drug therapy; Z13.30 Encounter for screening examination for mental health and behavioral disorders, unspecified; M81.0 Age-related osteoporosis without current pathological fracture
CPT/HCPCS: 36415; 82040; 82306; 82310; 83970; 87468; 87469; 87478; 87484; 87798; 96127; 99212

== ENCOUNTER 2025-05-03 09:15 | Outpatient (AMB) | payer MEDICARE, OTHER, SELFPAY ==
--- NOTE | 2025-05-03 09:20 | MHC.OFFVIS ---
Vital Signs 05/03/25 09:22 Height 4 ft 11.88 in Weight 114 lb 13.773 oz BMI 22.5 BP 118/86 Blood Pressure Location Rt brachial Position Sitting Pulse 101 H Pulse Source Pulse Oximeter Pulse Oximetry (%) 95 Oxygen Delivery Method Room Air Intake Visit Reasons: Osteoporosis Intake Note: Patient presents today for Age- related osteoporosis. Pocket Marker Required: No Accompanied by: Self / Same As Patient Allergies clindamycin Allergy (Unknown, Verified 05/03/25 09:23) Unknown fentanyl Adverse Reaction (Severe, Verified 05/03/25 09:23) Nausea and Vomiting Statins- Sensitivity Allergy (Unknown, Uncoded 05/03/25 09:23) Unknown Medication List - Last Reconciled 05/03/25 by Amarjit Valdes MD amlodipine 5 mg PO DAILY biotin 5 mg PO DAILY celecoxib (Celebrex) 200 mg PO DAILY cholecalciferol (vitamin D3) 25 mcg PO DAILY ketoconazole 2% Lightly moisten skin and apply shampoo to affected area. Leave on for 5 minutes and then rinse x3 days; lactobacillus comb no.10 (Probiotic) 20,000 mmu cells PO DAILY multivitamin 1 tab PO DAILY omeprazole 40 mg PO DAILY pravastatin 20 mg PO DAILY [Stool Softener PO] tramadol 100 mg PO ONCE PRN vitamin B complex 1 cap PO DAILY HPI Comments Details: The patient is a 79-year-old female presenting with concerns related to osteoporosis and hypercalcemia. Her history of osteoporosis stretches back several years, with a vertebral fracture discovered last year after hip surgery, suggesting a lumbar issue. She has not received prior osteoporosis treatment, nor has she consulted an electronic data interchange specialist. Recently discovered hypercalcemia [place] for this patient, who has been consistent with calcium and vitamin D intake through both diet and supplements. She was informed of this high calcium level this year, after prior unawareness. Polymyalgia rheumatica was managed previously with prednisone, while arthritis is noted alongside a childhood clavicle fracture. Kidney stones were diagnosed roughly 1.5 years ago. The patient also manages gastroesophageal reflux disease with omeprazole and has a family history of osteoporosis but no hypercalcemia or thyroid issues reported. First diagnosed in few yrs .Never saw endo or rheum before Not Received treatment in the past. ? history of pathologic fracture ?level or ONJ. Has several servings of dietary calcium per day in the form of milk, yogurt . Takes Calcium supplement 500 mg daily in divided doses. Takes 1000 IU of Vitamin D daily. Takes PPI, -anticoagulant, -antiepileptic or -glucocorticoid medication but previously took . - Prednisone: previously taken for polymyalgia rheumatica - Omeprazole: ongoing for gastroesophageal reflux disease - Calcium supplements: 500 mg daily - Vitamin D: 1000 IU daily - Multivitamin: unknown calcium content - No reported adverse effects Not Does weight bearing exercise The patient reports engaging in daily exercises targeting shoulder, leg, and back health. She does not engage in specific weight-bearing exercises beyond her own body weight. 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 UTD on dental cleanings and sees dentist every 6 months. No planned upcoming dental work or extractions. Takes biotin 6 wks . No tabacco use or heavy ETOH abuse DXA dated 12/22/24 :HISTORY: Estrogen deficiency TECHNIQUE: SpotOn Dual energy absorptiometry (DEXA) of the lumbar spine and distal forearm was performed. The hips are not evaluated due to a history of bilateral total hip arthroplasty. COMPARISON: Comparison is made with the prior examination dated 05/26/2019. FINDINGS: The bone mineral density of the lumbar spine is 0.924 with a T-score of -2.1, and a Z-score of 0.2. This is indicative of osteopenia. This represents a BMD change of -8.1% compared to the prior exam. This is statistically significant. The bone mineral density of the distal forearm is 0.613 with a T-score of -3.0, and a Z-score of -0.5. This is indicative of osteoporosis. MM/XR DEXA appendicular skeleton IMPRESSION: Based on bone mineral density, and according to World Health Organization (WHO) criteria, the diagnosis is consistent with osteoporosis. Labs: - Labs: - Elevated calcium levels noted: 10.3 mg/dL (normal up to 10.2 mg/dL) - Previous calcium levels: 10.9 mg/dL from 03/2024 - Diagnostics: Vertebral fracture noted post hip surgery on imaging Repeat labs showed normalization of calcium and PTH and normal 24 hour urine for calcium The patient is a 79-year-old female presenting with osteoporosis and a vertebral fracture. The osteoporosis was identified with a T-score of negative 3 in the lumbar spine, indicating moderate to severe osteoporosis, which increases the risk of fractures. The vertebral fracture was discovered last year following hip surgery, and it is considered a fragility fracture. The patient has a history of gastroesophageal reflux disease, for which she is currently taking omeprazole, recently increased from 20 mg to 40 mg. She has not experienced any heart attacks or strokes in the past year, which is relevant for the consideration of certain osteoporosis treatments. The patient is currently taking vitamin D supplements and a multivitamin as part of her preventative care regimen. She has discontinued calcium supplementation as advised in a previous visit. - Labs: Normal parathyroid and calcium levels - 24-hour urine test: Normal - Bone density test: T-score of negative 3 in the lumbar spine PFSH Medical History High cholesterol GERD (gastroesophageal reflux disease) PMR (polymyalgia rheumatica) Surgical History H/O knee surgery Family History Maternal Aunt History of breast cancer Maternal Grandfather Colon cancer Sister Colon cancer Social History Household Members: Spouse Housing: House Alcohol intake: current Alcohol intake frequency: a few times a week Patient Tobacco Use Status: Former Tobacco user service: No Physical Exam Vital Signs: Last Vital Signs Pulse 101 H 05/03/25 09:22 BP 118/86 05/03/25 09:22 Pulse Ox 95 05/03/25 09:22 Oxygen Delivery Method Room Air 05/03/25 09:22 BMI result Body Mass Index 22.5 Assessment & Plan Assessment & Plan (1) Osteoporosis: Code(s): M81.0 - Age-related osteoporosis without current pathological fracture Category: Medical Qualifiers: Osteoporosis type: unspecified Presence of current pathological fracture: unspecified Qualified Code(s): M81.0 - Age-related osteoporosis without current pathological fracture Plan: This is a 79-year-old white female with a history of osteoporosis with discrepancy between cortical bone in the forearm showing moderate to severe osteoporosis and history of nephrolithiasis . Repeat labs do not show the presence of primary hyperparathyroidism . Plan is to talk to the patient about potentially starting anabolic therapy with Evenity considering patient had a previous history of vertebral fracture and very low bone density placing her high risk for subsequent fracture. This would be ideal because patient is considering shoulder surgery and then with a couple of months and would avoid anti resorptive therapy prior to the surgery. The Evenity could be follow up by either Prolia or intravenous Reclast considering the patient has a significant history of GERD. However will await approval of orthopedic surgeon prior to starting Evenity. Might hold off on using Forteo or Tymlos considering there was a concern for primary hyperparathyroidism though recent labs were normal Coding Level of Care Code Est Pt Level 3 (40288) Diagnoses Osteoporosis, unspecified osteoporosis type, unspecified pathological fracture presence M81.0 Osteoporosis type: unspecified Presence of current pathological fracture: unspecified
[2025-05-03 09:22] VITALS: BP 118/86; PULSE 101; O2SAT 95; BMI 22.5
--- OUTSIDE RECORDS SUMMARY | 2025-05-03 09:49 | XMS_ITS | Encounter Summary ---
Author Organization [facility] Address [address] [place] [address] Phone Care Team Providers Care Ceiling Cleaner Name Role Phone Dexter Mills MD Primary Care Provider Reason for Referral * MRI/CAT Scan - Closed Specialty Diagnoses / Procedures Referred By Contac t Referred To Contact Radiology Diagnoses Other spondylosis with radiculopathy, lumbar region Procedures MRI Lumbar Spine Chelle Nagel PA [address] [place] [address] Phone: tel: fax: [email or web address] Referral ID Status Reason Start Date Expiration Date Visits Re quested Visits Authorized [id number] Closed 03/10/2024 03/10/2025 1 1 Encounter Details Date Type Department Care Team (Latest Contact Info) Description 03/10/2024 Transcribe Orders Virtual Department [address] [place] [address] Chelle Nagel PA [address] [place] [address] [email or web address] Other spondylosis with radiculopathy, lumbar region (Primary Dx) Social History Tobacco Use Types Packs/Day Years Used Date Smoking Tobacco: Never Assessed Education Answer Date Recorded Are you interested in more education? Not on claudia e 01/17/2023 Are you concerned about learning? Not on file 01/17/2023 No 01/17/2023 No 01/17/2023 Digital Access Answer Date Recorded No 02/17/2023 No 02/17/2023 No 02/17/2023 Reliable internet access at home? Not on file 02/17/2023 Device with a working camera? Not on file Comments Unknown Sex and Gender Information Value Date Recorded Sex Assigned at Not on file Legal Sex Female 4:31 PM EDT Gender Identity Not on file Sexual Orientation Not on file documented as of this encounter Plan of Treatment Not on file documented as of this encounter Results * MRI LUMBAR SPINE (NEURO) WITHOUT CONTRAST (05/06/2024 6:02 PM EDT) Anatomical Region Laterality Modality L-spine Magnetic Resonan ce 05/10/2024 10:3 7 AM EDT Impressions 05/10/2024 10:43 AM EDT 1. Lumbar degenerative disc disease with a mild dextroconvex scoliosis. Narrative 05/10/2024 10:43 AM EDT MRI LUMBAR SPINE (NEURO) WITHOUT CONTRAST Referring clinician's provided indication for this examination in Epic: Outside Radiology Order; other spondylosis with radiculopathy lumbar region TECHNIQUE: MRI LUMBAR SPINE (NEURO) WITHOUT CONTRAST Multi-sequence, multi-planar MRI of the lumbar spine was performed without intravenous contrast. COMPARISON: Lumbar spine radiographs April 03, 2023 FINDINGS: LUMBAR SPINE: Alignment and Vertebrae: There is a mild extra convex lumbar scoliosis apex at L3-4. Marrow: No bone marrow replacing lesion. Discs and Endplates: There is moderate intervertebral disc at loss at L2-3. There is severe disc height loss at L3-4, L4-5, and L5-S1. Conus: The conus terminates at the L1 level. The conus appears normal in signal intensity. Soft Tissues: Normal. No prevertebral edema. Other Findings: None. Findings by level: T12-L1: No spinal canal or neural foraminal narrowing. L1-L2: There is mild spinal canal narrowing due to disc bulge and facet arthropathy. There is mild right neural foraminal narrowing. L2-L3: There is mild spinal canal narrowing due to disc bulge and facet arthropathy. There is mild bilateral neural foraminal narrowing. L3-L4: There is left subarticular and mild central spinal canal narrowing due to disc bulge and facet arthropathy. There is mild right and moderate left neural foraminal narrowing. L4-L5: There is mild spinal canal narrowing due to disc bulge and facet arthropathy. There is moderate bilateral neural foraminal narrowing. L5-S1: There is facet arthropathy without spinal canal narrowing. There is moderate left and severe right neural foraminal narrowing. Procedure Note Jason Daniel DO - 05/10/2024 MRI LUMBAR SPINE (NEURO) WITHOUT CONTRAST Referring clinician's provided indication for this examination in Epic:Outside Radiology Order; other spondylosis with radiculopathy lumbarregion TECHNIQUE: MRI LUMBAR SPINE (NEURO) WITHOUT CONTRAST Multi-sequence, multi-planar MRI of the lumbar spine was performed withoutintravenous contrast. COMPARISON: Lumbar spine radiographs April 03, 2023 FINDINGS: LUMBAR SPINE: Alignment and Vertebrae: There is a mild extra convex lumbar scoliosisapex at L3-4. Marrow: No bone marrow replacing lesion. Discs and Endplates: There is moderate intervertebral disc at loss atL2-3. There is severe disc height loss at L3-4, L4-5, and L5-S1. Conus: The conus terminates at the L1 level. The conus appears normal insignal intensity. Soft Tissues: Normal. No prevertebral edema. Other Findings: None. Findings by level: T12-L1: No spinal canal or neural foraminal narrowing. L1-L2: There is mild spinal canal narrowing due to disc bulge and facetarthropathy. There is mild right neural foraminal narrowing. L2-L3: There is mild spinal canal narrowing due to disc bulge and facetarthropathy. There is mild bilateral neural foraminal narrowing. L3-L4: There is left subarticular and mild central spinal canal narrowingdue to disc bulge and facet arthropathy. There is mild right and moderateleft neural foraminal narrowing. L4-L5: There is mild spinal canal narrowing due to disc bulge and facetarthropathy. There is moderate bilateral neural foraminal narrowing. L5-S1: There is facet arthropathy without spinal canal narrowing. There ismoderate left and severe right neural foraminal narrowing. IMPRESSION: 1. Lumbar degenerative disc disease with a mild dextroconvex scoliosis. Chelle TOVAR G MR XSPECIALTY Final Resul t documented in this encounter Visit Diagnoses Diagnosis Other spondylosis with radiculopathy, lumbar region- Primary Other spondylosis with radiculopathy, lumbar region documented in this encounter Care Teams Ceiling Cleaner Relationship Specialty Start Date End Date Dexter Mills MD [address] [place] [address] [place] [address] PCP - General Internal Medicine 05/01/16 documented as of this encounter Additional Source Comments The information contained in this document represents components of the legal health record. It is not the complete legal health record.[facility]
--- OUTSIDE RECORDS SUMMARY | 2025-05-03 09:50 | XMS_ITS | Patient Health Record ---
Author Organization [facility] Address [address] [place] [address] Care Team Providers Care Prover Name Role Phone Lina (RETIRED) Dexter GALLARDO Primary Care Provide r Amarjit Osorio Unavailable [phone] Allergies Allergen (clinical drug ingredient) Drug/Non Drug [...] Problem Status W/U Status Risk Notes Problem [id number] Encounter for screening for malignant neoplasm of colon (Z12.11) Active confirmed Problem [id number] Preprocedural examination (Z01.818) Active confirmed Problem [id number] Family history o f colon cancer (Z80.0) Active confirmed Problem [id number] Clostridium difficile infection (B96.89) Active confirmed Plan Of Treatment Pending Test Test Name Order Date CLOSTRIDIUM DIFF TOXIN A&B (C DIFF) 08/23 Future Test Test Name Order Date COLONOSCOPY 08/19/2012 COLONOSCOPY 02/24/2018 Insurance Providers Payer Name Payer Address Payer Phone Subscriber Number Group Number Insured Name Patient Relationship to Insured Coverage Start Date Coverage End Date MEDICARE OF [place] [address] [place] [address] [id number] KAILA PACHECO Self - patient is the insured [employer] [place] [address] [place] [address] [id number] KAILA PACHECO Self - patient is the insured Medical (General) History Medical History History ICD Code GERD-EGD in 2006--moderate s ized hiatal hernia, but no significant esophagitis or Marrero's esophagus HTN--currently not on any medication Diverticulosis Polymyalgia rheumatica-quiescent Migraines Elevated cholesterol Denies VT,DM,CVA,Lung disease,renal dise ase 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
== END 2025-05-03 10:28 | disposition home or self-care (01) ==
LOC: HO.ENCR 09:15
PROVIDERS: PCP Internal Medicine; Visit Provider Internal Medicine Endocrinology, Diabetes & Metabolism
DX: M81.0 Age-related osteoporosis without current pathological fracture (principal)
CPT/HCPCS: 99213

== ENCOUNTER → 2025-05-03 09:15 | Outpatient (BNVA) | payer MEDICARE, OTHER, SELFPAY | PROVIDERS: PCP Internal Medicine; Visit Provider Internal Medicine Endocrinology, Diabetes & Metabolism | DX: M81.0 Age-related osteoporosis without current pathological fracture (principal); E83.52 Hypercalcemia; Z82.62 Family history of osteoporosis; M35.3 Polymyalgia rheumatica; Z87.442 Personal history of urinary calculi; Z79.899 Other long term (current) drug therapy | CPT/HCPCS: 99212 ==

== ENCOUNTER 2025-05-30 10:42 | Outpatient (AMB) | payer MEDICARE, OTHER, SELFPAY ==
--- NOTE | 2025-05-30 10:44 | MHC.OFFVIS ---
Vital Signs 05/30/25 10:45 Height 5 ft Weight 114 lb 10.246 oz BMI 22.4 BP 148/107 H Blood Pressure Location Lt brachial Position Sitting Pulse 91 Intake Visit Reasons: gastroenteritis and colitis Intake Note: Mary Beth presents in the office as a consult follow up. CC: States that she was seen in the ED and she states that she is not having any concerns at this time! Sports Management Professor Required: No Allergies clindamycin Allergy (Unknown, Verified 05/03/25 09:23) Unknown fentanyl Adverse Reaction (Severe, Verified 05/03/25 09:23) Nausea and Vomiting Statins- Sensitivity Allergy (Unknown, Uncoded 05/03/25 09:23) Unknown HPI HPI gastroenteritis and colitis: Details: 79 yr old f with hx of hyperlipidemia, GERD, PMR and recurrent UTIs here for f/u RECAP: initially seen 2023 for abdominal pain nausea and diarrhea with few episodes of rectal bleeding with redish colored stools. she admitted to taking alleve BID for 2 months at least for her severe hip pain, Last colonoscopy with Dr Lindsay several years ago--normal, pos FH of cRC. received ABx, and fluids. Imaging with aparicio colitis, atherosclerosis noted with degen spinal disease. 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 VITAL SIGNS:see workflow HEENT: Nonicteric sclerae, PERRLA, EOMI. Oropharynx clear. Moist mucous membranes. Conjunctivae appear well perfused. No thyroid mass. CHEST: Chest wall is nontender. HEART: Regular rate and rhythm without murmurs. LUNGS: Clear to auscultation bilaterally. ABDOMEN: Soft, positive bowel sounds, nontender, no organomegaly.no flank tenderness SKIN: No rash, no excessive bruising, petechiae, or purpura. NEUROLOGIC: Cranial nerves II-XII intact without motor/sensory deficit. Psych: normal affect A/P: 1/ FH of CRC and polyps, last colo was not screening colo--may have had ischemic colitis from nsaid use, constipation, dehydration PLAN: 1/ repeat colo--suprep with zofran PFSH Medical History High cholesterol GERD (gastroesophageal reflux disease) PMR (polymyalgia rheumatica) Surgical History Hx of cataract surgery Hx of colonoscopy History of esophagogastroduodenoscopy (EGD) History of hip surgery H/O knee surgery Family History Maternal Aunt History of breast cancer Maternal Grandfather Colon cancer Sister Colon cancer Social History Household Members: Spouse Housing: House Alcohol intake: current Alcohol intake frequency: a few times a week Patient Tobacco Use Status: Former Tobacco user service: No Physical Exam Vital Signs: Last Vital Signs Pulse 91 05/30/25 10:45 BP 148/107 H 05/30/25 10:45 BMI result Body Mass Index 22.4 Assessment & Plan Assessment & Plan (1) Colitis: Code(s): K52.9 - Noninfective gastroenteritis and colitis, unspecified Category: Medical Plan: as above Medications: New sodium,potassium,mag sulfates 17.5-3.13-1.6 gram (Suprep Bowel Prep Kit) DILUTE; drink 1/2 at 6-8 pm and half at 11 PM- 1AM 354 mL 0RF ondansetron 4 mg PO Q8H PRN 7 tabs 0RF nausea and vomiting Coding Level of Care Code Est Pt Level 3 (54035) Diagnoses Colitis K52.9
[2025-05-30 10:45] VITALS: BP 148/107; PULSE 91; BMI 22.4
--- OUTSIDE RECORDS SUMMARY | 2025-05-30 12:56 | XMS_ITS | Encounter Summary ---
Author Organization [facility] Address [facility] [address] [place] [address] Phone Care Team Providers Care Alcohol Rubber Name Role Phone Dexter Mills MD Primary Care Provider Encounter Details Date Type Department Care Team (Late st Contact Info) Description 04/03/2023 Ancillary Orders [facility], X-Ray - [address] [address] Chelle Nagel PA [address] [place] [address] [email or web address] Radiculopathy, lumbar region Social History Tobacco Use Types Packs/Day Years [...] documented as of this encounter Results * XR LUMBOSACRAL SPINE 2-3 VIEWS (04/03/2023 2:11 PM EDT) Anatomical Region Laterality Modality L-spine Computed Radiogr aphy 04/05/2023 9:13 PM EDT Impressions 04/05/2023 9:19 PM EDT Severe lumbar spine degenerative change. Constipation. Narrative 04/05/2023 9:19 PM EDT XR LUMBOSACRAL SPINE 2-3 VIEWS COMPARISON: None FINDINGS: ALIGNMENT: Dextroconvex lumbar curvature with rotatory component centered at L3. Straightening of the lumbar lordosis. No spondylolisthesis. VERTEBRAE: Bones demineralized. Vertebral body heights preserved. DISCS: Disc height loss with endplate sclerosis and marginal osteophytes at all levels. FACETS: Facet arthropathy at all levels. PARASPINAL SOFT TISSUES: Constipation. Moderate aortic vascular calcification. Partially visualized moderate to severe right and moderate left hip osteoarthritis. Procedure Note Micah Rainey MD - 04/05/2023 XR LUMBOSACRAL SPINE 2-3 VIEWS COMPARISON: None FINDINGS: ALIGNMENT: Dextroconvex lumbar curvature with rotatory component centeredat L3. Straightening of the lumbar lordosis. No spondylolisthesis. VERTEBRAE: Bones demineralized. Vertebral body heights preserved. DISCS: Disc height loss with endplate sclerosis and marginal osteophytesat all levels. FACETS: Facet arthropathy at all levels. PARASPINAL SOFT TISSUES: Constipation. Moderate aortic vascularcalcification. Partially visualized moderate to severe right and moderateleft hip osteoarthritis. IMPRESSION: Severe lumbar spine degenerative change. Constipation. Chelle TOVAR IMG XR SPINE Final Result documented in this encounter Visit Diagnoses Diagnosis Radiculopathy, lumbar region Thoracic or lumbosacral neuritis or radiculitis, unspecified Radiculopathy, lumbar region Thoracic or lumbosacral neuritis or radiculitis, unspecified documented in this encounter Care Teams Alcohol Rubber Relationship Specialty Start Date End Date Dexter Mills MD [address] [place] [address] [place] [address] PCP - General Internal Medicine 05/01/16 documented as of this encounter Additional Source Comments The information contained in this document represents components of the legal health record. It is not the complete legal health record.[facility]
--- OUTSIDE RECORDS SUMMARY | 2025-05-30 12:56 | XMS_ITS | Encounter Summary ---
Author Organization [facility] Address [address] [place] [address] Phone Care Team Providers Care Business Consult Name Role Phone Dexter Mills MD Primary Care Provider Reason for Referral * MRI/CAT Scan - Closed Specialty Diagnoses / Procedures Referred By Contac t Referred To Contact Radiology Diagnoses Other spondylosis with radiculopathy, lumbar region Procedures MRI Lumbar Spine Chelle Nagel PA [address] [place] [address] Phone: tel: fax: [email or web address] Referral ID Status Reason Start Date Expiration Date Visits Re quested Visits Authorized [id number] Closed 03/10/2024 03/10/2025 1 1 Encounter Details Date Type Department Care Team (Latest Contact Info) Description 03/10/2024 Transcribe Orders Virtual Department [address] [place] [address] Chelle Nagel PA [address] [place] [address] [email or web address] Other spondylosis with radiculopathy, lumbar region [...] region documented in this encounter Care Teams Business Consult Relationship Specialty Start Date End Date Dexter Mills MD [address] [place] [address] [place] [address] PCP - General Internal Medicine 05/01/16 documented as of this encounter Additional Source Comments The information contained in this document represents components of the legal health record. It is not the complete legal health record.[facility]
--- OUTSIDE RECORDS SUMMARY | 2025-05-30 12:56 | XMS_ITS | Clinical Summary ---
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 Name Role Phone Dexter Mills MD Primary Care Provider Social History Tobacco Use Types Packs/Day Years [...] on file Sexual Orientation Not on file Last Filed Vital Signs Vital Sign Reading Time Taken Comments Blood Pressure - - Pulse - - Temperature - - Respiratory Rate - - Oxygen Saturation - - Inhaled Oxygen Concentration - - Weight 50.8 kg (112 lb) 04/30/2024 2:30 PM EDT Height 152.4 cm (5') 04/30/2024 2:30 PM EDT Body Mass Index 21.87 04/30/2024 2:30 PM EDT Plan of Treatment Health Maintenance Due Date Last Done Comments Adult Td,Tdap Booster 1946 LIPID PANEL 1946 DEPRESSION SCREENING 1958 SMOKING Hx and SMOKELESS TOBACCO SCREENING 1959 HEPATITIS C SCREENING 1964 PNEUMOCOCCAL VACCINES (50+ years) (1 of 1 - PCV) 1996 OSTEOPOROSIS SCREENING INITI AL (ONE-TIME) 2011 RSV VACCINE (1 - 1-dose 75+ series) 2021 INFLUENZA VACCINE (#1) 2025 0, 06/20/2019, 06/22/2018 COVID-19 VACCINE (2 - 2024-2 6 season) 2025 11/16/2020 ZOSTER VACCINES Completed 02/09/2019, 12/07/2018, 08/11/2014 HEPATITIS A VACCINES Aged Out No long er eligible based on patient's age to complete this topic HIB VACCINES Aged Out No longer eligi ble based on patient's age to complete this topic MENINGOCOCCAL VACCINES (ACWY) Aged Out No longer eligible based on patient's age to complete this topic MENINGOCOCCAL VACCINES (B) Aged Out N o longer eligible based on patient's age to complete this topic Medical Devices Not on file Insurance MEDICARE PART A & B Member Subscriber Plan / Payer (Ef fective 2011-Present) Name:Mary Beth Sanchez Member ID:[id number] Relation to Subscriber:Self Name:Mary Beth Sanchez Subscriber ID:[id number] Payer ID:[id number] Group ID:Not on file Type:Medicare Address: [facility] [employer] [facility] [address] [place] [place] [address] [place] [address] MEDICARE PART A & B COMMERCIAL Member Subscriber Plan / Payer ( fective 2023-) Name:Mary Beth Sanchez Relation to Subscriber:Self Name:Mary Beth Sanchez Payer ID:Not on file Group ID:Not on file Type:Indemnity Address: [id number] [place] [address] MEDICARE PART A & B MEDICARE PART A & B Member Subscriber Plan / Payer (Ef fective 2011-Present) Name:Mary Beth Sanchez Member ID:[id number] Relation to Subscriber:Self Name:JoselinenatalieMary Beth Subscriber ID:[id number] Payer ID:[id number] Group ID:Not on file Type:Medicare Address: [employer] [address] MEDICARE PART A & B GENERIC COMMERCIAL [address] [place] [address] [place] [address] MEDICARE PART A & B MEDICARE PART A & B GENERIC COMMERCIAL MEDICARE PART A & B GENERIC COMMERCIAL Member Subscriber Plan / Payer ( fective 2023-Present) Name:Mary Beth Sanchez Relation to Subscriber:Self Name:Mary Beth Sanchez Payer ID:Not on file Group ID:Not on file Type:Indemnity Address: [address] [facility] [place] [address] MEDICARE PART A & [place] [address] Care Teams Morning Show Newscast Producer Relationship Specialty Start Date End Date Dexter Mills MD [address] [place] [address] [place] [address] PCP - General Internal Medicine 05/01/16 Additional Source Comments The information contained in this document represents components of the legal health record. It is not the complete legal health record.[facility]
--- OUTSIDE RECORDS SUMMARY | 2025-05-30 12:56 | XMS_ITS | Patient Health Record ---
Author Organization [facility] Address [address] [place] [address] Care Team Providers Care Band Builder Name Role Phone Lina (RETIRED) Dexter GALLARDO Primary Care Provide r Amarjit Osorio Unavailable [phone] Allergies Allergen (clinical drug ingredient) Drug/Non Drug [...] Problem Status W/U Status Risk Notes Problem 573321478 Encounter for screening for malignant neoplasm of colon (Z12.11) Active confirmed Problem [id number] Preprocedural examination (Z01.818) Active confirmed Problem 264373430 Family history o f colon cancer (Z80.0) Active confirmed Problem 559671009 Clostridium difficile infection (B96.89) Active confirmed Plan Of Treatment Pending Test Test Name Order Date CLOSTRIDIUM DIFF TOXIN A&B (C DIFF) 08/23 Future Test Test Name Order Date COLONOSCOPY 08/19/2012 COLONOSCOPY 02/24/2018 Insurance Providers Payer Name Payer Address Payer Phone Subscriber Number Group Number Insured Name Patient Relationship to Insured Coverage Start Date Coverage End Date [place] OF [place] [address] [place] [address] [id number] KAILA PACHECO Self - patient is the insured [employer] [place] [address] [place] [address] [phone] [id number] KAILA PACHECO Self - patient is the insured Medical (General) History Medical History History ICD Code GERD-EGD in 2006--moderate s ized hiatal hernia, but no significant esophagitis or Marrero's esophagus HTN--currently not on any medication Diverticulosis Polymyalgia rheumatica-quiescent Migraines Elevated cholesterol Denies VA,DM,CVA,Lung disease,renal dise ase 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
--- OUTSIDE RECORDS SUMMARY | 2025-05-30 12:56 | XMS_ITS | Encounter Summary ---
Author Organization [facility] Address [address] [place] [address] Phone Care Team Providers Care Manuscripts Archivist Name Role Phone Dexter Mills MD Primary Care Provider Encounter Details Date Type Department Care Team (Late st Contact Info) Description 03/10/2024 Procedure [facility], [address] [address] Social History Tobacco Use Types Packs/Day Years [...] on file documented as of this encounter Visit Diagnoses Not on filedocumented in this encounter Care Teams Manuscripts Archivist Relationship Specialty Start Date End Date Dexter Mills MD [address] [place] [address] [place] [address] PCP - General Internal Medicine 05/01/16 documented as of this encounter Additional Source Comments The information contained in this document represents components of the legal health record. It is not the complete legal health record.[facility]
== END 2025-05-30 11:18 | disposition home or self-care (01) ==
LOC: HO.HGI 10:43
PROVIDERS: PCP Internal Medicine; Visit Provider Internal Medicine Gastroenterology
DX: K52.9 Noninfective gastroenteritis and colitis, unspecified (principal)
CPT/HCPCS: 99213

== ENCOUNTER → 2025-05-30 10:42 | Outpatient (BNVA) | payer MEDICARE, OTHER, SELFPAY | PROVIDERS: PCP Internal Medicine; Visit Provider Internal Medicine Gastroenterology | DX: K52.9 Noninfective gastroenteritis and colitis, unspecified (principal) | CPT/HCPCS: 99212 ==

== ENCOUNTER 2025-08-02 08:47 | Outpatient (AMB) | payer MEDICARE, OTHER, SELFPAY ==
--- NOTE | 2025-08-02 08:58 | A.OFFVIS_ITS ---
Vital Signs 08/02/25 08:59 Height 4 ft 11.88 in Weight 114 lb 10.246 oz BMI 22.5 BP 104/72 Blood Pressure Location Rt brachial Position Sitting Pulse 88 Pulse Source Pulse Oximeter Pulse Oximetry (%) 97 Oxygen Delivery Method Room Air Intake Visit Reasons: f/u osteoporosis Intake Note: Patient presents today for Age-Related Osteoporosis. Oracle Technical Architect Required: No Accompanied by: Self / Same As Patient Allergies clindamycin Allergy (Unknown, Verified 08/02/25 09:06) Unknown fentanyl Adverse Reaction (Severe, Verified 08/02/25 09:06) Nausea and Vomiting Statins- Sensitivity Allergy (Unknown, Uncoded 08/02/25 09:06) Unknown Medication List - Last Reconciled 08/02/25 by Amarjit Valdes MD amlodipine 5 mg PO DAILY biotin 5 mg PO DAILY celecoxib (Celebrex) 200 mg PO DAILY cholecalciferol (vitamin D3) 25 mcg PO DAILY docusate sodium (Colace) 100 mg PO DAILY ketoconazole 2% Lightly moisten skin and apply shampoo to affected area. Leave on for 5 minutes and then rinse x3 days; lactobacillus comb no.10 (Probiotic) 20,000 mmu cells PO DAILY multivitamin 1 tab PO DAILY omeprazole 40 mg PO DAILY ondansetron 4 mg PO Q8H PRN pravastatin 20 mg PO DAILY romosozumab-aqqg (Evenity) 210 mg (2.34 mL) subcut QMONTH sodium,potassium,mag sulfates 17.5-3.13-1.6 gram (Suprep Bowel Prep Kit) DILUTE; drink 1/2 at 6-8 pm and half at 11 PM- 1AM tramadol 100 mg PO ONCE PRN vitamin B complex 1 cap PO DAILY HPI Comments Details: The patient is a 79-year-old female presenting with concerns related to osteoporosis and hypercalcemia. Her history of osteoporosis stretches back several years, with a vertebral fracture discovered last year after hip surgery, suggesting a lumbar issue. She has not received prior osteoporosis treatment, nor has she consulted an it network engineer. Recently discovered hypercalcemia alcaraz new ground for this patient, who has been consistent with calcium and vitamin D intake through both diet and supplements. She was informed of this high calcium level this year, after prior unawareness. Polymyalgia rheumatica was managed previously with prednisone, while arthritis is noted alongside a childhood clavicle fracture. Kidney stones were diagnosed roughly 1.5 years ago. The patient also manages gastroesophageal reflux disease with omeprazole and has a family history of osteoporosis but no hypercalcemia or thyroid issues reported. First diagnosed in few yrs .Never saw endo or rheum before Not Received treatment in the past. ? history of pathologic fracture ?level or ONJ. Has several servings of dietary calcium per day in the form of milk, yogurt . Takes Calcium supplement 500 mg daily in divided doses. Takes 1000 IU of Vitamin D daily. Takes PPI, -anticoagulant, -antiepileptic or -glucocorticoid medication but previously took . - Prednisone: previously taken for polymyalgia rheumatica - Omeprazole: ongoing for gastroesophageal reflux disease - Calcium supplements: 500 mg daily - Vitamin D: 1000 IU daily - Multivitamin: unknown calcium content - No reported adverse effects Not Does weight bearing exercise The patient reports engaging in daily exercises targeting shoulder, leg, and back health. She does not engage in specific weight-bearing exercises beyond her own body weight. 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 UTD on dental cleanings and sees dentist every 6 months. No planned upcoming dental work or extractions. Takes biotin 6 wks . No tabacco use or heavy ETOH abuse DXA dated 12/22/24 :HISTORY: Estrogen deficiency TECHNIQUE: [email or web address] Dual energy absorptiometry (DEXA) of the lumbar spine and distal forearm was performed. The hips are not evaluated due to a history of bilateral total hip arthroplasty. COMPARISON: Comparison is made with the prior examination dated 05/26/2019. FINDINGS: The bone mineral density of the lumbar spine is 0.924 with a T-score of -2.1, and a Z-score of 0.2. This is indicative of osteopenia. This represents a BMD change of -8.1% compared to the prior exam. This is statistically significant. The bone mineral density of the distal forearm is 0.613 with a T-score of -3.0, and a Z-score of -0.5. This is indicative of osteoporosis. MM/XR DEXA appendicular skeleton IMPRESSION: Based on bone mineral density, and according to World Health Organization (WHO) criteria, the diagnosis is consistent with osteoporosis. Labs: - Labs: - Elevated calcium levels noted: 10.3 mg/dL (normal up to 10.2 mg/dL) - Previous calcium levels: 10.9 mg/dL from 03/2024 - Diagnostics: Vertebral fracture noted post hip surgery on imaging Repeat labs showed normalization of calcium and PTH and normal 24 hour urine for calcium The patient is a 79-year-old female presenting with osteoporosis and a vertebral fracture. The osteoporosis was identified with a T-score of negative 3 in the lumbar spine, indicating moderate to severe osteoporosis, which increases the risk of fractures. The vertebral fracture was discovered last year following hip surgery, and it is considered a fragility fracture. The patient has a history of gastroesophageal reflux disease, for which she is currently taking omeprazole, recently increased from 20 mg to 40 mg. She has not experienced any heart attacks or strokes in the past year, which is relevant for the consideration of certain osteoporosis treatments. The patient is currently taking vitamin D supplements and a multivitamin as part of her preventative care regimen. She has discontinued calcium supplementation as advised in a previous visit. - Labs: Normal parathyroid and calcium levels - 24-hour urine test: Normal - Bone density test: T-score of negative 3 in the lumbar spine Currently receiving it Evenity since 05/2025 at [facility] The patient is a 79-year-old female presenting with osteoporosis management. She has been receiving Evenity injections, which she tolerates with mild discomfort at the injection site, described as arm pain. Her bone density was last assessed recently, with a T-score of -3, indicating osteoporosis. The patient has a history of joint surgeries, which may impact her bone health. She reports waking up with generalized aches, which could be related to her osteoporosis or previous surgeries. Insurance coverage for her treatment is adequate, with no lmu-po-ynlbso expenses due to her supplemental policy. She is advised to continue her current treatment plan and return for follow-up in approximately eight months unless issues arise. [facility] Medical History High cholesterol GERD (gastroesophageal reflux disease) PMR (polymyalgia rheumatica) Surgical History History of surgery Hx of cataract surgery Hx of colonoscopy History of esophagogastroduodenoscopy (EGD) History of hip surgery H/O knee surgery Family History Maternal Aunt History of breast cancer Maternal Grandfather Colon cancer Sister Colon cancer Social History Household Members: Spouse Housing: House Alcohol intake: current Alcohol intake frequency: a few times a week Patient Tobacco Use Status: Former Tobacco user service: No Physical Exam Vital Signs: Last Vital Signs Pulse 88 08/02/25 08:59 BP 104/72 08/02/25 08:59 Pulse Ox 97 08/02/25 08:59 Oxygen Delivery Method Room Air 08/02/25 08:59 BMI result Body Mass Index 22.5 Assessment & Plan Assessment & Plan (1) Osteoporosis: Code(s): M81.0 - Age-related osteoporosis without current pathological fracture Category: Medical Qualifiers: Osteoporosis type: unspecified Presence of current pathological fracture: unspecified Qualified Code(s): M81.0 - Age-related osteoporosis without current pathological fracture Plan: This is a 79-year-old white female with a history of osteoporosis with discrepancy between cortical bone in the forearm showing moderate to severe osteoporosis and history of nephrolithiasis . Repeat labs do not show the presence of primary hyperparathyroidism . Plan is to continue the of any for full 12 months' time until 05/2026. 1. Osteoporosis The patient is currently on Evenity, which she tolerates with mild injection site discomfort. Her bone density was last assessed with a T-score of -3. The plan is to continue Evenity for a year, followed by a transition to Prolia or a bisphosphonate like alendronate, depending on the insurance coverage and bone density results. Follow-up is scheduled in eight months unless issues arise. During the visit, we discussed the patient's current osteoporosis management with Evenity and the potential transition to Prolia or a bisphosphonate after a year. We reviewed her bone density results and insurance coverage, ensuring no lhd-gt-hbrsvw expenses. Follow-up is planned in eight months unless there are complications. - Continue Evenity injections as prescribed. - Monitor for any new symptoms or side effects and report them. - Schedule a follow-up appointment in eight months unless issues arise sooner. Patient was informed and verbally consented to the use of an ambient scribe for clinic note documentation during this visit. Coding Level of Care Code Est Pt Level 3 (08595) Diagnoses Osteoporosis, unspecified osteoporosis type, unspecified pathological fracture presence M81.0 Osteoporosis type: unspecified Presence of current pathological fracture: unspecified
[2025-08-02 08:59] VITALS: BP 104/72; PULSE 88; O2SAT 97; BMI 22.5
--- OUTSIDE RECORDS SUMMARY | 2025-08-02 09:01 | XMS_ITS | Continuity of Care Document ---
Author Organization [place] [facility] [place] [facility] FELEC[facility] Address [address] [place] [address] Care Team Providers Care Welder And Fitter Name Role Phone MELALYNNELISA Referring Provider [phone] IZABELLA YODER Primary Care Provider Assessment Encounter Date Assessment Date Assessment LastModified by Organization Details LastModified Time 08/01/2025 08/01/2025 Assessment: Tight end feel flexion. Advised to add table slides throughout the day. Plan: Continue PT x2/week to improve ROM as per MD protocol. 2wks - PROM 3wks - D/C SLING, AAROM 4wks - DRIVE, AROM 8wks - RC/PS/ strength [email or web address] Not available 08/01/2025 10:37:56 Plan of Treatment Reminders Order Date Submit Date Provider Last Modified By Organization Details Last Modified Time Details Appointments PT FOLLOW-U P 2024 10:00A M Tino Dunn, [employer] TENDER Not available Not available Not available PT FOLLOW-U P 2024 04:30P Pratik Cartagena DPT Not available Not available Not available PT FOLLOW-U P 2024 10:00A Pratik Cartagena DPT Not available Not available Not available PT FOLLOW-U P 2024 10:00A M Tino Dunn, [employer] KETTLE TENDER Not available Not available Not available PT FOLLOW-U P 2024 10:00A Pratik Cartagena DPT Not available Not available Not available PT FOLLOW-U P 2024 10:00A M Hongshin Osiel, DPT Not available Not available Not available RECHECK 10 2024 01:00P M Guzman Hamlin MD Not available Not available Not available PT FOLLOW-U P 2024 10:30A M Tino Scafuri, [employer] KETTLE TENDER Not available Not available Not available PT FOLLOW-U P 2024 10:30A M Tino Scafuri, [employer] KETTLE TENDER Not available Not available Not available PT FOLLOW-U P 2024 10:00A M Raúl Osiel, DPT Not available Not available Not available PT FOLLOW-U P 2024 10:00A M Raúl Cartagena, DPT Not available Not available Not available PT FOLLOW-U P 2024 10:00A M Tino Scafuri, [employer] KETTLE TENDER Not available Not available Not available PT FOLLOW-U P 2024 10:00A M Raúl Cartagena, DPT Not available Not available Not available PT FOLLOW-U P 2024 10:00A M Raúl Osiel, DPT Not available Not available Not available PT FOLLOW-U P 2025 10:30A M Tino Scafuri, [employer] KETTLE TENDER Not available Not available Not available PT FOLLOW-U P 2025 10:30A M Tino Scafuri, [employer] KETTLE TENDER Not available Not available Not available PT FOLLOW-U P 2025 10:30A M Raúl Cartagena, DPT Not available Not available Not available PT FOLLOW-U P 2025 10:30A M Raúl Osiel, DPT Not available Not available Not available PT FOLLOW-U P 2025 10:30A M Tino Scafuri, [employer] KETTLE TENDER Not available Not available Not available PT FOLLOW-U P 2025 10:30A M Tino Scafuri, [employer] KETTLE TENDER Not available Not available Not available PT FOLLOW-U P 2025 10:30A M Rúal Osiel, DPT Not available Not available Not available PT FOLLOW-U P 2025 10:30A M Raúl Osiel, DPT Not available Not available Not available Lab None recorded . Referral None recorded . Procedures None recorded . Surgeries None recorded . Imaging None recorded . Medication Orders None recorded . Patient TargetsNo targets recorded. Patient InstructionsNo instructions recorded. Reason for Referral None Reported. Problems Name Problem SNOMED Code Status Onset Date Resolution Date Notes Provider Name and Address Organization Details Recorded Time Chondroma lacia of left patella 631402064275 106 Active 2018 Problem Code: M22.42; Problem Code Type: ICD-10; Status: 'A'; Not Available [facility] 4 11:42:38 Osteoarth ritis of hip 098092957 Active 2023 Octavio Mayers PA-C [address], [place], [address] , [facility] 4 10:53:17 Osteoarth ritis of right hip joint 576767207881 107 Active 2023 ricardo wilson [facility] 4 13:16:51 Osteoarth ritis of left knee joint 018353227227 109 Active 2023 Jeremiah Wilkerson MD [address], [place], [address] , [facility] 4 14:31:32 Osteoarth ritis of left hip joint 630859260646 108 Active 2023 Raúl Wilhelm MD [address], [place], [address] , [facility] 4 09:45:31 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 061455099865 100 Active 2023 Raúl Wilhelm MD [address], [place], [address] , [facility] 4 16:59:21 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 584354056492 9105 Active 2023 Raúl Wilhelm MD [address], [place], [address] , [facility] 5 14:29:08 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 476790325889 108 Active 2024 ИВАН wilson [facility] 12:11:14 Bilateral shoulder osteoarth ritis 695944375439 108 Active 2024 Janina Earlene [facility] 5 10:46:10 Osteoarth ritis of right glenohume ral joint 532729393329 9101 Active 2024 Kassandra Sherman PA-C [address], [place], [address] , [facility] 5 11:36:05 Rupture of rotator cuff of left shoulder 780013624961 05118 Active 2024 ИВАН GUERIN [facility] 5 11:36:53 Problem Notes None recorded. Procedures Surgical History Date Name Laterality Status Provider Name and Address Organization Details Recorded Time 5 07487 Therapeutic Exercise (1:1) completed Tino Dunn PTA [address], [place], [address], [facility] 08/01/2025 10:36:48 5 39675: Manual therapy completed Tino Dunn PTA [address], [place], [address], [facility] 08/01/2025 10:36:48 5 08234 Therapeutic Exercise (1:1) completed Raúl Cartagena DPT [address], [place], [address], [facility] 07/26/2025 19:43:11 5 73892: Manual therapy completed Raúl Cartagena DPT [address], [place], [address], [facility] 07/26/2025 19:43:11 5 09506 Therapeutic Exercise (1:1) completed Raúl Cartagena DPT [address], [place], [address], [facility] 07/22/2025 17:07:16 72319: Manual therapy completed CARLA OcampoT [address], [place], [address], [facility] 07/26/2025 15:56:59 16407 Therapeutic Exercise (1:1) completed CARLA OcampoT [address], [place], [address], [facility] 07/21/2025 10:52:56 88090: Manual therapy completed Raúl Cartagena DPT [address], [place], [address], [facility] 07/21/2025 10:51:16 06247 Therapeutic Exercise (1:1) completed Raúl Cartagena DPT [address], [place], [address], [facility] 07/19/2025 15:07:33 62795: Manual therapy completed Raúl Cartagena DPT [address], [place], [address], [facility] 07/15/2025 21:07:55 76805 Therapeutic Exercise (1:1) completed Raúl Cartagena DPT [address], [place], [address], [facility] 07/14/2025 10:22:25 43009: Manual therapy completed Raúl Cartagena DPT [address], [place], [address], [facility] 07/14/2025 10:22:25 40603 Therapeutic Exercise (1:1) completed Tino Dunn [employer] KETTLE TENDER [address], [place], [address], [facility] 07/12/2025 12:31:41 22285: Manual therapy completed Tino Dunn [employer] KETTLE TENDER [address], [place], [address], [facility] [place] [facility] 07/12/2025 12:31:41 5 15490 Therapeutic Exercise (1:1) completed Raúl Cartagena DPT [address], [place], [address], [facility] [place] [facility] 07/06/2025 12:46:01 5 88139: Manual therapy completed Raúl Cartagena DPT [address], [place], [address], [facility] 07/06/2025 12:46:30 5 15916 Therapeutic Exercise (1:1) completed Raúl Cartagena DPT [address], [place], [address], [facility] 07/04/2025 10:59:51 5 50534: Low complexity PT Eval completed Raúl Cartagena DPT [address], [place], [address], [facility] 07/04/2025 10:59:47 5 G8420 BMI Normal, No Follow-Up Plan Required completed Raúl Cartagena DPT [address], [place], [address], [facility] 07/01/2025 12:19:03 5 G8427 Current Medication Documented completed Raúl Cartagena DPT [address], [place], [address], [facility] 07/01/2025 12:18:58 5 PM Shoulder Kenalog 2cc Injection Unilateral completed Guzman Hamlin MD [address], [place], [address], [facility] 03/17/2025 15:31:17 5 65418 Therapeutic Exercise (1:1) completed Tino Dunn PTA [address], [place], [address], [facility] 03/16/2025 11:16:59 5 20593: Manual therapy completed Tino Dunn, [employer]ALL[employer]UM KETTLE TENDER [address], [place], [address], [facility] 03/16/2025 11:16:59 5 43977 Therapeutic Exercise (1:1) completed Tino Dunn, [employer] PALL[employer]IUM KETTLE TENDER [address], [place], [address], [facility] 03/10/2025 13:40:54 21098: Manual therapy completed Tino Dunn [employer] KETTLE TENDER [address], [place], [address], [facility] 03/10/2025 13:40:54 5 48139 Therapeutic Exercise (1:1) completed Tino Dunn, [employer]ALL[employer]IUM KETTLE TENDER [address], [place], [address], [facility] 03/08/2025 12:24:44 5 44343: Manual therapy completed Tino Dunn PTA [address], [place], [address], [facility] 03/08/2025 12:24:44 5 51891 Therapeutic Exercise (1:1) completed Raúl Cartagena DPT [address], [place], [address], [facility] 03/02/2025 12:54:00 5 54806: Manual therapy completed Raúl Cartagena DPT [address], [place], [address], [facility] 03/02/2025 12:53:57 80744 Therapeutic Exercise (1:1) completed Tino Dunn, [employer] PALL[employer]IUM KETTLE TENDER [address], [place], [address], [facility] 02/23/2025 11:25:16 5 49240: Manual therapy completed Tino Dunn, [employer] PALL[employer]IUM KETTLE TENDER [address], [place], [address], [facility] 02/23/2025 11:25:16 5 84330 Therapeutic Exercise (1:1) completed Tino Dunn, [employer] PALL[employer]IUM KETTLE TENDER [address], [place], [address], [facility] 02/18/2025 11:48:06 5 80440: Manual therapy completed Tino Dunn, [employer] AND PALLADIUM KETTLE TENDER [address], [place], [address], [facility] 02/18/2025 11:48:06 5 66175 Therapeutic Exercise (1:1) completed Tino Dunn, [employer] PALL[employer]IUM KETTLE TENDER [address], [place], [address], [facility] 02/16/2025 14:12:55 5 28370: Manual therapy completed Tino Dunn, [employer] PALL[employer]IUM KETTLE TENDER [address], [place], [address], [facility] 02/16/2025 14:12:55 5 21080 Therapeutic Exercise (1:1) completed CARLA OcampoT [address], [place], [address], [facility] 02/09/2025 19:04:18 5 71364: Manual therapy completed Raúl Cartagena DPT [address], [place], [address], [facility] 02/09/2025 19:04:24 5 81785 Therapeutic Exercise (1:1) completed CARLA OcampoT [address], [place], [address], [facility] 02/04/2025 10:07:04 5 64366: Low complexity PT Eval completed Raúl Cartagena DPT [address], [place], [address], [facility] 02/04/2025 10:07:12 5 G8420 BMI Normal, No Follow-Up Plan Required completed Raúl Cartagena DPT [address], [place], [address], [facility] 02/04/2025 10:07:19 5 G8427 Current Medication Documented completed Raúl Cartagena DPT [address], [place], [address], [facility] 02/04/2025 10:07:16 5 Sports Shoulder completed Kassandra Sherman PA-C [address], [place], [address], [facility] 01/13/2025 11:34:18 5 47584 Therapeutic Exercise (1:1) completed Raúl Cartagena DPT [address], [place], [address], [facility] 11/02/2024 20:05:38 5 76769: Manual therapy completed Raúl Cartagena DPT [address], [place], [address], [facility] 11/02/2024 20:05:43 5 Sports Shoulder completed Kassandra hSerman PA-C [address], [place], [address], [facility] 10/29/2024 09:08:25 5 51737 Therapeutic Exercise (1:1) cancelled Raúl Cartagena DPT [address], [place], [address], [facility] 10/27/2024 12:57:09 5 54767: Manual therapy cancelled Raúl Cartagena DPT [address], [place], [address], [facility] 10/27/2024 12:57:09 5 74500 Therapeutic Exercise (1:1) completed Raúl Cartagena DPT [address], [place], [address], [facility] 10/21/2024 10:16:11 5 80196: Manual therapy completed Raúl Cartagena DPT [address], [place], [address], [facility] 10/21/2024 10:16:11 5 24283 Therapeutic Exercise (1:1) completed Raúl Cartagena DPT [address], [place], [address], [facility] 10/13/2024 14:27:49 5 22496: Manual therapy completed Raúl Cartagena DPT [address], [place], [address], [facility] 10/13/2024 14:27:49 5 23194 Therapeutic Exercise (1:1) completed Raúl Cartagena DPT [address], [place], [address], [facility] 10/05/2024 19:57:27 5 83601: Manual therapy completed Raúl Cartagena DPT [address], [place], [address], [facility] 10/05/2024 19:57:30 5 63143 Therapeutic Exercise (1:1) completed Raúl Cartagena DPT [address], [place], [address], [facility] 09/30/2024 09:47:26 5 49512: Manual therapy completed Raúl Cartagena DPT [address], [place], [address], [facility] 09/30/2024 09:47:26 5 32359 Therapeutic Exercise (1:1) completed Raúl Cartagena DPT [address], [place], [address], [facility] 09/23/2024 20:49:19 5 91613: Manual therapy completed Raúl Cartagena DPT [address], [place], [address], [facility] 09/23/2024 08:39:03 5 15171 Therapeutic Exercise (1:1) cancelled Raúl Cartagena DPT [address], [place], [address], [facility] 09/17/2024 19:00:10 5 57618: Manual therapy cancelled Raúl Cartagena DPT [address], [place], [address], [facility] 09/17/2024 19:00:10 4 63120 Therapeutic Exercise (1:1) completed Raúl Cartagena DPT [address], [place], [address], [facility] 09/13/2024 21:24:50 4 93146: Manual therapy completed Raúl Cartagena DPT [address], [place], [address], [facility] 09/13/2024 21:24:50 4 88166 Therapeutic Exercise (1:1) cancelled Raúl Cartagena DPT [address], [place], [address], [facility] 09/03/2024 16:50:59 4 19885: Manual therapy cancelled Raúl Cartagena DPT [address], [place], [address], [facility] 09/03/2024 16:50:59 4 48430 Therapeutic Exercise (1:1) completed Raúl Cartagena DPT [address], [place], [address], [facility] 08/31/2024 19:30:21 4 53122: Manual therapy completed Raúl Cartagena DPT [address], [place], [address], [facility] 08/31/2024 19:30:21 4 43781 Therapeutic Exercise (1:1) completed Raúl Cartagena DPT [address], [place], [address], [facility] 08/30/2024 15:52:47 4 41491: Manual therapy completed Raúl Cartagena DPT [address], [place], [address], [facility] 08/30/2024 15:52:57 4 65105 Therapeutic Exercise (1:1) completed Raúl Cartagena DPT [address], [place], [address], [facility] 08/27/2024 22:34:40 4 62465: Low complexity PT Eval completed Raúl Cartagena DPT [address], [place], [address], [facility] 08/27/2024 22:34:30 4 G8420 BMI Normal, No Follow-Up Plan Required completed Raúl Cartagena DPT [address], [place], [address], [facility] 08/27/2024 22:34:47 4 G8427 Current Medication Documented completed Raúl Cartagena DPT [address], [place], [address], [facility] 08/27/2024 22:34:43 4 06713 Therapeutic Exercise (1:1) completed Raúl Cartagena DPT [address], [place], [address], [facility] 07/02/2024 16:38:56 03221: Manual therapy completed Raúl Cartagena DPT [address], [place], [address], [facility] 07/01/2024 15:17:35 4 23341 Therapeutic Exercise (1:1) completed Raúl Cartagena DPT [address], [place], [address], [facility] 06/24/2024 08:58:46 90438: Manual therapy completed Raúl Cartagena DPT [address], [place], [address], [facility] 06/25/2024 14:50:24 16892 Therapeutic Exercise (1:1) completed Raúl Cartagena DPT [address], [place], [address], [facility] 06/23/2024 13:36:54 21223: Manual therapy completed Raúl Cartagena DPT [address], [place], [address], [facility] 06/22/2024 10:06:02 4 69928 Therapeutic Exercise (1:1) completed Raúl Cartagena DPT [address], [place], [address], [facility] 06/18/2024 19:33:27 87650: Manual therapy completed Raúl Cartagena DPT [address], [place], [address], [facility] 06/18/2024 19:35:29 4 27947 Therapeutic Exercise (1:1) completed Raúl Cartagena DPT [address], [place], [address], [facility] 06/16/2024 17:00:59 4 87267: Manual therapy completed Raúl Cartagena DPT [address], [place], [address], [facility] 06/15/2024 20:15:51 4 42066 Therapeutic Exercise (1:1) completed Raúl Cartagena DPT [address], [place], [address], [facility] 06/09/2024 22:19:16 4 10257: Manual therapy completed Raúl Cartagena DPT [address], [place], [address], [facility] 06/11/2024 11:42:22 4 35711 Therapeutic Exercise (1:1) completed Raúl Cartagena DPT [address], [place], [address], [facility] 06/09/2024 15:20:26 4 71139: Manual therapy completed Raúl Cartagena DPT [address], [place], [address], [facility] 06/07/2024 20:27:32 4 76667 Therapeutic Exercise (1:1) completed Raúl Cartagena DPT [address], [place], [address], [facility] 06/04/2024 20:48:38 4 81782: Manual therapy completed Raúl Cartagena DPT [address], [place], [address], [facility] 06/04/2024 20:48:49 4 64561 Therapeutic Exercise (1:1) completed Raúl Cartagena DPT [address], [place], [address], [facility] 06/02/2024 11:09:49 4 94892: Low complexity PT Eval completed Raúl Cartagena DPT [address], [place], [address], [facility] 06/02/2024 11:09:52 4 G8420 BMI Normal, No Follow-Up Plan Required completed Raúl Cartagena DPT [address], [place], [address], [facility] 06/02/2024 11:09:44 4 G8427 Current Medication Documented completed Raúl Cartagena DPT [address], [place], [address], [facility] 06/02/2024 11:09:39 4 15150 Therapeutic Exercise (1:1) completed Raúl Cartagena DPT [address], [place], [address], [facility] 05/13/2024 16:14:46 4 19935: Low complexity PT Eval completed Raúl Cartagena DPT [address], [place], [address], [facility] 05/13/2024 16:14:50 4 G8420 BMI Normal, No Follow-Up Plan Required completed Raúl Cartagena DPT [address], [place], [address], [facility] 05/13/2024 16:15:07 4 G8427 Current Medication Documented completed Raúl Cartagena DPT [address], [place], [address], [facility] 05/13/2024 16:14:58 4 Knee Kenalog 40mg 2cc Injection, L/R completed Jeremiah Wilkerson MD [address], [place], [address], [facility] 03/10/2024 14:31:18 4 54500 Therapeutic Exercise (1:1) completed Ralú Cartagena DPT [address], [place], [address], [facility] 02/26/2024 19:45:18 4 93135: Manual therapy completed Raúl Cartagena DPT [address], [place], [address], [facility] 02/25/2024 22:36:23 4 [facility] completed Tylor Duran PA-C [address], [place], [address], [facility] 02/24/2024 15:08:57 4 89214 Therapeutic Exercise (1:1) completed Raúl Cartagena DPT [address], [place], [address], [facility] 02/23/2024 20:48:02 4 63228: Manual therapy completed Raúl Cartagena DPT [address], [place], [address], [facility] 02/24/2024 18:53:36 4 00567 Therapeutic Exercise (1:1) completed Raúl Cartagena DPT [address], [place], [address], [facility] 02/12/2024 22:21:23 4 88191: Manual therapy completed Raúl Cartagena DPT [address], [place], [address], [facility] 02/12/2024 22:19:44 4 52230 Therapeutic Exercise (1:1) completed Raúl Cartagena DPT [address], [place], [address], [facility] 02/09/2024 22:44:52 4 41579: Manual therapy completed Raúl Cartagena DPT [address], [place], [address], [facility] 02/11/2024 03:37:34 4 21087 Therapeutic Exercise (1:1) completed Raúl Cartagena DPT [address], [place], [address], [facility] 01/28/2024 13:26:19 4 Hip Kenalog Injection, L/R w/US completed Octavio Mayers PA-C [address], [place], [address], [facility] 01/23/2024 10:53:31 4 91096 Therapeutic Exercise (1:1) completed Inna Otoole [employer]ER [address], [place], [address], [facility] 01/21/2024 10:56:57 4 30726 Therapeutic Exercise (1:1) completed Inna Otoole PTA [address], [place], [address], [facility] 01/19/2024 11:50:11 4 55299: Manual therapy completed Inna Otoole PTA [address], [place], [address], [facility] 01/19/2024 11:57:19 4 93940 Therapeutic Exercise (1:1) completed Raúl Cartagena DPT [address], [place], [address], [facility] 01/13/2024 18:54:45 4 57687: Manual therapy completed Raúl Cartagena DPT [address], [place], [address], [facility] 01/14/2024 09:46:31 4 95645 Therapeutic Exercise (1:1) completed Raúl Cartagena DPT [address], [place], [address], [facility] 01/09/2024 22:38:33 4 54897: Manual therapy completed Raúl Cartagena DPT [address], [place], [address], [facility] 01/09/2024 22:38:33 4 79566 Therapeutic Exercise (1:1) completed Inna Otoole PTA [address], [place], [address], [facility] 01/06/2024 10:28:08 4 41427: Manual therapy completed Inna Otoole PTA [address], [place], [address], [facility] 01/06/2024 10:28:08 4 58202 Therapeutic Exercise (1:1) completed Raúl Cartagena DPT [address], [place], [address], [facility] 12/31/2023 10:37:58 4 24366: Manual therapy completed Raúl Cartagena DPT [address], [place], [address], [facility] 12/31/2023 10:37:55 4 07782 Therapeutic Exercise (1:1) completed Raúl Cartagena DPT [address], [place], [address], [facility] 12/29/2023 12:39:32 4 57009: Manual therapy completed Raúl Cartagena DPT [address], [place], [address], [facility] 12/29/2023 12:39:40 4 52430 Therapeutic Exercise (1:1) completed Raúl Cartagena DPT [address], [place], [address], [facility] 12/24/2023 12:44:23 4 48831: Low complexity PT Eval completed Raúl Cartagena DPT [address], [place], [address], [facility] 12/24/2023 12:44:28 4 G8420 BMI Normal, No Follow-Up Plan Required completed Raúl Cartagena DPT [address], [place], [address], [facility] 12/24/2023 12:44:42 4 G8427 Current Medication Documented completed Raúl Cartagena DPT [address], [place], [address], [facility] 12/24/2023 12:44:31 Imaging Results None recorded. Procedure Notes None recorded. Medical Equipment None Reported. Allergies Allergen ID Allergen Name Allergen Category Reaction Reaction Severity Criticality Documentation Date Start Date Code Code System Note Provider Name and Address Organization Details Recorded Time 421799 Percodan medicatio n Not available Not available Not available 11/24/20232018 06806 RxNorm Not Available [facility] 4 15:38:30 993617 clindamyc in hydrochlo ride medicatio n Not available Not available Not available 11/24/20232018 75876 RxNorm Not Available [facility] 4 15:38:30 587955 acetamino phen / oxycodone medicatio n Not available Not available Not available 11/24/20232018 69340 3 RxNorm Not Available [facility] 4 15:38:30 037252 fentanyl medicatio n Not available Not available Not available 07/23/2024 4337 [facility] 4 13:08:52 Medications Name Sig Start Date Stop Date Status Note LastModified by Organization Details LastModified Time Prescriptio n - Clarificati on 09/28 completed pigeon fancier 3-8-2 024 Not Available Not Available Not Available celecoxib 200 mg capsule TAKE 1 CAPSULE BY MOUTH EVERY DAY 2024 active Not Available Not Available Not Avai lable amoxicillin 500 mg capsule TK FOUR CS PO 1 HOUR B DAPP active Not Available Not Available No t [...] completed Not Available Not Available Not Available hydromorpho ne 2 mg tablet TAKE 1 TO 2 TABLETS BY MOUTH EVERY 4 HOURS active Not Available Not Available No t Available aspirin 325 mg tablet,juanita yed release [...] Available ondansetron 4 mg disintegrat ing tablet TAKE 1 TABLET EVERY 6 HOURS FOR NAUSEA. active Not Available Not Available No t Available naproxen 500 mg tablet TAKE 1 TABLET BY MOUTH TWICE DAILY 2024 active Not Available Not Available Not Avai lable amoxicillin 500 mg-potassiu m clavulanate 125 mg tablet TAKE 1 TABLET BY MOUTH TWICE DAILY FOR 10 DAYS 09/28 completed Not Available Not Available Not Available oxycodone 5 mg tablet Take 1 tablet every 4 hours by oral route as needed for 7 days, for pain. 07/07 completed Not Available Not Available Not Available Calcium-500 500 mg (as calcium carbonate 1,250 mg) tablet 1 tablet every day by oral route. 2023 active Not Available Not Available Not Avai labmiguel a moxifloxaci n 0.5 % eye drops INSTILL [...] Status Former Smoker Denia wilson [place] - [place] [facility] 07/02/2024 13:17:27 When Did You Quit Smoking? 16+yearssinc elastcigaret te Information not available 07/02/2024 What Is Your Relationship Status? Information not available 07/02/2024 How Many Years Have You Smoked Tobacco? 13 Information not available 07/02/2024 Sex: Unknown Functional Status Question Answer Note LastModified by Organizat ion Details LastModified Time How many times per week do you consume alcohol? 1-2 times per week [email or web address] Information not available 03/17/2025 Do you use [...] Diagnosis SNOMED-CT Code Diagnosis ICD10 Code Diagnosis IMO Codes Diagnosis Note [id number] CARLA OcampoT [facility] [address] [place] [address] 07/04/2025 10:26:14 07/04/2025 11:50:42 Aftercare [id number] Z47.1 Z96.195 [id number] Raúl Cartagena DPT [facility] [address] [place] [address] 07/06/2025 10:30:12 07/06/2025 11:03:30 Aftercare [id number] Z47.1 Z96.761 [id number] Tino Dunn, PL[employer]INUM [employer] PALLADIUM KETTLE TENDER [facility] [address] [place] [address] 07/12/2025 10:55:48 07/12/2025 11:37:01 Aftercare [id number] Z47.1 Z96.668 [id number] Raúl Cartagena DPT [facility] [address] [place] [address] 07/15/2025 13:00:40 07/15/2025 13:47:51 Aftercare [id number] Z47.1 Z96.240 [id number] Raúl Cartagena DPT [facility] [address] [place] [address] 07/19/2025 09:56:29 07/19/2025 10:33:11 Aftercare [id number] Z47.1 Z96.905 [id number] Raúl Cartagena DPT [facility] [address] [place] [address] 07/21/2025 09:55:32 07/21/2025 10:30:36 Aftercare [id number] Z47.1 Z96.520 [id number] Raúl Cartagena, DPT [facility] [address] [place] [address] 07/26/2025 11:21:50 07/26/2025 12:22:20 Aftercare [id number] Z47.1 Z96.526 [id number] Raúl Cartagena, DPT [facility] [address] [place] [address] 07/28/2025 11:29:10 07/28/2025 12:27:04 Aftercare [id number] Z47.1 Z96.410 [id number] Tino Dunn, [employer] PALL[employer]IUM KETTLE T[employer]ER [facility] [address] [place] [address] 08/01/2025 09:45:00 08/01/2025 10:53:58 Aftercare 183508124 Z47.1 Z96.612 Health Concerns Section Related Observation LastModified by Organization Detai ls LastModified Time None Recorded Concern Status LastModified by Organization Details LastModified Time None Recorded Payers Encounter Date Sequence Insurance Name Policy Number Policy Fuller Covered Member ID Fuller Member ID Guarantor Name 08/01/2025 2 WEB-[id number] Mary Beth Sanchez [id number] Mary Beth Sanchez 08/01/2025 1 [place] [facility] Mary Beth Sanchez [id number] Mary Beth Sanchez Notes Date Note Type Note Provider Name and Address Organization Details Recorded Time 08/01/2025 text/html Pt reports minor soreness. 11/01 pain. Tino Dunn, [employer] PALL[employer] KETTLE T[employer]ER [address], [place], [address], [facility] 08/01/2025 10:38:17 OBGyn Episode No OBEpisode recorded.
--- OUTSIDE RECORDS SUMMARY | 2025-08-02 09:01 | XMS_ITS | Clinical Summary ---
Author Organization [facility] Address [address] [place] [address] Phone Care Team Providers Care Note Keeper Name Role Phone Dexter Mills MD Primary [...] file Insurance MEDICARE PART A & B GENERIC COMMERCIAL [facility] Address: [address] [address] [place] [address] MEDICARE PART A & B COMMERCIAL Member Subscriber Plan / Payer ( fective 2023-) Name:Mary Beth Sanchez Relation to Subscriber:Self Name:Mary Beth Sanchez Payer ID:Not on file Group ID:Not on file Type:Indemnity Address: [id number] [place] [address] MEDICARE PART A & B MEDICARE PART A & B Member Subscriber Plan / Payer (Ef fective 2011-Present) Name:Mary Beth Sanchez Member ID:[id number] Relation to Subscriber:Self Name:JoselinenatalieMary Beth Subscriber ID:[id number] Payer ID:[id number] Group ID:Not on file Type:Medicare Address: [facility] [address] MEDICARE PART A & B GENERIC COMMERCIAL [address] [address] [place] [address] MEDICARE PART A & B MEDICARE PART A & B GENERIC COMMERCIAL MEDICARE PART A & B GENERIC COMMERCIAL Member Subscriber Plan / Payer ( fective 2023-Present) Name:Mary Beth Sanchez Relation to Subscriber:Self Name:Mary Beth Sanchez Payer ID:Not on file Group ID:Not on file Type:Indemnity Address: [address] [facility] [place] [address] MEDICARE PART A & [place] [address] Care Teams Note Keeper Relationship Specialty Start Date End Date Dexter Mills MD [address] [place] [address] [place] [address] PCP - General Internal Medicine 05/01/16 Additional Source Comments The information contained in this document represents components of the legal health record. It is not the complete legal health record.[facility]
--- OUTSIDE RECORDS SUMMARY | 2025-08-02 09:01 | XMS_ITS | Continuity of Care Document ---
Author Organization [place] [facility] [place] [facility], [place] - [facility] Address [address] [address] Care Team Providers Care Manager Cargo Name Role Phone MELALYNNELISA Referring Provider IZABELLA YODER Primary Care Provider [phone] Assessment Encounter Date Assessment Date Assessment LastModified by Organization Details LastModified Time 07/28/2025 07/28/2025 Assessment: Patient demonstrates gradual improvement with AROM in supine but ongoing challenge with AROM against gravity. Plan: Continue PT x2/week to improve ROM as per MD protocol. 2wks - PROM 3wks - D/C SLING, AAROM 4wks - DRIVE, AROM 8wks - RC/PS/ strength [id number] Not available 07/26/2025 19:43:12 Plan of Treatment Reminders Order Date Submit Date Provider Last Modified By Organization Details Last Modified Time Details Appointments PT FOLLOW-U P 2024 10:00A M Tino Dunn, EDGE SAWYER Not available Not available Not available PT FOLLOW-U P 2024 04:30P Pratik Cartagena DPT Not available Not available Not available PT FOLLOW-U P 2024 10:00A Pratik Cartagena DPT Not available Not available Not available PT FOLLOW-U P 2024 10:00A M Tino Dunn, EDGE SAWYER Not available Not available Not available PT FOLLOW-U P 2024 10:00A Pratik Cartagena DPT Not available Not available Not available PT FOLLOW-U P 2024 10:00A M Hongshin Osiel, DPT Not available Not available Not available RECHECK 10 2024 01:00P M Guzman Hamlin MD Not available Not available Not available PT FOLLOW-U P 2024 10:30A M Tino Scafuri, EDGE SAWYER Not available Not available Not available PT FOLLOW-U P 2024 10:30A M Tino Scafuri, EDGE SAWYER Not available Not available Not available PT FOLLOW-U P 2024 10:00A M Raúl Osiel, DPT Not available Not available Not available PT FOLLOW-U P 2024 10:00A M Raúl Cartagena, DPT Not available Not available Not available PT FOLLOW-U P 2024 10:00A M Tino Scafuri, EDGE SAWYER Not available Not available Not available PT FOLLOW-U P 2024 10:00A M Raúl Cartagena, DPT Not available Not available Not available PT FOLLOW-U P 2024 10:00A M Raúl Osiel, DPT Not available Not available Not available PT FOLLOW-U P 2025 10:30A M Tino Scafuri, EDGE SAWYER Not available Not available Not available PT FOLLOW-U P 2025 10:30A M Tino Scafuri, EDGE SAWYER Not available Not available Not available PT FOLLOW-U P 2025 10:30A M Raúl Cartagena, DPT Not available Not available Not available PT FOLLOW-U P 2025 10:30A M Raúl Osiel, DPT Not available Not available Not available PT FOLLOW-U P 2025 10:30A M Tino Scafuri, EDGE SAWYER Not available Not available Not available PT FOLLOW-U P 2025 10:30A M Tino Scafuri, EDGE SAWYER Not available Not available Not available PT [...] Abnormal Flag Note LastModifiedBy Organization Detail LastModifiedTime 06/30/2006/30/2025 XR, shoul shanon, 2 or more view http:/ [email or web address] ?Encry pted=s hAaTro YD8dLq bEUv6g %2BXZw aYqtaq 0bqfl% 2Fg9IQ a4ajBk vP9nXo QUaueC m3YtLR FvZlgJ JJ8mAn HZtai3 8s2041 AC0Klb XuAU6G kKiQtr MwF INTERFACE [facility] [address], [place], [address], 06/30/2025 11:37:27 06/30/2006/30/2025 XR, shoul shanon, 2 or more view [email or web address] ?Encry pted=s hAaTro YD8dLq bEUv6g %2BXZw aYqtaq 0bqfl% 2Fg9IQ a4ajBk vP9nXo QUaueC m3YtLR FvZlgJ JJ8mAn HZtai3 0c0497 AC0Klb XuAU6G kKiQtr MwF INTERFACE [facility] [address], [place], [address], 06/30/2025 11:37:29 Result Notes None recorded. Problems Name Problem SNOMED Code Status Onset Date Resolution Date Notes Provider Name and Address Organization Details Recorded Time Chondroma lacia of left patella 544868868193 106 Active 2018 Problem Code: M22.42; Problem Code Type: ICD-10; Status: 'A'; Not Available [facility] 4 11:42:38 Osteoarth ritis of hip 429992915 Active 2023 Octavio Mayers PA-C [address], [place], [address] , [facility] [place] [facility] 4 10:53:17 Osteoarth ritis of right hip joint 778640380146 107 Active 2023 ricardo wilson, [place] [facility] [place] [facility] 4 13:16:51 Osteoarth ritis of left knee joint 973623684510 109 Active 2023 Jeremiah Wilkerson MD [address], [place], [address] , [facility] 4 14:31:32 Osteoarth ritis of left hip joint 567917357304 108 Active 2023 Raúl Wilhelm MD [address], [place], [address] , [facility] 4 09:45:31 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 150236555612 100 Active 2023 Raúl Wilhelm MD [address], [place], [address] , [facility] 4 16:59:21 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 603137549613 9105 Active 2023 Raúl Wilhelm MD [address], [place], [address] , [facility] 5 14:29:08 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 287521324762 108 Active 2024 ИВАН wilson [facility] 5 12:11:14 Bilateral shoulder osteoarth ritis 939466027154 108 Active 2024 Janina wilson [facility] 5 10:46:10 Osteoarth ritis of right glenohume ral joint 364097362086 9101 Active 2024 Kassandra Sherman PA-C [address], [place], [address] , [facility] 5 11:36:05 Rupture of rotator cuff of left shoulder 223701956344 48493 Active 2024 [facility]IDGETT [facility] 11:36:53 Problem Notes None recorded. Procedures Surgical History Date Name Laterality Status Provider Name and Address Organization Details Recorded Time 00399 Therapeutic Exercise (1:1) completed Tino Dunn, EDGE SAWYER [address], [place], [address], [facility] 08/01/2025 10:36:48 54120: Manual therapy completed Tino Dunn PTA [address], [place], [address], [facility] 08/01/2025 10:36:48 96874 Therapeutic Exercise (1:1) completed Raúl Cartagena DPT [address], [place], [address], [facility] 07/26/2025 19:43:11 25884: Manual therapy completed Raúl Cartagena DPT [address], [place], [address], [facility] 07/26/2025 19:43:11 43944 Therapeutic Exercise (1:1) completed Raúl Cartagena DPT [address], [place], [address], [facility] 07/22/2025 17:07:16 59037: Manual therapy completed Raúl Cartagena DPT [address], [place], [address], [facility] 07/26/2025 15:56:59 16664 Therapeutic Exercise (1:1) completed Raúl Cartagena DPT [address], [place], [address], [facility] 07/21/2025 10:52:56 23616: Manual therapy completed Raúl Cartagena DPT [address], [place], [address], [facility] 07/21/2025 10:51:16 47195 Therapeutic Exercise (1:1) completed Raúl Cartagena DPT [address], [place], [address], [facility] 07/19/2025 15:07:33 90211: Manual therapy completed Raúl Cartagena DPT [address], [place], [address], [facility] 07/15/2025 21:07:55 60264 Therapeutic Exercise (1:1) completed Raúl Cartagena DPT [address] [facility], [place], [address], [facility] 07/14/2025 10:22:25 60103: Manual therapy completed Raúl Cartagena DPT [address], [place], [address], [facility] 07/14/2025 10:22:25 46292 Therapeutic Exercise (1:1) completed Tino Dunn PTA [address] [facility], [place], [address], [facility] 07/12/2025 12:31:41 03918: Manual therapy completed Tino Dunn PTA [address], [place], [address], [facility] 07/12/2025 12:31:41 08323 Therapeutic Exercise (1:1) completed Raúl Cartagena DPT [address], [place], [address], [facility] 07/06/2025 12:46:01 94666: Manual therapy completed Raúl Cartagena DPT [address], [place], [address], [facility] 07/06/2025 12:46:30 5 93070 Therapeutic Exercise (1:1) completed Raúl Cartagena DPT [address], [place], [address], [facility] 07/04/2025 10:59:51 5 21071: Low complexity PT Eval completed Raúl Cartagena DPT [address], [place], [address], [facility] 07/04/2025 10:59:47 5 G8420 BMI Normal, No Follow-Up Plan Required completed Raúl Cartagena DPT [address], [place], [address], [facility] 07/01/2025 12:19:03 5 G8427 Current Medication Documented completed Raúl Cartagena DPT [address], [place], [address], [facility] 07/01/2025 12:18:58 5 PM Shoulder Kenalog 2cc Injection Unilateral completed Guzman Hamlin MD [address], [place], [address], [facility] 03/17/2025 15:31:17 5 67179 Therapeutic Exercise (1:1) completed Tino Dunn PTA [address], [place], [address], [facility] 03/16/2025 11:16:59 5 33268: Manual therapy completed Tino Dunn EDGE SAWYER [address], [place], [address], [facility] 03/16/2025 11:16:59 5 13179 Therapeutic Exercise (1:1) completed Tino Dunn EDGE SAWYER [address], [place], [address], [facility] 03/10/2025 13:40:54 5 02575: Manual therapy completed Tino Scafuri, EDGE SAWYER [address], [place], [address], [facility] 03/10/2025 13:40:54 5 65463 Therapeutic Exercise (1:1) completed Tino Scafuri, EDGE SAWYER [address], [place], [address], [facility] 03/08/2025 12:24:44 5 32477: Manual therapy completed Tino Scafuri, EDGE SAWYER [address], [place], [address], [facility] 03/08/2025 12:24:44 5 37562 Therapeutic Exercise (1:1) completed Raúl Cartagena, DPT [address], [place], [address], [facility] 03/02/2025 12:54:00 5 41715: Manual therapy completed Raúl Cartagena DPT [address], [place], [address], [facility] 03/02/2025 12:53:57 5 63828 Therapeutic Exercise (1:1) completed Tino Scafuri, EDGE SAWYER [address], [place], [address], [facility] 02/23/2025 11:25:16 5 00709: Manual therapy completed Tino Scafuri, EDGE SAWYER [address], [place], [address], [facility] 02/23/2025 11:25:16 5 52876 Therapeutic Exercise (1:1) completed Tino Scafuri, EDGE SAWYER [address], [place], [address], [facility] 02/18/2025 11:48:06 5 92159: Manual therapy completed Tino Scafuri, EDGE SAWYER [address], [place], [address], [facility] 02/18/2025 11:48:06 5 73596 Therapeutic Exercise (1:1) completed Tino Dunn EDGE SAWYER [address], [place], [address], [facility] 02/16/2025 14:12:55 5 35686: Manual therapy completed Tino Dunn EDGE SAWYER [address], [place], [address], [facility] 02/16/2025 14:12:55 5 81151 Therapeutic Exercise (1:1) completed Raúl Cartagena DPT [address], [place], [address], [facility] 02/09/2025 19:04:18 5 10551: Manual therapy completed Raúl Cartagena DPT [address], [place], [address], [facility] 02/09/2025 19:04:24 5 48988 Therapeutic Exercise (1:1) completed Raúl Cartagena DPT [address] [facility], [place], [address], [facility] 02/04/2025 10:07:04 5 06010: Low complexity PT Eval completed Raúl Cartagena DPT [address], [place], [address], [facility] 02/04/2025 10:07:12 5 G8420 BMI Normal, No Follow-Up Plan Required completed Raúl Cartagena DPT [address], [place], [address], [facility] 02/04/2025 10:07:19 5 G8427 Current Medication Documented completed Raúl Cartagena DPT [address], [place], [address], [facility] 02/04/2025 10:07:16 5 Sports Shoulder completed Kassandra Shemran PA-C [address], [place], [address], [facility] 01/13/2025 11:34:18 5 93243 Therapeutic Exercise (1:1) completed Raúl Cartagena DPT [address], [place], [address], [facility] 11/02/2024 20:05:38 5 39658: Manual therapy completed Raúl Cartagena DPT [address], [place], [address], [facility] 11/02/2024 20:05:43 5 Sports Shoulder completed Kassandra Sherman PA-C [address], [place], [address], [facility] 10/29/2024 09:08:25 5 90619 Therapeutic Exercise (1:1) cancelled Raúl Cartagena DPT [address], [place], [address], [facility] 10/27/2024 12:57:09 5 63458: Manual therapy cancelled Raúl Cartagena DPT [address], [place], [address], [facility] 10/27/2024 12:57:09 5 36865 Therapeutic Exercise (1:1) completed Raúl Cartagena DPT [address], [place], [address], [facility] 10/21/2024 10:16:11 5 16816: Manual therapy completed Raúl Cartagena DPT [address], [place], [address], [facility] 10/21/2024 10:16:11 5 81842 Therapeutic Exercise (1:1) completed Raúl Cartagena DPT [address], [place], [address], [facility] 10/13/2024 14:27:49 5 97057: Manual therapy completed Raúl Cartagena DPT [address], [place], [address], [facility] 10/13/2024 14:27:49 5 74062 Therapeutic Exercise (1:1) completed Raúl Cartagena DPT [address], [place], [address], [facility] 10/05/2024 19:57:27 5 28515: Manual therapy completed Raúl Cartagena DPT [address], [place], [address], [facility] 10/05/2024 19:57:30 5 36791 Therapeutic Exercise (1:1) completed Raúl Cartagena DPT [address], [place], [address], [facility] 09/30/2024 09:47:26 5 95454: Manual therapy completed Raúl Cartagena DPT [address], [place], [address], [facility] 09/30/2024 09:47:26 5 66162 Therapeutic Exercise (1:1) completed Raúl Cartagena DPT [address], [place], [address], [facility] 09/23/2024 20:49:19 98380: Manual therapy completed Raúl Cartagena DPT [address], [place], [address], [facility] 09/23/2024 08:39:03 5 17207 Therapeutic Exercise (1:1) cancelled Raúl Cartagena DPT [address], [place], [address], [facility] [place] [facility] 09/17/2024 19:00:10 5 81601: Manual therapy cancelled Raúl Cartagena DPT [address], [place], [address], [facility] [place] [facility] 09/17/2024 19:00:10 4 85532 Therapeutic Exercise (1:1) completed Raúl Cartagena DPT [address], [place], [address], [facility] [place] [facility] 09/13/2024 21:24:50 4 39896: Manual therapy completed Raúl Cartagena DPT [address], [place], [address], [facility] [place] [facility] 09/13/2024 21:24:50 4 11837 Therapeutic Exercise (1:1) cancelled Raúl Cartagena DPT [address], [place], [address], [facility] [place] [facility] 09/03/2024 16:50:59 4 29278: Manual therapy cancelled Raúl Cartagena DPT [address], [place], [address], [facility] [place] [facility] 09/03/2024 16:50:59 4 94433 Therapeutic Exercise (1:1) completed Raúl Cartagena DPT [address], [place], [address], [facility] 08/31/2024 19:30:21 4 47898: Manual therapy completed Raúl Cartagena DPT [address], [place], [address], [facility] 08/31/2024 19:30:21 4 52772 Therapeutic Exercise (1:1) completed Raúl Cartagena DPT [address], [place], [address], [facility] 08/30/2024 15:52:47 4 31247: Manual therapy completed Raúl Cartagena DPT [address], [place], [address], [facility] 08/30/2024 15:52:57 4 10766 Therapeutic Exercise (1:1) completed Raúl Cartagena DPT [address], [place], [address], [facility] 08/27/2024 22:34:40 4 82580: Low complexity PT Eval completed Raúl Cartagena DPT [address], [place], [address], [facility] 08/27/2024 22:34:30 4 G8420 BMI Normal, No Follow-Up Plan Required completed Raúl Cartagena DPT [address], [place], [address], [facility] 08/27/2024 22:34:47 4 G8427 Current Medication Documented completed Raúl Cartagena DPT [address], [place], [address], [facility] 08/27/2024 22:34:43 4 80993 Therapeutic Exercise (1:1) completed Raúl Cartagena DPT [address], [place], [address], [facility] 07/02/2024 16:38:56 4 29654: Manual therapy completed Raúl Cartagena DPT [address], [place], [address], [facility] 07/01/2024 15:17:35 4 76276 Therapeutic Exercise (1:1) completed Raúl Cartagena DPT [address], [place], [address], [facility] 06/24/2024 08:58:46 4 78529: Manual therapy completed Raúl Cartagena DPT [address], [place], [address], [facility] 06/25/2024 14:50:24 4 58926 Therapeutic Exercise (1:1) completed Raúl Cartagena DPT [address], [place], [address], [facility] 06/23/2024 13:36:54 4 36973: Manual therapy completed Raúl Cartagena DPT [address], [place], [address], [facility] 06/22/2024 10:06:02 4 03275 Therapeutic Exercise (1:1) completed Raúl Cartagena DPT [address], [place], [address], [facility] 06/18/2024 19:33:27 4 58260: Manual therapy completed Raúl Cartagena DPT [address], [place], [address], [facility] 06/18/2024 19:35:29 4 70534 Therapeutic Exercise (1:1) completed Raúl Cartagena DPT [address], [place], [address], [facility] 06/16/2024 17:00:59 4 36111: Manual therapy completed Raúl Cartagena DPT [address], [place], [address], [facility] 06/15/2024 20:15:51 4 50189 Therapeutic Exercise (1:1) completed Raúl Cartagena DPT [address], [place], [address], [facility] 06/09/2024 22:19:16 4 88839: Manual therapy completed Raúl Cartagena DPT [address], [place], [address], [facility] 06/11/2024 11:42:22 4 23328 Therapeutic Exercise (1:1) completed Raúl Cartagena DPT [address], [place], [address], [facility] 06/09/2024 15:20:26 4 47579: Manual therapy completed Raúl Cartagena DPT [address], [place], [address], [facility] 06/07/2024 20:27:32 4 67685 Therapeutic Exercise (1:1) completed Raúl Cartagena DPT [address], [place], [address], [facility] 06/04/2024 20:48:38 4 49883: Manual therapy completed Raúl Cartagena DPT [address], [place], [address], [facility] 06/04/2024 20:48:49 4 13065 Therapeutic Exercise (1:1) completed Raúl Cartagena DPT [address], [place], [address], [facility] 06/02/2024 11:09:49 4 87354: Low complexity PT Eval completed Raúl Cartagena DPT [address], [place], [address], [facility] 06/02/2024 11:09:52 4 G8420 BMI Normal, No Follow-Up Plan Required completed Raúl Cartagena DPT [address], [place], [address], [facility] 06/02/2024 11:09:44 4 G8427 Current Medication Documented completed Raúl Cartagena DPT [address], [place], [address], [facility] 06/02/2024 11:09:39 4 47301 Therapeutic Exercise (1:1) completed Raúl Cartagena DPT [address], [place], [address], [facility] 05/13/2024 16:14:46 4 09989: Low complexity PT Eval completed Raúl Cartagena DPT [address], [place], [address], [facility] 05/13/2024 16:14:50 4 G8420 BMI Normal, No Follow-Up Plan Required completed Raúl Cartagena DPT [address], [place], [address], [facility] 05/13/2024 16:15:07 4 G8427 Current Medication Documented completed Raúl Cartagena DPT [address], [place], [address], [facility] 05/13/2024 16:14:58 4 Knee Kenalog 40mg 2cc Injection, L/R completed Jeremiah Wilkerson MD [address], [place], [address], [facility] 03/10/2024 14:31:18 4 73816 Therapeutic Exercise (1:1) completed Raúl Cartagena DPT [address], [place], [address], [facility] 02/26/2024 19:45:18 4 03405: Manual therapy completed Raúl Cartagena DPT [address], [place], [address], [facility] 02/25/2024 22:36:23 4 JZHip completed Tylor Duran PA-C [address], [place], [address], [facility] 02/24/2024 15:08:57 4 16781 Therapeutic Exercise (1:1) completed Raúl Cartagena DPT [address], [place], [address], [facility] 02/23/2024 20:48:02 4 02953: Manual therapy completed Raúl Cartagena DPT [address], [place], [address], [facility] 02/24/2024 18:53:36 4 17780 Therapeutic Exercise (1:1) completed Raúl Cartagena DPT [address], [place], [address], [facility] 02/12/2024 22:21:23 4 20254: Manual therapy completed Raúl Cartagena DPT [address], [place], [address], [facility] 02/12/2024 22:19:44 4 43511 Therapeutic Exercise (1:1) completed Raúl Cartagena DPT [address], [place], [address], [facility] 02/09/2024 22:44:52 4 02623: Manual therapy completed Raúl Cartagena DPT [address], [place], [address], [facility] 02/11/2024 03:37:34 4 00786 Therapeutic Exercise (1:1) completed Raúl Cartagena DPT [address], [place], [address], [facility] 01/28/2024 13:26:19 4 Hip Kenalog Injection, L/R w/US completed Octavio Mayers PA-C [address], [place], [address], [facility] 01/23/2024 10:53:31 4 81063 Therapeutic Exercise (1:1) completed Inna Otoole EDGE SAWYER [address], [place], [address], [facility] 01/21/2024 10:56:57 4 74371 Therapeutic Exercise (1:1) completed Inna Otoole EDGE SAWYER [address], [place], [address], [facility] 01/19/2024 11:50:11 4 02261: Manual therapy completed Inna Otoole EDGE SAWYER [address], [place], [address], [facility] 01/19/2024 11:57:19 4 24994 Therapeutic Exercise (1:1) completed Raúl Cartagena DPT [address], [place], [address], [facility] 01/13/2024 18:54:45 4 68871: Manual therapy completed Raúl Cartagena DPT [address], [place], [address], [facility] 01/14/2024 09:46:31 4 31334 Therapeutic Exercise (1:1) completed Raúl Cartagena DPT [address], [place], [address], [facility] 01/09/2024 22:38:33 4 09434: Manual therapy completed Raúl Cartagena DPT [address], [place], [address], [facility] 01/09/2024 22:38:33 4 02141 Therapeutic Exercise (1:1) completed Inna Otoole, EDGE SAWYER [address], [place], [address], [facility] 01/06/2024 10:28:08 4 78052: Manual therapy completed Inna Otoole PTA [address], [place], [address], [facility] 01/06/2024 10:28:08 4 07984 Therapeutic Exercise (1:1) completed Raúl Cartagena DPT [address], [place], [address], [facility] 12/31/2023 10:37:58 4 23769: Manual therapy completed Raúl Cartagena DPT [address], [place], [address], [facility] 12/31/2023 10:37:55 4 61562 Therapeutic Exercise (1:1) completed Raúl Cartagena DPT [address], [place], [address], [facility] 12/29/2023 12:39:32 4 46289: Manual therapy completed Raúl Cartagena DPT [address], [place], [address], [facility] 12/29/2023 12:39:40 4 23563 Therapeutic Exercise (1:1) completed Raúl Cartagena DPT [address], [place], [address], [facility] 12/24/2023 12:44:23 4 34875: Low complexity PT Eval completed Raúl Cartagena DPT [address], [place], [address], [facility] 12/24/2023 12:44:28 4 G8420 BMI Normal, No Follow-Up Plan Required completed Raúl Cartagena DPT [address], [place], [address], [facility] 12/24/2023 12:44:42 4 G8427 Current Medication Documented completed Raúl Cartagena DPT [address], [place], [address], [facility] 12/24/2023 12:44:31 Imaging Results None recorded. Procedure Notes None recorded. Medical Equipment None Reported. Allergies Allergen ID Allergen Name Allergen Category Reaction Reaction Severity Criticality Documentation Date Start Date Code Code System Note Provider Name and Address Organization Details Recorded Time 729387 Percodan medicatio n Not available Not available Not available 11/24/20232018 15423 RxNorm Not Available [facility] 4 15:38:30 967603 clindamyc in hydrochlo ride medicatio n Not available Not available Not available 11/24/20232018 73489 RxNorm Not Available [facility] 4 15:38:30 590138 acetamino phen / oxycodone medicatio n Not available Not available Not available 11/24/20232018 43948 3 RxNorm Not Available [facility] 4 15:38:30 941844 fentanyl medicatio n Not available Not available Not available 07/23/2024 4337 RxNorm Cari wilson [place] - [place] 4 13:08:52 Medications Name Sig Start Date Stop Date Status Note LastModified by Organization Details LastModified Time Prescriptio n - Clarificati on 09/28 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 16+yearssinc elastcigaret te Information not available 07/02/2024 What Is Your Relationship Status? Information not available 07/02/2024 How Many Years Have You Smoked Tobacco? 13 Information not available 07/02/2024 Sex: Unknown Functional Status Question Answer Note LastModified by Organizat ion Details LastModified Time How many times per week do you consume alcohol? 1-2 times per week Information not available 03/17/2025 Do you use any illicit or recreational drugs? No Information not available 07/02/2024 Do you or have you ever used any other forms of tobacco or nicotine? No Information not available 07/02/2024 What is your level of alcohol consumption? Occasional [id number] Information not available 03/17/2025 Do you or have you ever used e-cigarettes or vape? Never used electronic cigarettes Information not available 07/02/2024 Mental Status None recorded. Family History Nothing Reported. Medical History Condition Response Anxiety/Depression Y Arthritis Y Acid Reflux (GERD) Y Cholesterol Y Hypertension Y Gynecological HistoryNo gynecological history recorded. Obstetrics History GPAL:G 0 P 0 0 0 0 Past Encounters Encounter ID Performer Location Encounter Start Date Encounter Closed Date Diagnosis/Indication Diagnosis SNOMED-CT Code Diagnosis ICD10 Code Diagnosis IMO Codes Diagnosis Note [id number] ESTEFANIA James 2nd floor [address] [place] [address] 06/30/2025 10:53:20 07/08/2025 13:44:19 History of total arthroplasty of left shoulder 8169733513 8527109 Z96.612 [id number] Raúl Cartgaena, DPT [facility] [address] [place] [address] 07/04/2025 10:26:14 07/04/2025 11:50:42 Aftercare 849781227 Z47.1 Z96.828 [id number] Raúl Cartagena, DPT [facility] [address] [place] [address] 07/06/2025 10:30:12 07/06/2025 11:03:30 Aftercare 029554038 Z47.1 Z96.623 [id number] Tino Dunn, EDGE SAWYER [facility] [address] [place] [address] 07/12/2025 10:55:48 07/12/2025 11:37:01 Aftercare 886406990 Z47.1 Z96.194 [id number] Raúl Cartagena DPT [facility] [address] [place] [address] 07/15/2025 13:00:40 07/15/2025 13:47:51 Aftercare 725276546 Z47.1 Z96.004 [id number] Raúl Cartagena DPT [facility] [address] [place] [address] 07/19/2025 09:56:29 07/19/2025 10:33:11 Aftercare 683352952 Z47.1 Z96.100 [id number] Raúl Cartagena DPT [facility] [address] [place] [address] 07/21/2025 09:55:32 07/21/2025 10:30:36 Aftercare 660233872 Z47.1 Z96.666 [id number] Raúl Cartagena DPT [facility] [address] [place] [address] 07/26/2025 11:21:50 07/26/2025 12:22:20 Aftercare 116066157 Z47.1 Z96.632 [id number] DILIP Ocampo [facility] [address] [place] [address] 07/28/2025 11:29:10 07/28/2025 12:27:04 Aftercare 763544413 Z47.1 Z96.612 Health Concerns Section Related Observation LastModified by Organization Detai ls LastModified Time None Recorded Concern Status LastModified by Organization Details LastModified Time None Recorded Payers Encounter Date Sequence Insurance Name Policy Number Policy Fuller Covered Member ID Fuller Member ID Guarantor Name 07/28/2025 2 WEB[employer][id number] Mary Beth Sanchez [id number] Mary Beth Sanchez 07/28/2025 1 MEDICARE B-SC: MEDICINE [facility] [employer] Mary Beth Sanchez [id number] Mary Beth Sanchez Notes Date Note Type Note Provider Name and Address Organization Details Recorded Time 07/28/2025 text/html Pt reports feeling occasional pain in the biceps region. Patient uses her arm without pain more in her daily living.Pains 3/10 at rest Raúl Cartagena DPT [address], [place], [address], [facility] 07/28/2025 13:30:52 OBGyn Episode No OBEpisode recorded.
--- OUTSIDE RECORDS SUMMARY | 2025-08-02 09:01 | XMS_ITS | Patient Health Record ---
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 Name Role Phone Lina (RETIRED) Dexter GALLARDO Primary Care Provide r Unavailable Amarjit Lindsay Unavailable [phone] Allergies Allergen (clinical drug ingredient) Drug/Non Drug [...] Problem Status W/U Status Risk Notes Problem Screening for malignant neoplasm of colon (616750534) Encounter for screening for malignant neoplasm of colon (Z12.11) Active confirmed Problem Preprocedural examination (384222552836453) Preprocedural examination (Z01.818) Active confirmed Problem Family History of Cancer of Colon (Situation) (744908022) Family history of colon cancer (Z80.0) Active confirmed Problem Clostridium difficile infection (300912526) Clostridium difficile infection (B96.89) Active confirmed Plan Of Treatment Pending Test Test Name Order Date CLOSTRIDIUM DIFF TOXIN A&B (C DIFF) 08/23 Future Test Test Name Order Date COLONOSCOPY 08/19/2012 COLONOSCOPY 02/24/2018 Insurance Providers Payer Name Payer Address Payer Phone Subscriber Number Group Number Insured Name Patient Relationship to Insured Coverage Start Date Coverage End Date MEDICARE OF [place] [address] [place] [id number] KAILA PACHECO Self - patient is the insured [employer] [address] [place] [address] [id number] KAILA PACHECO Self - patient is the insured Medical (General) History Medical History History ICD Code GERD-EGD in 2006--moderate s ized hiatal hernia, but no significant esophagitis or Marrero's esophagus HTN--currently not on any medication Diverticulosis Polymyalgia rheumatica-quiescent Migraines Elevated cholesterol Denies AR,DM,CVA,Lung disease,renal dise ase 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
--- OUTSIDE RECORDS SUMMARY | 2025-08-02 09:02 | XMS_ITS | Encounter Summary ---
Author Organization [facility] Address [address] [place] [address] Phone Care Team Providers Care Efficiency Miner Blasting Name Role Phone Dexter Mills MD Primary Care Provider Encounter Details Date Type Department Care Team (Late st Contact Info) Description 03/10/2024 Procedure Pass [facility], [address] [address] Social History Tobacco Use Types Packs/Day Years [...] on filedocumented in this encounter Care Teams Efficiency Miner Blasting Relationship Specialty Start Date End Date Dexter Mills MD [address] [place] [address] [place] [address] PCP - General Internal Medicine 05/01/16 documented as of this encounter Additional Source Comments The information contained in this document represents components of the legal health record. It is not the complete legal health record.[facility]
--- OUTSIDE RECORDS SUMMARY | 2025-08-02 09:02 | XMS_ITS | Encounter Summary ---
Author Organization [facility] Address [address] [place] [address] Phone Care Team Providers Care Bill Clerk Name Role Phone Dexter Mills MD Primary Care Provider Reason for Referral * MRI/CAT Scan - Closed Specialty Diagnoses / Procedures Referred By Contac t Referred To Contact Radiology Diagnoses Other spondylosis with radiculopathy, lumbar region Procedures MRI Lumbar Spine Chelle Nagel PA [address] [place] [address] Phone: tel: fax: [email or web address] Referral ID Status Reason Start Date Expiration Date Visits Re quested Visits Authorized [id number] Closed 03/10/2024 03/10/2025 1 1 Encounter Details Date Type Department Care Team (Latest Contact Info) Description 03/10/2024 Transcribe Orders Virtual Department [address] [place] [address] Chelle Nagel PA [address] [place] [address] [email or web address] Other spondylosis with radiculopathy, lumbar [...] region documented in this encounter Care Teams Bill Clerk Relationship Specialty Start Date End Date Dexter Mills MD [address] [place] [address] [place] [address] PCP - General Internal Medicine 05/01/16 documented as of this encounter Additional Source Comments The information contained in this document represents components of the legal health record. It is not the complete legal health record.[facility]
--- OUTSIDE RECORDS SUMMARY | 2025-08-02 09:02 | XMS_ITS | Encounter Summary ---
Author Organization [facility] Address [facility] [address] [place] [address] Phone Care Team Providers Care Research Manufacturing Operator Name Role Phone Dexter Mills MD Primary Care Provider Encounter Details Date Type Department Care Team (Late st Contact Info) Description 04/03/2023 Ancillary Orders [facility], X-Ray - [address] [address] Chelle Nagel PA [address] [place] [address] [email or web address] Radiculopathy, lumbar region Social History Tobacco Use [...] unspecified documented in this encounter Care Teams Research Manufacturing Operator Relationship Specialty Start Date End Date Dexter Mills MD [address] [place] [address] [place] [address] PCP - General Internal Medicine 05/01/16 documented as of this encounter Additional Source Comments The information contained in this document represents components of the legal health record. It is not the complete legal health record.[facility]
--- OUTSIDE RECORDS SUMMARY | 2025-08-02 09:02 | XMS_ITS | Data Portability ---
Author Organization [facility], [facility] [place] Address [address] [place] [address] Care Team Providers Care Metal Tank Erector Name Role Phone ELISA THOMPSON Referring Provider [phone] IZABELLA YODER Primary Care Provider Assessment Encounter Date Assessment Date Assessment LastModified by Organization Details LastModified Time 07/19/2025 07/19/2025 Assessment: Patient continues to make progress in ROM in flexion and ER ROM. Initiated AROM as per MD protocol. Plan: Continue PT x2/week to improve ROM as per MD protocol. 2wks - PROM 3wks - D/C SLING, AAROM 4wks - DRIVE, AROM 8wks - RC/PS/ strength [email or web address] Not available 07/19/2025 15:08:14 07/21/2025 07/21/2025 Assessment: Patient continues to make progress in ROM in flexion and ER ROM. Gradually improving AROM in supine position. Plan: Continue PT x2/week to improve ROM as per MD protocol. 2wks - PROM 3wks - D/C SLING, AAROM 4wks - DRIVE, AROM 8wks - RC/PS/ strength [email or web address] Not available 07/21/2025 10:52:41 07/26/2025 07/26/2025 Assessment: Patient demonstrates gradual improvement with AROM in supine but ongoing challenge with AROM against gravity. Plan: Continue PT x2/week to improve ROM as per MD protocol. 2wks - PROM 3wks - D/C SLING, AAROM 4wks - DRIVE, AROM 8wks - RC/PS/ strength [email or web address] Not available 07/26/2025 15:56:48 07/28/2025 07/28/2025 Assessment: Patient demonstrates gradual improvement with AROM in supine but ongoing challenge with AROM against gravity. Plan: Continue PT x2/week to improve ROM as per MD protocol. 2wks - PROM 3wks - D/C SLING, AAROM 4wks - DRIVE, AROM 8wks - RC/PS/ strength [email or web address] Not available 07/26/2025 19:43:12 08/01/2025 08/01/2025 Assessment: Tight end feel flexion. [...] FOLLOW-U P 2024 10:00A M Tino Dunn, STENCIL MAKER Not available Not available Not available PT FOLLOW-U P 2024 04:30P M Raúl Cartagena DPT Not available Not available Not available PT FOLLOW-U P 2024 10:00A M Raúl Cartagena DPT Not available Not available Not available PT FOLLOW-U P 2024 10:00A M Tino Dunn, STENCIL MAKER Not available Not available Not available PT FOLLOW-U P 2024 10:00A M Raúl Cartagena DPT Not available Not available Not available PT FOLLOW-U P 2024 10:00A M Raúl Cartagena DPT Not available Not available Not available RECHECK 10 2024 01:00P M Guzman Hamlin MD Not available Not available Not available PT FOLLOW-U P 2024 10:30A M Tino Clemonsri, STENCIL MAKER Not available Not available Not available PT FOLLOW-U P 2024 10:30A M Tino Moralesfuri, STENCIL MAKER Not available Not available Not available PT FOLLOW-U P 2024 10:00A M Raúl Cartagena DPT Not available Not available Not available PT FOLLOW-U P 2024 10:00A M Raúl Cartagena, DPT Not available Not available Not available PT FOLLOW-U P 2024 10:00A M Tino Moralesfuri, STENCIL MAKER Not available Not available Not available PT FOLLOW-U P 2024 10:00A M Raúl Cartagena, DPT Not available Not available Not available PT FOLLOW-U P 2024 10:00A M Raúl Cartagena, DPT Not available Not available Not available PT FOLLOW-U P 2025 10:30A M Tino Moralesfuri, STENCIL MAKER Not available Not available Not available PT FOLLOW-U P 2025 10:30A M Tino Moralesfuri, STENCIL MAKER Not available Not available Not available PT FOLLOW-U P 2025 10:30A M Raúl Cartagena, DPT Not available Not available Not available PT FOLLOW-U P 2025 10:30A M Raúl Cartagena, DPT Not available Not available Not available PT FOLLOW-U P 2025 10:30A M Tino Moralesfuri, STENCIL MAKER Not available Not available Not available PT FOLLOW-U P 2025 10:30A M Tino Moralesfuri, STENCIL MAKER Not available Not available Not available PT [...] Flag Note LastModifiedBy Organization Detail LastModifiedTime 06/30/2006/30/2025 niall BENNETT, 2 or more view [email or web address]:/ [email or web address] ?Encry pted=s hAaTro YD8dLq bEUv6g %2BXZw aYqtaq 0bqfl% 2Fg9IQ a4ajBk vP9nXo QUaueC m3YtLR FvZlgJ JJ8mAn HZtai3 8g7560 AC0Klb XuAU6G kKiQtr MwF INTERFACE [facility] [address], [place], [address], 06/30/2025 11:37:27 06/30/20 25 06/30/2025 niall BENNETT, 2 or more view [email or web address] ?Encry pted=s hAaTro YD8dLq bEUv6g %2BXZw aYqtaq 0bqfl% 2Fg9IQ a4ajBk vP9nXo QUaueC m3YtLR FvZlgJ JJ8mAn HZtai3 7g4687 AC0Klb XuAU6G kKiQtr MwF INTERFACE [facility] [address], [place], [address], 06/30/2025 11:37:29 Result Notes None recorded. Problems Name Problem SNOMED Code Status Onset Date Resolution Date Notes Provider Name and Address Organization Details Recorded Time Chondroma lacia of left patella 516049516104 106 Active 2018 Problem Code: M22.42; Problem Code Type: ICD-10; Status: 'A'; Not Available [facility] 4 11:42:38 Osteoarth ritis of hip 341294936 Active 2023 Octavio Mayers PA-C [address], [place], [address] , [facility] 4 10:53:17 Osteoarth ritis of right hip joint 747704961855 107 Active 2023 ricardo wilson [place] - [facility] 4 13:16:51 Osteoarth ritis of left knee joint 614846772842 109 Active 2023 Jeremiah Wilkerson MD [address], [place], [address] , [facility] 4 14:31:32 Osteoarth ritis of left hip joint 557388463946 108 Active 2023 Raúl Wilhelm MD 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 220647388675 9105 Active 2023 Raúl Wilhelm MD [address], [place], [address] , [facility] 5 14:29:08 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, [place], [address] , [facility] 5 11:36:05 Rupture of rotator cuff of left shoulder 210829655930 78450 Active 2024 ИВАН wilson [facility] 5 11:36:53 Problem Notes None recorded. Procedures Surgical History Date Name Laterality Status Provider Name and Address Organization Details Recorded Time 5 28536 Therapeutic Exercise (1:1) completed Tino Dunn PTA [address], [place], [address], [facility] 08/01/2025 10:36:48 5 52929: Manual therapy completed Tino Dunn, STENCIL MAKER [address], [place], [address], [facility] 08/01/2025 10:36:48 28719 Therapeutic Exercise (1:1) completed Raúl Cartagena DPT [address], [place], [address], [facility] 07/26/2025 19:43:11 5 07105: Manual therapy completed Raúl Cartagena DPT [address], [place], [address], [facility] 07/26/2025 19:43:11 48287 Therapeutic Exercise (1:1) completed Raúl Cartagena DPT [address], [place], [address], [facility] 07/22/2025 17:07:16 55265: Manual therapy completed Raúl Cartagena DPT [address], [place], [address], [facility] 07/26/2025 15:56:59 02707 Therapeutic Exercise (1:1) completed Raúl Cartagena DPT [address], [place], [address], [facility] 07/21/2025 10:52:56 28643: Manual therapy completed Raúl Cartagena DPT [address], [place], [address], [facility] 07/21/2025 10:51:16 94911 Therapeutic Exercise (1:1) completed Raúl Cartagena DPT [address], [place], [address], [facility] 07/19/2025 15:07:33 86285: Manual therapy completed Raúl Cartagena DPT [address], [place], [address], [facility] 07/15/2025 21:07:55 27675 Therapeutic Exercise (1:1) completed Raúl Cartagena DPT [address], [place], [address], [facility] 07/14/2025 10:22:25 02825: Manual therapy completed Raúl Cartagena DPT [address], [place], [address], [facility] 07/14/2025 10:22:25 48280 Therapeutic Exercise (1:1) completed Tino Dunn PTA [address] [facility], [place], [address], [facility] 07/12/2025 12:31:41 95229: Manual therapy completed Tino Dunn PTA [address], [place], [address], [facility] 07/12/2025 12:31:41 91053 Therapeutic Exercise (1:1) completed Raúl Cartagena DPT [address], [place], [address], [facility] 07/06/2025 12:46:01 97989: Manual therapy completed Raúl Cartagena DPT [address], [place], [address], [facility] 07/06/2025 12:46:30 02799 Therapeutic Exercise (1:1) completed Raúl Cartagena DPT [address] [facility], [place], [address], [facility] 07/04/2025 10:59:51 85266: Low complexity PT Eval completed Raúl Cartagena DPT [address], [place], [address], [facility] 07/04/2025 10:59:47 5 G8420 BMI Normal, No Follow-Up Plan Required completed Raúl Cartagena DPT [address], [place], [address], [facility] 07/01/2025 12:19:03 5 G8427 Current Medication Documented completed Raúl Cartagena DPT [address], [place], [address], [facility] 07/01/2025 12:18:58 5 PM Shoulder Kenalog 2cc Injection Unilateral completed Guzman Hamlin MD [address], [place], [address], [facility] 03/17/2025 15:31:17 5 99017 Therapeutic Exercise (1:1) completed Tino Dunn, STENCIL MAKER [address], [place], [address], [facility] 03/16/2025 11:16:59 5 78011: Manual therapy completed Tino Dunn, STENCIL MAKER [address], [place], [address], [facility] 03/16/2025 11:16:59 5 81191 Therapeutic Exercise (1:1) completed Tino Dunn, STENCIL MAKER [address], [place], [address], [facility] 03/10/2025 13:40:54 5 02993: Manual therapy completed Tino Clemonsri, STENCIL MAKER [address], [place], [address], [facility] 03/10/2025 13:40:54 5 33018 Therapeutic Exercise (1:1) completed Tinokimberly Moralesfuri, STENCIL MAKER [address], [place], [address], [facility] 03/08/2025 12:24:44 5 77558: Manual therapy completed Tino Scafuri, STENCIL MAKER [address], [place], [address], [facility] 03/08/2025 12:24:44 5 25559 Therapeutic Exercise (1:1) completed Raúl Cartagena, DPT [address], [place], [address], [facility] 03/02/2025 12:54:00 5 16566: Manual therapy completed Raúl Cartagena DPT [address], [place], [address], [facility] 03/02/2025 12:53:57 5 38398 Therapeutic Exercise (1:1) completed Tino Scafuri, STENCIL MAKER [address], [place], [address], [facility] 02/23/2025 11:25:16 5 82324: Manual therapy completed Tino Scafuri, STENCIL MAKER [address], [place], [address], [facility] 02/23/2025 11:25:16 5 26046 Therapeutic Exercise (1:1) completed Tino Scafuri, STENCIL MAKER [address], [place], [address], [facility] 02/18/2025 11:48:06 5 24148: Manual therapy completed Tino Scafuri, STENCIL MAKER [address], [place], [address], [facility] 02/18/2025 11:48:06 5 16203 Therapeutic Exercise (1:1) completed Tino Scafuri, STENCIL MAKER [address], [place], [address], [facility] 02/16/2025 14:12:55 5 84840: Manual therapy completed Tino Scafuri, STENCIL MAKER [address], [place], [address], [facility] 02/16/2025 14:12:55 5 71338 Therapeutic Exercise (1:1) completed Raúl Cartagena DPT [address], [place], [address], [facility] 02/09/2025 19:04:18 5 16214: Manual therapy completed Raúl Cartagena DPT [address], [place], [address], [facility] 02/09/2025 19:04:24 5 82907 Therapeutic Exercise (1:1) completed Raúl Cartagena DPT [address], [place], [address], [facility] 02/04/2025 10:07:04 5 74472: Low complexity PT Eval completed Raúl Cartagena DPT [address] [facility], [place], [address], [facility] 02/04/2025 10:07:12 5 G8420 BMI Normal, No Follow-Up Plan Required completed Raúl Cartagena DPT [address], [place], [address], [facility] 02/04/2025 10:07:19 5 G8427 Current Medication Documented completed Raúl Cartagena DPT [address], [place], [address], [facility] 02/04/2025 10:07:16 5 Sports Shoulder completed Kassandra Sherman PA-C [address] [facility], [place], [address], [facility] 01/13/2025 11:34:18 5 04984 Therapeutic Exercise (1:1) completed Raúl Cartagena DPT [address], [place], [address], [facility] 11/02/2024 20:05:38 5 94405: Manual therapy completed Raúl Cartaegna DPT [address], [place], [address], [facility] 11/02/2024 20:05:43 5 Sports Shoulder completed Kassandra Sherman PA-C [address], [place], [address], [facility] 10/29/2024 09:08:25 5 66593 Therapeutic Exercise (1:1) cancelled Raúl Cartagena DPT [address], [place], [address], [facility] 10/27/2024 12:57:09 5 83565: Manual therapy cancelled Raúl Cartagena DPT [address], [place], [address], [facility] 10/27/2024 12:57:09 5 70798 Therapeutic Exercise (1:1) completed Raúl Cartagena DPT [address], [place], [address], [facility] 10/21/2024 10:16:11 5 20892: Manual therapy completed Raúl Cartagena DPT [address], [place], [address], [facility] 10/21/2024 10:16:11 5 70848 Therapeutic Exercise (1:1) completed Raúl Cartagena DPT [address], [place], [address], [facility] 10/13/2024 14:27:49 5 94623: Manual therapy completed Raúl Cartagena DPT [address], [place], [address], [facility] 10/13/2024 14:27:49 5 94116 Therapeutic Exercise (1:1) completed Raúl Cartagena DPT [address], [place], [address], [facility] 10/05/2024 19:57:27 5 97995: Manual therapy completed Raúl Cartagena DPT [address], [place], [address], [facility] 10/05/2024 19:57:30 5 51290 Therapeutic Exercise (1:1) completed Raúl Cartagena DPT [address], [place], [address], [facility] 09/30/2024 09:47:26 5 50974: Manual therapy completed Raúl Cartagena DPT [address], [place], [address], [facility] 09/30/2024 09:47:26 5 14645 Therapeutic Exercise (1:1) completed Raúl Cartagena DPT [address], [place], [address], [facility] 09/23/2024 20:49:19 5 21172: Manual therapy completed Raúl Cartagena DPT [address], [place], [address], [facility] 09/23/2024 08:39:03 5 84550 Therapeutic Exercise (1:1) cancelled Raúl Cartagena DPT [address], [place], [address], [facility] 09/17/2024 19:00:10 5 91189: Manual therapy cancelled Raúl Cartagena DPT [address], [place], [address], [facility] 09/17/2024 19:00:10 4 41417 Therapeutic Exercise (1:1) completed Raúl Cartagena DPT [address], [place], [address], [facility] 09/13/2024 21:24:50 4 80448: Manual therapy completed Raúl Cartagena DPT [address], [place], [address], [facility] 09/13/2024 21:24:50 4 08018 Therapeutic Exercise (1:1) cancelled Raúl Cartagena DPT [address], [place], [address], [facility] 09/03/2024 16:50:59 4 40459: Manual therapy cancelled Raúl Cartagena DPT [address], [place], [address], [facility] 09/03/2024 16:50:59 4 06869 Therapeutic Exercise (1:1) completed Raúl Cartagena DPT [address], [place], [address], [facility] 08/31/2024 19:30:21 4 78045: Manual therapy completed Raúl Cartagena DPT [address], [place], [address], [facility] 08/31/2024 19:30:21 4 74074 Therapeutic Exercise (1:1) completed Raúl Cartagena DPT [address], [place], [address], [facility] 08/30/2024 15:52:47 4 20810: Manual therapy completed Raúl Cartagena DPT [address], [place], [address], [facility] 08/30/2024 15:52:57 4 28298 Therapeutic Exercise (1:1) completed Raúl Cartagena DPT [address], [place], [address], [facility] 08/27/2024 22:34:40 4 59755: Low complexity PT Eval completed Raúl Cartagena DPT [address], [place], [address], [facility] 08/27/2024 22:34:30 4 G8420 BMI Normal, No Follow-Up Plan Required completed Raúl Cartagena DPT [address], [place], [address], [facility] 08/27/2024 22:34:47 4 G8427 Current Medication Documented completed Raúl Cartagena DPT [address], [place], [address], [facility] 08/27/2024 22:34:43 4 14571 Therapeutic Exercise (1:1) completed Raúl Cartagena DPT [address], [place], [address], [facility] 07/02/2024 16:38:56 4 59729: Manual therapy completed Raúl Cartagena DPT [address], [place], [address], [facility] 07/01/2024 15:17:35 4 16984 Therapeutic Exercise (1:1) completed Raúl Cartagena DPT [address], [place], [address], [facility] 06/24/2024 08:58:46 4 17177: Manual therapy completed Raúl Cartagena DPT [address], [place], [address], [facility] 06/25/2024 14:50:24 4 96612 Therapeutic Exercise (1:1) completed Raúl Cartagena DPT [address], [place], [address], [facility] 06/23/2024 13:36:54 4 13613: Manual therapy completed Raúl Cartagena DPT [address], [place], [address], [facility] 06/22/2024 10:06:02 4 77748 Therapeutic Exercise (1:1) completed Raúl Cartagena DPT [address], [place], [address], [facility] 06/18/2024 19:33:27 4 42451: Manual therapy completed Raúl Cartagena DPT [address], [place], [address], [facility] 06/18/2024 19:35:29 4 23068 Therapeutic Exercise (1:1) completed Raúl Cartagena DPT [address], [place], [address], [facility] 06/16/2024 17:00:59 4 80907: Manual therapy completed Raúl Cartagena DPT [address], [place], [address], [facility] 06/15/2024 20:15:51 4 54059 Therapeutic Exercise (1:1) completed Raúl Cartagena DPT [address], [place], [address], [facility] 06/09/2024 22:19:16 4 90639: Manual therapy completed Raúl Cartagena DPT [address], [place], [address], [facility] 06/11/2024 11:42:22 4 71669 Therapeutic Exercise (1:1) completed Raúl Cartagena DPT [address], [place], [address], [facility] 06/09/2024 15:20:26 4 70664: Manual therapy completed Raúl Cartagena DPT [address], [place], [address], [facility] 06/07/2024 20:27:32 4 44811 Therapeutic Exercise (1:1) completed Raúl Cartagena DPT [address], [place], [address], [facility] 06/04/2024 20:48:38 4 48227: Manual therapy completed Raúl Cartagena DPT [address], [place], [address], [facility] 06/04/2024 20:48:49 4 99475 Therapeutic Exercise (1:1) completed Raúl Cartagena DPT [address], [place], [address], [facility] 06/02/2024 11:09:49 4 27491: Low complexity PT Eval completed Raúl Cartagena DPT [address], [place], [address], [facility] [facility] 06/02/2024 11:09:52 4 G8420 BMI Normal, No Follow-Up Plan Required completed Raúl Cartagena DPT [address], [place], [address], [facility] 06/02/2024 11:09:44 4 G8427 Current Medication Documented completed Raúl Cartagena DPT [address], [place], [address], [facility] 06/02/2024 11:09:39 4 94020 Therapeutic Exercise (1:1) completed Raúl Cartagena DPT [address], [place], [address], [facility] 05/13/2024 16:14:46 4 76649: Low complexity PT Eval completed Hongshin Osiel, DPT [address], [place], [address], [facility] 05/13/2024 16:14:50 4 G8420 BMI Normal, No Follow-Up Plan Required completed Raúl Cartagena DPT [address], [place], [address], [facility] 05/13/2024 16:15:07 4 G8427 Current Medication Documented completed Raúl Cartagena DPT [address], [place], [address], [facility] 05/13/2024 16:14:58 4 Knee Kenalog 40mg 2cc Injection, L/R completed Jeremiah Wilkerson MD [address], [place], [address], [facility] 03/10/2024 14:31:18 4 03052 Therapeutic Exercise (1:1) completed Raúl Cartagena DPT [address], [place], [address], [facility] 02/26/2024 19:45:18 4 52449: Manual therapy completed Raúl Cartagena DPT [address], [place], [address], [facility] 02/25/2024 22:36:23 4 [facility] Tylor Duran PA-C [address], [place], [address], [facility] 02/24/2024 15:08:57 4 96674 Therapeutic Exercise (1:1) completed Raúl Cartagena DPT [address], [place], [address], [facility] 02/23/2024 20:48:02 4 21230: Manual therapy completed Raúl Cartagena DPT [address], [place], [address], [facility] 02/24/2024 18:53:36 4 48961 Therapeutic Exercise (1:1) completed Raúl Cartagena DPT [address], [place], [address], [facility] 02/12/2024 22:21:23 4 08241: Manual therapy completed Raúl Cartagena DPT [address], [place], [address], [facility] 02/12/2024 22:19:44 4 38335 Therapeutic Exercise (1:1) completed Raúl Cartagena DPT [address], [place], [address], [facility] 02/09/2024 22:44:52 4 13056: Manual therapy completed Raúl Cartagena DPT [address], [place], [address], [facility] 02/11/2024 03:37:34 4 35315 Therapeutic Exercise (1:1) completed Raúl Cartagena DPT [address] [facility], [place], [address], [facility] 01/28/2024 13:26:19 4 Hip Kenalog Injection, L/R w/US completed Octavio Mayers PA-C [address], [place], [address], [facility] 01/23/2024 10:53:31 4 20433 Therapeutic Exercise (1:1) completed Inna Otoole PTA [address] [facility], [place], [address], [facility] 01/21/2024 10:56:57 4 85113 Therapeutic Exercise (1:1) completed Inna Otoole PTA [address], [place], [address], [facility] 01/19/2024 11:50:11 4 62001: Manual therapy completed Inna Otoole PTA [address], [place], [address], [facility] 01/19/2024 11:57:19 4 39716 Therapeutic Exercise (1:1) completed Raúl Cartagena DPT [address], [place], [address], [facility] 01/13/2024 18:54:45 4 51989: Manual therapy completed Raúl Cartagena DPT [address], [place], [address], [facility] 01/14/2024 09:46:31 4 34742 Therapeutic Exercise (1:1) completed Raúl Cartagena DPT [address], [place], [address], [facility] 01/09/2024 22:38:33 4 61204: Manual therapy completed Raúl Cartagena DPT [address], [place], [address], [facility] 01/09/2024 22:38:33 4 08209 Therapeutic Exercise (1:1) completed Inna Otoole PTA [address], [place], [address], [facility] 01/06/2024 10:28:08 4 39985: Manual therapy completed Inna Otoole STENCIL MAKER [address], [place], [address], [facility] 01/06/2024 10:28:08 4 12732 Therapeutic Exercise (1:1) completed Raúl Cartagena DPT [address], [place], [address], [facility] 12/31/2023 10:37:58 4 28416: Manual therapy completed Raúl Cartagena DPT [address], [place], [address], [facility] 12/31/2023 10:37:55 4 09541 Therapeutic Exercise (1:1) completed Raúl Cartagena DPT [address], [place], [address], [facility] 12/29/2023 12:39:32 4 15709: Manual therapy completed Raúl Cartagena DPT [address], [place], [address], [facility] 12/29/2023 12:39:40 4 97616 Therapeutic Exercise (1:1) completed Raúl Cartagena DPT [address], [place], [address], [facility] 12/24/2023 12:44:23 4 47330: Low complexity PT Eval completed Raúl Cartagena DPT [address], [place], [address], [facility] 12/24/2023 12:44:28 4 G8420 BMI Normal, No Follow-Up Plan Required completed Raúl Cartagena DPT [address], [place], [address], [facility] 12/24/2023 12:44:42 4 G8427 Current Medication Documented completed Raúl Cartagena DPT [address], [place], [address], [facility] 12/24/2023 12:44:31 Imaging Results None recorded. Procedure Notes None recorded. Medical Equipment None Reported. Allergies Allergen ID Allergen Name Allergen Category Reaction Reaction Severity Criticality Documentation Date Start Date Code Code System Note Provider Name and Address Organization Details Recorded Time 727253 Percodan medicatio n Not available Not available Not available 11/24/20232018 86856 RxNorm Not Available [facility] 4 15:38:30 276108 clindamyc in hydrochlo ride medicatio n Not available Not available Not available 11/24/20232018 71871 RxNorm Not Available [facility] 4 15:38:30 216648 acetamino phen / oxycodone medicatio n Not available Not available Not available 11/24/20232018 58929 3 RxNorm Not Available [facility] 4 15:38:30 210853 fentanyl medicatio n Not available Not available Not available 07/23/2024 4337 RxNorm Cari wilson [place] - [facility] 4 13:08:52 Medications Name Sig Start Date Stop Date Status Note LastModified by Organization Details LastModified Time Prescriptio n - Clarificati on 09/28 completed trade clerk 3-8-2 024 Not Available Not Available Not [...] Status Former Smoker Denia wilson [place] - [facility] 07/02/2024 13:17:27 When Did You [...] you consume alcohol? 1-2 times per week [email or web address] Information not available 03/17/2025 Do you use any illicit or recreational drugs? No Information not available 07/02/2024 Do you or have you ever used any other forms of tobacco or nicotine? No Information not available 07/02/2024 What is your level of alcohol consumption? Occasional [email or web address] Information not available 03/17/2025 Do you or have you ever used e-cigarettes or vape? Never used electronic cigarettes Information not available 07/02/2024 Mental Status None recorded. Family History Nothing Reported. Medical History Condition Response Anxiety/Depression Y Acid Reflux (GERD) Y Arthritis Y Hypertension Y Cholesterol Y Gynecological HistoryNo gynecological history recorded. Obstetrics History GPAL:G 0 P 0 0 0 0 Past Encounters Encounter ID Performer Location Encounter Start Date Encounter Closed Date Diagnosis/Indication Diagnosis SNOMED-CT Code Diagnosis ICD10 Code Diagnosis IMO Codes Diagnosis Note [id number] BRANDEE Pereira [address] [place] [address] 12/03/2023 12:43:16 12/03/2023 14:00:39 Osteoarthritis of right knee joint 4431704886 09305 M17.11 Pain of ri ght knee joint 5662158501 28529 M25.645 [id number] MD Diane Casillas 2nd floor [address] [place] [address] 12/03/2023 14:56:38 12/09/2023 10:04:53 [id number] DILIP Ocampo PT [address] [place] [address] 12/24/2023 11:15:19 12/24/2023 12:20:58 Aftercare [id number] Z47.1 History of right total knee replacement 9043699986 172490 Z96.820 [id number] Kem Rodriguez PA-C [facility] [address] [place] [address] 12/22/2023 15:07:58 01/10/2024 15:11:25 Aftercare 919787607 Z51.89 Z47.1 History of right total knee replacement 4096237833 902719 Z96.946 [id number] CARLA OcampoT [facility] [address] [place] [address] 12/29/2023 09:53:13 12/29/2023 10:48:45 Aftercare 245484149 Z47.1 History of right total knee replacement 3068996202 805170 Z96.242 [id number] CARLA OcampoT [facility] [address] [place] [address] 12/31/2023 09:54:00 12/31/2023 10:57:00 Aftercare 909292694 Z47.1 History of right total knee replacement 8389728679 156182 Z96.546 [id number] Inna Otoole, STENCIL MAKER [facility] [address] [place] [address] 01/06/2024 10:21:42 01/06/2024 11:13:17 Aftercare 079748236 Z47.1 History of right total knee replacement 6397289150 576334 Z96.591 [id number] Ghazala Curry PA-C [facility] [address] [place] [address] 01/08/2024 10:22:29 01/30/2024 13:19:27 Postoperative visit 891366332 Z48.89 Knee joint prosthesis present 3657899848 02 Z96.213 [id number] Raúl Cartagena DPT [facility] [address] [place] [address] 01/12/2024 08:55:06 01/12/2024 10:29:31 Aftercare 473853571 Z47.1 History of right total knee replacement 5365360668 487793 Z96.297 [id number] CARLA OcampoT [facility] [address] [place] [address] 01/14/2024 08:55:04 01/14/2024 09:32:56 Aftercare 488071427 Z47.1 History of right total knee replacement 5285914372 731699 Z96.690 [id number] Damalejandroana Fudge, STENCIL MAKER [facility] [address] [place] [address] 01/19/2024 10:22:49 01/19/2024 12:06:43 Aftercare 576064810 Z47.1 History of right total knee replacement 0301756447 543098 Z96.666 [id number] Damalejandrojori Fudge, STENCIL MAKER [facility] [address] [place] [address] 01/21/2024 10:22:54 01/21/2024 11:05:17 Aftercare 073080683 Z47.1 History of right total knee replacement 7754287219 452918 Z96.727 [id number] Octavio Mayers PA-C [facility] [place] [address] 01/23/2024 09:48:34 02/05/2024 08:50:52 Osteoarthritis of hip 886080918 M16.9 [id number] Ghazala Curry PA-C [facility] [place] [address] 01/26/2024 11:03:47 02/19/2024 20:46:55 Postoperative visit 102760745 Z48.89 Knee joint prosthesis present 9309640601 02 Z96.940 [id number] Raúl Cartagena DPT [facility] [address] [place] [address] 01/28/2024 09:52:32 01/28/2024 10:33:20 Aftercare 305313398 Z47.1 History of right total knee replacement 0639825026 926160 Z96.927 [id number] CARLA OcampoT [facility] [address] [place] [address] 02/10/2024 13:24:09 02/10/2024 14:06:23 Aftercare 466423558 Z47.1 History of right total knee replacement 4536864452 307491 Z96.047 [id number] Raúl Cartagena DPRegi [facility] [address] [place] [address] 02/13/2024 14:23:25 02/13/2024 15:50:36 Aftercare 685134117 Z47.1 History of right total knee replacement 3456929065 558498 Z96.957 [id number] Raúl Cartagena DPT [facility] [address] [place] [address] 02/24/2024 13:26:55 02/24/2024 14:40:32 Aftercare 536187961 Z47.1 History of right total knee replacement 5034147705 339888 Z96.343 [id number] Tylor Duran PA-C [facility] [address] [place] [address] 02/24/2024 14:27:29 03/09/2024 08:51:32 Osteoarthritis of hip 155109872 M16.9 [id number] Raúl Cartagena DPT [facility] [address] [place] [address] 02/26/2024 13:22:30 02/26/2024 14:06:11 Aftercare 760713294 Z47.1 History of right total knee replacement 5995654908 451148 Z96.278 [id number] Jeremiah Wilkerson MD [facility] [address] [place] [address] 03/10/2024 13:03:03 04/06/2024 10:40:51 Osteoarthritis of right hip joint 1422963832 57755 M16.11 Osteoarthr itis of left knee joint 1579657672 01692 M17.12 [id number] MD Igor Sheehannisandy [address] [place] [address] 04/09/2024 08:28:39 04/09/2024 11:23:39 Pain of right hip joint 4595547141 39643 M25.551 Osteoarthr itis of right hip joint 1284142606 44541 M16.11 Osteoarthr itis of left hip joint 6886327916 78009 M16.12 [id number] Tri Shresthacliffe, PROOF COINS INSPECTOR [facility] [address] [place] [address] 05/12/2024 08:20:39 05/29/2024 04:08:17 [id number] Raúl Cartagena DPT [facility] [address] [place] [address] 05/13/2024 15:16:49 05/13/2024 16:50:02 Osteoarthritis of hip 187294345 M16.11 [id number] Raúl Cartagena DPT [facility] [address] [place] [address] 06/02/2024 10:22:41 06/02/2024 12:11:54 Aftercare 274839949 Z47.1 Z96.378 [id number] Raúl Cartagena DPT [facility] [address] [place] [address] 06/04/2024 14:28:29 06/04/2024 15:20:57 Aftercare 620382262 Z47.1 Z96.128 [id number] Kem Rodriguez PA-C [facility] [address] [place] [address] 06/04/2024 13:23:41 06/25/2024 13:18:35 History of total replacement of right hip joint 5181273749 81741 Z96.296 [id number] Raúl Cartagena DPT [facility] [address] [place] [address] 06/09/2024 13:28:03 06/09/2024 14:34:45 Aftercare 475752114 Z47.1 Z96.511 [id number] Raúl Cartagena DPT [facility] [address] [place] [address] 06/11/2024 10:24:53 06/11/2024 13:41:34 Aftercare [id number] Z47.1 Z96.852 [id number] Juliocesarrudy Osiel, DPT [facility] [address] [place] [address] 06/16/2024 15:25:13 06/16/2024 16:52:49 Aftercare 655376541 Z47.1 Z96.864 [id number] Raúl Cartagena, DPT [facility] [address] [place] [address] 06/18/2024 16:00:17 06/21/2024 09:25:49 Aftercare 152534401 Z47.1 Z96.586 [id number] Raúl Cartagena, DPT [facility] [address] [place] [address] 06/23/2024 13:28:06 06/23/2024 14:14:22 Aftercare 535099825 Z47.1 Z96.766 [id number] Raúl Cartagena DPT [facility] [address] [place] [address] 06/25/2024 13:24:27 06/25/2024 14:45:44 Aftercare 087921011 Z47.1 Z96.801 [id number] Raúl Cartagena DPT [facility] [address] [place] [address] 07/02/2024 13:56:14 07/02/2024 16:05:03 Aftercare 147650785 Z47.1 Z96.059 [id number] Raúl Wilhelm MD [facility] [address] [place] [address] 07/02/2024 13:06:57 07/22/2024 14:06:00 History of total replacement of right hip joint 3114070603 07058 Z96.641 Osteoarthr itis of left hip joint 2355782670 49030 M16.12 [id number] Amanda Danielle APRN [facility] [address] [place] [address] 07/13/2024 10:31:00 07/31/2024 03:58:27 Osteoarthritis of left hip joint 9318496410 39669 M16.12 [id number] Kenyon Bagley PA-C [facility] [address] [place] [address] 07/23/2024 12:58:07 08/12/2024 06:05:11 History of repair of hip joint 922035474 Z96.135 [id number] Raúl Cartagena, DILIP [facility] [address] [place] [address] 08/27/2024 13:57:09 08/27/2024 14:51:42 Aftercare 633339833 Z47.1 Z96.481 [id number] Raúl Wilhelm MD [facility] [address] [place] [address] 08/26/2024 13:34:47 09/10/2024 15:41:59 History of total replacement of left hip joint 9079077467 383589 Z96.642 [id number] Raúl Cartagena DPT [facility] [address] [place] [address] 08/30/2024 14:26:08 08/30/2024 15:24:42 Aftercare 913765221 Z47.1 Z96.121 [id number] Raúl Cartagena DPT [facility] [address] [place] [address] 09/01/2024 14:18:26 09/01/2024 14:47:17 Aftercare 630170052 Z47.1 Z96.749 [id number] Raúl Cartagena DPT [facility] [address] [place] [address] 09/16/2024 16:17:45 09/16/2024 17:16:59 Aftercare 258003105 Z47.1 Z96.113 [id number] Raúl Cartagena DPT [facility] [address] [place] [address] 09/23/2024 10:54:26 09/23/2024 11:39:07 Aftercare 522511484 Z47.1 Z96.450 [id number] Raúl Wilhelm MD [facility] [address] [place] [address] 09/28/2024 14:50:38 10/13/2024 08:36:50 History of repair of hip joint 745271430 Z96.943 [id number] [id number] Raúl Cartagena DPT [facility] [address] [place] [address] 10/01/2024 09:19:34 10/01/2024 10:19:36 Aftercare [id number] Z47.1 Z96.411 [id number] Raúl Cartagena DPT [facility] [address] [place] [address] 10/05/2024 14:56:44 10/05/2024 15:31:48 Aftercare 896051530 Z47.1 Z96.260 [id number] Raúl Cartagena DPT [facility] [address] [place] [address] 10/14/2024 13:17:27 10/14/2024 17:54:51 Aftercare [id number] Z47.1 Z96.898 [id number] Raúl Cartagena DPT [facility] [address] [place] [address] 10/22/2024 14:12:33 10/22/2024 15:17:21 Aftercare 116615351 Z47.1 Z96.067 [id number] ESTEFANIA [facility] [address] [place] [address] 10/29/2024 08:49:23 11/17/2024 09:55:29 Osteoarthritis of joint of left shoulder region 9783669826 21415 M19.931 [id number] PLANThe patient has done well with conservati ve management in regards to the shoulder with good clinical response to injections in the past. Recommend continued conservati ve management with repeat injection( s) today. Moderating activities with the upper extremity recommende d also. See procedure notes for injection details. [id number] [facility] [address] [place] [address] 11/02/2024 16:43:35 11/02/2024 17:32:53 Aftercare 648635920 Z47.1 Z96.344 [id number] ESTEFANIA Stratton 2nd floor [address] [place] [address] 01/13/2025 10:36:20 01/26/2025 14:51:25 Osteoarthritis of joint of left shoulder region 3148850871 49493 M19.695 [id number] Reviewed Sandra's imaging and exam findings in [...] shoulder replacemen t further. Bilateral shoulder osteoarthritis 6073345032 54807 M19.011 M19.012 [id number] Osteoarthr itis of right glenohumeral joint 5862469017 454420 M19.011 [id number] In regards to her right shoulder she [...] food. Prescribed celebrex 200 mg PO daily [id number] Raúl Cartagena DPT [facility] [address] [place] [address] 02/04/2025 09:52:59 02/04/2025 10:54:50 Osteoarthritis of joint of left shoulder region 9183437125 67921 M19.426 [id number] Raúl Cartagena DPT [facility] [address] [place] [address] 02/09/2025 09:55:36 02/09/2025 10:54:17 Osteoarthritis of joint of left shoulder region 3034090559 56953 M19.452 [id number] [id number] Tino Mona STENCIL MAKER [facility] [address] [place] [address] 02/16/2025 09:51:23 02/16/2025 10:44:44 Osteoarthritis of joint of left shoulder region 5145981886 67532 M19.794 [id number] Tino Dunn STENCIL MAKER [facility] [address] [place] [address] 02/18/2025 09:48:15 02/18/2025 10:32:15 Osteoarthritis of joint of left shoulder region 5971284209 60621 M19.541 [id number] Tino Dunn STENCIL MAKER [facility] [address] [place] [address] 02/23/2025 09:55:03 02/23/2025 10:51:11 Osteoarthritis of joint of left shoulder region 7484425716 24177 M19.703 [id number] [id number] Raúl Cartagena DPT [facility] [address] [place] [address] 03/02/2025 09:46:17 03/02/2025 10:37:52 Osteoarthritis of joint of left shoulder region 7018852040 52503 M19.371 [id number] Tino Dunn, STENCIL MAKER [facility] [address] [place] [address] 03/08/2025 09:57:15 03/08/2025 11:23:02 Osteoarthritis of joint of left shoulder region 1080906458 61499 M19.595 9370286 [id number] Tino Dunn, STENCIL MAKER [facility] [address] [place] [address] 03/10/2025 10:00:17 03/10/2025 10:47:11 Osteoarthritis of joint of left shoulder region 6421734232 83190 M19.346 0488001 [id number] Tino Dunn STENCIL MAKER [facility] [address] [place] [address] 03/16/2025 09:56:14 03/16/2025 11:29:02 Osteoarthritis of joint of left shoulder region 3222574653 15842 M19.991 [id number] [id number] Guzman Hamlin MD [facility] [address] [place] [address] 03/17/2025 14:36:40 03/29/2025 15:43:06 Osteoarthritis of joint of left shoulder region 5207923748 31138 M19.807 [id number] Reviewed Sandra's imaging and exam findings in [...] our office immediatel y. Bilateral shoulder osteoarthritis 3224598103 82661 M19.011 M19.012 [id number] Osteoarthr itis of right glenohumeral joint 1889002421 834154 M19.011 [id number] In regards to her right shoulder she [...] food. Prescribed celebrex 200 mg PO daily [id number] Kem Rodriguez PA-C [facility] [address] [facility] [address] [place] [address] 06/30/2025 10:53:20 07/08/2025 13:44:19 History of total arthroplasty of left shoulder 9557876202 2548096 Z96.612 63616034 [id number] CARLA OcampoT [facility] [address] [place] [address] 07/04/2025 10:26:14 07/04/2025 11:50:42 Aftercare 813065518 Z47.1 Z96.473 [id number] CARLA OcampoT [facility] [address] [place] [address] 07/06/2025 10:30:12 07/06/2025 11:03:30 Aftercare [id number] Z47.1 Z96.971 [id number] Tino Clemonsri, STENCIL MAKER [facility] [address] [place] [address] 07/12/2025 10:55:48 07/12/2025 11:37:01 Aftercare [id number] Z47.1 Z96.614 [id number] CARLA OcampoT [facility] [address] [place] [address] 07/15/2025 13:00:40 07/15/2025 13:47:51 Aftercare [id number] Z47.1 Z96.572 [id number] Raúl Cartagena DPT [facility] [address] [place] [address] 07/19/2025 09:56:29 07/19/2025 10:33:11 Aftercare 880181605 Z47.1 Z96.004 [id number] CARLA OcampoT [facility] [address] [place] [address] 07/21/2025 09:55:32 07/21/2025 10:30:36 Aftercare [id number] Z47.1 Z96.759 [id number] Juliocesarrudy Osiel, DPT [facility] [address] [place] [address] 07/26/2025 11:21:50 07/26/2025 12:22:20 Aftercare [id number] Z47.1 Z96.544 [id number] Raúl Cartagena, DPT [facility] [address] [place] [address] 07/28/2025 11:29:10 07/28/2025 12:27:04 Aftercare [id number] Z47.1 Z96.828 [id number] Tino Dunn, [employer] [facility] [address] [place] [address] 08/01/2025 09:45:00 08/01/2025 10:53:58 Aftercare [id number] Z47.1 Z96.612 Health Concerns Section Related Observation LastModified by Organization Detai ls LastModified Time None Recorded Concern Status LastModified by Organization Details LastModified Time None Recorded Advance Directives Directive None Recorded Payers Insurance Date Sequence Insurance Name Policy Number Policy Fuller Covered Member ID Fuller Member ID Guarantor Name 07/29/2025 2 WEB-[id number] Mary Beth Sanchez [id number] Mary Beth Sanchez 07/29/2025 1 [place] [employer]MENT [place] Mary Beth Sanchez [id number] Mary Beth Sanchez 08/20/2024 2 [place] CONFERENCE [facility] (MEDICARE SUPPLEMENT) Mary Beth Sanchez 07/29/2025 [place] - SPECIALITY CLAIMS (MEDICARE DME REGION A) Mary Beth Sanchez [id number] Mary Bteh Sanchez Notes Date Note Type Note Provider Name and Address Organization Details Recorded Time 07/19/2025 text/html Pt reports feeling occasional pain in the biceps region.Pains 11/29 at rest Raúl Cartagena, DPT [address], [place], [address], [facility] 07/19/2025 15:08:26 07/21/2025 text/html Pt reports feeling occasional pain in the biceps region. Feeling the same from [place].Pains 3/10 at rest Raúl Cartagena, DPT [address], [place], [address], [facility] 07/21/2025 10:53:08 07/26/2025 text/html Pt reports feeling occasional pain in the biceps region. Feeling the same from [place].Pains 3/10 at rest Raúl Cartagena, DPT [address], [place], [address], [facility] 07/26/2025 15:57:09 07/28/2025 text/html Pt reports feeling occasional pain in the biceps region. 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 2/10 pain. Tino Dunn, STENCIL [employer]ER [address], [place], [address], [facility] 08/01/2025 10:38:17 OBGyn Episode No OBEpisode recorded.
== END 2025-08-02 09:22 | disposition home or self-care (01) ==
LOC: HO.ENCR 08:48
PROVIDERS: PCP Internal Medicine; Visit Provider Internal Medicine Endocrinology, Diabetes & Metabolism
DX: M81.0 Age-related osteoporosis without current pathological fracture (principal)
CPT/HCPCS: 99213

== ENCOUNTER → 2025-08-02 08:47 | Outpatient (BNVA) | payer MEDICARE, OTHER, SELFPAY | PROVIDERS: PCP Internal Medicine; Visit Provider Internal Medicine Endocrinology, Diabetes & Metabolism | DX: M81.0 Age-related osteoporosis without current pathological fracture (principal) | CPT/HCPCS: 99212 ==